=== PATIENT | male | born 1945 | race Caucasian/White ===

== ENCOUNTER 2023-04-27 10:42 | Outpatient (RCR) | payer OTHER, SELFPAY ==
[2023-04-01 11:26] VITALS: BP 147/82
[2023-04-01] MEDS: CUBICIN 120 MG IV (11:32)
[2023-04-01] MEDS: ROCEPHIN 70 MG IV (12:12)
[2023-04-02 11:02] VITALS: BP 151/79
[2023-04-02] MEDS: CUBICIN 120 MG IV (11:22)
[2023-04-02] MEDS: ROCEPHIN 70 MG IV (12:15)
[2023-04-02 12:17] VITALS: BP 129/73
[2023-04-03] MEDS: CUBICIN 120 MG IV (11:15)
[2023-04-03 11:18] VITALS: BP 119/67
[2023-04-03] MEDS: ROCEPHIN 70 MG IV (12:02)
[2023-04-04 08:54] VITALS: BP 111/51
[2023-04-04] MEDS: CUBICIN 120 MG IV (09:35)
[2023-04-04] MEDS: ROCEPHIN 70 MG IV (10:24)
[2023-04-05 10:00] VITALS: BP 128/62
[2023-04-05] MEDS: ROCEPHIN 70 MG IV (10:18)
[2023-04-05 10:40] LABS: % Basophils 0.8 % (0-2); % Eosinophils 3.3 % (0-6); % Immature Granulocytes 0.6 % (0-0.5); % Lymphocytes 12.2 % (20.5-51.1); % Monocytes 12.2 % (1.7-9.3); % Neutrophils 70.9 % (42.2-75.2); Absolute Basophils 0.1 10^3/uL (0-0.2); Absolute Eosinophils 0.3 10^3/uL (0-0.7); Absolute Immature Granulocytes 0.1 10^3/uL (0-0.05); Absolute Lymphocytes 1.1 10^3/uL (1.2-3.4); Absolute Monocytes 1.1 10^3/uL (0.1-0.6); Absolute Neutrophils 6.2 10^3/uL (1.4-6.5); Hematocrit 31.7 % (39.0-52.0); Mean Corp Hgb Conc. 34.7 g/dL (33.0-37.0); Mean Corpuscular Hgb 29.9 pg (27.0-31.0); Mean Corpuscular Volume 86.1 fL (80.0-94.0); Mean Platelet Volume 11.1 fL (7.4-10.4); Nucleated Red Blood Cells % 0 % (-); Platelet Count 126 10^3/uL (130-400); Red Blood Cell Count 3.68 10^6/uL (4.70-6.10); Red Cell Dist. Width 13.4 % (11.5-14.5); White Blood Cell Count 8.8 10^3/uL (4.8-10.8)
[2023-04-05 10:52] LABS: ALT (SGPT) 48 U/L (0-50); AST (SGOT) 71 U/L (17-59); Albumin 3.1 g/dl (3.5-5.0); Alkaline Phosphatase 86 U/L (38-126); Blood Urea Nitrogen 35 mg/dl (9-20); Calcium 8.7 mg/dl (8.4-10.2); Carbon Dioxide 21 mmol/L (22-30); Chloride 103 mmol/L (98-107); Glucose 226 mg/dl (70-99); Potassium 3.8 mmol/L (3.5-5.1); Sodium 135 mmol/L (135-145); Total Protein 5.7 g/dl (6.3-8.2); eGFR 44.65
[2023-04-05] MEDS: CUBICIN 120 MG IV (10:58)
[2023-04-05 13:41] LABS: Creatine Phosphokinase 655 U/L (55-170)
[2023-04-06 10:05] VITALS: BP 120/62
[2023-04-06] MEDS: ROCEPHIN 70 MG IV (10:12)
[2023-04-06 10:54] LABS: Creatine Phosphokinase 338 U/L (55-170)
[2023-04-06] MEDS: CUBICIN 120 MG IV (11:13)
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
--- NOTE | 2023-04-06 16:00 | PTCARENOTE ---
pt arrived to D for his treatment. Pt friend Geo verbalized concern about increasing state of confusion. Wade arrived at Geo's house yesterday asking about his appointment today thinking it was yesterday. While treating patient today, he
slept majority of infusion and while awake repeated the same question multiple times. Pt reoriented to place/time. Notified Paola Moreira CHIEF CLERK SHELTER to assess patient and contact primary care provider to gather baseline cognitive status. Primary care
requested patient to go to ER for further evaluation.
[2023-04-15 11:00] VITALS: BP 139/72
[2023-04-15] MEDS: ROCEPHIN 70 MG IV (11:15)
[2023-04-15] MEDS: VANCOCIN 200 IV (11:55)
[2023-04-16 10:55] VITALS: BP 141/75
[2023-04-16] MEDS: ROCEPHIN 70 MG IV (11:01)
[2023-04-16] MEDS: VANCOCIN 200 IV (11:33)
[2023-04-17 08:58] VITALS: BP 138/79
[2023-04-17] MEDS: ROCEPHIN 70 MG IV (09:04)
[2023-04-17] MEDS: VANCOCIN 200 IV (09:41)
[2023-04-18] MEDS: ROCEPHIN 70 MG IV (08:48)
[2023-04-18 08:50] VITALS: BP 127/65
[2023-04-18] MEDS: VANCOCIN 200 IV (09:29)
[2023-04-19 11:45] VITALS: BP 155/77
[2023-04-19] MEDS: ROCEPHIN 70 MG IV (11:52)
[2023-04-19 12:16] LABS: % Basophils 0.2 % (0-2); % Eosinophils 0.6 % (0-6); % Immature Granulocytes 0.5 % (0-0.5); % Lymphocytes 12.9 % (20.5-51.1); % Monocytes 6.9 % (1.7-9.3); % Neutrophils 78.9 % (42.2-75.2); Absolute Eosinophils 0.1 10^3/uL (0-0.7); Absolute Immature Granulocytes 0.1 10^3/uL (0-0.05); Absolute Monocytes 1.1 10^3/uL (0.1-0.6); Absolute Neutrophils 12.1 10^3/uL (1.4-6.5); Hematocrit 36.7 % (39.0-52.0); Hemoglobin 12.4 g/dL (13.0-18.0); Mean Corp Hgb Conc. 33.8 g/dL (33.0-37.0); Mean Corpuscular Hgb 30.1 pg (27.0-31.0); Mean Corpuscular Volume 89.1 fL (80.0-94.0); Mean Platelet Volume 11.4 fL (7.4-10.4); Nucleated Red Blood Cells % 0 % (-); Platelet Count 150 10^3/uL (130-400); Red Blood Cell Count 4.12 10^6/uL (4.70-6.10); Red Cell Dist. Width 14.5 % (11.5-14.5); White Blood Cell Count 15.4 10^3/uL (4.8-10.8)
[2023-04-19] MEDS: VANCOCIN 200 IV (12:28)
[2023-04-19 12:33] LABS: ALT (SGPT) 41 U/L (0-50); AST (SGOT) 25 U/L (17-59); Albumin 3.3 g/dl (3.5-5.0); Alkaline Phosphatase 91 U/L (38-126); Blood Urea Nitrogen 37 mg/dl (9-20); Calcium 8.4 mg/dl (8.4-10.2); Carbon Dioxide 25 mmol/L (22-30); Chloride 106 mmol/L (98-107); Glucose 254 mg/dl (70-99); Potassium 4.5 mmol/L (3.5-5.1); Sodium 136 mmol/L (135-145); Total Bilirubin 0.5 mg/dl (0.2-1.3); Total Protein 5.9 g/dl (6.3-8.2); eGFR 48.25
[2023-04-19 12:36] LABS: Vancomycin Trough 12.7 ug/ml (5-20)
[2023-04-20 10:55] VITALS: BP 155/71
[2023-04-20] MEDS: ROCEPHIN 70 MG IV (11:10)
[2023-04-20] MEDS: VANCOCIN 200 IV (11:42)
[2023-04-21] MEDS: ROCEPHIN 70 MG IV (10:51)
[2023-04-21 11:07] VITALS: BP 166/72
[2023-04-21] MEDS: VANCOCIN 200 IV (11:28)
[2023-04-22 10:58] VITALS: BP 141/68
[2023-04-22] MEDS: VANCOCIN 200 IV (11:06)
[2023-04-22] MEDS: ROCEPHIN 70 MG IV (12:12)
[2023-04-23 11:00] VITALS: BP 150/67
[2023-04-23] MEDS: ROCEPHIN 70 MG IV (11:09)
[2023-04-23] MEDS: VANCOCIN 200 IV (11:47)
[2023-04-24 08:53] VITALS: BP 146/69
[2023-04-24] MEDS: ROCEPHIN 70 MG IV (08:55)
[2023-04-24] MEDS: VANCOCIN 200 IV (09:36)
[2023-04-25 10:10] VITALS: BP 160/82
[2023-04-25] MEDS: ROCEPHIN 70 MG IV (10:10)
[2023-04-25] MEDS: VANCOCIN 200 IV (10:45)
[2023-04-26 10:56] VITALS: BP 151/66
[2023-04-26] MEDS: ROCEPHIN 70 MG IV (11:07)
[2023-04-26 11:24] LABS: % Basophils 0.5 % (0-2); % Eosinophils 7.1 % (0-6); % Immature Granulocytes 0.3 % (0-0.5); % Lymphocytes 17.7 % (20.5-51.1); % Monocytes 6.7 % (1.7-9.3); % Neutrophils 67.7 % (42.2-75.2); Absolute Eosinophils 0.6 10^3/uL (0-0.7); Absolute Lymphocytes 1.4 10^3/uL (1.2-3.4); Absolute Monocytes 0.5 10^3/uL (0.1-0.6); Absolute Neutrophils 5.3 10^3/uL (1.4-6.5); Hematocrit 34.7 % (39.0-52.0); Hemoglobin 11.6 g/dL (13.0-18.0); Mean Corp Hgb Conc. 33.4 g/dL (33.0-37.0); Mean Corpuscular Hgb 30.2 pg (27.0-31.0); Mean Corpuscular Volume 90.4 fL (80.0-94.0); Nucleated Red Blood Cells % 0 % (-); Red Blood Cell Count 3.84 10^6/uL (4.70-6.10); Red Cell Dist. Width 14.9 % (11.5-14.5); White Blood Cell Count 7.8 10^3/uL (4.8-10.8)
[2023-04-26 11:35] LABS: ALT (SGPT) 29 U/L (0-50); AST (SGOT) 18 U/L (17-59); Alkaline Phosphatase 99 U/L (38-126); Blood Urea Nitrogen 28 mg/dl (9-20); Calcium 8.4 mg/dl (8.4-10.2); Carbon Dioxide 24 mmol/L (22-30); Chloride 102 mmol/L (98-107); Glucose 378 mg/dl (70-99); Potassium 4.3 mmol/L (3.5-5.1); Sodium 134 mmol/L (135-145); Total Bilirubin 0.6 mg/dl (0.2-1.3); Total Protein 5.4 g/dl (6.3-8.2)
[2023-04-26 11:38] LABS: Vancomycin Trough 11.2 ug/ml (5-20)
[2023-04-26] MEDS: VANCOCIN 200 IV (11:43)
[2023-04-26 11:50] LABS: Platelet Count 90 10^3/uL (130-400)
[2023-04-26 12:47] LABS: eGFR 52.41
[2023-04-27] MEDS: ROCEPHIN 70 MG IV (11:10)
[2023-04-27 11:16] VITALS: BP 158/70
[2023-04-27 11:32] LABS: % Basophils 0.5 % (0-2); % Immature Granulocytes 0.3 % (0-0.5); % Lymphocytes 16.4 % (20.5-51.1); % Monocytes 6.7 % (1.7-9.3); % Neutrophils 67.1 % (42.2-75.2); Absolute Eosinophils 0.7 10^3/uL (0-0.7); Absolute Lymphocytes 1.2 10^3/uL (1.2-3.4); Absolute Monocytes 0.5 10^3/uL (0.1-0.6); Absolute Neutrophils 4.9 10^3/uL (1.4-6.5); Hematocrit 33.3 % (39.0-52.0); Hemoglobin 11.2 g/dL (13.0-18.0); Mean Corp Hgb Conc. 33.6 g/dL (33.0-37.0); Mean Corpuscular Hgb 29.9 pg (27.0-31.0); Red Blood Cell Count 3.74 10^6/uL (4.70-6.10); Red Cell Dist. Width 14.6 % (11.5-14.5); White Blood Cell Count 7.3 10^3/uL (4.8-10.8)
[2023-04-27 11:33] LABS: Platelet Count 81 10^3/uL (130-400)
[2023-04-27] MEDS: VANCOCIN 200 IV (11:54)
--- NOTE | 2023-04-27 12:52 | PTCARENOTE ---
Addendum entered by Aleyda Alexander RN 04/27/23 13:47:
1330 PICC line, total catheter length 46cm removed without incident. Dressing applied, no redness or bleeding noted. Instructed patient to leave dressing in place x 24 hours. Pt discharged in good condition.
Original Note:
1143 CBC resulted Platelet count 81,000 Dr. Morrison notified via tiger text. IV antibiotics to be discontinued today and PICC line removed.Written orders obtained. Patient to have follow up labs in one week, script given to patient and daughter.
Bleeding precautions reviewed with patient and daughter as well as printed information about platelet precautions. Patient has follow up in one week with Dr. Morrison.
== END 2023-04-28 23:59 | disposition home or self-care (01) ==
LOC: OID 10:42
PROVIDERS: ATTENDING PHYSICIAN Internal Medicine Infectious Disease; FAMILY PHYSICIAN Family Medicine
DX: U07.1 COVID-19 (principal); I38 Endocarditis, valve unspecified (principal); J80 Acute respiratory distress syndrome; J82.81 Chronic eosinophilic pneumonia; J70.4 Drug-induced interstitial lung disorders, unspecified; T36.8X5A Adverse effect of other systemic antibiotics, initial encounter; N17.8 Other acute kidney failure; N14.19 Nephropathy induced by other drugs, medicaments and biological substances; M62.82 Rhabdomyolysis; G92.8 Other toxic encephalopathy; B96.4 Proteus (mirabilis) (morganii) as the cause of diseases classified elsewhere; I05.9 Rheumatic mitral valve disease, unspecified; Z89.429 Acquired absence of other toe(s), unspecified side
CPT/HCPCS: 36415; 36589; 36591; 80053; 80202; 82550; 85025; 96365; 96366; 96367; J0878

== ENCOUNTER 2023-05-18 12:59 | Inpatient (IN) | payer OTHER, SELFPAY ==
[2023-05-18] VITALS (8 sets, daily range): BP systolic 112–145; BP diastolic 61–78; BMI 32.7
[2023-05-18 08:42] LABS: Glucose - Point of Care 175 mg/dl (70-99)
--- NOTE | 2023-05-18 09:05 | W.PN.CD ---
Today's Communication / Plan
-
Impression / Plan
-
Impression: 77M with severe CAD not amenable to PCI/CABG, presumed IE not a surgical candidate, and poorly controlled DM with HBA1c of 12.7% presenting for JACINTA. He developed anxiety, hypertension, angina, and dyspnea that improved but did not
resolve with SL NTG.
Plan:
HF - I think he developed hypertension that caused angina and then HF. It is now improved with SL NTG.
- Lasix 20 IV now
- increase IMDUR to 60 po qd
- Check CXR and follow up echocardiogram
- admission
Possible IE
- TTE & CT looks like it could be caseous mitral annular calcification, which would be better than IE.
- Will let CTS know we couldn't get JACINTA yet and he's in house.
Osteomyelitis
Severe multivessel coronary disease
- CAD is severe and is not amenable to surgery or PCI.
- Intensify medical therapy as above
ICM EF 40-45%/HFmEF - GDMT as hemodynamics and renal function will permit.
IDDM - HgbA1C = 12.7%.
CKD
Dispo -
Subjective: Dictated
Data:
Echo Mar 17: Left ventricular ejection fraction is 40-45%. Severe hypokinesis of the mid anteroseptal, inferoseptal, apical septal, and apical septal knutson. No LV thrombus present (contrast agent used).�
There is a large round echodense structure essentially comprising the�posterior mitral valve leaflet, measuring approximately 2.5 cm x 2.5 cm in diameter.� It is not highly mobile but appears to be partially obstructing mitral valve inflow (mean
gradient 4 mmHg). The anterior leaflet appears to be unaffected and looks structurally normal with normal mobility.� Mild to moderate mitral regurgitation.�
Cardiac Catheterization, 12/18/2022: Systemic hypertension. Top normal left and right heart filling pressures with borderline mild pulmonary hypertension. Inferoapical and apical akinesis with EF 41%. Severe diffuse and multisegment triple-vessel
CAD as described.� There is no option for percutaneous or surgical revascularization.
Physical Exam
Vital Signs/Labs
05/17/23 05/18/23 05/19/23
06:59 06:59 06:59
Actual Weight 202 lb 9.677 oz
Data Reviewed
-
Date of Service: May 18, 2023
--- NOTE | 2023-05-18 10:01 | HPS.HSE ---
Family Physician
-
Family Physician: Johnson Barker
Chief Complaint
-
Chest pain.
History of Present Illness
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
elective JACINTA. Prior to procedure patient became agitated, developed severe pressure-like chest pain. At that time he noted to have elevated blood pressure with systolic up to 180. Nitroglycerin spray was administered shortly after with
improvement of BP and chest pain. Procedure was aborted. Patient is being admitted for further evaluation.
At the time of my evaluation patient is chest pain-free, hemodynamically stable with no evidence for distress.
Medical History
Past Medical History
Past Medical History: Reports CAD, CHF, IDDM and Other (Infective endocarditis of mitral valve)
Past Surgical History: Reports Other (Toe amputation)
Social History
Tobacco: Non-smoker
Alcohol: None
Drug: None
Living: With Family
Family History
Family History: Not pertinent
Allergies / Home Medications
Allergies reflects when Allergies were last updated in [email or web address].
Home Medications with original date entered in [email or web address]
Allergy/Medication List:
Allergies
Allergy/AdvReac Type Severity Reaction Status Date / Time
daptomycin Allergy Pneumonitis/LISA/elev Verified 04/27/23 11:14
transaminases
Home Medications
aspirin 81 mg chewable tablet 81 mg PO DAILY Blood Clot Prevention/Tx 12/18/22
cholecalciferol (vitamin D3) 125 mcg (5,000 unit) tablet (Vitamin D3) 125 mcg PO DAILY Supplement 12/18/22
clopidogrel 75 mg tablet 75 mg PO DAILY Blood Clot Prevention/Tx 12/18/22
repaglinide 1 mg tablet 1 mg PO BID Diabetes 12/18/22
vit C 226 mg-vit E 90 mg-copper 0.8 mg-zinc oxide-lutein 5 mg capsule (PreserVision Lutein) 1 cap PO DAILY Supplement 12/18/22
insulin aspar prot-insulin aspart 100 unit/mL (70-30) subcutaneous pen (Novolog Mix 70-30FlexPen U-100) 20 unit (0.2 mL) SC DAILY@1700 #15 mL 03/31/23
insulin aspar prot-insulin aspart 100 unit/mL (70-30) subcutaneous pen (Novolog Mix 70-30FlexPen U-100) 35 unit (0.35 mL) SC DAILY@0800 #15 mL 03/31/23
isosorbide mononitrate 30 mg tablet,extended release 24 hr 30 mg PO DAILY #30 tabs 03/31/23
polyethylene glycol 3350 17 gram oral powder packet (HealthyLax) 17 g PO DAILY #30 ea 03/31/23
atorvastatin 40 mg tablet 40 mg PO DAILY High Cholesterol 04/06/23
pantoprazole 40 mg tablet,delayed release 40 mg PO DAILY #30 tabs 04/14/23
Review of Systems
-
A 12 point ROS was completed and negative except as noted: Yes
Respiratory: Reports See HPI
Cardiac: Reports See HPI
Physical Exam
Physical Exam
General: Well Developed, Well Nourished and No Apparent Distress
HEENT: NormoCephalic, Moist mucous membranes and Atraumatic
Respiratory: Clear
Cardiac: S1/S2 and Regular Rhythm; No Murmur or Rub
GI: Soft, Non Tender, Non Distended and Normal Bowel Sounds; No Organomegaly
Rectal: Deferred by Provider
Musculoskeletal: No Clubbing, No Cyanosis and No Edema
Skin: No Rash
Neuro: Nonfocal/grossly intact
Impression/Plan
-
IMPRESSION:
Acute onset of chest pain secondary to demand ischemia in patient with multivessel CAD in the settings of accelerated BP.
Hypertensive urgency, possibly emergency.
Acute CHF, suspected flash pulmonary edema in the settings of elevated BP.
Conditions prior to admission:
Severe multivessel CAD.
Ischemic cardiomyopathy with LVEF 40-45%.
Essential hypertension.
IDDM.
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
Osteomyelitis: Status post left fifth and 4's toe amputation with wound infection wound culture with Morganella and Proteus.
Recent hospitalization with acute hypoxic respiratory failure thought to be due to daptomycin toxicity 04/06 - 04/14/2023
Acute kidney injury likely community secondary to daptomycin and ERICKA inhibitor.
Reactive transaminases.
Neuropathy.
PLAN:
Acute chest pain suspected secondary to demand ischemia in the settings of hypertensive urgency.
CAD, multivessel with no options for revascularization.
Essential hypertension
Check EKG.
Echocardiogram.
Serial troponins.
Plan is for optimization of medical therapy as per cardiology.
Increase Imdur to 60 mg a day.
Consider beta-marcus.
Continue DAPT. Continue PPI
Continue statin
Acute CHF reduced EF
Ischemic cardiomyopathy with LVEF of 45%.
Repeat echocardiogram pending.
Chest x-ray with concern for flash pulmonary edema.
Lasix 20 mg IV to be administered.
Optimization of medical therapy.
Consideration of beta-marcus, SGLT2 inhibitor, reintroduction of ERICKA inhibitor/ARB's with close monitoring of renal function (patient with prior history of LISA possibly related to ERICKA versus secondary to daptomycin.
IDDM with neuropathy.
Poor compliance
Most recent hemoglobin A1c 04/21/11.
Carbohydrate controlled diet.
Insulin 70/30 at preadmission dose
Basal bolus protocol with serial Accu-Cheks
Continue repaglinide
History of LISA.? CKD
BMP pending.
Monitor renal function with diuretics
Full code
DVT prophylaxis Lovenox
[2023-05-18] MEDS: LASIX 20 MG IV (10:27)
[2023-05-18 13:40] LABS: Glucose - Point of Care 233 mg/dl (70-99)
[2023-05-18 14:03] LABS: % Basophils 0.7 % (0-2); % Eosinophils 0.7 % (0-6); % Immature Granulocytes 0.3 % (0-0.5); % Monocytes 7.7 % (1.7-9.3); % Neutrophils 74.6 % (42.2-75.2); Absolute Basophils 0.1 10^3/uL (0-0.2); Absolute Eosinophils 0.1 10^3/uL (0-0.7); Absolute Lymphocytes 1.7 10^3/uL (1.2-3.4); Absolute Monocytes 0.8 10^3/uL (0.1-0.6); Absolute Neutrophils 7.7 10^3/uL (1.4-6.5); Hematocrit 35.9 % (39.0-52.0); Hemoglobin 12.1 g/dL (13.0-18.0); Mean Corp Hgb Conc. 33.7 g/dL (33.0-37.0); Mean Corpuscular Volume 89.1 fL (80.0-94.0); Mean Platelet Volume 11.2 fL (7.4-10.4); Nucleated Red Blood Cells % 0 % (-); Platelet Count 181 10^3/uL (130-400); Red Blood Cell Count 4.03 10^6/uL (4.70-6.10); Red Cell Dist. Width 14.2 % (11.5-14.5); White Blood Cell Count 10.3 10^3/uL (4.8-10.8)
[2023-05-18 14:41] LABS: NT-proBNP 5400 pg/ml; Troponin I 0.121 ng/ml
[2023-05-18] MEDS: LOW STRENGTH ASPIRIN 81 MG PO (14:54)
[2023-05-18] MEDS: MIRALAX 17 GRAMS PO (14:54)
[2023-05-18] MEDS: LIPITOR 40 MG PO (14:54)
[2023-05-18] MEDS: PLAVIX 75 MG PO (14:54)
[2023-05-18] MEDS: PROTONIX 40 MG PO (14:54)
[2023-05-18] MEDS: IMDUR (EXTENDED RELEASE) 60 MG PO (14:57)
[2023-05-18] MEDS: NOVOLOG FLEXPEN-LOW RESISTANCE 2 UNITS SC (14:59)
[2023-05-18 15:52] LABS: Blood Urea Nitrogen 28 mg/dl (9-20); Calcium 8.7 mg/dl (8.4-10.2); Carbon Dioxide 25 mmol/L (22-30); Chloride 104 mmol/L (98-107); Estimated Creatinine Clearance 52 ml/min; Glucose 253 mg/dl (70-99); Potassium 4.5 mmol/L (3.5-5.1); Sodium 137 mmol/L (135-145); eGFR 57.29
[2023-05-18 17:36] LABS: Glucose - Point of Care 322 mg/dl (70-99)
[2023-05-18] MEDS: NOVOLOG FLEXPEN-LOW RESISTANCE 4 UNITS SC (18:30)
[2023-05-18] MEDS: NOVOLOG MIX 70/30 FLEXPEN 20 UNITS SC (18:31)
[2023-05-18] MEDS: PRANDIN 1 MG PO (18:33)
[2023-05-18] MEDS: LOVENOX 40 MG SC (18:34)
--- NOTE | 2023-05-18 19:11 | PTCARENOTE ---
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 Serial troponin are being taken, voiding in BR, CXR showed mild CHF.
[2023-05-18 21:26] LABS: Glucose - Point of Care 234 mg/dl (70-99)
[2023-05-18 22:03] LABS: Troponin I 0.169 ng/ml
--- NOTE | 2023-05-18 22:25 | PTCARENOTE ---
Pt rec'd at change of shift c/o feeling slightly anxious. Laughing with staff during assessment. lungs clear no c/o cp. Pt made aware of need to call nursing if sob or cp should reoccur. second troponin 0.169 slightly higher than previous result.
Sinus on telemetry. call pineda within reach.
[2023-05-19 03:09] VITALS: BP 100/61
[2023-05-19 04:21] VITALS: BMI 31.1
--- NOTE | 2023-05-19 04:23 | PTCARENOTE ---
Rec'd call from lab regarding positive troponin. Glucose noted to be 66. Pt awake, asympt. One 4 oz of OJ given. will recheck at [phone]
--- NOTE | 2023-05-19 04:24 | DOWNTIME ---
There was a [employer] Downtime on 05/19/2023 from 0111 to 05/19/2023 at 0405. Downtime documentation of patient's care, including medication administrations, has been reconciled in the electronic record per guidelines. Refer to the
patient's paper chart under the miscellaneous tab to see printed paper medication records and downtime forms.
[2023-05-19 04:32] LABS: Glucose - Point of Care 70 mg/dl (70-99)
[2023-05-19 04:49] LABS: Troponin I 0.169 ng/ml
[2023-05-19 04:58] LABS: Blood Urea Nitrogen 36 mg/dl (9-20); Calcium 8.9 mg/dl (8.4-10.2); Carbon Dioxide 25 mmol/L (22-30); Chloride 105 mmol/L (98-107); Estimated Creatinine Clearance 47 ml/min; Glucose 66 mg/dl (70-99); Sodium 140 mmol/L (135-145); eGFR 52.41
--- NOTE | 2023-05-19 05:42 | PTCARENOTE ---
clarification bs of 66 noted on am labs during downtime was treated at 0415 with oj 4 oz at 0430 bs via accu check 70. pt requesting a sandwich/given.
[2023-05-19 06:28] LABS: Glucose - Point of Care 198 mg/dl (70-99)
[2023-05-19 07:11] VITALS: BP 125/79
[2023-05-19 07:54] VITALS: BMI 31.1
--- NOTE | 2023-05-19 08:08 | W.PN.CD ---
Today's Communication / Plan
-
- Lasix 20 po qd
- I will shoot for JACINTA tomorrow. Pre treat with anxiety meds too
Impression / Plan
-
Impression: 77M with severe CAD not amenable to PCI/CABG, presumed IE not a surgical candidate, and poorly controlled DM with HBA1c of 12.7% presenting for JACINTA. He developed anxiety, hypertension, angina, and dyspnea and was admitted
Plan:
HF - I think he developed hypertension that caused angina and then HF. It is now improved with SL NTG.
- Lasix 20 po qd
- increased IMDUR to 60 po qd
- CXR with mild CHF
- F/u Echo
Possible IE
- TTE & CT looks like it could be caseous mitral annular calcification, which would be better than IE.
- I will shoot for JACINTA tomorrow. Pre treat with anxiety meds too
Osteomyelitis
Severe multivessel coronary disease
- CAD is severe and is not amenable to surgery or PCI.
- Intensify medical therapy as above
ICM EF 40-45%/HFmEF - GDMT as hemodynamics and renal function will permit.
IDDM - HgbA1C = 12.7%.
CKD
Dispo -
Subjective: He denies CP or palpitations. Dyspnea resolved.
Data:
Echo Mar 17: Left ventricular ejection fraction is 40-45%. Severe hypokinesis of the mid anteroseptal, inferoseptal, apical septal, and apical septal knutson. No LV thrombus present (contrast agent used).�
There is a large round echodense structure essentially comprising the�posterior mitral valve leaflet, measuring approximately 2.5 cm x 2.5 cm in diameter.� It is not highly mobile but appears to be partially obstructing mitral valve inflow (mean
gradient 4 mmHg). The anterior leaflet appears to be unaffected and looks structurally normal with normal mobility.� Mild to moderate mitral regurgitation.�
Cardiac Catheterization, 12/18/2022: Systemic hypertension. Top normal left and right heart filling pressures with borderline mild pulmonary hypertension. Inferoapical and apical akinesis with EF 41%. Severe diffuse and multisegment triple-vessel
CAD as described.� There is no option for percutaneous or surgical revascularization.
Physical Exam
Vital Signs/Labs
Vital Signs
Temp Pulse Resp BP Pulse Ox
36.6 C 73 20 100/61 96
05/19/23 07:12 05/19/23 04:15 05/19/23 07:12 05/19/23 03:09 05/18/23 23:15
05/18/23 05/19/23 05/20/23
06:59 06:59 06:59
Actual Weight 192 lb 7.417 oz
05/18/23 13:55
05/19/23 03:10
05/18/23
13:55
Jet-P-Ywpjeicijvc Pept 5400
LAB Results
05/18/23 05/18/23 05/19/23
13:55 21:26 03:10
Troponin I 0.121 H* 0.169 H* D 0.169 H*
Physical Exam
Constitutional: No acute distress
EENT: Anicteric and Moist mucous membranes
Cardiovascular: Rhythm & rate is regular, Pedal edema is absent, Systolic murmur absent and Diastolic murmur absent
Respiratory: Respiratory effort normal, Lungs clear to auscul., Crackles Absent and Rhonchi Absent
GI: Soft, Distention absent and Non tender
Neuro/Psych: Alert
Data Reviewed
-
Date of Service: May 19, 2023
[2023-05-19 08:59] LABS: Glycohemoglobin (HgbA1c) 9.7 % (4.0-5.6)
--- NOTE | 2023-05-19 09:34 | CM ---
spoke to pt in room, he is prev indep, lives alone and his daughter lives across the street and they are very close. he lives in a 2 story home with 1 step to enter. he denies any dc planning needs or dme's. plan is for dc to home when medically
stable.
[2023-05-19 09:43] LABS: Glucose - Point of Care 186 mg/dl (70-99)
[2023-05-19] MEDS: OCUVITE SOFTGEL 1 CAP PO (09:55)
[2023-05-19] MEDS: NOVOLOG FLEXPEN-LOW RESISTANCE 1 UNITS SC (09:55)
[2023-05-19] MEDS: NOVOLOG MIX 70/30 FLEXPEN 35 UNITS SC (09:56)
[2023-05-19] MEDS: IMDUR (EXTENDED RELEASE) 60 MG PO (09:57)
[2023-05-19] MEDS: LOW STRENGTH ASPIRIN 81 MG PO (09:57)
[2023-05-19] MEDS: PLAVIX 75 MG PO (09:57)
[2023-05-19] MEDS: PROTONIX 40 MG PO (09:58)
[2023-05-19] MEDS: LIPITOR 40 MG PO (09:58)
[2023-05-19] MEDS: MIRALAX PO (09:58)
[2023-05-19] MEDS: PRANDIN 1 MG PO ×2 (09:58→17:18)
[2023-05-19] MEDS: LASIX 20 MG PO (10:00)
[2023-05-19 11:28] VITALS: BP 136/73
[2023-05-19 13:12] LABS: Glucose - Point of Care 270 mg/dl (70-99)
[2023-05-19] MEDS: NOVOLOG FLEXPEN-LOW RESISTANCE 3 UNITS SC ×2 (14:01→17:37)
--- NOTE | 2023-05-19 15:19 | W.PN.HOSP.TC ---
Addendum entered and electronically signed by Ronnell Barney MD 05/19/23 16:31:
Patient seen and examined
Discussed with resident
Impression/plan
Presentation with acute CHF reduced EF
Acute pulmonary edema/flash pulmonary edema in the settings of hypertensive urgency
Responded to Lasix.
Respiratory and volume status remains compensated.
Echocardiogram 05/18 with unchanged LVEF. Noted echodensity on mitral valve.
Plan is for JACINTA in AM.
With n.p.o., hold p.m. dose of insulin 70/30 avoiding hypoglycemia
CKD stage IIIa�B.
Creatinine at the baseline
Monitor on diuretics.
Original Note:
Today's Communication/Plan
-
JACINTA Tomorrow as planned
Continue Lasix
Hold PM dose of Insulin 70/30
BMP in AM
Assessment / Plan
Assessment / Plan
IMPRESSION:
Acute onset of chest pain secondary to demand ischemia in patient with multivessel CAD in the settings of accelerated BP.
Hypertensive urgency, possibly emergency.
Acute CHF, suspected flash pulmonary edema in the settings of elevated BP.
Conditions prior to admission:
Severe multivessel CAD.
Ischemic cardiomyopathy with LVEF 40-45%.
Essential hypertension.
IDDM.
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
Osteomyelitis: Status post left fifth and 4's toe amputation with wound infection wound culture with Morganella and Proteus.
Recent hospitalization with acute hypoxic respiratory failure thought to be due to daptomycin toxicity 04/06 - 04/14/2023
Acute kidney injury likely community secondary to daptomycin and ERICKA inhibitor.
Reactive transaminases.
Neuropathy.
PLAN:
Acute chest pain suspected secondary to demand ischemia in the settings of hypertensive urgency.
CAD, multivessel with no options for revascularization.
Essential hypertension
Check EKG.
Echocardiogram.
Serial troponins.
Plan is for optimization of medical therapy as per cardiology.
Increase Imdur to 60 mg a day.
Consider beta-marcus.
Continue DAPT.� Continue PPI
Continue statin
Acute CHF reduced EF
Ischemic cardiomyopathy with LVEF of 45%.
Repeat echocardiogram pending.
Chest x-ray with concern for flash pulmonary edema.
Lasix 20 mg IV to be administered.
Optimization of medical therapy.
Consideration of beta-marcus, SGLT2 inhibitor, reintroduction of ERICKA inhibitor/ARB's with close monitoring of renal function (patient with prior history of LISA possibly related to ERICKA versus secondary to daptomycin.
IDDM with neuropathy.
Poor compliance
Most recent hemoglobin A1c 04/21/11.
Carbohydrate controlled diet.
Insulin 70/30 at preadmission dose
Basal bolus protocol with serial Accu-Cheks
Continue repaglinide
History of LISA.?� CKD
BMP pending.
Monitor renal function with diuretics
Full code
DVT prophylaxis Lovenox
Anticipated Discharge: 24 - 48 hours
Subjective/Interval History
-
Date of Service: May 19, 2023
Objective Data
-
Labs:
Laboratory Results
05/19/23
03:10
Sodium 140
Potassium 4.0
Chloride 105
Carbon Dioxide 25
BUN 36 H
Creatinine 1.4 H
Glucose 66 L
Calcium 8.9
Vital Signs:
Vital Signs
Temp Pulse Resp BP Pulse Ox
97.8 F 78 20 125/79 99
05/19/23 11:26 05/19/23 09:30 05/19/23 11:26 05/19/23 07:11 05/19/23 09:53
I&O
05/18/23 05/19/23 05/20/23
06:59 06:59 06:59
Intake Total 240 / 240 480 / 480
Balance 240 / 240 480 / 480
Physical Exam
-
General: Well Developed and Well Nourished
HEENT: Normocephalic and Atraumatic
Respiratory: Clear to Auscultation
Cardiac: Regular Rhythm and S1/S2; Negative Murmur or Rub
GI: Soft, Nontender and Nondistended
Musculoskeletal: No Clubbing, No Cyanosis and No Edema
Psych: Calm
[2023-05-19 15:35] VITALS: BP 104/70
[2023-05-19] MEDS: LOVENOX 40 MG SC (17:19)
[2023-05-19 17:37] LABS: Glucose - Point of Care 279 mg/dl (70-99)
--- NOTE | 2023-05-19 19:47 | PTCARENOTE ---
Pt denies any discomfort but states anxiety about JACINTA now planned for 05/20.. Much reassurance given, pt will get anxiety medication prior to procedure tomorrow. Blood sugars 186-279 today. Telemetry shows sinus rhythm with first degree AV block.
[2023-05-19 20:19] VITALS: BP 111/58
[2023-05-19 21:58] LABS: Glucose - Point of Care 183 mg/dl (70-99)
[2023-05-19 23:17] VITALS: BP 131/68
[2023-05-20 04:58] VITALS: BP 119/77
[2023-05-20 05:56] LABS: Glucose - Point of Care 86 mg/dl (70-99)
[2023-05-20 05:59] VITALS: BMI 30.8
--- NOTE | 2023-05-20 05:59 | PTCARENOTE ---
Blood sugar 86
[2023-05-20 06:01] LABS: Blood Urea Nitrogen 32 mg/dl (9-20); Calcium 8.6 mg/dl (8.4-10.2); Carbon Dioxide 25 mmol/L (22-30); Chloride 110 mmol/L (98-107); Estimated Creatinine Clearance 51 ml/min; Glucose 78 mg/dl (70-99); Potassium 3.8 mmol/L (3.5-5.1); Sodium 139 mmol/L (135-145); eGFR 57.29
[2023-05-20 07:19] VITALS: BP 145/89
[2023-05-20] MEDS: ATIVAN 1 MG PO (07:19)
[2023-05-20] MEDS: LOW STRENGTH ASPIRIN 81 MG PO (07:19)
[2023-05-20] MEDS: PLAVIX 75 MG PO (07:20)
[2023-05-20] MEDS: PROTONIX 40 MG PO (07:20)
[2023-05-20 09:17] VITALS: BP 135/71
[2023-05-20 09:18] LABS: Glucose - Point of Care 120 mg/dl (70-99)
[2023-05-20] MEDS: LASIX 20 MG PO (10:00)
[2023-05-20] MEDS: IMDUR (EXTENDED RELEASE) 60 MG PO (10:00)
[2023-05-20] MEDS: NOVOLOG FLEXPEN-LOW RESISTANCE SC (10:00)
[2023-05-20] MEDS: OCUVITE SOFTGEL 1 CAP PO (10:00)
[2023-05-20] MEDS: PRANDIN 1 MG PO (10:01)
[2023-05-20] MEDS: LIPITOR 40 MG PO (10:01)
[2023-05-20] MEDS: MIRALAX 17 GRAMS PO (10:03)
[2023-05-20] MEDS: NOVOLOG MIX 70/30 FLEXPEN 35 UNITS SC (10:03)
--- NOTE | 2023-05-20 11:39 | W.DS.TRANS ---
DC Summary - Central Office Frame [employer]
-
Discharge Instructions:
Sleep Apnea Risk Low
Discharge Diagnosis/Procedures CHF
Hypertensive urgency
Diet 2 Gram Sodium
Instructions:
Stand-Alone Forms:
Changes to Home Medications: Yes
Discharge Medications:
DC Medications w/original date entered in [facility]
aspirin 81 mg chewable tablet 81 mg PO DAILY Blood Clot Prevention/Tx 12/18/22
cholecalciferol (vitamin D3) 125 mcg (5,000 unit) tablet (Vitamin D3) 125 mcg PO DAILY Supplement 12/18/22
clopidogrel 75 mg tablet 75 mg PO DAILY Blood Clot Prevention/Tx 12/18/22
repaglinide 1 mg tablet 1 mg PO BID Diabetes 12/18/22
vit C 226 mg-vit E 90 mg-copper 0.8 mg-zinc oxide-lutein 5 mg capsule (PreserVision Lutein) 1 cap PO DAILY Supplement 12/18/22
insulin aspar prot-insulin aspart 100 unit/mL (70-30) subcutaneous pen (Novolog Mix 70-30FlexPen U-100) 20 unit (0.2 mL) SC DAILY@1700 #15 mL 03/31/23
insulin aspar prot-insulin aspart 100 unit/mL (70-30) subcutaneous pen (Novolog Mix 70-30FlexPen U-100) 35 unit (0.35 mL) SC DAILY@0800 #15 mL 03/31/23
polyethylene glycol 3350 17 gram oral powder packet (HealthyLax) 17 g PO DAILY #30 ea 03/31/23
atorvastatin 40 mg tablet 40 mg PO DAILY High Cholesterol 04/06/23
pantoprazole 40 mg tablet,delayed release 40 mg PO DAILY #30 tabs 04/14/23
furosemide 20 mg tablet 20 mg PO DAILY #30 tabs 05/20/23
isosorbide mononitrate 60 mg tablet,extended release 24 hr 60 mg PO DAILY #30 tabs 05/20/23
Home Medication Changes
Imdur increased.
Lasix started
Pending Results: No
[2023-05-20 11:44] VITALS: BP 107/59
--- NOTE | 2023-05-20 11:57 | W.PN.CD ---
Today's Communication / Plan
-
stable on current regimen
we will arrange for outpatient cardiology follow up
to discuss cardiac MRI at outpatient follow up
Impression / Plan
-
Impression: 77M with severe CAD not amenable to PCI/CABG, presumed IE not a surgical candidate, and poorly controlled DM with HBA1c of 12.7% presenting for JACINTA. He developed anxiety, hypertension, angina, and dyspnea and was admitted.
Plan:
Acute heart failure, systolic: improved s/p IV lasix
-will plan to discharge on lasix 20mg PO daily
-BMP in one week
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
- less likely endocarditis (no documented bacteremia), papillary fibroelastoma, or thrombus
-discussed with CT surgery and hospitalist: does not appear to be a surgical case at this time
-to discuss cardiac MRI at outpatient follow up for additional evaluation
Severe multivessel coronary disease
- CAD is severe and is not amenable to surgery or PCI.
- Intensify medical therapy: imdur 60mg daily
-ASA, Plavix, statin
ICM EF 40-45%
-to add GDMT as outpatient as long as BP and renal function stable
Rhythm: sinus with 1st degree AVB, and some Wenckebach on tele
IDDM - HgbA1C = 12.7 --> 9.7
CKD3a
Osteomyelitis
Subjective: SOB is better.
Data:
Echo Mar 17: Left ventricular ejection fraction is 40-45%. Severe hypokinesis of the mid anteroseptal, inferoseptal, apical septal, and apical septal knutson. No LV thrombus present (contrast agent used).�
There is a large round echodense structure essentially comprising the�posterior mitral valve leaflet, measuring approximately 2.5 cm x 2.5 cm in diameter.� It is not highly mobile but appears to be partially obstructing mitral valve inflow (mean
gradient 4 mmHg). The anterior leaflet appears to be unaffected and looks structurally normal with normal mobility.� Mild to moderate mitral regurgitation.�
Cardiac Catheterization, 12/18/2022: Systemic hypertension. Top normal left and right heart filling pressures with borderline mild pulmonary hypertension. Inferoapical and apical akinesis with EF 41%. Severe diffuse and multisegment triple-vessel
CAD as described.� There is no option for percutaneous or surgical revascularization.
Physical Exam
Vital Signs/Labs
Vital Signs
Temp Pulse Resp BP Pulse Ox
97.8 F 87 18 135/71 97
05/20/23 11:46 05/20/23 09:17 05/20/23 11:46 05/20/23 09:17 05/20/23 11:46
05/19/23 05/20/23 05/21/23
06:59 06:59 06:59
Actual Weight 87.3 kg 86.6 kg
05/18/23 13:55
05/20/23 04:56
05/18/23
13:55
Slh-E-Uzunbsttrdg Pept 5400
LAB Results
05/18/23 05/18/23 05/19/23
13:55 21:26 03:10
Troponin I 0.121 H* 0.169 H* D 0.169 H*
Physical Exam
Constitutional: No acute distress and Comfortable
EENT: Moist mucous membranes
Cardiovascular: Rhythm & rate is regular, Pedal edema is absent, JVD pressure is normal and Systolic murmur present
Respiratory: Respiratory effort normal, Lungs clear to auscul. and Wheeze Absent
GI: Soft, Distention absent and Flat
Neuro/Psych: AO x 3
Data Reviewed
-
Date of Service: May 20, 2023
EKG: Other (Tele: SR, occasional Santosh)
Labs: Labs Reviewed by me
Old Records: Reviewed
Total Time Spent with Patient (in minutes): 50 min, including discussion with CT surgery and hospitalist
--- NOTE | 2023-05-20 12:12 | CM ---
CM following for DC planning needs.
Pt. for DC today.
There are no identified DC needs.
Plan: HOME, no needs.
[2023-05-20 12:19] LABS: Glucose - Point of Care 219 mg/dl (70-99)
[2023-05-20] MEDS: NOVOLOG FLEXPEN-LOW RESISTANCE 2 UNITS SC (12:54)
--- NOTE | 2023-05-20 15:12 | PTCARENOTE ---
Pt had JACINTA, premedicated with ativan. Uneventful recovery post JACINTA. Pt seen by . Telemetry and IV device removed. Discharge instructions reviewed with pt and his daughter regarding CHF guidelines, outpatient blood tests, medications and
their actions and possible side effects, reporting cares and concerns and follow up appt's. Very good understanding by pt's daughter who takes care of him, fair understanding by pt. Pt escorted out via wheelchair and was discharged to home.
== END 2023-05-20 15:00 | disposition home or self-care (01) | DRG 291 ==
LOC: IVU 12:59
PROVIDERS: Internal Medicine; ADMITTING PHYSICIAN Internal Medicine; CONSULT PHYSICIAN Internal Medicine Cardiovascular Disease; FAMILY PHYSICIAN Family Medicine
PROC: B24BZZ4 Ultrasonography of Heart with Aorta, Transesophageal (ICD-10-PCS; 2023-05-20)
DX: I13.0 Hypertensive heart and chronic kidney disease with heart failure and stage 1 through stage 4 chronic kidney disease, or unspecified chronic kidney disease (principal); I33.0 Acute and subacute infective endocarditis; I50.21 Acute systolic (congestive) heart failure; I25.5 Ischemic cardiomyopathy; I25.119 Atherosclerotic heart disease of native coronary artery with unspecified angina pectoris; N18.31 Chronic kidney disease, stage 3a; I16.0 Hypertensive urgency; I34.81 Nonrheumatic mitral (valve) annulus calcification; I34.0 Nonrheumatic mitral (valve) insufficiency; E11.22 Type 2 diabetes mellitus with diabetic chronic kidney disease; I5A Non-ischemic myocardial injury (non-traumatic); F41.9 Anxiety disorder, unspecified; E11.40 Type 2 diabetes mellitus with diabetic neuropathy, unspecified; Z53.9 Procedure and treatment not carried out, unspecified reason; Z88.1 Allergy status to other antibiotic agents; Z79.82 Long term (current) use of aspirin; Z79.02 Long term (current) use of antithrombotics/antiplatelets; Z79.4 Long term (current) use of insulin
CPT/HCPCS: 71045; 80048; 82962; 83036; 83880; 84484; 85025; 93005; 93312; 93320; 93325

== ENCOUNTER 2023-07-25 01:34 | Inpatient (IN) | payer OTHER, SELFPAY ==
[2023-07-24 21:47] VITALS: BMI 29.2
[2023-07-24 21:50] VITALS: BP 130/66
[2023-07-24 22:08] VITALS: BP 111/66
--- NOTE | 2023-07-24 22:12 | ED.GENMED ---
History of Present Illness
General
Chief Complaint: Breathing Problem
Time Seen by Provider: 07/24/23 22:10
Travel History
Have you had any contact with someone who has COVID-19?: No
Do you have any symptoms of coronavirus? Fever > 100 degrees, chills, cough, shortness of breath, sore throat, loss of taste or smell, muscle aches, or headache?: No
History of Present Illness
History of Present Illness:
HPI: Here w/ SOB, dx'd w/ CHF 5M ago. Has been having orthopnea, now w/ worsening SOB/RIGGS. Does have LE edema. No CP. He is known to Dr. Case and states that his Lasix dosing was decreased recently as they placed him on Entresto. They called
Dr. Barker who informed him to come in here for further evaluation. The patient is not sure why he is on Xarelto
EXAM:
GENERAL: Well appearing in no significant distress. His room air sat was 99%. When I did have him walk around the room, his room air sat still was about 98% however he became somewhat diaphoretic and had some overall worsening feeling.
HEENT: Moist oral mucosa
CARDIOVASCULAR: No murmurs, normal heart rate, regular rhythm, No chest wall tenderness
PULMONARY: No respiratory distress, breath sounds are clear for the most part however there are some rales at the left base and some decreased breath sounds at both bases
ABDOMEN: Soft with no peritoneal signs, no tenderness
NEUROLOGIC: Excellent strength all extremities, no coordination deficits
PSYCHIATRIC: Appropriate mental status, normal insight and judgement
EXTREMITIES: Nontender, 1-2+ bilateral lower extremity edema, moves all extremities equally
SKIN: No rash, no lesions
TIME OF INITIAL ENCOUNTER: 10:40 PM
NUMBER AND COMPLEXITY OF PROBLEMS ADDRESSED AT THE ENCOUNTER
� Chronic conditions affecting care: Congestive heart failure, cardiomyopathy, CAD/PR, CKD, IDDM
� Acute Exacerbation and/or Progression of Chronic Illness: This is an acute problem
� Differential Diagnosis includes: CHF exacerbation, volume overload, pneumonia, pleural effusions
AMOUNT AND/OR COMPLEXITY OF DATA TO BE REVIEWED AND ANALYZED
� I performed an independent evaluation of and my interpretation is:
EKG: Undetermined rhythm. Left bundle branch block, on 05/18/2023, the patient was more clearly in a sinus rhythm
CT:
X-rays: Chest x-ray shows some mild pulmonary vascular congestion along with small pleural effusions
Laboratory Studies: Troponin slightly elevated but similar to prior, BNP 7830 which is higher than prior
Other:
� Review of other/old records: I reviewed discharge summary from this past e was admitted with CHF/ischemic cardiomyopathy with an EF of 40 to 45%, he has severe multivessel coronary disease, at that time he had LISA as
well. He was not on Xarelto at that time.
� Clinical information was obtained by an independent historian: I spoke to the daughter at bedside
� Prescriptions/Medications Considered but not given: Consider nitroglycerin however the blood pressure is slightly low.
� Further testing considered but not performed:
RISK OF COMPLICATIONS AND/OR MORBIDITY OR MORTALITY OF PATIENT MANAGEMENT
� Social determinants of health affecting care: Lives at home
� Discussion with other providers: Hospitalist for admission at 12:07 AM
� Escalation of care including admission/observation vs risk of discharge considered: Although patient sats are normal, he does have exertional symptoms but sats do not drop. He does seem to be in increased distress with
exertion. He describes orthopnea with increasing weight gain and increasing lower extremity edema. Will diurese by IV to help patient's symptoms however we will just use low-dose as the patient's renal function has worsened. Planning admission to
the hospital.
Past History
Past History
ED Past Medical History: Hypercholesterolemia and IDDM
ED Past Surgical History: Orthopedic
Social History
Tobacco: Non-smoker
Alcohol: None
Drug: None
Personal: Single
Living: alone
Phy Exam
Physical Exam
Physical Exam:
See HPI
Scores
Heart Failure Risk
Heart Failure Risk Score: Not Applicable
Course
Orders/Labs/Results
Orders:
Orders
07/24/23 21:56
EKG [Electrocardiogram (*1)] Urgent
Reason for Study: Shortness of Breath
EKG- Treatment ONCE
07/24/23 22:14
CR Chest - 2 Views Urgent
Comment:
Reason For Exam: sob
07/24/23 22:54
Basic Metabolic Panel Urgent
Complete Blood Count/With Diff Urgent
Magnesium Urgent
NT-proBNP Urgent
Troponin I Urgent
07/25/23 00:03
Furosemide [Lasix] 20 mg IV NOW STA
Abnormal Lab Results
07/24/23
22:54
RBC 3.62 L 10^6/uL
(4.70-6.10)
Hgb 10.2 L g/dL
(13.0-18.0)
Hct 30.5 L %
(39.0-52.0)
MPV 11.2 H fL
(7.4-10.4)
Absolute Neuts (auto) 7.1 H 10^3/uL
(1.4-6.5)
Absolute Lymphs (auto) 0.8 L 10^3/uL
(1.2-3.4)
Absolute Monos (auto) 0.8 H 10^3/uL
(0.1-0.6)
Neutrophils % 78.3 H %
(42.2-75.2)
Lymphocytes % 8.6 L %
(20.5-51.1)
BUN 47 H mg/dl
(9-20)
Creatinine 2.5 H mg/dL
(0.7-1.3)
Glucose 167 H mg/dl
(70-99)
Troponin I 0.121 H* ng/ml
07/24/23 22:54
07/24/23 22:54
Vital Signs
Initial and Last Documented VS:
Initial Vital Signs
Temp Pulse Resp BP Pulse Ox
97.7 F 87 22 130/66 98
07/24/23 21:50 07/24/23 21:50 07/24/23 21:50 07/24/23 21:50 07/24/23 21:50
Last Documented Vital Signs
Temp Pulse Resp BP Pulse Ox
97.7 F 88 19 114/60 99
07/24/23 21:50 07/25/23 00:36 07/25/23 00:35 07/25/23 00:36 07/25/23 00:35
*Critical Care Note
Total Time (30-74mins, 75-104mins- exclusive of procedures): Not Applicable
ED Attending Note
-
Portions of this chart may have been created with voice recognition software.� Occasional wrong word or��sound alike� substitutions may have occurred due to the inherent limitations of voice recognition software.
Discharge Plan
Departure
Patient Disposition: Admit
Date of Disposition: 07/25/23
Time of Disposition: 00:09
Presentation/result/management discussed w/ accepting MD/DO: Hospitalist
Discharge Problem:
Heart failure
Prescriptions:
No Action
repaglinide 1 mg Tablet
1 mg PO BID
cholecalciferol (vitamin D3) [Vitamin D3] 125 mcg (5,000 unit) Tablet
125 mcg PO DAILY
insulin asp prt-insulin aspart [Novolog Mix 70-30FlexPen U-100] 100 unit/mL (70-30) Insulin Pen
20 unit SC DAILY@1700 Qty: 15 2RF
atorvastatin 40 mg tablet
40 mg PO DAILY
Patient Comments:
04/06/2023: Friend states med supposed to be Discontinued, per note in ecw med is supposed to be put on hold while pt is on Daptomycin
pantoprazole 40 mg Tablet,Delayed Release (Dr/Ec)
40 mg PO DAILY Qty: 30 0RF
isosorbide mononitrate 60 mg Tablet Extended Release 24 Hr
60 mg PO DAILY Qty: 30 0RF
Brilinta 90 mg Tablet
90 mg PO BID
dapagliflozin propanediol [Farxiga] 10 mg Tablet
10 mg PO DAILY
Xarelto 2.5 mg Tablet
2.5 mg PO BID
Entresto 24-26 mg Tablet
1 tab PO DAILY
furosemide 20 mg tablet
40 mg PO DAILY
Rx Instructions:
skipping and Wednesday doses.
insulin asp prt-insulin aspart [Novolog Mix 70-30FlexPen U-100] 100 unit/mL (70-30) insulin pen
28 unit SC DAILY@0800
metoprolol succinate 25 mg Capsule,Sprinkle,Er 24hr
25 mg PO DAILY
Referrals:
Johnson Barker DO [Family Provider] -
Interventions
Interventions:
*Risk Screen - Suicide Last Done: 07/24/23 21:50
*General Assessment Last Done: 07/24/23 21:50
*Neglect/Abuse Screening Last Done: 07/24/23 21:50
ED- Fall Risk Assessment Last Done: 07/24/23 23:06
ED- Cardiac Assessment Last Done: 07/24/23 23:06
ED- Pulmonary Assessment Last Done: 07/24/23 23:06
Discharge Date and Time
Print Language: URDU
[2023-07-24 23:03] LABS: % Basophils 0.6 % (0-2); % Eosinophils 3.5 % (0-6); % Immature Granulocytes 0.3 % (0-0.5); % Lymphocytes 8.6 % (20.5-51.1); % Monocytes 8.7 % (1.7-9.3); % Neutrophils 78.3 % (42.2-75.2); Absolute Basophils 0.1 10^3/uL (0-0.2); Absolute Eosinophils 0.3 10^3/uL (0-0.7); Absolute Lymphocytes 0.8 10^3/uL (1.2-3.4); Absolute Monocytes 0.8 10^3/uL (0.1-0.6); Absolute Neutrophils 7.1 10^3/uL (1.4-6.5); Hematocrit 30.5 % (39.0-52.0); Hemoglobin 10.2 g/dL (13.0-18.0); Mean Corp Hgb Conc. 33.4 g/dL (33.0-37.0); Mean Corpuscular Hgb 28.2 pg (27.0-31.0); Mean Corpuscular Volume 84.3 fL (80.0-94.0); Mean Platelet Volume 11.2 fL (7.4-10.4); Nucleated Red Blood Cells % 0 % (-); Platelet Count 158 10^3/uL (130-400); Red Blood Cell Count 3.62 10^6/uL (4.70-6.10); Red Cell Dist. Width 14.3 % (11.5-14.5); White Blood Cell Count 9.1 10^3/uL (4.8-10.8)
[2023-07-24 23:16] LABS: Blood Urea Nitrogen 47 mg/dl (9-20); Calcium 9.2 mg/dl (8.4-10.2); Carbon Dioxide 23 mmol/L (22-30); Chloride 105 mmol/L (98-107); Estimated Creatinine Clearance 26 ml/min; Glucose 167 mg/dl (70-99); Magnesium 2.2 mg/dl (1.6-2.3); Potassium 3.6 mmol/L (3.5-5.1); Sodium 137 mmol/L (135-145); eGFR 26.14
[2023-07-24 23:32] LABS: NT-proBNP 7830 pg/ml; Troponin I 0.121 ng/ml
[2023-07-25] VITALS (10 sets, daily range): BP systolic 101–119; BP diastolic 50–63; BMI 29.6; BMI 30.1
[2023-07-25] MEDS: LASIX 20 MG IV (00:36)
--- NOTE | 2023-07-25 00:38 | HPS.HSE ---
Family Physician
-
Family Physician: Johnson Barker
Chief Complaint
-
Dizziness and shortness of breath
History of Present Illness
This is a 77-year-old who has a past medical history of CAD status post MA with ischemic EF of 40 to 45%, diabetes, hyperlipidemia, GERD presenting to the emergency department with 1 week of worsening dyspnea on exertion, orthopnea and dizziness.
Patient was more recently status post MA and was started on Brilinta Xarelto and Farxiga. He was seen by his mergers and acquisitions banker on 15 July and appeared to be doing well at that time. However since then the patient has started to develop more exertional
dyspnea and more recently orthopnea. According to the daughter the patient was started on Entresto about 1 week ago. Since then he reported feeling lightheaded. He has also started having increased lower extremity edema. He now is unable to lie
flat due to orthopnea. He denies any cough fevers or chills. His weight has been otherwise stable. He denies any palpitations. He denies chest pain. He denies nausea vomiting or diaphoresis. Patient reports that his urine output has been
reduced although he still urinating frequently. He was also recently started on sertraline.
On arrival in the emergency department his blood pressure was 130/57 with a pulse of 88 and he was satting 97% on room air. His chest x-ray shows interstitial edema. ECG showed wide-complex rhythm with left bundle branch block. No acute ST or T
wave changes. His troponin was 0.12. CBC was within normal limits. His chemistries notable for a BUN of 47 creatinine 2.5 which is up from a baseline of around 1.5.
Medical History
Past Medical History
Past Medical History: Reports CAD, CHF, GERD, Hypercholesterolemia and NIDDM
Additional Past Medical History:
h/o [place] valve endocarditis per chart
Past Surgical History: Reports None
Social History
Tobacco: Non-smoker
Alcohol: None
Drug: None
Personal: Single
Living: With Family
Employment: Retired
Family History
Family History: Not pertinent
Allergies / Home Medications
Allergies reflects when Allergies were last updated in [employer].
Home Medications with original date entered in [employer]
Allergy/Medication List:
Allergies
Allergy/AdvReac Type Severity Reaction Status Date / Time
daptomycin Allergy Pneumonitis/LISA/elev Verified 05/18/23 15:59
transaminases
Home Medications
cholecalciferol (vitamin D3) 125 mcg (5,000 unit) tablet (Vitamin D3) 125 mcg PO DAILY Supplement 12/18/22
repaglinide 1 mg tablet 1 mg PO BID Diabetes 12/18/22
insulin aspar prot-insulin aspart 100 unit/mL (70-30) subcutaneous pen (Novolog Mix 70-30FlexPen U-100) 20 unit (0.2 mL) SC DAILY@1700 #15 mL 03/31/23
atorvastatin 40 mg tablet 40 mg PO DAILY High Cholesterol 04/06/23
pantoprazole 40 mg tablet,delayed release 40 mg PO DAILY #30 tabs 04/14/23
isosorbide mononitrate 60 mg tablet,extended release 24 hr 60 mg PO DAILY #30 tabs 05/20/23
dapagliflozin propanediol 10 mg tablet (Farxiga) 10 mg PO DAILY 07/24/23
furosemide 20 mg tablet 40 mg PO DAILY 07/24/23
insulin aspar prot-insulin aspart 100 unit/mL (70-30) subcutaneous pen (Novolog Mix 70-30FlexPen U-100) 28 unit SC DAILY@0800 07/24/23
rivaroxaban 2.5 mg tablet (Xarelto) 2.5 mg PO BID 07/24/23
sacubitril 24 mg-valsartan 26 mg tablet (Entresto) 1 tab PO DAILY 07/24/23
ticagrelor 90 mg tablet (Brilinta) 90 mg PO BID 07/24/23
metoprolol succinate 25 mg capsule sprinkle, ext. release 24 hr 25 mg PO DAILY 07/25/23
Review of Systems
-
History Source: Patient and Family
Constitutional: Reports No Symptoms
EENT: Reports No Symptoms
Respiratory: Reports Trouble Breathing
Cardiac: Reports Other (leg swelling)
Abdomen/GI: Reports No Symptoms
: Reports Frequency
Musculoskeletal: Reports No Symptoms
Skin: Reports No Symptoms
Neurological: Reports No Symptoms
Endocrine: Reports No Symptoms
Hematologic/Lymphatic: Reports No Symptoms
Psych: Reports No Symptoms
Physical Exam
Vital Signs
Vital Signs
Temp Pulse Resp BP Pulse Ox
97.7 F 88 18 114/60 97
07/24/23 21:50 07/25/23 00:36 07/25/23 00:15 07/25/23 00:36 07/25/23 00:15
Physical Exam
General: Well Developed, Conversant and Obese
HEENT: NormoCephalic, Anicteric, Moist mucous membranes, Atraumatic and PERRLA
Respiratory: Crackles
Cardiac: S1/S2 and Regular Rhythm
Breast: Deferred by me
GI: Soft, Non Tender and Normal Bowel Sounds
Rectal: Deferred by Provider
Genito-urinary: Deferred by me
Musculoskeletal: No Clubbing, Edema, Left Lower Extremity and Edema, Right Lower Extremity
Skin: Warm
Neuro: AO x 3
Hematologic/Lymphatic: No Lymphadenopathy
Psych: Calm
Laboratory Results
-
07/24/23 22:54
07/24/23 22:54
Laboratory Results
Troponin I 0.121 ng/ml H* 07/24/23 22:54
Data Reviewed
-
Diagnostic Radiology: Image Personally Visualized and interpreted
Medical Tests (Nuc Med, Echo, EKG etc): Image Personally Visualized and interpreted
Lab Data: Labs Reviewed by me
Old Records: Reviewed
Impression/Plan
-
IMPRESSION:
77 y.o w/ ischemic cardiomyopathy EF 40 - 45% s/p MA, DM II, presents to ED with 1 week of dizziness and orthopnea. Found to have increased lower extremity edema, increased interstitial markings and small bilateral effusions on xray and elevated
BNP. He appears volume overloaded. His Cr is elevated to 2.5 from baseline of 1.5 and he has boderline low BP. Trop elevation is chronic and essentially unchanged from prior. He has no chest pain.
PLAN:
1. CHF - Suspect CHF exacerbation but etiology unclear. Denies dietary sodium load. Reports compliance with diuretics and meds. Suspect possibly a cardiorenal process due to reduced renal function in setting of lower BP since initiating Entresto
1 week ago. He is total body overloaded despite lower BPs.
- admit to telemetry
- lasix 40mg iv daily for now
- will hold entresto
- echo in am
- daily weights and i/os
- salt and fluid restrictions
- cardiology consultation
2. CAD - Trop 0.121 is chronically elevated. No changes on ECG. No chest pain. Known ischemic cardiomyopathy s/p pci.
- continue brillanta
- continue xarelto 2.5 bid
- continue metoprolol and imdur (hold parameters)
- continue statin
3. LISA - Cr 2.5, up from 1.5. Denies NSAIDs. No contrast. Recently started entresto. Boderline bps
- holding entresto
- volume overloaded, diuresis as above
- avoid nephrotoxins
- nephrology consultation
- obtain u/a and urine lytes urea
4. DM II
- insulin sliding scale
- 70/30 28 am, 20 pm
- held repaglinide
- hold farxiga for LISA
DVTPPX - on xarelto
Full code
--- NOTE | 2023-07-25 02:45 | PTCARENOTE ---
Pt arrived to room 418-01. Pt walked to the bed. Pt AAOx3, VSS. Pt in no sign of acute distress, respirations regular; no dizziness reported. Pt oriented to room, call pineda placed within reach.
[2023-07-25 03:27] LABS: Glucose - Point of Care 145 mg/dl (70-99)
[2023-07-25 08:32] LABS: Glucose - Point of Care 172 mg/dl (70-99)
[2023-07-25] MEDS: VITAMIN D3 (cholecalciferol) 125 MCG PO (08:44)
[2023-07-25] MEDS: PROTONIX 40 MG PO (08:44)
[2023-07-25] MEDS: BRILINTA 90 MG PO ×2 (08:44→19:49)
[2023-07-25] MEDS: LIPITOR 40 MG PO (08:44)
[2023-07-25] MEDS: TOPROL XL 25 MG PO (08:44)
[2023-07-25] MEDS: XARELTO 2.5 MG PO ×2 (08:44→19:49)
[2023-07-25] MEDS: IMDUR (EXTENDED RELEASE) 60 MG PO (08:44)
[2023-07-25] MEDS: LASIX 40 MG IV ×2 (08:45→16:36)
--- NOTE | 2023-07-25 09:19 | CON.CAR ---
Consultation
Consultation Request
Date/Time Consultation Requested: 07/25/2023
Date/Time Consultation Performed: 07/25/2023
Reason for Consultation: CHF
Medical History
-
Chief Complaint: Shortness of breath
History of Present Illness:
77-year-old who has a past medical history of CAD status post NM with ischemic EF of 40 to 45%, diabetes, hyperlipidemia, GERD presenting to the emergency department with 1 week of worsening dyspnea on exertion, orthopnea and dizziness.
Patient was more recently status post NM and was started on Brilinta Xarelto and Farxiga. He was seen by his sociology teacher on 15 July and appeared to be doing well at that time. However since then the patient has started to develop more exertional
dyspnea and more recently orthopnea. According to the daughter the patient was started on Entresto about 1 week ago. Since then he reported feeling lightheaded. He has also started having increased lower extremity edema
Past Medical History
Past Medical History: CAD, CHF (LVEF 40%), GERD, Hypercholesterolemia, NIDDM and Renal Failure (CKD 3)
Social History
Tobacco: Non-Smoker
Alcohol: None
Personal: Single
Living: With Family
Employment: Retired
Family History
Family History: Reviewed & Not Pertinent
Allergies / Home Medications
Allergy/AdvReac Type Severity Reaction Status Date / Time
daptomycin Allergy Pneumonitis/LISA/elev Verified 05/18/23 15:59
transaminases
�Medication �Instructions �Recorded �Confirmed �Type
cholecalciferol (vitamin D3) 125 125 mcg PO DAILY Supplement 12/18/22 07/24/23 History
mcg (5,000 unit) tablet (Vitamin
D3)
repaglinide 1 mg tablet 1 mg PO BID Diabetes 12/18/22 07/24/23 History
insulin aspar prot-insulin aspart 20 unit (0.2 mL) SC DAILY@1700 #15 03/31/23 07/24/23 Rx
100 unit/mL (70-30) subcutaneous mL
pen (Novolog Mix 70-30FlexPen
U-100)
atorvastatin 40 mg tablet 40 mg PO DAILY High Cholesterol 04/06/23 07/24/23 History
pantoprazole 40 mg tablet,delayed 40 mg PO DAILY #30 tabs 04/14/23 07/24/23 Rx
release
isosorbide mononitrate 60 mg 60 mg PO DAILY #30 tabs 05/20/23 07/24/23 Rx
tablet,extended release 24 hr
dapagliflozin propanediol 10 mg 10 mg PO DAILY 07/24/23 07/24/23 History
tablet (Farxiga)
furosemide 20 mg tablet 40 mg PO DAILY 07/24/23 07/24/23 History
insulin aspar prot-insulin aspart 28 unit SC DAILY@0800 07/24/23 07/24/23 History
100 unit/mL (70-30) subcutaneous
pen (Novolog Mix 70-30FlexPen
U-100)
rivaroxaban 2.5 mg tablet (Xarelto) 2.5 mg PO BID 07/24/23 07/24/23 History
sacubitril 24 mg-valsartan 26 mg 1 tab PO DAILY 07/24/23 07/24/23 History
tablet (Entresto)
ticagrelor 90 mg tablet (Brilinta) 90 mg PO BID 07/24/23 07/24/23 History
metoprolol succinate 25 mg capsule 25 mg PO DAILY 07/25/23 07/25/23 History
sprinkle, ext. release 24 hr
Review of Systems
-
History Source: Patient
All other systems: Negative unless noted
Physical Exam
Vital Signs
Temp Pulse Resp BP Pulse Ox
97.6 F 81 16 101/50 95
07/25/23 07:43 07/25/23 07:43 07/25/23 07:43 07/25/23 07:43 07/25/23 07:43
Lab Results
07/24/23 22:54
Troponin I 0.121 ng/ml H* 07/24/23 22:54
Vyp-B-Cbdorqfwics Pept 7830 pg/ml 07/24/23 22:54
Physical Exam
General: Well Developed and Well Nourished
HEENT: Normocephalic and Moist Mucous Membranes
Respiratory: Rhonchi and Non Labored Respirations
Cardiac: S1/S2, Regular Rhythm, Murmur, Peripheral Edema and JVD
GI: Soft, Non Distended and Normal Bowel Sounds
Musculoskeletal: No Clubbing, No Cyanosis and Edema
Skin: Warm
Neuro: Awake, Alert and AO x 3
Impression / Plan
-
77M with severe CAD not amenable to PCI/CABG, and poorly controlled DM with HBA1c of 12.7% admitted with LISA and chronic MS changes. We are called for possible HF and abnormal EKG
Heart failure
-Acute on chronic heart failure
- ICM EF 40-45%/HFmEF
- GDMT as hemodynamics and renal function will permit.
-Currently fluid overloaded.
-Heart failure with mildly reduced ejection fraction with systolic dysfunction
-Last echo shows LVEF of 40%.
-Patient was started on Entresto and Farxiga for guideline directed medical therapy
-Advised patient has not been tolerating it well and presenting now with renal failure.
-Hold Farxiga and Entresto at this time.
-May be able to start low-dose valsartan once able to
-Continue IV Lasix 40 mg daily
-Repeat echo in the morning especially to look for mitral valve endocarditis/ vegetations
Severe multivessel coronary disease
- CAD is severe and is not amenable to surgery or PCI.
- Continue medical therapy with aspirin, atorvastatin, clopidogrel, and Imdur.
IDDM - HgbA1C = 12.7%.
Cardiac Catheterization, 12/18/2022:- Systemic hypertension.
- Top normal left and right heart filling pressures with borderline mild pulmonary hypertension.
- Inferoapical and apical akinesis with EF 41%.
- Severe diffuse and multisegment triple-vessel CAD as described.� There is no option for percutaneous or surgical revascularization.
Infective endocarditis
-JACINTA 05/20/2023: LVEF 45% thickened mitral valve, echodensity at posterior mitral valve leaflet. Highly suspicious for infective endocarditis.
-Treated with antibiotics as per ID.
-Transaminitis was thought to be secondary to daptomycin. Improved.
Data Reviewed
-
EKG: Tracing Personally Visualized and interpreted
Radiology: Report Reviewed by me
Ultrasound: Image Personally Visualized and interpreted
Medical Tests (Nuc Med, Echo etc): Image Personally Visualized and interpreted
Labs: Labs Reviewed by me
Old Records: Reviewed
Total Time Spent with Patient (in minutes): 75
--- NOTE | 2023-07-25 09:27 | W.PN.HOSP.TC ---
Today's Communication/Plan
-
IV Lasix. Monitor renal function.
Assessment / Plan
Assessment / Plan
Physical exam:
General: Acutely ill
HEENT: Normocephalic, Atraumatic and Moist Mucous Membranes
Respiratory: Coarse crackles; Negative Wheezes or Rhonchi
Cardiac: Regular Rhythm and S1/S2
GI: Soft, Nontender and Nondistended
Musculoskeletal: Bilateral lower extremity edema. No Clubbing, No Cyanosis
Neuro: Awake, Alert and Oriented
Psych: Calm
A/P:
Acute on chronic systolic congestive heart failure:
IV diuretics, Lasix 40 mg twice a day
Monitor strict I/O
Monitor daily weight
Monitor renal function and electrolytes
Reviewed latest echocardiogram on our system
Continue guideline-directed medical therapy for heart failure (GDMT)--> on metoprolol succinate, Imdur. Recently started on Entresto and Farxiga but on hold due to renal failure and needs to see if tolerates with blood pressure.
Fluid restriction
Salt restriction
Heart failure education
Follow up clinical response
PT OT eval
Updated daughter, Ann
LISA on CKD:
Likely cardiorenal syndrome
Avoid nephrotoxic
Continue to monitor renal function with diuresis
CAD:
Known multivessel disease with medical management
Cont Brilinta (not on asa)
Continue Imdur
Continue statins
Cont Xarelto
Diabetes mellitus type 2:
Poorly controlled as outpatient
Continue diabetic diet
Insulin sliding scale
Continue home insulin regimen, mixed insulin 70/30 28 am, 20 pm
Monitor blood sugar and adjust medications accordingly
Cognitive deficits:
No formal diagnosed dementia bu there is report of memory impairment. Needs OP f/u.
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
DVT prophylaxis:
Currently on Xarelto
CODE STATUS:
Full code
Total time spent on today's encounter was 52 minutes which included time spent in counseling the patient/family regarding diagnosis and treatment plan as listed above, goals of care, and symptom management. Case was discussed with nursing staff,
specialists, and care coordinators/case management. All labs and imaging personally reviewed by me. Remainder the time spent in detailed review of previous records, lab data, imaging, and other medical provider documentation.
Anticipated Discharge: > 48 hours
Subjective/Interval History
-
Date of Service: July 25, 2023
Patient feels better overall not quite to his baseline. Patient still with shortness of breath today. Has peripheral extremity edema but less
Objective Data
-
Labs:
Laboratory Results
07/24/23 07/25/23
22:54 07:44
WBC 9.1
Hgb 10.2 L
Hct 30.5 L
Plt Count 158
Sodium 137 Pending
Potassium 3.6 Pending
Chloride 105 Pending
Carbon Dioxide 23 Pending
BUN 47 H Pending
Creatinine 2.5 H Pending
Glucose 167 H Pending
Calcium 9.2 Pending
Vital Signs:
Vital Signs
Temp Pulse Resp BP Pulse Ox
97.6 F 81 16 101/50 95
07/25/23 07:43 07/25/23 07:43 07/25/23 07:43 07/25/23 07:43 07/25/23 07:43
I&O
07/24/23 07/25/23 07/26/23
06:59 06:59 06:59
Intake Total 240 / 240
Output Total 1120 / 1120
Balance -880 / -880
[2023-07-25 09:32] LABS: Blood Urea Nitrogen 46 mg/dl (9-20); Calcium 9.1 mg/dl (8.4-10.2); Carbon Dioxide 23 mmol/L (22-30); Chloride 107 mmol/L (98-107); Estimated Creatinine Clearance 35 ml/min; Glucose 130 mg/dl (70-99); Magnesium 2.2 mg/dl (1.6-2.3); Potassium 3.8 mmol/L (3.5-5.1); Sodium 138 mmol/L (135-145); eGFR 34.16
[2023-07-25] MEDS: NOVOLOG MIX 70/30 FLEXPEN 28 UNITS SC (09:58)
[2023-07-25] MEDS: NOVOLOG FLEXPEN-MODERATE RESISTANCE 1 UNITS SC (09:58)
[2023-07-25 10:03] LABS: TSH Reflex To Free T4 3.05 uIU/ml (0.47-4.68)
--- NOTE | 2023-07-25 11:17 | W.CON.NEPH ---
Consultation
-
Date/Time Consultation Requested: July 25, 2023 9 AM
Date/Time Consultation Performed: July 25, 2019 4:11 AM
Requesting Provider: Dr. Kelley
Performing Provider: Dr. Chacon
Reason for Consultation: Acute kidney injury
Medical History
-
Chief Complaint: Acute kidney injury
History of Present Illness:
This is a 77-year-old gentleman who has redo as well as mitral regurgitation who is on chronic diuretic therapy. He is also on Entresto as well as Jardiance. These are all fairly new medications for him within the last month. The reason for this
is uncertain. He has diabetes on insulin therapy which is poorly controlled. He has hyperlipidemia on statin therapy as well. He was admitted to the hospital and sent over by his primary because of progressive lower extremity edema as well as
worsening shortness of breath to the point of shortness of breath at rest. He denies that his weight has increased. He has not changed his diet by his report. At the time of admission he was noted to have a creatinine of 2.5 up from his baseline
of 1.3 replay acute kidney injury.
Past Medical History
Heart failure reduced ejection fraction, mitral valve echodensity, coronary disease, diabetes mellitus type 2, CKD 3A, osteomyelitis, GERD, hyperlipidemia,
Social History
Tobacco: Non-Smoker
Alcohol: None
Family History
No CKD
Allergies / Home Medications
Allergy/AdvReac Type Severity Reaction Status Date / Time
daptomycin Allergy Pneumonitis/LISA/elev Verified 05/18/23 15:59
transaminases
�Medication �Instructions �Recorded �Confirmed �Type
cholecalciferol (vitamin D3) 125 125 mcg PO DAILY Supplement 12/18/22 07/24/23 History
mcg (5,000 unit) tablet (Vitamin
D3)
repaglinide 1 mg tablet 1 mg PO BID Diabetes 12/18/22 07/24/23 History
insulin aspar prot-insulin aspart 20 unit (0.2 mL) SC DAILY@1700 #15 03/31/23 07/24/23 Rx
100 unit/mL (70-30) subcutaneous mL
pen (Novolog Mix 70-30FlexPen
U-100)
atorvastatin 40 mg tablet 40 mg PO DAILY High Cholesterol 04/06/23 07/24/23 History
pantoprazole 40 mg tablet,delayed 40 mg PO DAILY #30 tabs 04/14/23 07/24/23 Rx
release
isosorbide mononitrate 60 mg 60 mg PO DAILY #30 tabs 05/20/23 07/24/23 Rx
tablet,extended release 24 hr
dapagliflozin propanediol 10 mg 10 mg PO DAILY 07/24/23 07/24/23 History
tablet (Farxiga)
furosemide 20 mg tablet 40 mg PO DAILY 07/24/23 07/24/23 History
insulin aspar prot-insulin aspart 28 unit SC DAILY@0800 07/24/23 07/24/23 History
100 unit/mL (70-30) subcutaneous
pen (Novolog Mix 70-30FlexPen
U-100)
rivaroxaban 2.5 mg tablet (Xarelto) 2.5 mg PO BID 07/24/23 07/24/23 History
sacubitril 24 mg-valsartan 26 mg 1 tab PO DAILY 07/24/23 07/24/23 History
tablet (Entresto)
ticagrelor 90 mg tablet (Brilinta) 90 mg PO BID 07/24/23 07/24/23 History
metoprolol succinate 25 mg capsule 25 mg PO DAILY 07/25/23 07/25/23 History
sprinkle, ext. release 24 hr
Review of Systems
-
Shortness of breath improving, lower extremity edema present. No chest pain no abdominal pain no issues with urine output. The remainder of the complete review of systems was negative
Physical Exam
Vital Signs
Vital Signs
Temp Pulse Resp BP Pulse Ox
97.6 F 81 16 101/50 95
07/25/23 07:43 07/25/23 07:43 07/25/23 07:43 07/25/23 07:43 07/25/23 07:43
Lab Results
WBC 9.1 10^3/uL (4.8-10.8) 07/24/23 22:54
RBC 3.62 10^6/uL (4.70-6.10) L 07/24/23 22:54
Hgb 10.2 g/dL (13.0-18.0) L 07/24/23 22:54
Hct 30.5 % (39.0-52.0) L 07/24/23 22:54
Plt Count 158 10^3/uL (130-400) 07/24/23 22:54
Sodium 138 mmol/L (135-145) 07/25/23 07:44
Potassium 3.8 mmol/L (3.5-5.1) 07/25/23 07:44
Chloride 107 mmol/L (98-107) 07/25/23 07:44
Carbon Dioxide 23 mmol/L (22-30) 07/25/23 07:44
BUN 46 mg/dl (9-20) H 07/25/23 07:44
Creatinine 2.0 mg/dL (0.7-1.3) H 07/25/23 07:44
eGFR 34.16 07/25/23 07:44
Glucose 130 mg/dl (70-99) H 07/25/23 07:44
Calcium 9.1 mg/dl (8.4-10.2) 07/25/23 07:44
Izb-J-Cyqirbijojn Pept 7830 pg/ml 07/24/23 22:54
Physical Exam
Patient is awake alert oriented and in no distress. Mood and affect were pleasant, insight and judgment were good. Pupils are equal round and reactive to light, extraocular movements are intact, sclera were anicteric. Hearing was normal, ears and
nose are intact. Oropharynx was clear. Neck was supple with trachea midline and no thyromegaly. Heart was regular rate and rhythm without rubs. Lower extremities with 2+ edema. Lungs were clear to auscultation bilaterally and with normal
excursion. Abdomen was soft, nontender, with normal active bowel sounds, and no hepatosplenomegaly. Skin was without rash and with normal turgor.
Data Reviewed
-
Radiology: Image Personally Visualized and interpreted (Chest x-ray on July 24, 2023 by my reading shows cardiomegaly, mild pleural effusions, pulmonary edema)
Ultrasound: Report Reviewed by me (Ultrasound on April 08, 2023 shows right kidney 12.4 cm, left kidney 13 cm)
Medical Tests (Nuc Med, Echo etc): Image Personally Visualized and interpreted (EKG on July 24, 2023 by my reading shows wide QRS complex left bundle branch block) and Report Reviewed by me (Echocardiogram on May 20, 2023 shows ejection
fraction 45%, moderate MR, mitral valve echodensity)
Labs: Labs Reviewed by me (Creatinine 2.0, potassium 3.8, hemoglobin 10.2, magnesium 2.2, calcium 9.1, BUN 46, proBNP 7830, troponin 0.1-1)
Old Records: Reviewed (On May 20, 2023 creatinine 1.3)
Assessment/Plan
-
Assessment:
Coronary artery disease
Heart failure reduced ejection fraction, decompensated
Pulmonary edema
Lower extremity edema
acute kidney injury
Mitral valve regurgitation
Plan:
Continue diuresis with IV Lasix
Follow basic metabolic panel
Acute kidney is from decompensated heart failure
Hold SGLT, Entresto
[2023-07-25 12:05] LABS: Glucose - Point of Care 273 mg/dl (70-99)
--- NOTE | 2023-07-25 12:06 | CM ---
Patient seen bedside
IA completed.
Patient lives alone in a story home (split-level ?)
Patient daughter has a larger home on the same property.
Patient independent prior to admission.
Patient drives.
Patient has had VN in the past, he thinks it was [facility].
patient in with CHF, currently on IV Lasix.
patient denies HC needs at this time.
PCP: Dr Barker
Pharamcy: Chelsea Pinto
Plan: home no needs anticiapted.
[2023-07-25 13:48] LABS: Urine Albumin Negative (Neg - Trace); Urine Bilirubin Negative (Negative); Urine Character Clear (Clear); Urine Color Yellow; Urine Glucose 3+ (Negative); Urine Ketone Negative (Negative); Urine Leukocyte Trace (Negative); Urine Nitrite Negative (Negative); Urine Occult Blood Negative (Negative); Urine Specific Gravity 1.015 (<1.030); Urine Urobilinogen Negative (Neg - 1+)
[2023-07-25 14:07] LABS: Urine Sodium 96 mmol/L (30-90)
--- NOTE | 2023-07-25 14:14 | PTCARENOTE ---
Patient had a late breakfast and did not order lunch until 1345, awaiting meal tray before insulin administration. aware.
[2023-07-25] MEDS: NOVOLOG FLEXPEN-MODERATE RESISTANCE 5 UNITS SC (14:26)
[2023-07-25 14:32] LABS: Urine Red Blood Cell 0-2 /HPF (0-2)
[2023-07-25 16:06] LABS: Glucose - Point of Care 118 mg/dl (70-99)
[2023-07-25] MEDS: NOVOLOG FLEXPEN-MODERATE RESISTANCE SC (16:08)
[2023-07-25 17:21] LABS: Glucose - Point of Care 132 mg/dl (70-99)
[2023-07-25] MEDS: NOVOLOG MIX 70/30 FLEXPEN 20 UNITS SC (18:21)
[2023-07-25 21:30] LABS: Glucose - Point of Care 67 mg/dl (70-99)
[2023-07-25 22:07] LABS: Glucose - Point of Care 63 mg/dl (70-99)
[2023-07-25 22:47] LABS: Glucose - Point of Care 99 mg/dl (70-99)
[2023-07-26] VITALS (8 sets, daily range): BP systolic 99–133; BP diastolic 51–74; PULSE 81–82; O2SAT 99–100
[2023-07-26 01:01] LABS: Glucose - Point of Care 107 mg/dl (70-99)
[2023-07-26 02:49] LABS: Glucose - Point of Care 158 mg/dl (70-99)
[2023-07-26 07:59] LABS: Hematocrit 32.2 % (39.0-52.0); Hemoglobin 10.4 g/dL (13.0-18.0)
[2023-07-26 08:39] LABS: Glucose - Point of Care 201 mg/dl (70-99)
[2023-07-26 08:54] LABS: Blood Urea Nitrogen 53 mg/dl (9-20); Calcium 9.3 mg/dl (8.4-10.2); Carbon Dioxide 23 mmol/L (22-30); Chloride 104 mmol/L (98-107); Estimated Creatinine Clearance 39 ml/min; Glucose 147 mg/dl (70-99); Potassium 3.9 mmol/L (3.5-5.1); Sodium 138 mmol/L (135-145); eGFR 38.77
[2023-07-26] MEDS: LASIX 40 MG IV ×2 (08:54→16:20)
[2023-07-26] MEDS: PROTONIX 40 MG PO (08:55)
[2023-07-26] MEDS: BRILINTA 90 MG PO ×2 (08:56→20:42)
[2023-07-26] MEDS: IMDUR (EXTENDED RELEASE) 60 MG PO (08:56)
[2023-07-26] MEDS: LIPITOR 40 MG PO (08:56)
[2023-07-26] MEDS: TOPROL XL 25 MG PO (08:56)
[2023-07-26] MEDS: VITAMIN D3 (cholecalciferol) 125 MCG PO (08:57)
[2023-07-26] MEDS: XARELTO 2.5 MG PO ×2 (08:57→20:41)
[2023-07-26] MEDS: NOVOLOG FLEXPEN-MODERATE RESISTANCE 3 UNITS SC ×2 (08:58→12:50)
[2023-07-26] MEDS: NOVOLOG MIX 70/30 FLEXPEN 28 UNITS SC (08:59)
[2023-07-26 09:30] LABS: Glycohemoglobin (HgbA1c) 8.7 % (4.0-5.6)
--- NOTE | 2023-07-26 09:47 | W.PN.HOSP.TC ---
Today's Communication/Plan
-
IV Lasix. Echocardiogram
Assessment / Plan
Assessment / Plan
Physical exam:
General: Acutely ill
HEENT: Normocephalic, Atraumatic and Moist Mucous Membranes
Respiratory: Coarse crackles; Negative Wheezes or Rhonchi
Cardiac: Regular Rhythm and S1/S2
GI: Soft, Nontender and Nondistended
Musculoskeletal: Bilateral lower extremity edema. No Clubbing, No Cyanosis
Neuro: Awake, Alert and Oriented
Psych: Calm
A/P:
Acute on chronic systolic congestive heart failure:
IV diuretics, Lasix 40 mg twice a day
Appreciated cardiology consulted follow-up
Monitor strict I/O
Monitor daily weight
Monitor renal function and electrolytes
Reviewed latest echocardiogram on our system
Continue guideline-directed medical therapy for heart failure (GDMT)--> on metoprolol succinate, Imdur. Recently started on Entresto and Farxiga but on hold due to renal failure and needs to see if tolerates with blood pressure.
Fluid restriction
Salt restriction
Heart failure education
Follow up clinical response
PT OT eval
Plan for transthoracic echocardiogram today
Updated daughter yesterday
LISA on CKD:
Likely cardiorenal syndrome
Creatinine from 2.5 down to 1.8 today
Avoid nephrotoxic
Continue to monitor renal function with diuresis
CAD:
Known multivessel disease with medical management
Cont Brilinta (not on asa)
Continue Imdur
Continue statins
Cont Xarelto
Diabetes mellitus type 2:
Hemoglobin A1c 8.7 during his hospital stay
Continue diabetic diet
Insulin sliding scale
Continue home insulin regimen, mixed insulin 70/30 28 am, 20 pm
Monitor blood sugar and adjust medications accordingly
Cognitive deficits:
No formal diagnosed dementia bu there is report of memory impairment. Needs OP f/u.
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
DVT prophylaxis:
Currently on Xarelto
CODE STATUS:
Full code
Anticipated Discharge: 24 - 48 hours
Subjective/Interval History
-
Date of Service: July 26, 2023
Patient feels less short of breath today. No chest pain. Less peripheral edema
Objective Data
-
Labs:
Laboratory Results
07/26/23
07:17
Hgb 10.4 L
Hct 32.2 L
Sodium 138
Potassium 3.9
Chloride 104
Carbon Dioxide 23
BUN 53 H
Creatinine 1.8 H
Glucose 147 H
Calcium 9.3
Vital Signs:
Vital Signs
Temp Pulse Resp BP Pulse Ox
97.9 F 84 18 125/71 98
07/26/23 07:26 07/26/23 07:26 07/26/23 07:26 07/26/23 07:26 07/26/23 07:26
I&O
07/25/23 07/26/23 07/27/23
06:59 06:59 06:59
Intake Total 240 / 240 750 / 750
Output Total 1120 / 1120 275 / 275
Balance -880 / -880 750 / 750 -275 / -275
--- NOTE | 2023-07-26 10:16 | W.PN.CD ---
Today's Communication / Plan
-
Diuresis
Continue to hold Entresto and SGLT2 inhibitor
For echo
Impression / Plan
-
77M with severe CAD not amenable to PCI/CABG, and poorly controlled DM with HBA1c of 12.7% admitted with LISA and chronic MS changes. We are called for possible HF and abnormal EKG
Acute on chronic HFmidrangeEF, EF 40%
- Still volume overloaded
Ischemic cardiomyopathy
Mitral valve abnormal
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
- Clinically treated for IE 04/2023
- cardiac MRI at outpatient follow up per Dr. Loyola's note 05/20/2023
CAD, severe, for medical therapy
LISA
- Entresto and Farxiga on HOLD
IDDM - HgbA1C = 12.7%.
Subjective:
Feels OK
Physical Exam
Vital Signs/Labs
Vital Signs
Temp Pulse Resp BP Pulse Ox
97.9 F 84 18 125/71 98
07/26/23 07:26 07/26/23 07:26 07/26/23 07:26 07/26/23 07:26 07/26/23 07:26
07/25/23 07/26/23 07/27/23
06:59 06:59 06:59
Actual Weight 88.224 kg 89.613 kg
07/26/23 07:17
07/26/23 07:17
Magnesium 2.2 mg/dl (1.6-2.3) 07/25/23 07:44
07/24/23
22:54
Zpg-T-Pmoktdgikhu Pept 7830
LAB Results
07/24/23
22:54
Troponin I 0.121 H*
Physical Exam
Constitutional: No acute distress
EENT: Anicteric
Cardiovascular: Rhythm & rate is regular and Pedal edema present
Respiratory: Respiratory effort normal and Lungs clear to auscul.
GI: Soft and Distention absent
Neuro/Psych: AO x 3
Data Reviewed
-
Date of Service: July 26, 2023
--- NOTE | 2023-07-26 10:21 | CARDSERVLU ---
Echocardiogram with [facility] completed after protocol screening completed. Allergies verified.
Patent IV site: ___rac__
IV site flushed with 0.9% NaCl pre and post administration.
Diluted bolus method utilized to enhance visualization of ventricular knutson.
Total volume given: __6__ mL
Patient tolerated all procedures well without complications.
[2023-07-26 11:54] LABS: Glucose - Point of Care 215 mg/dl (70-99)
--- NOTE | 2023-07-26 12:27 | W.PN.NEPH.PH ---
Today's Communication / Plan
-
cont lasix
Assessment/Plan
-
Assessment:
Coronary artery disease
Heart failure reduced ejection fraction, decompensated
Pulmonary edema
Lower extremity edema
acute kidney injury
Mitral valve regurgitation
Plan:
cr improving to 1.8, blnad UA
suspect cardiorenal , in [place] renal US was ok
Continue diuresis with IV Lasix
Follow basic metabolic panel
Hold SGLT, Entresto
echo pending
topical cream for right heel irritation
-
-
Date of Service: July 26, 2023
CC / HPI / ROS
-
Chief Complaint:
LISA
History of Present Illness:
cr improving to 1.8
BP stable, wt no change today
k 3.9
Review of Systems:
no cp, sob improving , on RA
c/o irritation of right heel-for 2weeks
Labs
-
Labs:
WBC 9.1 10^3/uL (4.8-10.8) 07/24/23 22:54
RBC 3.62 10^6/uL (4.70-6.10) L 07/24/23 22:54
Hgb 10.4 g/dL (13.0-18.0) L 07/26/23 07:17
Hct 32.2 % (39.0-52.0) L 07/26/23 07:17
Plt Count 158 10^3/uL (130-400) 07/24/23 22:54
Sodium 138 mmol/L (135-145) 07/26/23 07:17
Potassium 3.9 mmol/L (3.5-5.1) 07/26/23 07:17
Chloride 104 mmol/L (98-107) 07/26/23 07:17
Carbon Dioxide 23 mmol/L (22-30) 07/26/23 07:17
BUN 53 mg/dl (9-20) H 07/26/23 07:17
Creatinine 1.8 mg/dL (0.7-1.3) H 07/26/23 07:17
eGFR 38.77 07/26/23 07:17
Glucose 147 mg/dl (70-99) H 07/26/23 07:17
Calcium 9.3 mg/dl (8.4-10.2) 07/26/23 07:17
Igg-V-Hrtbltalnaa Pept 7830 pg/ml 07/24/23 22:54
Physical Exam
-
Vital Signs:
Vital Signs
Temp Pulse Resp BP Pulse Ox
97.5 F 80 18 117/57 100
07/26/23 12:00 07/26/23 12:00 07/26/23 12:00 07/26/23 12:00 07/26/23 12:00
Cardiovascular:: Regular rate and rhythm
Respiratory:: Bilateral: Coarse
Lung Excursion:: Normal
Abdomen:: Nontender and Soft
Extremity Edema:: +2: Bilateral: (improving)
Soto Catheter: No
[2023-07-26] MEDS: HYDROCORTISONE 1% CREAM 1 APPLIC TOPICAL ×2 (13:02→20:42)
--- NOTE | 2023-07-26 13:38 | PTOTSP ---
Pt is independent with ambulation on level surface and elevations without need for any assistive device, on room air, with O2 sat stable at 100%. No skilled PT needs were identified. PT will sign off.
--- NOTE | 2023-07-26 14:14 | PTOTSP ---
Pt currently at independent level with basic self care, transfers and functional mobility in room, bathroom and x household distances without AD. No further skilled OT indicated at this time.
[2023-07-26] MEDS: NOVOLOG FLEXPEN-MODERATE RESISTANCE 1 UNITS SC (16:18)
[2023-07-26] MEDS: NOVOLOG MIX 70/30 FLEXPEN 20 UNITS SC (16:19)
[2023-07-26 16:21] LABS: Glucose - Point of Care 184 mg/dl (70-99)
[2023-07-26 21:34] LABS: Glucose - Point of Care 112 mg/dl (70-99)
[2023-07-27 03:08] VITALS: BP 116/61
[2023-07-27 06:00] VITALS: BMI 29.4
[2023-07-27 07:00] VITALS: BP 118/65
[2023-07-27 07:25] LABS: Hematocrit 34.2 % (39.0-52.0)
--- NOTE | 2023-07-27 07:39 | W.PN.HOSP.TC ---
Addendum entered and electronically signed by Dean Webb MD 07/27/23 14:16:
Nonischemic myocardial injury.
Original Note:
Today's Communication/Plan
-
Continue IV Lasix.
Assessment / Plan
Assessment / Plan
Physical exam:
General: Acutely ill
HEENT: Normocephalic, Atraumatic and Moist Mucous Membranes
Respiratory: Coarse crackles; Negative Wheezes or Rhonchi
Cardiac: Regular Rhythm and S1/S2
GI: Soft, Nontender and Nondistended
Musculoskeletal: Bilateral lower extremity edema. No Clubbing, No Cyanosis
Neuro: Awake, Alert and Oriented
Psych: Calm
Echocardiogram:
Moderately reduced left ventricular systolic function. Left ventricular
ejection fraction is 34% by volumetric assessment.
The basal inferior, mid to apical segments are hypokinetic and the apex is
akinetic.
Thickened mitral leaflets with vegetation the posterior leaflet with severe
mitral regurgitation.
Compared to previous echo 04/07/23, the ejection fraction has decreased from 45-
50% to 34%. The measurement of the vegetation has decreased from 2.5cm x2.5cm
to 1.7x 2.5cm. Although, quality of the image may account for the change.
A/P:
Acute on chronic systolic congestive heart failure:
IV diuretics, Lasix 40 mg twice a day
Appreciated cardiology consulted follow-up
Monitor strict I/O
Monitor daily weight
Monitor renal function and electrolytes
Reviewed latest echocardiogram on our system--> report of latest echocardiogram as above.
Continue guideline-directed medical therapy for heart failure (GDMT)--> on metoprolol succinate, Imdur. Recently started on Entresto and Farxiga but on hold due to renal failure and needs to see if tolerates with relatively low blood pressure.
Fluid restriction
Salt restriction
Heart failure education
Follow up clinical response
PT OT eval
Updated daughter prior
LISA on CKD:
Likely cardiorenal syndrome
Creatinine from 2.5 down to 1.8 today
Avoid nephrotoxic
Continue to monitor renal function with diuresis
CAD:
Known multivessel disease with medical management
Cont Brilinta (not on asa)
Continue Imdur
Continue statins
Cont Xarelto
Diabetes mellitus type 2:
Hemoglobin A1c 8.7 during his hospital stay
Continue diabetic diet
Insulin sliding scale
Continue home insulin regimen, mixed insulin 70/30 28 am, 20 pm
Monitor blood sugar and adjust medications accordingly
Cognitive deficits:
No formal diagnosed dementia bu there is report of memory impairment. Needs OP f/u.
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
DVT prophylaxis:
Currently on Xarelto
CODE STATUS:
Full code
Anticipated Discharge: 24 - 48 hours
Subjective/Interval History
-
Date of Service: July 27, 2023
Patient still with peripheral edema. Less shortness of breath overall. No chest pain
Objective Data
-
Labs:
Laboratory Results
07/27/23
06:03
Hgb 11.0 L
Hct 34.2 L
Sodium Pending
Potassium Pending
Chloride Pending
Carbon Dioxide Pending
BUN Pending
Creatinine Pending
Glucose Pending
Calcium Pending
Vital Signs:
Vital Signs
Temp Pulse Resp BP Pulse Ox
98.1 F 87 20 116/61 97
07/27/23 03:08 07/27/23 03:08 07/27/23 03:08 07/27/23 03:08 07/27/23 03:08
I&O
07/26/23 07/27/23 07/28/23
06:59 06:59 06:59
Intake Total 750 / 750 860 / 860
Output Total 1949 / 1949
Balance 750 / 750 -1090 / -1090
[2023-07-27 08:03] LABS: Blood Urea Nitrogen 52 mg/dl (9-20); Calcium 9.3 mg/dl (8.4-10.2); Carbon Dioxide 24 mmol/L (22-30); Chloride 103 mmol/L (98-107); Estimated Creatinine Clearance 34 ml/min; Glucose 129 mg/dl (70-99); Sodium 140 mmol/L (135-145); eGFR 38.77
[2023-07-27 08:07] LABS: Glucose - Point of Care 166 mg/dl (70-99)
[2023-07-27] MEDS: NOVOLOG FLEXPEN-MODERATE RESISTANCE 1 UNITS SC (08:10)
[2023-07-27] MEDS: NOVOLOG MIX 70/30 FLEXPEN 28 UNITS SC (08:11)
[2023-07-27] MEDS: PROTONIX 40 MG PO (08:12)
[2023-07-27] MEDS: VITAMIN D3 (cholecalciferol) 125 MCG PO (08:12)
[2023-07-27] MEDS: LIPITOR 40 MG PO (08:12)
[2023-07-27] MEDS: XARELTO 2.5 MG PO ×2 (08:12→20:09)
[2023-07-27] MEDS: TOPROL XL 25 MG PO (08:12)
[2023-07-27] MEDS: IMDUR (EXTENDED RELEASE) 60 MG PO (08:12)
[2023-07-27] MEDS: BRILINTA 90 MG PO ×2 (08:13→20:09)
[2023-07-27] MEDS: HYDROCORTISONE 1% CREAM 1 APPLIC TOPICAL ×2 (08:13→20:10)
[2023-07-27] MEDS: LASIX 40 MG IV ×2 (08:13→16:12)
[2023-07-27 08:34] LABS: Potassium 3.9 mmol/L (3.5-5.1)
--- NOTE | 2023-07-27 10:24 | W.PN.NEPH.PH ---
Today's Communication / Plan
-
cont lasix
Assessment/Plan
-
Assessment:
Coronary artery disease
Heart failure reduced ejection fraction, decompensated
Pulmonary edema
Lower extremity edema
acute kidney injury
Mitral valve regurgitation
Plan:
cr stable 1.8, bland UA
suspect cardiorenal , in [place] renal US was ok
Continue diuresis with IV Lasix, DW 84kg
Follow basic metabolic panel
Hold SGLT, Entresto
echo noted EF 34%, de
low salt diet and FR
-
-
Date of Service: July 27, 2023
CC / HPI / ROS
-
Chief Complaint:
LISA
History of Present Illness:
cr stable at 1.8
BP stable, wt decreasing
k 3.9
Review of Systems:
no cp, sob improving , on RA
feels well
Labs
-
Labs:
WBC 9.1 10^3/uL (4.8-10.8) 07/24/23 22:54
RBC 3.62 10^6/uL (4.70-6.10) L 07/24/23 22:54
Hgb 11.0 g/dL (13.0-18.0) L 07/27/23 06:03
Hct 34.2 % (39.0-52.0) L 07/27/23 06:03
Plt Count 158 10^3/uL (130-400) 07/24/23 22:54
Sodium 140 mmol/L (135-145) 07/27/23 06:03
Potassium 3.9 mmol/L (3.5-5.1) 07/27/23 06:03
Chloride 103 mmol/L (98-107) 07/27/23 06:03
Carbon Dioxide 24 mmol/L (22-30) 07/27/23 06:03
BUN 52 mg/dl (9-20) H 07/27/23 06:03
Creatinine 1.8 mg/dL (0.7-1.3) H 07/27/23 06:03
eGFR 38.77 07/27/23 06:03
Glucose 129 mg/dl (70-99) H 07/27/23 06:03
Calcium 9.3 mg/dl (8.4-10.2) 07/27/23 06:03
Pah-R-Evqmsxzovli Pept 7830 pg/ml 07/24/23 22:54
Physical Exam
-
Vital Signs:
Vital Signs
Temp Pulse Resp BP Pulse Ox
97.7 F 86 20 118/65 99
07/27/23 07:00 07/27/23 07:00 07/27/23 07:00 07/27/23 07:00 07/27/23 07:00
Cardiovascular:: Regular rate and rhythm
Respiratory:: Bilateral: CTA
Lung Excursion:: Normal
Abdomen:: Nontender and Soft
Extremity Edema:: +2: Bilateral:
Soto Catheter: No
--- NOTE | 2023-07-27 10:27 | W.PN.CD ---
Today's Communication / Plan
-
IV Lasix
Hold ARNI/SGLT2-I
Impression / Plan
-
77M with severe CAD not amenable to PCI/CABG, and poorly controlled DM with HBA1c of 12.7% admitted with LISA and chronic MS changes. We are called for possible HF and abnormal EKG
Acute on chronic HFrEF, EF 40 => 34%
- Still volume overloaded
Ischemic cardiomyopathy
Mitral valve abnormal =-> SEVERE MR on echo 07/26/2023
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
- Clinically treated for IE 04/2023
- cardiac MRI at outpatient follow up per Dr. Loyola's note 05/20/2023
- Will ask Dr. Loyola if MitraClip or MVreplacement (TMVR) is a potential option)
CAD, severe, for medical therapy
LISA
- Entresto and Farxiga on HOLD
IDDM - HgbA1C = 12.7%.
Subjective:
Feels OK
Physical Exam
Vital Signs/Labs
Vital Signs
Temp Pulse Resp BP Pulse Ox
97.7 F 86 20 118/65 99
07/27/23 07:00 07/27/23 07:00 07/27/23 07:00 07/27/23 07:00 07/27/23 07:00
07/26/23 07/27/23 07/28/23
06:59 06:59 06:59
Actual Weight 89.613 kg 87.657 kg
07/27/23 06:03
07/27/23 06:03
Magnesium 2.2 mg/dl (1.6-2.3) 07/25/23 07:44
07/24/23
22:54
Rhz-Q-Mkvdexxoszw Pept 7830
LAB Results
07/24/23
22:54
Troponin I 0.121 H*
Physical Exam
Constitutional: No acute distress
EENT: Anicteric
Cardiovascular: Rhythm/rate is irregular and Systolic murmur present
Respiratory: Respiratory effort normal and Lungs clear to auscul.
GI: Soft and Distention absent
Neuro/Psych: AO x 3
Data Reviewed
-
Date of Service: July 27, 2023
[2023-07-27 11:00] VITALS: BP 112/72
[2023-07-27 12:05] LABS: Glucose - Point of Care 327 mg/dl (70-99)
[2023-07-27] MEDS: NOVOLOG FLEXPEN-MODERATE RESISTANCE 7 UNITS SC (12:35)
--- NOTE | 2023-07-27 13:57 | PN.CDI ---
CDI
- -
CDI:
Physician Documentation Request
Admit Date: 07/25/23 01:34
Dear Doctor Jon,
Clinical Indicators:
Patient admitted with acute on chronic HFrEF
Troponin level:
07/24/23
22:54
Troponin I 0.121 H*
Based on the above, could you clarify in the progress notes, the appropriate diagnosis, if significant, that supports the above abnormalities and additional evaluation, monitoring and/or treatment rendered:
Non ischemic myocardial injury
Elevated troponin only
Other, please specify
Use of terms such as suspected, likely, concern for, or probable (associated with a specific diagnosis that is being evaluated, monitored, or treated as if it exists) are acceptable and can be coded in the inpatient setting, when documented at the
time of discharge.
Thank you,
LARA Jesus RN
CDI Specialist
available via tiger text
Please use your independent medical judgment in providing your response.
[2023-07-27 15:00] VITALS: BP 111/55
[2023-07-27 16:48] LABS: Glucose - Point of Care 372 mg/dl (70-99)
[2023-07-27] MEDS: NOVOLOG MIX 70/30 FLEXPEN 20 UNITS SC (17:11)
[2023-07-27] MEDS: NOVOLOG FLEXPEN-MODERATE RESISTANCE 9 UNITS SC (17:12)
[2023-07-27 20:17] VITALS: BP 112/60
[2023-07-27 21:15] LABS: Glucose - Point of Care 291 mg/dl (70-99)
[2023-07-27 23:37] VITALS: BP 104/52
[2023-07-28] MEDS: DESYREL 12.5 MG PO (01:14)
[2023-07-28] MEDS: LASIX 20 MG IV (01:15)
[2023-07-28 03:37] VITALS: BP 100/55
[2023-07-28 05:26] VITALS: BMI 29.4
[2023-07-28 07:01] VITALS: BP 106/57
[2023-07-28 07:16] LABS: Glucose - Point of Care 134 mg/dl (70-99)
[2023-07-28 07:33] LABS: Blood Urea Nitrogen 54 mg/dl (9-20); Calcium 8.7 mg/dl (8.4-10.2); Carbon Dioxide 29 mmol/L (22-30); Chloride 101 mmol/L (98-107); Estimated Creatinine Clearance 34 ml/min; Glucose 120 mg/dl (70-99); Potassium 3.8 mmol/L (3.5-5.1); Sodium 136 mmol/L (135-145); eGFR 38.77
[2023-07-28] MEDS: NOVOLOG FLEXPEN-MODERATE RESISTANCE SC (08:07)
[2023-07-28] MEDS: PROTONIX 40 MG PO (08:08)
[2023-07-28] MEDS: IMDUR (EXTENDED RELEASE) 60 MG PO (08:08)
[2023-07-28] MEDS: VITAMIN D3 (cholecalciferol) 125 MCG PO (08:08)
[2023-07-28] MEDS: BRILINTA 90 MG PO ×2 (08:08→21:35)
[2023-07-28] MEDS: TOPROL XL 25 MG PO (08:08)
[2023-07-28] MEDS: XARELTO 2.5 MG PO ×2 (08:08→21:35)
[2023-07-28] MEDS: LIPITOR 40 MG PO (08:09)
[2023-07-28] MEDS: HYDROCORTISONE 1% CREAM 1 APPLIC TOPICAL ×2 (08:09→21:35)
[2023-07-28] MEDS: LASIX 40 MG IV ×2 (08:09→16:36)
[2023-07-28] MEDS: NOVOLOG MIX 70/30 FLEXPEN 28 UNITS SC (08:10)
--- NOTE | 2023-07-28 09:55 | PTCARENOTE ---
Patient endorsing anxiety and asking for something to alleviate it. Provider notified.
--- NOTE | 2023-07-28 10:59 | W.PN.CD ---
Today's Communication / Plan
-
JACINTA tomorrow
continue IV lasix
Impression / Plan
-
77M with severe CAD not amenable to PCI/CABG, DM, admitted with LISA and chronic MS changes. We are called for HF and abnormal EKG
Acute on chronic HFrEF, EF 40 => 34%
- Still volume overloaded
-cont IV lasix, with close monitoring of labs and tele
Ischemic cardiomyopathy
-entresto and farxiga on hold with recovering LISA
-cont Toprol XL
Mitral valve abnormal =-> SEVERE MR on echo 07/26/2023
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
- Clinically treated for IE 04/2023
- there appears to be progression of his MR
- will do JACINTA tomorrow (was moderate MR on last JACINTA) to determine if we need to consider valve intervention
CAD, severe
-medical therapy: not amenable to CABG or PCI (cath report 11/2022)
-Severe diffuse and multisegment triple-vessel CAD as described
1st degree AVB, LBBB
LISA
- Entresto and Farxiga on HOLD; nephrology consulted
- improving with diuresis, likely cardiorenal
IDDM
-per primary team
Subjective:
Continues with SOB, edema.
Physical Exam
Vital Signs/Labs
Vital Signs
Temp Pulse Resp BP Pulse Ox
97.6 F 79 16 106/57 100
07/28/23 07:01 07/28/23 07:01 07/28/23 07:01 07/28/23 07:01 07/28/23 07:01
07/27/23 07/28/23 07/29/23
06:59 06:59 06:59
Actual Weight 87.657 kg 87.572 kg
07/27/23 06:03
07/28/23 05:53
Magnesium 2.0 mg/dl (1.6-2.3) 07/28/23 05:53
07/24/23
22:54
Cjx-X-Hhkkngqfvko Pept 7830
Physical Exam
Constitutional: No acute distress and Comfortable
EENT: Moist mucous membranes
Cardiovascular: Rhythm & rate is regular, Pedal edema present, JVD present and Systolic murmur present
Respiratory: Respiratory effort normal and Lungs clear to auscul.
GI: Soft and Distention absent
Neuro/Psych: AO x 3
Data Reviewed
-
Date of Service: July 28, 2023
EKG: Other (Tele: SR)
Echo: Tracing Personally Visualized and interpreted
Labs: Labs Reviewed by me
--- NOTE | 2023-07-28 11:04 | W.PN.HOSP.TC ---
Today's Communication/Plan
-
P.o. past midnight for JACINTA in the morning
Continue IV Lasix
Assessment / Plan
Assessment / Plan
Physical exam:
General: Acutely ill
HEENT: Normocephalic, Atraumatic and Moist Mucous Membranes
Respiratory: Coarse crackles; Negative Wheezes or Rhonchi
Cardiac: Regular Rhythm and S1/S2
GI: Soft, Nontender and Nondistended
Musculoskeletal: Bilateral lower extremity edema. No Clubbing, No Cyanosis
Neuro: Awake, Alert and Oriented
Psych: Calm
Echocardiogram:
Moderately reduced left ventricular systolic function. Left ventricular
ejection fraction is 34% by volumetric assessment.
The basal inferior, mid to apical segments are hypokinetic and the apex is
akinetic.
Thickened mitral leaflets with vegetation the posterior leaflet with severe
mitral regurgitation.
Compared to previous echo 04/07/23, the ejection fraction has decreased from 45-
50% to 34%. The measurement of the vegetation has decreased from 2.5cm x2.5cm
to 1.7x 2.5cm. Although, quality of the image may account for the change.
A/P:
Acute on chronic systolic congestive heart failure:
IV diuretics, Lasix 40 mg twice a day
Appreciated cardiology consulted follow-up
Monitor strict I/O
Monitor daily weight
Monitor renal function and electrolytes
Reviewed latest echocardiogram on our system--> report of latest echocardiogram as above.
Continue guideline-directed medical therapy for heart failure (GDMT)--> on metoprolol succinate, Imdur. Recently started on Entresto and Farxiga but on hold due to renal failure and needs to see if tolerates with relatively low blood pressure.
Fluid restriction
Salt restriction
Heart failure education
Follow up clinical response
PT OT eval
Discussed with cardiology plan for JACINTA in the morning to better visualize mitral valve
LISA on CKD:
Likely cardiorenal syndrome
Creatinine from 2.5 down to 1.8 today
Avoid nephrotoxic
Continue to monitor renal function with diuresis
CAD:
Known multivessel disease with medical management
Cont Brilinta (not on asa)
Continue Imdur
Continue statins
Cont Xarelto
Diabetes mellitus type 2:
Hemoglobin A1c 8.7 during his hospital stay
Continue diabetic diet
Insulin sliding scale
Continue home insulin regimen, mixed insulin 70/30 28 am, 20 pm
Monitor blood sugar and adjust medications accordingly
Cognitive deficits:
No formal diagnosed dementia bu there is report of memory impairment. Needs OP f/u.
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
Mild anxiety�Xanax as needed while in the hospital
DVT prophylaxis:
Currently on Xarelto
CODE STATUS:
Full code
Anticipated Discharge: > 48 hours
Subjective/Interval History
-
Date of Service: July 28, 2023
States of some anxiety
Denies chest pain or shortness of breath
Objective Data
-
Labs:
Laboratory Results
07/28/23
05:53
Sodium 136
Potassium 3.8
Chloride 101
Carbon Dioxide 29
BUN 54 H
Creatinine 1.8 H
Glucose 120 H
Calcium 8.7
Vital Signs:
Vital Signs
Temp Pulse Resp BP Pulse Ox
97.6 F 79 16 106/57 100
07/28/23 07:01 07/28/23 07:01 07/28/23 07:01 07/28/23 07:01 07/28/23 07:01
I&O
07/27/23 07/28/23 07/29/23
06:59 06:59 06:59
Intake Total 860 / 860 960 / 960
Output Total 1949 3550 / 3550
Balance -1090 / -1090 -2590 / -2590
Data Reviewed
-
Total Time Spent with Patient (in minutes): 55
--- NOTE | 2023-07-28 11:13 | CM ---
Patient sen bedside.
Plan JACINTA in am.
Plan: home no needs. Daughter will transport.
[2023-07-28 11:14] LABS: Glucose - Point of Care 267 mg/dl (70-99)
[2023-07-28 11:30] VITALS: BP 114/58
--- NOTE | 2023-07-28 12:31 | W.PN.NEPH.PH ---
Today's Communication / Plan
-
Maintain Lasix
Follow BMP
Assessment/Plan
-
Assessment:
Coronary artery disease
Heart failure reduced ejection fraction, decompensated
Pulmonary edema
Lower extremity edema
acute kidney injury
Mitral valve regurgitation
Plan:
cr stable 1.8, bland UA
suspect cardiorenal , in [facility] renal US was ok
Continue diuresis with IV Lasix, DW 84kg, > 3liters uop
Follow basic metabolic panel
Hold SGLT, Entresto (remains hypotensive)
echo noted EF 34%, de
low salt diet and FR
-
-
Date of Service: July 28, 2023
CC / HPI / ROS
-
Chief Complaint:
LISA
History of Present Illness:
cr stable at 1.8
BP stable, wt decreasing
k 3.9
Review of Systems:
no cp, sob improving , on RA
feels well
Labs
-
Labs:
WBC 9.1 10^3/uL (4.8-10.8) 07/24/23 22:54
RBC 3.62 10^6/uL (4.70-6.10) L 07/24/23 22:54
Hgb 11.0 g/dL (13.0-18.0) L 07/27/23 06:03
Hct 34.2 % (39.0-52.0) L 07/27/23 06:03
Plt Count 158 10^3/uL (130-400) 07/24/23 22:54
Sodium 136 mmol/L (135-145) 07/28/23 05:53
Potassium 3.8 mmol/L (3.5-5.1) 07/28/23 05:53
Chloride 101 mmol/L (98-107) 07/28/23 05:53
Carbon Dioxide 29 mmol/L (22-30) 07/28/23 05:53
BUN 54 mg/dl (9-20) H 07/28/23 05:53
Creatinine 1.8 mg/dL (0.7-1.3) H 07/28/23 05:53
eGFR 38.77 07/28/23 05:53
Glucose 120 mg/dl (70-99) H 07/28/23 05:53
Calcium 8.7 mg/dl (8.4-10.2) 07/28/23 05:53
Iam-L-Fdfohteunrs Pept 7830 pg/ml 07/24/23 22:54
Physical Exam
-
Vital Signs:
Vital Signs
Temp Pulse Resp BP Pulse Ox
97.6 F 79 16 106/57 100
07/28/23 07:01 07/28/23 07:01 07/28/23 07:01 07/28/23 07:01 07/28/23 07:01
Cardiovascular:: Regular rate and rhythm
Respiratory:: Bilateral: Coarse
Lung Excursion:: Normal
Abdomen:: Nontender and Soft
Bowel Sounds:: Normal
Extremity Edema:: +2: Bilateral:
[2023-07-28] MEDS: NOVOLOG FLEXPEN-MODERATE RESISTANCE 5 UNITS SC (12:35)
[2023-07-28 16:00] VITALS: BP 96/66
[2023-07-28 16:39] LABS: Glucose - Point of Care 191 mg/dl (70-99)
[2023-07-28] MEDS: NOVOLOG MIX 70/30 FLEXPEN 20 UNITS SC (17:46)
[2023-07-28] MEDS: NOVOLOG FLEXPEN-MODERATE RESISTANCE 1 UNITS SC (17:46)
[2023-07-28 19:52] VITALS: BP 112/60
[2023-07-28 21:39] LABS: Glucose - Point of Care 214 mg/dl (70-99)
[2023-07-28 23:33] VITALS: BP 122/60
[2023-07-29] MEDS: XANAX 0.25 MG PO ×2 (01:30→20:08)
[2023-07-29 03:41] VITALS: BP 122/68
[2023-07-29 06:00] VITALS: BMI 29.1
[2023-07-29 06:24] LABS: Glucose - Point of Care 125 mg/dl (70-99)
[2023-07-29 07:30] VITALS: BP 130/74
[2023-07-29] MEDS: NOVOLOG FLEXPEN-MODERATE RESISTANCE SC (08:21)
[2023-07-29] MEDS: NOVOLOG MIX 70/30 FLEXPEN SC (08:22)
[2023-07-29 08:23] LABS: Blood Urea Nitrogen 55 mg/dl (9-20); Calcium 9.4 mg/dl (8.4-10.2); Carbon Dioxide 26 mmol/L (22-30); Chloride 100 mmol/L (98-107); Estimated Creatinine Clearance 33 ml/min; Glucose 132 mg/dl (70-99); Potassium 3.4 mmol/L (3.5-5.1); Sodium 138 mmol/L (135-145); eGFR 36.33
[2023-07-29] MEDS: LASIX 40 MG IV ×2 (08:26→15:44)
[2023-07-29] MEDS: LIPITOR 40 MG PO (08:26)
[2023-07-29] MEDS: HYDROCORTISONE 1% CREAM 1 APPLIC TOPICAL ×2 (08:26→20:08)
[2023-07-29] MEDS: BRILINTA 90 MG PO ×2 (08:26→20:08)
[2023-07-29] MEDS: PROTONIX 40 MG PO (08:26)
[2023-07-29] MEDS: XARELTO 2.5 MG PO ×2 (08:26→20:07)
[2023-07-29] MEDS: IMDUR (EXTENDED RELEASE) 60 MG PO (08:26)
[2023-07-29] MEDS: TOPROL XL 25 MG PO ×2 (08:26→19:59)
[2023-07-29] MEDS: VITAMIN D3 (cholecalciferol) 125 MCG PO (08:26)
--- NOTE | 2023-07-29 10:32 | W.PN.CD ---
Today's Communication / Plan
-
IV lasix
discuss options with CT surgery
Impression / Plan
-
77M with severe CAD not amenable to PCI/CABG, DM, admitted with LISA and chronic MS changes. We are called for HF and abnormal EKG
Acute on chronic HFrEF, EF 40 => 34%
- Still volume overloaded
-cont IV lasix, with close monitoring of labs and tele
Ischemic cardiomyopathy
-entresto and farxiga on hold with recovering LISA
-cont Toprol XL: increased to bid
Mitral valve abnormal =-> SEVERE MR on echo 07/26/2023
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
- Clinically treated for IE 04/2023
-of note, Bcx were negative
- there appears to be progression of his MR
- JACINTA confirms severe MR: fixed posterior leaflet (? remodeling of caseous MAC)
-will review with CT surgery to determine if surgical candidate
-if not surgical candidate, will evaluate for MitraClip vs TMVR
-mild MS also noted
CAD, severe
-medical therapy: not amenable to CABG or PCI (cath report 11/2022)
-Severe diffuse and multisegment triple-vessel CAD as described
1st degree AVB, LBBB
LISA
- Entresto and Farxiga on HOLD; nephrology consulted
- improving with diuresis, likely cardiorenal
IDDM
-per primary team
Subjective:
Continues with SOB, edema.
Physical Exam
Vital Signs/Labs
Vital Signs
Temp Pulse Resp BP Pulse Ox
98.3 F 91 18 130/74 98
07/29/23 07:30 07/29/23 07:30 07/29/23 07:30 07/29/23 07:30 07/29/23 07:30
07/28/23 07/29/23 07/30/23
06:59 06:59 06:59
Actual Weight 87.572 kg 86.806 kg
07/27/23 06:03
07/29/23 07:35
Magnesium 2.0 mg/dl (1.6-2.3) 07/28/23 05:53
07/24/23
22:54
Qbl-F-Ikomzfrbwlh Pept 7830
Physical Exam
Constitutional: No acute distress and Comfortable
EENT: Moist mucous membranes
Cardiovascular: Rhythm & rate is regular, Pedal edema present, JVD present and Systolic murmur present
Respiratory: Respiratory effort normal and Lungs clear to auscul.
GI: Soft and Distention absent
Neuro/Psych: AO x 3
Data Reviewed
-
Date of Service: July 29, 2023
Echo: Tracing Personally Visualized and interpreted (JACINTA: severe MR)
Labs: Labs Reviewed by me
--- NOTE | 2023-07-29 10:44 | W.PN.HOSP.TC ---
Today's Communication/Plan
-
Continue with diuresis
Monitor creatinine
Cardiology/CT surgery recs
Diuretics per nephrology
replete kcl
Assessment / Plan
Assessment / Plan
Physical exam:
General: Acutely ill
HEENT: Normocephalic, Atraumatic and Moist Mucous Membranes
Respiratory: Coarse crackles; Negative Wheezes or Rhonchi
Cardiac: Regular Rhythm and S1/S2
GI: Soft, Nontender and Nondistended
Musculoskeletal: Bilateral lower extremity edema. No Clubbing, No Cyanosis
Neuro: Awake, Alert and Oriented
Psych: Calm
Echocardiogram:
Moderately reduced left ventricular systolic function. Left ventricular
ejection fraction is 34% by volumetric assessment.
The basal inferior, mid to apical segments are hypokinetic and the apex is
akinetic.
Thickened mitral leaflets with vegetation the posterior leaflet with severe
mitral regurgitation.
Compared to previous echo 04/07/23, the ejection fraction has decreased from 45-
50% to 34%. The measurement of the vegetation has decreased from 2.5cm x2.5cm
to 1.7x 2.5cm. Although, quality of the image may account for the change.
A/P:
Acute on chronic systolic congestive heart failure:
Severe mitral regurgitation.
IV diuretics, Lasix 40 mg twice a day
Appreciated cardiology consulted follow-up
Monitor strict I/O
Monitor daily weight
Monitor renal function and electrolytes
Reviewed latest echocardiogram on our system--> report of latest echocardiogram as above.
Continue guideline-directed medical therapy for heart failure (GDMT)--> on metoprolol succinate, Imdur. Recently started on Entresto and Farxiga but on hold due to renal failure and needs to see if tolerates with relatively low blood pressure.
Fluid restriction
Salt restriction
Heart failure education
Follow up clinical response
PT OT eval
Discussed with cardiology and JACINTA with severe mitral regurgitation. Cardiology to discuss with CT surgery.
LISA on CKD:
Likely cardiorenal syndrome
Creatinine from 2.5. At 1.9 today.
Avoid nephrotoxic
Continue to monitor renal function with diuresis
CAD:
Known multivessel disease with medical management
Cont Brilinta (not on asa)
Continue Imdur
Continue statins
Cont Xarelto
Diabetes mellitus type 2:
Hemoglobin A1c 8.7 during his hospital stay
Continue diabetic diet
Insulin sliding scale
Continue home insulin regimen, mixed insulin 70/30 28 am, 20 pm
Monitor blood sugar and adjust medications accordingly
Cognitive deficits:
No formal diagnosed dementia bu there is report of memory impairment. Needs OP f/u.
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
Mild anxiety�Xanax as needed while in the hospital
Hypokalemia-replete/monitor
DVT prophylaxis:
Currently on Xarelto
CODE STATUS:
Full code
Anticipated Discharge: > 48 hours
Subjective/Interval History
-
Date of Service: July 29, 2023
Seen post JACINTA
Remains on room air
Denies any discomfort or chest pain
Objective Data
-
Labs:
Laboratory Results
07/29/23
07:35
Sodium 138
Potassium 3.4 L
Chloride 100
Carbon Dioxide 26
BUN 55 H
Creatinine 1.9 H
Glucose 132 H
Calcium 9.4
Vital Signs:
Vital Signs
Temp Pulse Resp BP Pulse Ox
98.3 F 91 18 130/74 98
07/29/23 07:30 07/29/23 07:30 07/29/23 07:30 07/29/23 07:30 07/29/23 07:30
I&O
07/28/23 07/29/23 07/30/23
06:59 06:59 06:59
Intake Total 960 / 960 905 / 905
Output Total 3550 / 3550 1600 / 1600
Balance -2590 / -2590 -695 / -695
[2023-07-29 11:00] VITALS: BP 115/64
[2023-07-29 11:05] LABS: Glucose - Point of Care 172 mg/dl (70-99)
--- NOTE | 2023-07-29 11:32 | W.PN.NEPH.PH ---
Today's Communication / Plan
-
Maintain diuresis follow basic metabolic
Replete potassium
Assessment/Plan
-
Assessment:
Coronary artery disease
Heart failure reduced ejection fraction, decompensated
Pulmonary edema
Lower extremity edema
acute kidney injury
Mitral valve regurgitation
Plan:
cr stable 1.9 bland UA
suspect cardiorenal , in [place] renal US was ok
Continue diuresis with IV Lasix, DW 84kg, > 1600 cc uop, weights down another kg
Follow basic metabolic panel
Holding SGLT, Entresto (remains hypotensive)
echo noted EF 34%, de
low salt diet and FR
-
-
Date of Service: July 29, 2023
CC / HPI / ROS
-
Chief Complaint:
LISA
History of Present Illness:
cr stable at 1.9
BP stable, wt decreasing
k 3.4
Review of Systems:
no cp, sob improving , on RA
feels well
Weights down
non oliguric
Labs
-
Labs:
WBC 9.1 10^3/uL (4.8-10.8) 07/24/23 22:54
RBC 3.62 10^6/uL (4.70-6.10) L 07/24/23 22:54
Hgb 11.0 g/dL (13.0-18.0) L 07/27/23 06:03
Hct 34.2 % (39.0-52.0) L 07/27/23 06:03
Plt Count 158 10^3/uL (130-400) 07/24/23 22:54
Sodium 138 mmol/L (135-145) 07/29/23 07:35
Potassium 3.4 mmol/L (3.5-5.1) L 07/29/23 07:35
Chloride 100 mmol/L (98-107) 07/29/23 07:35
Carbon Dioxide 26 mmol/L (22-30) 07/29/23 07:35
BUN 55 mg/dl (9-20) H 07/29/23 07:35
Creatinine 1.9 mg/dL (0.7-1.3) H 07/29/23 07:35
eGFR 36.33 07/29/23 07:35
Glucose 132 mg/dl (70-99) H 07/29/23 07:35
Calcium 9.4 mg/dl (8.4-10.2) 07/29/23 07:35
Nfd-W-Kirewmmrxqe Pept 7830 pg/ml 07/24/23 22:54
Physical Exam
-
Vital Signs:
Vital Signs
Temp Pulse Resp BP Pulse Ox
97.0 F 88 16 115/64 98
07/29/23 11:00 07/29/23 11:00 07/29/23 11:00 07/29/23 11:00 07/29/23 11:00
Cardiovascular:: Regular rate and rhythm
Respiratory:: Bilateral: Coarse
Lung Excursion:: Normal
Abdomen:: Nontender and Soft
Bowel Sounds:: Normal
Extremity Edema:: +1: Bilateral:
[place] Catheter: No
--- NOTE | 2023-07-29 11:43 | CONSULT.CT ---
Consultation
-
Date/Time Consultation Requested: 07/29/23
Date/Time Consultation Performed: 07/29/23
Requesting Provider: Willi Loyola
Performing Provider: Jayleen Garrett for Wallace Benson
Reason for Consultation: severe mitral regurgitation
Patient History
Physicians
Outpatient Senior Security Architect: Everett Case
Inpatient Senior Security Architect: Willi Farah
History of Present Illness
77-year-old male known to our service from prior CABG consultation in February 2023. 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 Patient completed recommended course of IV
Ampicillin. Patient also had moderate mitral regurgitation with vegetation on mitral valve and presumed endocarditis. Patient had insulin adjustments at this admission for poorly controlled DM (A1C 11.2%)
Patient now admitted 07/24/23 via the ED with increasing shortness of breath and lower extremity edema. Recently started on Entresto. Troponin max 0.16 consistent with demand ischemia. Developed LISA (max creat 2.5 from baseline 1.5). Patient
currently ambulating in room without shortness of breath and not requiring supplemental oxygen.
JACINTA 07/29/23: Severe mitral regurgitation with fixed posterior mitral valve leaflet
TTE 07/26/23: EF 34% (Decreased from 45-50% on TTE in March 2023), basal inferior, mid�apical hypokinesis with apical akinesis.� Vegetation on posterior mitral valve leaflet with severe mitral regurgitation.
Cardiac Cath 12/18/22:80-90% LAD, 80% OM1, 50% OM2, occluded RCA with faint left to right collaterals
Past Medical History
Past Medical History: CAD (diffuse triple vessel), CHF (HFrEF), GERD, Hypercholesterolemia, NIDDM (A1C 8.7% (11.2% in Feb 2023)), Renal Insufficiency and Other (osteomyelitis Left 2nd toe, macular degeneration with eye injections)
Past Surgical History
Past Surgical History: Other (left 2nd toe amputation 02/2023)
Dental History
last dental exam: 6 months ago
Family History
Mother: at Age
Father: at Age
Social History
Alcohol: None
Drug: None
Tobacco: Non-Smoker
Personal: Single
Living: Alone
Employment: Retired
Allergies
Allergy/AdvReac Type Severity Reaction Status Date / Time
daptomycin Allergy Pneumonitis/LISA/elev Verified 05/18/23 15:59
transaminases
Home Medications
�Medication �Instructions �Recorded �Confirmed �Type
cholecalciferol (vitamin D3) 125 125 mcg PO DAILY Supplement 12/18/22 07/24/23 History
mcg (5,000 unit) tablet (Vitamin
D3)
repaglinide 1 mg tablet 1 mg PO BID Diabetes 12/18/22 07/24/23 History
insulin aspar prot-insulin aspart 20 unit (0.2 mL) SC DAILY@1700 #15 03/31/23 07/24/23 Rx
100 unit/mL (70-30) subcutaneous mL
pen (Novolog Mix 70-30FlexPen
U-100)
atorvastatin 40 mg tablet 40 mg PO DAILY High Cholesterol 04/06/23 07/24/23 History
pantoprazole 40 mg tablet,delayed 40 mg PO DAILY #30 tabs 04/14/23 07/24/23 Rx
release
isosorbide mononitrate 60 mg 60 mg PO DAILY #30 tabs 05/20/23 07/24/23 Rx
tablet,extended release 24 hr
dapagliflozin propanediol 10 mg 10 mg PO DAILY Diabetes/Heart 07/24/23 07/24/23 History
tablet (Farxiga) Failure
furosemide 20 mg tablet 40 mg PO DAILY Fluid 07/24/23 07/24/23 History
Retention/Swelling
insulin aspar prot-insulin aspart 28 unit SC DAILY@0800 Diabetes 07/24/23 07/24/23 History
100 unit/mL (70-30) subcutaneous
pen (Novolog Mix 70-30FlexPen
U-100)
rivaroxaban 2.5 mg tablet (Xarelto) 2.5 mg PO BID Blood Clot 07/24/23 07/24/23 History
Prevention/Tx
sacubitril 24 mg-valsartan 26 mg 1 tab PO DAILY Heart Failure 07/24/23 07/24/23 History
tablet (Entresto)
ticagrelor 90 mg tablet (Brilinta) 90 mg PO BID Blood Clot 07/24/23 07/24/23 History
Prevention/Tx
metoprolol succinate 25 mg capsule 25 mg PO DAILY Blood 07/25/23 07/25/23 History
sprinkle, ext. release 24 hr Pressure/Heart Disease
Review of Systems
-
History Source: Patient
General: Reports No Symptoms
HEENT: Reports No Symptoms
Respiratory: Reports SOB
Cardiac: Reports No Symptoms
Abdomen/GI: Reports No Symptoms
: Reports No Symptoms
Musculoskeletal: Reports No Symptoms
Skin: Reports No Symptoms
Neurological: Reports No Symptoms
Vascular: Reports No Symptoms
Physical Exam
Vital Signs
Temp 97.0 F 07/29/23 11:00
Temp route: Oral 07/29/23 11:00
Pulse 88 07/29/23 11:00
Rhythm: Normal sinus rhythm 07/29/23 08:00
With- Left Bundle Branch Block 07/29/23 08:00
Resp Rate 16 07/29/23 11:00
Blood pressure 115/64 07/29/23 11:00
Blood pressure extremity used: Left upper arm 07/29/23 11:00
Position: Sitting 07/29/23 11:00
MAP (cuff-Tevin Monitor) 72 07/25/23 02:00
SaO2 98 07/29/23 11:00
Nasal Cannula flow liters per minute 100 07/25/23 19:51
Oxygen Mode of Delivery Room air 07/29/23 11:00
Pulse Ox at Rest 99 07/26/23 13:54
Can the patient verbally communicate their pain? Yes 07/29/23 08:00
Pain scale ratin 07/24/23 21:50
Actual Weight 86.806 kg 07/29/23 06:00
Body Mass Index (BMI) 29.1 07/29/23 06:00
Supine- Blood Pressure 123/69 07/26/23 13:54
Sitting- Blood Pressure 123/69 07/26/23 13:28
Sitting- Pulse 81 07/26/23 13:54
Heart rate after activity 98 07/26/23 13:54
Oxygen Saturation with Activity 99 07/26/23 13:54
Labs
07/27/23 06:03
07/29/23 07:35
Hemoglobin A1c 8.7 % (4.0-5.6) H 07/26/23 07:17
Troponin I 0.121 ng/ml H* 07/24/23 22:54
Ndb-D-Jufrvqqdvrx Pept 7830 pg/ml 07/24/23 22:54
Urinalysis
Urine Color Yellow 07/25/23 13:41
Urine Clarity Clear (Clear) 07/25/23 13:41
Urine pH 5.0 (5.0-9.0) 07/25/23 13:41
Ur Specific [place] 1.015 (<1.030) 07/25/23 13:41
Urine Ketones Negative (Negative) 07/25/23 13:41
Urine Occult Blood Negative (Negative) 07/25/23 13:41
Urine Bilirubin Negative (Negative) 07/25/23 13:41
Ur Leukocyte Esterase Trace (Negative) A 07/25/23 13:41
Urine RBC 0-2 /HPF (0-2) 07/25/23 13:41
Urine WBC 3-5 /HPF (0-5) 07/25/23 13:41
Ur Squamous Epith Cells 3-5 /LPF (Few) 07/25/23 13:41
Urine Glucose 3+ (Negative) A 07/25/23 13:41
Urine Albumin Negative (Neg - Trace) 07/25/23 13:41
Exam
General: Well Developed and Well Nourished
HEENT: Normocephalic, Moist Mucous Membranes and PERRLA
Respiratory: Clear
Cardiac: S1/S2 and Murmur (I/ HSM LSB 5th ICS)
GI: Soft, Non Tender, Non Distended and Normal Bowel Sounds
Rectal: Deferred by Provider
Skin: Warm and Dry
Neuro: AO x 3 and Nonfocal/Grossly Intact
Extremities: Lower Level Edema (+1 B/L tibial) and Other (left 2nd toe amputation)
Lymph: No Lymphadenopathy
Psych: Calm
Assessment / Plan
-
77-year-old male with severe mitral regurgitation and fixed posterior mitral valve leaflet with HFrEF (34%) and known severe CAD deemed not amenable to PCI/CABG.
- Dr. Benson to review imaging and discuss options with cardiology
Data Reviewed
-
EKG: Report Reviewed by me and Discussed with Physician
Folder Stitcher Operator: Report Reviewed by me and Discussed with Physician
Echo: Report Reviewed by me and Discussed with Physician
Radiology: Report Reviewed by me and Discussed with Physician
Labs: Labs Reviewed by me and Discussed with Physician
[2023-07-29] MEDS: NOVOLOG FLEXPEN-MODERATE RESISTANCE 1 UNITS SC (12:26)
[2023-07-29] MEDS: KCL 40 MEQ PO (13:30)
--- NOTE | 2023-07-29 14:35 | CM ---
Patient for JACINTA today.
Await CT surgery recommendations.
Plan: home vs intervention.
--- NOTE | 2023-07-29 14:44 | W.PN.UPDATE ---
Addendum entered and electronically signed by Wallace Benson MD 07/30/23 09:08:
I saw and examined the patient.
The CRIMINAL PSYCHOLOGIST's note was reviewed and I agree with the note.
Comment:
I remember Mr. Pantoja from his prior admission. We initially felt he might have endocarditis with annular abscess, but later group consensus was possibly caseating MAC. His MR has progressed. He has untreatable diffuse CAD and is currently in heart
failure with newly reduced LVEF. I am going to refer him to our MDT to eval for SJ. I feel he is a very high risk candidate when it comes to MVR at the current time. If SJ can reduce his MR to moderate or less, I believe this is a reasonable
option. IF it fails, then we will need to discuss high risk MVR.
Original Note:
Update Note
Progress Note Update
STS RISK SCORE
Procedure Type:�Isolated MVR
PERIOPERATIVE OUTCOME ESTIMATE %
Operative Mortality 9.36%
Morbidity & Mortality 33.6%
Stroke 3.97%
Renal Failure 14.2%
Reoperation 7.48%
Prolonged Ventilation 27.6%
Deep Sternal Wound Infection 0.194%
Long Hospital Stay (>14 days) 34.2%
Short Hospital Stay (<6 days)* 7.69%
Clinical Summary
Planned Surgery: Isolated MVR, Urgent, First cardiovascular surgery
Demographics: 77 year old, White, male, 86.8kg, 173cm, BMI: 29 kg/m�
Lab Values: Creatinine: 1.9 mg/dL, Hematocrit: 34.2%, WBC Count: 9.1 10�/�L, Platelet Count: 699610 cells/�L
PreOp Medications: Insulin diabetes control
Substance Abuse: Never smoker
Risk Factors / Comorbidities: Insulin-dependent Diabetes Mellitus, Treated Endocarditis, Hypertension
Cardiac Status: Acute and chronic heart failure, NYHA Class III, Ejection Fraction = 34%
Coronary Artery Disease: 3 vessels diseased, Proximal LAD Stenosis >=70%, Stable Angina, OK: > 21 Days
Valve Disease: Severe MR
[2023-07-29 15:00] VITALS: BP 101/59
[2023-07-29 15:01] LABS: Glucose - Point of Care 382 mg/dl (70-99)
--- NOTE | 2023-07-29 15:05 | PTCARENOTE ---
Patient stated he 'felt funny.' BG tested, results 382. notified.
[2023-07-29] MEDS: NOVOLOG FLEXPEN-MODERATE RESISTANCE 9 UNITS SC (15:44)
[2023-07-29 16:37] LABS: Glucose - Point of Care 358 mg/dl (70-99)
[2023-07-29] MEDS: NOVOLOG MIX 70/30 FLEXPEN 28 UNITS SC (17:03)
[2023-07-29 18:23] LABS: Glucose - Point of Care 229 mg/dl (70-99)
--- NOTE | 2023-07-29 19:07 | PTCARENOTE ---
PT c/o feeling SOB at rest. notified. Patient placed on a continuous pulse ox. Sats WNL.
[2023-07-29 19:25] VITALS: BP 118/65
[2023-07-29 21:37] LABS: Glucose - Point of Care 121 mg/dl (70-99)
[2023-07-29 23:34] LABS: Glucose - Point of Care 60 mg/dl (70-99)
[2023-07-29 23:48] VITALS: BP 119/57
[2023-07-30 00:09] LABS: Glucose - Point of Care 77 mg/dl (70-99)
[2023-07-30 01:49] LABS: Glucose - Point of Care 136 mg/dl (70-99)
[2023-07-30 03:45] LABS: Glucose - Point of Care 154 mg/dl (70-99)
[2023-07-30 03:54] VITALS: BP 123/72
[2023-07-30 05:42] VITALS: BMI 29.2
[2023-07-30 07:30] VITALS: BP 109/66
[2023-07-30 07:52] LABS: Blood Urea Nitrogen 61 mg/dl (9-20); Calcium 9.3 mg/dl (8.4-10.2); Carbon Dioxide 26 mmol/L (22-30); Chloride 101 mmol/L (98-107); Estimated Creatinine Clearance 33 ml/min; Glucose 118 mg/dl (70-99); Potassium 3.9 mmol/L (3.5-5.1); Sodium 137 mmol/L (135-145); eGFR 36.33
[2023-07-30 07:55] LABS: Glucose - Point of Care 149 mg/dl (70-99)
[2023-07-30] MEDS: NOVOLOG FLEXPEN-MODERATE RESISTANCE SC ×2 (08:49→16:58)
[2023-07-30] MEDS: NOVOLOG MIX 70/30 FLEXPEN 28 UNITS SC (08:51)
[2023-07-30] MEDS: HYDROCORTISONE 1% CREAM 1 APPLIC TOPICAL ×2 (08:54→20:16)
[2023-07-30] MEDS: IMDUR (EXTENDED RELEASE) 60 MG PO (09:07)
[2023-07-30] MEDS: LASIX 40 MG IV (09:07)
[2023-07-30] MEDS: FLUSH (NSS) 2 FLUSH IV (09:08)
[2023-07-30] MEDS: LIPITOR 40 MG PO (09:09)
[2023-07-30] MEDS: VITAMIN D3 (cholecalciferol) 125 MCG PO (09:09)
[2023-07-30] MEDS: PROTONIX 40 MG PO (09:09)
[2023-07-30] MEDS: TOPROL XL 25 MG PO ×2 (09:09→20:14)
[2023-07-30] MEDS: BRILINTA 90 MG PO ×2 (09:09→20:14)
[2023-07-30] MEDS: XARELTO 2.5 MG PO ×2 (09:09→20:14)
--- NOTE | 2023-07-30 09:58 | W.PN.CD ---
Today's Communication / Plan
-
increase lasix to 80mg IV bid, with close monitoring of Cr
MitraClip eval underway
Impression / Plan
-
77M with severe CAD not amenable to PCI/CABG, DM, admitted with LISA and chronic MS changes. We are called for HF and abnormal EKG
Acute on chronic HFrEF, EF 40 => 34%
- Still volume overloaded
-cont IV lasix: increase to 80mg IV bid, with close monitoring of labs and tele
Ischemic cardiomyopathy
-entresto and farxiga on hold with recovering LISA
-cont Toprol XL: increased to bid
Mitral valve abnormal =-> SEVERE MR on echo 07/26/2023
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
- Clinically treated for IE 04/2023
-of note, Bcx were negative
- there appears to be progression of his MR
-JACINTA confirms severe MR: fixed posterior leaflet (? remodeling of caseous MAC)
-discussed with CT surgery: high risk for surgery
-currently undergoing eval for MitraClip
CAD, severe
-medical therapy: not amenable to CABG or PCI (cath report 11/2022)
-Severe diffuse and multisegment triple-vessel CAD as described
1st degree AVB (long), LBBB
-also with nocturnal Wenckebach
LISA
- Entresto and Farxiga on HOLD; nephrology consulted
- improving with diuresis, likely cardiorenal
IDDM
-per primary team
Subjective:
SOB, edema are better; but still present
Physical Exam
Vital Signs/Labs
Vital Signs
Temp Pulse Resp BP Pulse Ox
97.6 F 74 16 109/66 100
07/30/23 07:30 07/30/23 07:30 07/30/23 07:30 07/30/23 07:30 07/30/23 07:30
07/29/23 07/30/23 07/31/23
06:59 06:59 06:59
Actual Weight 86.806 kg 87.09 kg
07/27/23 06:03
07/30/23 06:54
Magnesium 2.0 mg/dl (1.6-2.3) 07/28/23 05:53
07/24/23
22:54
Wer-G-Pjrzqhyumgc Pept 7830
Physical Exam
Constitutional: No acute distress and Comfortable
EENT: Moist mucous membranes
Cardiovascular: Rhythm & rate is regular, Pedal edema present, JVD present and Systolic murmur present
Respiratory: Respiratory effort normal and Lungs clear to auscul.
GI: Soft, Distention absent and Flat
Neuro/Psych: AO x 3
Data Reviewed
-
Date of Service: July 30, 2023
EKG: Other (Tele: SR, long 1st degree AVB, nocturnal Wenckebach)
Labs: Labs Reviewed by me
--- NOTE | 2023-07-30 10:52 | W.PN.HOSP.TC ---
Today's Communication/Plan
-
Lasix dose adjusted
Monitor creatinine
Increase in insulin
Monitor sugars closely
Assessment / Plan
Assessment / Plan
Physical exam:
General: In no acute distress
HEENT: Normocephalic, Atraumatic and Moist Mucous Membranes
Respiratory: Coarse crackles; Negative Wheezes or Rhonchi
Cardiac: Regular Rhythm and S1/S2
GI: Soft, Nontender and Nondistended
Musculoskeletal: Bilateral lower extremity edema improving. No Clubbing, No Cyanosis
Neuro: Awake, Alert and Oriented
Psych: Calm
A/P:
Acute on chronic systolic congestive heart failure:
Severe mitral regurgitation.
IV diuretics, Lasix 40 mg twice a day and dose increased to 80 mg twice daily
Appreciated cardiology consulted follow-up
Monitor strict I/O
Monitor daily weight
Monitor renal function and electrolytes
Reviewed latest echocardiogram on our system--> report of latest echocardiogram as above.
Continue guideline-directed medical therapy for heart failure (GDMT)--> on metoprolol succinate, Imdur. Recently started on Entresto and Farxiga but on hold due to renal failure and needs to see if tolerates with relatively low blood pressure.
Fluid restriction
Salt restriction
Heart failure education
Follow up clinical response
CT surgery eval pending
LISA on CKD:
Likely cardiorenal syndrome
Creatinine from 2.5. At 1.9 today.
Avoid nephrotoxic
Continue to monitor renal function with diuresis
CAD:
Known multivessel disease with medical management
Cont Brilinta (not on asa)
Continue Imdur
Continue statins
Cont Xarelto
Diabetes mellitus type 2:
Hemoglobin A1c 8.7 during his hospital stay
Continue diabetic diet
Insulin sliding scale
Continue home insulin regimen, mixed insulin 70/30 28 am, increased to 24 pm
Monitor blood sugar and adjust medications accordingly
Cognitive deficits:
No formal diagnosed dementia but there is report of memory impairment. Needs OP f/u.
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
Mild anxiety�Xanax as needed while in the hospital
Hypokalemia-replete/monitor
DVT prophylaxis:
Currently on Xarelto
CODE STATUS:
Full code
d/w with cardiology
updated daughter over the phone in details.
Anticipated Discharge: > 48 hours
Subjective/Interval History
-
Date of Service: July 30, 2023
States last night with shortness of breath/anxiety
This morning states feeling significantly better
Objective Data
-
Labs:
Laboratory Results
07/30/23
06:54
Sodium 137
Potassium 3.9
Chloride 101
Carbon Dioxide 26
BUN 61 H
Creatinine 1.9 H
Glucose 118 H
Calcium 9.3
Vital Signs:
Vital Signs
Temp Pulse Resp BP Pulse Ox
97.6 F 74 16 109/66 100
07/30/23 07:30 07/30/23 07:30 07/30/23 07:30 07/30/23 07:30 07/30/23 07:30
I&O
07/29/23 07/30/23 07/31/23
06:59 06:59 06:59
Intake Total 905 / 905 880 / 880
Output Total 1600 / 1600 1350 / 1350
Balance -695 / -695 -470 / -470
[2023-07-30 11:30] VITALS: BP 113/63
[2023-07-30 11:55] LABS: Glucose - Point of Care 291 mg/dl (70-99)
--- NOTE | 2023-07-30 12:15 | CON.CAR ---
Consultation
Consultation Request
Date/Time Consultation Requested: 07/30/2023
Date/Time Consultation Performed: 07/30/2023; 12:15
Requesting Provider: Wallace Benson M.D.
Performing Provider: Joel Sky D.O.
Reason for Consultation: Severe mitral valve regurgitation, poor surgical candidate.
Medical History
-
Chief Complaint: Severe MR.
History of Present Illness:
77-year-old gentleman with a past medical history of coronary artery disease status post OH, ischemic cardiomyopathy (LVEF 40-45%), insulin-dependent diabetes, hyperlipidemia and heart failure with missed ejection fraction admitted with worsening
dyspnea on exertion, orthopnea and dizziness on 07/25/2023.
The patient underwent cardiac catheterization on 12/18/2022 for progressive exertional dyspnea and a high risk stress test. That cardiac catheterization showed inferoapical and apical akinesis, ejection fraction 41%. There was complex, 80-90%
stenosis in a diffusely diseased LAD with a series of 80% lesions in the circumflex/obtuse marginal and a BACKEND JAVA DEVELOPER of the RCA. There were no surgical or percutaneous revascularization options at that time.
In mid February, the patient was dispatched to [facility] emergency room for left second toe cellulitis, which turned out to be osteomyelitis. He was started on antibiotics. Echocardiogram was performed on 1219 showing an ejection fraction
40-45%, revealing a large, rounded echodense structure compromising the posterior mitral valve leaflet, approximately 2.5 x 2.5 cm, concerning for vegetation. Initially, the patient declined till amputation and opted for conservative treatment with
antibiotics only. Wound culture grew gram-negative rods (Morganella morganii) and Enterococcus. Blood cultures were sterile. Piperacillin/tazobactam was changed to ceftriaxone and daptomycin for 6 weeks (through 04/28/2023). Infectious disease
was skeptical that the echo abnormality was infectious endocarditis given lack of positive blood cultures and its size (blood cultures should have been persistently positive).
The patient was readmitted on 04/06/2023, found to be lethargic with subjective fever and persistent acute kidney injury. Daptomycin decreased to every 48 hours. Daptomycin then discontinued in favor of vancomycin. Given his lethargy and confusion,
MRI brain was ordered, negative for acute abnormality. Hypoxic respiratory failure was deemed secondary to daptomycin toxicity as well as his acute kidney injury. 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 Steroids were started and ARB was
discontinued. The patient improved and was weaned off of oxygen and discharged. He completed his course of ceftriaxone and vancomycin as of 04/28/2023.
The patient re-presented on 05/18/2023 for an elective transesophageal echocardiogram. During the procedure, the patient became agitated and developed chest pain with hypertensive emergency. The procedure was aborted and the patient was admitted
for observation. He was stabilized and transesophageal echocardiogram was performed on 05/20/2023. This demonstrated persistent reduction in systolic function, ejection fraction 45%. The echodensity was reappreciated, measuring 2.5 x 1.8 cm,
suspicious for caseous mitral annular calcification rather than vegetation, though it remained in the differential.
The patient is now readmitted as of 07/25/2023 with decompensated congestive heart failure with moderate ejection fraction. He had been started on sacubitril/valsartan and developed dizziness. He was found to be in acute on chronic renal failure
with a creatinine of 2.5 (baseline 1.5). The patient was given IV diuretics and transition thoracic echocardiogram was repeated, showing an ejection fraction of 34% with multiple regional wall motion abnormalities and severe mitral valve
regurgitation. Renal function began to improve with cessation of sacubitril/valsartan and empagliflozin. JACINTA was performed on 07/29/2023. This demonstrated a moderately reduced systolic function, ejection fraction 35%. Mitral valve leaflets were
thickened with essentially fixation of the posterior leaflet and severe mitral regurgitation with a broad, central jet of MR. MVA by 3D planimetry is 4.1 cm�. Mean transvalvular gradient was 6 mmHg. The previously observed posterior echodensity
was no longer present. CT surgery was consulted for reevaluation, but again feels that any surgical option is extreme risk. In turn, structural cardiology has been consulted for evaluation of SJ.
On interview, the patient feels significantly improved from admission, but remains dyspneic with activity. He denies chest pain at this time. He continues to suffer from LE edema.
Past Medical History
Past Medical History: CAD, CHF, HTN, Hypercholesterolemia, IDDM and OH
Past Surgical History: Orthopedic (Toe amputation x2.)
Social History
Tobacco: Non-Smoker
Alcohol: None
Drug: None
Family History
Family History: Reviewed & Not Pertinent
Allergies / Home Medications
Allergy/AdvReac Type Severity Reaction Status Date / Time
daptomycin Allergy Pneumonitis/LISA/elev Verified 05/18/23 15:59
transaminases
�Medication �Instructions �Recorded �Confirmed �Type
cholecalciferol (vitamin D3) 125 125 mcg PO DAILY Supplement 12/18/22 07/24/23 History
mcg (5,000 unit) tablet (Vitamin
D3)
repaglinide 1 mg tablet 1 mg PO BID Diabetes 12/18/22 07/24/23 History
insulin aspar prot-insulin aspart 20 unit (0.2 mL) SC DAILY@1700 #15 03/31/23 07/24/23 Rx
100 unit/mL (70-30) subcutaneous mL
pen (Novolog Mix 70-30FlexPen
U-100)
atorvastatin 40 mg tablet 40 mg PO DAILY High Cholesterol 04/06/23 07/24/23 History
pantoprazole 40 mg tablet,delayed 40 mg PO DAILY #30 tabs 04/14/23 07/24/23 Rx
release
isosorbide mononitrate 60 mg 60 mg PO DAILY #30 tabs 05/20/23 07/24/23 Rx
tablet,extended release 24 hr
dapagliflozin propanediol 10 mg 10 mg PO DAILY Diabetes/Heart 07/24/23 07/24/23 History
tablet (Farxiga) Failure
furosemide 20 mg tablet 40 mg PO DAILY Fluid 07/24/23 07/24/23 History
Retention/Swelling
insulin aspar prot-insulin aspart 28 unit SC DAILY@0800 Diabetes 07/24/23 07/24/23 History
100 unit/mL (70-30) subcutaneous
pen (Novolog Mix 70-30FlexPen
U-100)
rivaroxaban 2.5 mg tablet (Xarelto) 2.5 mg PO BID Blood Clot 07/24/23 07/24/23 History
Prevention/Tx
sacubitril 24 mg-valsartan 26 mg 1 tab PO DAILY Heart Failure 07/24/23 07/24/23 History
tablet (Entresto)
ticagrelor 90 mg tablet (Brilinta) 90 mg PO BID Blood Clot 07/24/23 07/24/23 History
Prevention/Tx
metoprolol succinate 25 mg capsule 25 mg PO DAILY Blood 07/25/23 07/25/23 History
sprinkle, ext. release 24 hr Pressure/Heart Disease
Review of Systems
-
History Source: Patient
Constitutional: No Symptoms and Not Done
EENT: No Symptoms and Tearing
Respiratory: Trouble Breathing
Cardiac: No Symptoms
Abdomen/GI: No Symptoms
: No Symptoms
Musculoskeletal: No Symptoms
Skin: No Symptoms
Neurological: No Symptoms
Physical Exam
Vital Signs
Temp Pulse Resp BP Pulse Ox
36.4 C 83 16 113/63 95
07/30/23 11:30 07/30/23 11:30 07/30/23 11:30 07/30/23 11:30 07/30/23 11:30
Lab Results
07/27/23 06:03
07/30/23 06:54
Troponin I 0.121 ng/ml H* 07/24/23 22:54
Djj-Q-[place] Pept 7830 pg/ml 07/24/23 22:54
Physical Exam
General: Well Developed, Well Nourished, No Apparent Distress and Comfortable
HEENT: Normocephalic, Anicteric and Moist Mucous Membranes
Cardiac: S1/S2, Regular Rhythm and Murmur (3/6 holosystolic murmer at the apex.)
Breast: Deferred by me
GI: Soft, Non Tender, Non Distended and Normal Bowel Sounds
Rectal: Deferred by Provider
Genito-urinary: No Costovertebral Tender
Musculoskeletal: No Clubbing, No Cyanosis and Edema (2-3+ bilateral LE, R > L.)
Skin: Warm and Dry
Neuro: AO x 3
Hematologic/Lymphatic: No Lymphadenopathy
Psych: Calm
Impression / Plan
-
77 y/o male with inoperable/non-intervenable CAD, ICMO (LVEF 35%) and HFrEF with severe combined functional/degenerative mitral valve regurgitation.
#Severe MR
-Poor surgical candidate.
-I have reviewed the JACINTA images and industry evaluation.
-I believe that the patient would make a reasonable SJ candidate as the valve appears graspable with adequate MVA.
-Valve gradient is 6 mmHg, but I believe this is due to the high flow across the valve as there is no evidence of structural stenosis.
-The patient will be a high risk for any intervention. I believe his mortality/morbidity for a SJ/MitraClip is approximately 5-6%, but this is lower than open surgery and there are no other viable options.
-If the patient is willing to proceed, we will tentatively plan for SJ on 08/04/2023.
Data Reviewed
-
EKG: Tracing Personally Visualized and interpreted, Report Reviewed by me, Discussed with Physician and Discussed with Patient
Radiology: Image Personally Visualized and interpreted and Report Reviewed by me
MRI: Report Reviewed by me
Medical Tests (Nuc Med, Echo etc): Image Personally Visualized and interpreted and Report Reviewed by me
Labs: Labs Reviewed by me and Discussed with Physician
Old Records: Reviewed
[2023-07-30] MEDS: NOVOLOG FLEXPEN-MODERATE RESISTANCE 5 UNITS SC (12:16)
--- NOTE | 2023-07-30 12:33 | CM ---
Patient seen bedside with daughter.
Patient awaiting CT surg recommendations.
Continue IV diuresis.
Plan: possible CT surgery vs home
--- NOTE | 2023-07-30 12:55 | W.PN.NEPH.PH ---
Today's Communication / Plan
-
cotn high dose lasix, follow BMP
Assessment/Plan
-
Assessment:
Coronary artery disease
Heart failure reduced ejection fraction, decompensated
Pulmonary edema
Lower extremity edema
acute kidney injury
Mitral valve regurgitation
Plan:
cr stable 1.9 bland UA
suspect cardiorenal , in Mar renal US was ok
Continue diuresis with IV Lasix, DW 84kg, he is still at 87
ok to increase lasix to 80mg BID
Follow basic metabolic panel
Holding SGLT, Entresto (remains hypotensive)
echo noted EF 34%, decreased from before, eventual mitral clip
low salt diet and FR
detail discussion with pt and daughter
d/w cards
-
-
Date of Service: July 30, 2023
CC / HPI / ROS
-
Chief Complaint:
LISA
History of Present Illness:
cr stable at 1.9
BP stable, wt is up
k 3.9
Review of Systems:
no cp, sob improving , on RA
feels well
non oliguric
Labs
-
Labs:
WBC 9.1 10^3/uL (4.8-10.8) 07/24/23 22:54
RBC 3.62 10^6/uL (4.70-6.10) L 07/24/23 22:54
Hgb 11.0 g/dL (13.0-18.0) L 07/27/23 06:03
Hct 34.2 % (39.0-52.0) L 07/27/23 06:03
Plt Count 158 10^3/uL (130-400) 07/24/23 22:54
Sodium 137 mmol/L (135-145) 07/30/23 06:54
Potassium 3.9 mmol/L (3.5-5.1) 07/30/23 06:54
Chloride 101 mmol/L (98-107) 07/30/23 06:54
Carbon Dioxide 26 mmol/L (22-30) 07/30/23 06:54
BUN 61 mg/dl (9-20) H 07/30/23 06:54
Creatinine 1.9 mg/dL (0.7-1.3) H 07/30/23 06:54
eGFR 36.33 07/30/23 06:54
Glucose 118 mg/dl (70-99) H 07/30/23 06:54
Calcium 9.3 mg/dl (8.4-10.2) 07/30/23 06:54
Tqd-B-Gcbldwrevuz Pept 7830 pg/ml 07/24/23 22:54
Physical Exam
-
Vital Signs:
Vital Signs
Temp Pulse Resp BP Pulse Ox
97.6 F 83 16 113/63 95
07/30/23 11:30 07/30/23 11:30 07/30/23 11:30 07/30/23 11:30 07/30/23 11:30
Cardiovascular:: Regular rate and rhythm (murmur+)
Respiratory:: Bilateral: CTA
Lung Excursion:: Normal
Abdomen:: Nontender and Soft
Extremity Edema:: +1: Left: and +2: Right:
[place] Catheter: No
[2023-07-30 15:10] VITALS: BP 133/69
--- NOTE | 2023-07-30 16:01 | CONSULT.STRU ---
Addendum entered and electronically signed by CARTER Rob 08/05/23 10:49:
Reviewed plan with patient to discharge and will plan for outpatient mitraclip in the beginning of August. Informed him he has a follow up appointment with cardiology next week and it very important to keep that appointment. Will call patient in two
weeks to update and schedule Mitraclip. Allowed for and answered questions.
Original Note:
Consultation
-
Date/Time Consultation Requested: 07/30/2023
Date/Time Consultation Performed: 07/30/2023
Requesting Provider: Wallace Benson MD
Performing Provider: CARTER Rob
Reason for Consultation: MR/Mitraclip
Patient History
Physicians
Family Physician: Johnson Barker MD
Outpatient Juice Packaging Machines Setter: Everett Case MD
Primary Juice Packaging Machines Setter: Everett Case MD
History of Present Illness
Mr. Pantoja is a very pleasant 77 yom with a history of CAD, and moderate MR that presented to [facility] with increased SOB and LE edema. He was admitted with Acute on chronic heart failure. JACINTA completed 07/29/2023 and was notable for EF 35%, Mitral Valve
Thickened mitral valve leaflets. Mitral annular calcification. Posterior leaflet appears fixed with a broad central jet of MR. Severe mitral regurgitation. PISA 1.0 cm. EROA 0.53 cm2. RV 70 mL. Peak E velocity 1.65 m/sec. Posterior leaflet
measures 1. 3cm in length. Mild mitral stenosis. Mean gradient 6 mmHg. MVA by 3-D planimetry: 4.[address] surgery was consulted for severe MR. CT surgery felt patient to be a very high risk candidate when it comes to MVR at the current time. If
SJ can reduce his MR to moderate or less. Reviewed with the structural heart team and the team was agreeable that SJ is an appropriate treatment option for patient.
Discussed the plan of care with Mr. Pantoja including the potential date for SJ to be 08/04/2023. Informed patient that the team will continue to communicate with him and answer any questions he may have.
Past Medical History
Past Medical History: CAD (NSTEMI), CHF, COPD, IDDM, Valvular Disease (Severe MR) and Other (carotid artery stenosis, thyroid nodule, cellulitis, fatty liver, osteomyelitis, anxiety, PAD, ICM, NSVT)
Past Surgical History
Past Surgical History: Other (laser eye surgery, shoulder surgery, (L) 2nd and 5th toe amputation, jaw surgery)
Dental History
Last dental exam 6 months ago. Panelipse ordered.
Family History
Mother: at Age
Father: at Age
Social History
Alcohol: None
Drug: None
Tobacco: Non-Smoker
Personal: Single
Allergies
Allergy/AdvReac Type Severity Reaction Status Date / Time
daptomycin Allergy Pneumonitis/LISA/elev Verified 05/18/23 15:59
transaminases
Home Medications
�Medication �Instructions �Recorded �Confirmed �Type
cholecalciferol (vitamin D3) 125 125 mcg PO DAILY Supplement 12/18/22 07/24/23 History
mcg (5,000 unit) tablet (Vitamin
D3)
repaglinide 1 mg tablet 1 mg PO BID Diabetes 12/18/22 07/24/23 History
insulin aspar prot-insulin aspart 20 unit (0.2 mL) SC DAILY@1700 #15 03/31/23 07/24/23 Rx
100 unit/mL (70-30) subcutaneous mL
pen (Novolog Mix 70-30FlexPen
U-100)
atorvastatin 40 mg tablet 40 mg PO DAILY High Cholesterol 04/06/23 07/24/23 History
pantoprazole 40 mg tablet,delayed 40 mg PO DAILY #30 tabs 04/14/23 07/24/23 Rx
release
isosorbide mononitrate 60 mg 60 mg PO DAILY #30 tabs 05/20/23 07/24/23 Rx
tablet,extended release 24 hr
dapagliflozin propanediol 10 mg 10 mg PO DAILY Diabetes/Heart 07/24/23 07/24/23 History
tablet (Farxiga) Failure
furosemide 20 mg tablet 40 mg PO DAILY Fluid 07/24/23 07/24/23 History
Retention/Swelling
insulin aspar prot-insulin aspart 28 unit SC DAILY@0800 Diabetes 07/24/23 07/24/23 History
100 unit/mL (70-30) subcutaneous
pen (Novolog Mix 70-30FlexPen
U-100)
rivaroxaban 2.5 mg tablet (Xarelto) 2.5 mg PO BID Blood Clot 07/24/23 07/24/23 History
Prevention/Tx
sacubitril 24 mg-valsartan 26 mg 1 tab PO DAILY Heart Failure 07/24/23 07/24/23 History
tablet (Entresto)
ticagrelor 90 mg tablet (Brilinta) 90 mg PO BID Blood Clot 07/24/23 07/24/23 History
Prevention/Tx
metoprolol succinate 25 mg capsule 25 mg PO DAILY Blood 07/25/23 07/25/23 History
sprinkle, ext. release 24 hr Pressure/Heart Disease
STS%
STS %: 9.36
Review of Systems
-
History Source: Patient
General: Reports No Symptoms
HEENT: Reports No Symptoms
Respiratory: Reports SOB and RIGGS
Cardiac: Reports No Symptoms
Abdomen/GI: Reports No Symptoms
: Reports No Symptoms
Musculoskeletal: Reports No Symptoms
Skin: Reports No Symptoms
Neurological: Reports No Symptoms
Physical Exam
Vital Signs
Temp 97.5 F 07/30/23 15:10
Temp route: Oral 07/30/23 15:10
Pulse 91 07/30/23 15:10
Rhythm: Normal sinus rhythm 07/30/23 08:50
With- Bundle Branch Block Confi, First Degree Heart Block 07/30/23 08:50
Resp Rate 18 07/30/23 15:10
Blood pressure 133/69 05/03/24 15:10
Blood pressure extremity used: Left upper arm 07/30/23 15:10
Position: Sitting 07/30/23 15:10
MAP (cuff-Tevin Monitor) 72 07/25/23 02:00
SaO2 96 07/30/23 15:10
Nasal Cannula flow liters per minute 2 07/30/23 07:30
Oxygen Mode of Delivery Room air 07/30/23 15:10
Pulse Ox at Rest 99 07/26/23 13:54
Can the patient verbally communicate their pain? Yes 07/29/23 20:00
Pain scale ratin 07/24/23 21:50
Actual Weight 87.09 kg 07/30/23 05:42
Body Mass Index (BMI) 29.2 07/30/23 05:42
Supine- Blood Pressure 123/69 07/26/23 13:54
Sitting- Blood Pressure 123/69 07/26/23 13:28
Sitting- Pulse 81 07/26/23 13:54
Heart rate after activity 98 07/26/23 13:54
Oxygen Saturation with Activity 99 07/26/23 13:54
Labs
07/27/23 06:03
07/30/23 06:54
Hemoglobin A1c 8.7 % (4.0-5.6) H 07/26/23 07:17
Troponin I 0.121 ng/ml H* 07/24/23 22:54
Npu-E-Fekbferoslt Pept 7830 pg/ml 07/24/23 22:54
Urinalysis
Urine Color Yellow 07/25/23 13:41
Urine Clarity Clear (Clear) 07/25/23 13:41
Urine pH 5.0 (5.0-9.0) 07/25/23 13:41
Ur Specific [place] 1.015 (<1.030) 07/25/23 13:41
Urine Ketones Negative (Negative) 07/25/23 13:41
Urine Occult Blood Negative (Negative) 07/25/23 13:41
Urine Bilirubin Negative (Negative) 07/25/23 13:41
Ur Leukocyte Esterase Trace (Negative) A 07/25/23 13:41
Urine RBC 0-2 /HPF (0-2) 07/25/23 13:41
Urine WBC 3-5 /HPF (0-5) 07/25/23 13:41
Ur Squamous Epith Cells 3-5 /LPF (Few) 07/25/23 13:41
Urine Glucose 3+ (Negative) A 07/25/23 13:41
Urine Albumin Negative (Neg - Trace) 07/25/23 13:41
Diagnostic Studies
JACINTA 07/29/2023
CONCLUSIONS
Moderately reduced left ventricular systolic function. Left ventricular
ejection fraction is 35%.
Thickened mitral valve leaflets. Posterior leaflet appears fixed with a broad
central jet of MR.
Severe mitral regurgitation.
Mild mitral stenosis. Mean gradient 6 mmHg. MVA by 3-D planimetry: 4.1 cm2.
Compared to JACINTA 05/20/23: MR has progressed from moderate to severe. LVEF has
declined from 45% to 35%. Echodensity on posterior mitral valve leaflet not
well visualized.
TTE 07/26/2023
CONCLUSIONS
Moderately reduced left ventricular systolic function. Left ventricular
ejection fraction is 34% by volumetric assessment.
The basal inferior, mid to apical segments are hypokinetic and the apex is
akinetic.
Thickened mitral leaflets with vegetation the posterior leaflet with severe
mitral regurgitation.
Compared to previous echo 04/07/23, the ejection fraction has decreased from 45-
50% to 34%. The measurement of the vegetation has decreased from 2.5cm x2.5cm
to 1.7x 2.5cm. Although, quality of the image may account for the change.
Cardiac Catheterization 12/18/2022
CONCLUSIONS
1: Systemic hypertension
2: Top normal left and right heart filling pressures with borderline mild pulmonary hypertension
3. Inferoapical and apical akinesis with EF 41%
4. Severe diffuse and multisegment triple-vessel CAD as described. There is no option for percutaneous or surgical revascularization
5. Recommend medical therapy directed at CAD and left ventricular dysfunction. We will add carvedilol 3.125 twice daily, sublingual nitroglycerin as needed and would continue valsartan which can be titrated up as tolerated
Exam
General: Well Developed and Well Nourished
HEENT: Normocephalic and Moist Mucous Membranes
Neck: Trachea Midline
Respiratory: Clear
Cardiac: S1/S2 and Murmur (I/ holosystolic)
GI: Soft and Non Tender
Rectal: Deferred by Provider
Skin: Warm
Neuro: Awake, Alert, Oriented and AO x 3
Extremities: Lower Level Edema
Assessment / Plan
-
Severe MR
Continue SJ evaluation.
CT surgical consult -- TT 07/29/2023
Heart team discussion-- 07/30/2023
Plan for SJ 08/04/2023
Will discuss timing to hold Xarelto for SJ with team
Dental clearance--Panelipse ordered, TT to OMFS (07/29)
Consult placed for anesthesia
Data Reviewed
-
EKG: Report Reviewed by me
Home Paraprofessional: Report Reviewed by me
Echo: Report Reviewed by me and Discussed with Physician
Labs: Labs Reviewed by me
Old Records: Reviewed (office notes, echocardiogram reports, cath reports.)
Total Time Spent with Patient (in minutes): 45
[2023-07-30 16:55] LABS: Glucose - Point of Care 120 mg/dl (70-99)
[2023-07-30] MEDS: LASIX 80 MG IV (18:43)
[2023-07-30] MEDS: NOVOLOG MIX 70/30 FLEXPEN 24 UNITS SC (18:43)
[2023-07-30 19:05] VITALS: BP 111/51
[2023-07-30] MEDS: XANAX 0.25 MG PO (20:24)
[2023-07-30 21:38] LABS: Glucose - Point of Care 136 mg/dl (70-99)
[2023-07-30 23:00] VITALS: BP 93/43
[2023-07-31] VITALS (8 sets, daily range): BP systolic 98–115; BP diastolic 51–67; BMI 28.7
[2023-07-31 07:33] LABS: Blood Urea Nitrogen 63 mg/dl (9-20); Calcium 8.8 mg/dl (8.4-10.2); Carbon Dioxide 28 mmol/L (22-30); Chloride 102 mmol/L (98-107); Estimated Creatinine Clearance 34 ml/min; Glucose 81 mg/dl (70-99); Sodium 138 mmol/L (135-145); eGFR 38.77
[2023-07-31 07:47] LABS: Glucose - Point of Care 93 mg/dl (70-99)
[2023-07-31] MEDS: NOVOLOG FLEXPEN-MODERATE RESISTANCE SC ×3 (08:14→17:29)
[2023-07-31] MEDS: BRILINTA 90 MG PO ×2 (08:16→19:42)
[2023-07-31] MEDS: VITAMIN D3 (cholecalciferol) 125 MCG PO (08:16)
[2023-07-31] MEDS: IMDUR (EXTENDED RELEASE) 60 MG PO (08:16)
[2023-07-31] MEDS: LIPITOR 40 MG PO (08:16)
[2023-07-31] MEDS: XARELTO 2.5 MG PO ×2 (08:16→19:42)
[2023-07-31] MEDS: PROTONIX 40 MG PO (08:16)
[2023-07-31] MEDS: TOPROL XL 25 MG PO (08:16)
[2023-07-31] MEDS: HYDROCORTISONE 1% CREAM 1 APPLIC TOPICAL ×2 (09:31→19:44)
[2023-07-31] MEDS: NOVOLOG MIX 70/30 FLEXPEN 28 UNITS SC (09:32)
--- NOTE | 2023-07-31 09:53 | W.PN.CD ---
Today's Communication / Plan
-
-Patient scheduled to undergo SJ (MitraClip) next week Wednesday (08/04/2023).
-The patient has developed progressive conduction disease on telemetry (Mobitz 2 heart block; LBBB on EKG).
-The patient will undergo ICD implantation (RADIOLOGY TRANSCRIPTIONIST-D) on Wednesday.
-Will hold Toprol-XL for now; resume after device implantation.
-Continue Lasix 40 mg IV twice daily.
Impression / Plan
-
77 y/o male with inoperable/non-intervenable CAD, ICMO (LVEF 35%) and HFrEF with severe combined functional/degenerative mitral valve regurgitation.
#Severe MR:
-Poor surgical candidate.
-Patient scheduled to undergo SJ (MitraClip) next week Wednesday (08/04/2023).
#LBBB/Mobitz 2 heart block:
-The patient has developed progressive conduction disease on telemetry (Mobitz 2 heart block; LBBB on EKG).
-The patient will undergo ICD implantation (RADIOLOGY TRANSCRIPTIONIST-D) on Wednesday.
#CAD:
-Continue Brilinta, and metoprolol succinate, and atorvastatin.
#Acute HFrEF/ICM (EF 35%):
-Fairly compensated on examination.
-Will hold Toprol-XL for now; resume after device implantation.
-Continue Lasix 40 mg IV twice daily.
-Further GDMT limited by renal dysfunction.
#CKD:
-Creatinine is relatively stable, currently 1.8; continue to monitor.
Physical Exam
Vital Signs/Labs
Vital Signs
Temp Pulse Resp BP Pulse Ox
97.6 F 71 18 109/56 100
07/31/23 07:00 07/31/23 09:20 07/31/23 07:00 07/31/23 09:20 07/31/23 07:00
07/30/23 07/31/23 08/01/23
06:59 06:59 06:59
Actual Weight 87.09 kg 85.474 kg
07/27/23 06:03
07/31/23 06:38
Magnesium 2.0 mg/dl (1.6-2.3) 07/28/23 05:53
07/24/23
22:54
Dlg-D-Oekqxrfgeao Pept 7830
Physical Exam
Constitutional: No acute distress and Comfortable
EENT: Anicteric
Cardiovascular: Rhythm & rate is regular, Pedal edema present (1+), Systolic murmur present (2/6) and S1S2 is normal
Respiratory: Respiratory effort normal and Rhonchi Present (Scant bibasilar)
GI: Soft
Neuro/Psych: AO x 3
Other: Skin (Warm, dry, intact)
Data Reviewed
-
Date of Service: July 31, 2023
EKG: Tracing Personally Visualized and interpreted (Telemetry: Transient Mobitz 2 heart block)
Echo: Report Reviewed by me (EF 35%)
Medical Tests (PFT, Pathology etc): Discussed with Physician (General Tieing Machine Operator, Scientific Investigator)
Labs: Labs Reviewed by me
[2023-07-31] MEDS: LASIX IV (10:40)
[2023-07-31 12:03] LABS: Glucose - Point of Care 163 mg/dl (70-99)
--- NOTE | 2023-07-31 12:31 | W.PN.HOSP.TC ---
Today's Communication/Plan
-
.
Assessment / Plan
Assessment / Plan
Physical exam:
General: In no acute distress
HEENT: Normocephalic, Atraumatic and Moist Mucous Membranes
Respiratory: No crackles. ; Negative Wheezes or Rhonchi
Cardiac: Regular Rhythm and S1/S2
GI: Soft, Nontender and Nondistended
Musculoskeletal: Bilateral lower extremity edema improving. No Clubbing, No Cyanosis
Neuro: Awake, Alert and Oriented
Psych: Calm
A/P:
Acute on chronic systolic congestive heart failure:
He feels well. No sob . No hypoxia
Severe mitral regurgitation.
IV diuretics, Lasix 40 mg twice a day and dose increased to 80 mg twice daily but held this morning due to hypotension, resume back at 40 mg BID
Continue to monitor daily weight & renal function and electrolytes
Cardiac diet
Heart failure education
Follow up clinical response
# Severe Mitral regurgitation
Plan for Mitral Clip this coming week
# Heart block, left bundle branch block.
Holding beta-marcus. Likely ICD implantation on Wednesday
LISA on CKD:
Likely cardiorenal syndrome
Creatinine from 2.5. At 1.8
Avoid nephrotoxic
Continue to monitor renal function with diuresis
CAD:
No chest pain
Known multivessel disease with medical management
Cont Brilinta (not on asa)
Continue Imdur
Continue statins
Diabetes mellitus type 2:
Hemoglobin A1c 8.7 during his hospital stay
Continue diabetic diet
Insulin sliding scale
Continue home insulin regimen, mixed insulin 70/30 28 am, increased to 24 pm
Monitor blood sugar and adjust medications accordingly
Cognitive deficits:
No formal diagnosed dementia but there is report of memory impairment. Needs OP f/u.
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
Mild anxiety�Xanax as needed while in the hospital
Hypokalemia-replete/monitor
DVT prophylaxis:
Currently on Xarelto
CODE STATUS:
Full code
d/w with cardiology
Total time spent to see the patient, examine the patient, review data and lab results, discuss treatment plan with patient, nursing staff around 55 minutes
Anticipated Discharge: > 48 hours
Subjective/Interval History
-
Date of Service: July 31, 2023
He feels well
No chest pain
No sob
Uses O2 at night . No hypoxia
Objective Data
-
Labs:
Laboratory Results
07/31/23
06:38
Sodium 138
Potassium 4.0
Chloride 102
Carbon Dioxide 28
BUN 63 H
Creatinine 1.8 H
Glucose 81
Calcium 8.8
Vital Signs:
Vital Signs
Temp Pulse Resp BP Pulse Ox
97.4 F 70 18 108/57 99
07/31/23 11:00 07/31/23 11:00 07/31/23 11:00 07/31/23 11:00 07/31/23 11:00
I&O
07/30/23 07/31/23 08/01/23
06:59 06:59 06:59
Intake Total 880 / 880 480 / 480
Output Total 1350 / 1350 1550 / 1550
Balance -470 / -470 -1070 / -1070
[2023-07-31 14:00] LABS: Glucose - Point of Care 138 mg/dl (70-99)
[2023-07-31] MEDS: LASIX 40 MG IV (15:16)
--- NOTE | 2023-07-31 16:52 | W.PN.NEPH.PH ---
Today's Communication / Plan
-
cont lasix
elevate legs and TEDs
Assessment/Plan
-
Assessment:
Coronary artery disease
Heart failure reduced ejection fraction, decompensated
Pulmonary edema
Lower extremity edema
acute kidney injury
Mitral valve regurgitation
Plan:
cr stable 1.9 bland UA
suspect cardiorenal , in [place] renal US was ok
Continue diuresis with IV Lasix, DW probably 84kg
Holding SGLT, Entresto (remains hypotensive)
echo noted EF 34%, decreased from before, eventual mitral clip-ve Wednesday
will need ICD per cards for AV conduction disease, holding BB
low salt diet and FR
detail discussion with pt and daughter
d/w pt
-
-
Date of Service: July 31, 2023
CC / HPI / ROS
-
Chief Complaint:
LISA
History of Present Illness:
cr stable at 1.8
BP stable, wt decreasing
k 4
Review of Systems:
no cp, sob improving , on RA
feels well
non oliguric
Labs
-
Labs:
WBC 9.1 10^3/uL (4.8-10.8) 07/24/23 22:54
RBC 3.62 10^6/uL (4.70-6.10) L 07/24/23 22:54
Hgb 11.0 g/dL (13.0-18.0) L 07/27/23 06:03
Hct 34.2 % (39.0-52.0) L 07/27/23 06:03
Plt Count 158 10^3/uL (130-400) 07/24/23 22:54
Sodium 138 mmol/L (135-145) 07/31/23 06:38
Potassium 4.0 mmol/L (3.5-5.1) 07/31/23 06:38
Chloride 102 mmol/L (98-107) 07/31/23 06:38
Carbon Dioxide 28 mmol/L (22-30) 07/31/23 06:38
BUN 63 mg/dl (9-20) H 07/31/23 06:38
Creatinine 1.8 mg/dL (0.7-1.3) H 07/31/23 06:38
eGFR 38.77 07/31/23 06:38
Glucose 81 mg/dl (70-99) 07/31/23 06:38
Calcium 8.8 mg/dl (8.4-10.2) 07/31/23 06:38
Lun-N-Ngxjdqhayvw Pept 7830 pg/ml 07/24/23 22:54
Physical Exam
-
Vital Signs:
Vital Signs
Temp Pulse Resp BP Pulse Ox
98.1 F 84 20 112/67 97
07/31/23 16:13 07/31/23 16:13 07/31/23 16:13 07/31/23 16:13 07/31/23 16:13
Cardiovascular:: Regular rate and rhythm
Respiratory:: Bilateral: CTA
Lung Excursion:: Normal
Abdomen:: Nontender and Soft
Extremity Edema:: +2: Bilateral:
Soto Catheter: No
[2023-07-31 17:06] LABS: Glucose - Point of Care 144 mg/dl (70-99)
[2023-07-31] MEDS: NOVOLOG MIX 70/30 FLEXPEN 24 UNITS SC (19:13)
[2023-07-31] MEDS: XANAX 0.25 MG PO (21:34)
[2023-07-31 22:11] LABS: Glucose - Point of Care 214 mg/dl (70-99)
[2023-08-01 03:00] VITALS: BP 113/60
[2023-08-01 05:41] VITALS: BMI 28.5
[2023-08-01 07:00] VITALS: BP 107/51
[2023-08-01 07:38] LABS: Glucose - Point of Care 126 mg/dl (70-99)
[2023-08-01] MEDS: NOVOLOG FLEXPEN-MODERATE RESISTANCE SC ×2 (07:44→14:10)
[2023-08-01] MEDS: BRILINTA 90 MG PO ×2 (07:45→19:54)
[2023-08-01] MEDS: LASIX 40 MG IV ×2 (07:46→15:03)
[2023-08-01] MEDS: IMDUR (EXTENDED RELEASE) 60 MG PO (07:46)
[2023-08-01] MEDS: HYDROCORTISONE 1% CREAM 1 APPLIC TOPICAL ×2 (07:46→19:54)
[2023-08-01] MEDS: LIPITOR 40 MG PO (07:46)
[2023-08-01] MEDS: VITAMIN D3 (cholecalciferol) 125 MCG PO (07:47)
[2023-08-01] MEDS: PROTONIX 40 MG PO (07:47)
[2023-08-01] MEDS: XARELTO 2.5 MG PO ×2 (07:47→19:54)
[2023-08-01 08:09] LABS: Blood Urea Nitrogen 57 mg/dl (9-20); Carbon Dioxide 25 mmol/L (22-30); Chloride 104 mmol/L (98-107); Estimated Creatinine Clearance 36 ml/min; Glucose 111 mg/dl (70-99); Potassium 3.6 mmol/L (3.5-5.1); Sodium 139 mmol/L (135-145); eGFR 41.52
[2023-08-01] MEDS: NOVOLOG MIX 70/30 FLEXPEN 28 UNITS SC (08:43)
[2023-08-01 11:00] VITALS: BP 116/60
[2023-08-01 12:03] LABS: Glucose - Point of Care 167 mg/dl (70-99)
--- NOTE | 2023-08-01 12:11 | W.PN.HOSP.TC ---
Today's Communication/Plan
-
.
Assessment / Plan
Assessment / Plan
Physical exam:
General: In no acute distress
HEENT: Normocephalic, Atraumatic and Moist Mucous Membranes
Respiratory: No crackles. ; Negative Wheezes or Rhonchi
Cardiac: Regular Rhythm and S1/S2
GI: Soft, Nontender and Nondistended
Musculoskeletal: Bilateral lower extremity edema improving. No Clubbing, No Cyanosis
Neuro: Awake, Alert and Oriented
Psych: Calm
A/P:
Acute on chronic systolic congestive heart failure:
He feels well. No sob . No hypoxia
Severe mitral regurgitation.
IV diuretics, Lasix 40 mg twice a day and dose increased to 80 mg twice daily but held this morning due to hypotension, resumed back at 40 mg BID
Continue to monitor daily weight & renal function and electrolytes
Cardiac diet
Heart failure education
Follow up clinical response
# Severe Mitral regurgitation
Plan for Mitral Clip Thursday 08/03
# Heart block, left bundle branch block.
Holding beta-marcus. Likely ICD implantation on Tuesday 08/01
LISA on CKD:
Likely cardiorenal syndrome
Creatinine from 2.5. At 1.7 today
Avoid nephrotoxic
Continue to monitor renal function with diuresis
CAD:
No chest pain
Known multivessel disease with medical management
Cont Brilinta (not on asa)
Continue Imdur
Continue statins
Diabetes mellitus type 2:
Hemoglobin A1c 8.7 during his hospital stay
Continue diabetic diet
Insulin sliding scale
Continue home insulin regimen, mixed insulin 70/30 28 am, increased to 24 pm
Monitor blood sugar and adjust medications accordingly
Cognitive deficits:
No formal diagnosed dementia but there is report of memory impairment. Needs OP f/u.
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
Mild anxiety�Xanax as needed while in the hospital
Hypokalemia-replete/monitor
DVT prophylaxis:
Currently on Xarelto
CODE STATUS:
Full code
d/w with cardiology
Total time spent to see the patient, examine the patient, review data and lab results, discuss treatment plan with patient, nursing staff around 45 minutes
Anticipated Discharge: > 48 hours
Subjective/Interval History
-
Date of Service: August 01, 2023
Objective Data
-
Labs:
Laboratory Results
08/01/23
06:47
Sodium 139
Potassium 3.6
Chloride 104
Carbon Dioxide 25
BUN 57 H
Creatinine 1.7 H
Glucose 111 H
Calcium 9.0
Vital Signs:
Vital Signs
Temp Pulse Resp BP Pulse Ox
97.9 F 79 18 116/60 100
08/01/23 11:00 08/01/23 11:00 08/01/23 11:00 08/01/23 11:00 08/01/23 11:00
I&O
07/31/23 08/01/23 08/02/23
06:59 06:59 06:59
Intake Total 480 / 480 1050 / 1050
Output Total 1550 / 1550 1700 / 1700
Balance -1070 / -1070 -650 / -650
--- NOTE | 2023-08-01 12:28 | W.PN.NEPH.PH ---
Addendum entered and electronically signed by Rose Baker MD 08/01/23 12:32:
extra dose of lasix if needed
dose reduced back to 40 BID per primary for hypotension on 07/30
Original Note:
Today's Communication / Plan
-
cont lasix , replace k goal at 4
Assessment/Plan
-
Assessment:
Coronary artery disease
Heart failure reduced ejection fraction, decompensated
Pulmonary edema
Lower extremity edema
acute kidney injury
Mitral valve regurgitation
Plan:
cr better at 1.7 bland UA
suspect cardiorenal , in [place] renal US was ok
Continue diuresis with IV Lasix, DW probably 84kg
Holding SGLT, Entresto
echo noted EF 34%, decreased from before, eventual mitral clip-wednesday
will need ICD per cards for AV conduction disease-tomorrow, holding BB
BP stable
low salt diet and FR
discussion with pt and daughter
-
-
Date of Service: August 01, 2023
CC / HPI / ROS
-
Chief Complaint:
LISA
History of Present Illness:
cr better at 1.7
BP stable, wt decreasing slowly
k 3.6
Review of Systems:
no cp, sob, , on RA
feels well
non oliguric
edema improving
Labs
-
Labs:
WBC 9.1 10^3/uL (4.8-10.8) 07/24/23 22:54
RBC 3.62 10^6/uL (4.70-6.10) L 07/24/23 22:54
Hgb 11.0 g/dL (13.0-18.0) L 07/27/23 06:03
Hct 34.2 % (39.0-52.0) L 07/27/23 06:03
Plt Count 158 10^3/uL (130-400) 07/24/23 22:54
Sodium 139 mmol/L (135-145) 08/01/23 06:47
Potassium 3.6 mmol/L (3.5-5.1) 08/01/23 06:47
Chloride 104 mmol/L (98-107) 08/01/23 06:47
Carbon Dioxide 25 mmol/L (22-30) 08/01/23 06:47
BUN 57 mg/dl (9-20) H 08/01/23 06:47
Creatinine 1.7 mg/dL (0.7-1.3) H 08/01/23 06:47
eGFR 41.52 08/01/23 06:47
Glucose 111 mg/dl (70-99) H 08/01/23 06:47
Calcium 9.0 mg/dl (8.4-10.2) 08/01/23 06:47
Zjy-C-Kgipncfwjgb Pept 7830 pg/ml 07/24/23 22:54
Physical Exam
-
Vital Signs:
Vital Signs
Temp Pulse Resp BP Pulse Ox
97.9 F 79 18 116/60 100
08/01/23 11:00 08/01/23 11:00 08/01/23 11:00 08/01/23 11:00 08/01/23 11:00
Cardiovascular:: Regular rate and rhythm
Respiratory:: Bilateral: CTA
Lung Excursion:: Normal
Abdomen:: Nontender and Soft
Extremity Edema:: +1: Bilateral: (improved)
Soto Catheter: No
[2023-08-01] MEDS: KCL 20 MEQ PO (12:58)
--- NOTE | 2023-08-01 13:49 | W.PN.CD ---
Today's Communication / Plan
-
-The patient has developed progressive conduction disease on telemetry (transient Mobitz 2 heart block; LBBB on EKG).
-The patient will undergo ICD implantation (CLINICAL COURIER-D) tomorrow (08/02/2023); NPO after midnight.
-Patient is scheduled to undergo SJ (MitraClip) on Wednesday (08/04/2023).
-Resume Toprol-XL after device implantation.
-Continue Lasix 40 mg IV twice daily.
Impression / Plan
-
77 y/o male with inoperable/non-intervenable CAD, ICMO (LVEF 35%) and HFrEF with severe combined functional/degenerative mitral valve regurgitation. Patient has developed transient Mobitz 2 heart block and a left bundle branch block.
#LBBB/Mobitz 2 heart block:
-The patient has developed progressive conduction disease on telemetry (transient Mobitz 2 heart block; LBBB on EKG).
-The patient will undergo ICD implantation (CLINICAL COURIER-D) tomorrow (08/02/2023); NPO after midnight.
#Severe MR:
-Poor surgical candidate.
-Patient is scheduled to undergo SJ (MitraClip) on Wednesday (08/04/2023).
#CAD:
-Continue Brilinta, and metoprolol succinate, and atorvastatin.
#Acute HFrEF/ICM (EF 35%):
-Fairly compensated on examination.
-Resume Toprol-XL after device implantation.
-Continue Lasix 40 mg IV twice daily.
-Further GDMT limited by renal dysfunction.
#CKD:
-Creatinine is relatively stable, currently 1.7; continue to monitor.
-Nephrology following; appreciate assistance.
Physical Exam
Vital Signs/Labs
Vital Signs
Temp Pulse Resp BP Pulse Ox
97.9 F 79 18 116/60 100
08/01/23 11:00 08/01/23 11:00 08/01/23 11:00 08/01/23 11:00 08/01/23 11:00
07/31/23 08/01/23 08/02/23
06:59 06:59 06:59
Actual Weight 85.474 kg 84.992 kg
07/27/23 06:03
08/01/23 06:47
Magnesium 2.0 mg/dl (1.6-2.3) 07/28/23 05:53
07/24/23
22:54
Hzc-R-Tfdogpcaadn Pept 7830
Physical Exam
Constitutional: No acute distress and Comfortable
EENT: Anicteric
Cardiovascular: Rhythm & rate is regular, Pedal edema is absent, Systolic murmur present (06/01) and S1S2 is normal
Respiratory: Respiratory effort normal and Lungs clear to auscul.
GI: Soft
Neuro/Psych: AO x 3
Other: Skin (Warm, dry, intact)
Data Reviewed
-
Date of Service: August 01, 2023
EKG: Tracing Personally Visualized and interpreted (Telemetry: Sinus rhythm; previous transient Mobitz 2 heart block this admission)
Medical Tests (PFT, Pathology etc): Discussed with Nurse, Discussed with Patient and Discussed with Family (Son and daughter at bedside)
Labs: Labs Reviewed by me
[2023-08-01 14:09] LABS: Glucose - Point of Care 93 mg/dl (70-99)
--- NOTE | 2023-08-01 14:53 | CM ---
Patient seen bedside with daughter, Ann, and son, Baltazar Pantoja ([phone]), son requesting to be added to contact list, patient agreeable. Phone call to admissions to add son as contact. Family inquiring when procedure will be tomorrow, unsure
at this time. Daughter requesting to be updated after with time of patients procedure, along with an update for after. CM will continue to follow for discharge planning needs.
Plan; likely ICD implantation tomorrow, follow for needs.
[2023-08-01 15:00] VITALS: BP 113/62
[2023-08-01 17:01] LABS: Glucose - Point of Care 194 mg/dl (70-99)
[2023-08-01 18:12] LABS: Glucose - Point of Care 243 mg/dl (70-99)
[2023-08-01] MEDS: NOVOLOG MIX 70/30 FLEXPEN 24 UNITS SC (18:13)
[2023-08-01] MEDS: NOVOLOG FLEXPEN-MODERATE RESISTANCE 3 UNITS SC (18:13)
--- NOTE | 2023-08-01 19:40 | W.PN.OMFS ---
Today's Communication
-
LOUIS DOBSON, DMD
[phone]
Assessment / Plan
-
DENTALLY CLEARED FOR VALVULAR HEART SURGERY
Subjective Data
-
OMFS Dental Clearance
pre valvular heart surgery
Objective Data
-
Vitals, I&O and Lab Results:
Vital Signs
Temp Pulse Resp BP Pulse Ox
98.6 F 94 16 113/62 96
08/01/23 15:00 08/01/23 15:00 08/01/23 15:00 08/01/23 15:00 08/01/23 15:00
Intake and Output
07/31/23 08/01/23 08/02/23
06:59 06:59 06:59
Intake Total 480 / 480 1050 / 1050 780 / 780
Output Total 1550 / 1550 1700 / 1700 1800 / 1800
Balance -1070 / -1070 -650 / -650 -1020 / -1020
Intake:
Oral fluids 480 / 480 1050 / 1050 780 / 780
Output:
Urine, Voided 1550 / 1550 1700 / 1700 1800 / 1800
Lab Data
07/27/23 06:03
08/01/23 06:47
Plt Count 158 10^3/uL (130-400) 07/24/23 22:54
Physical Exam
-
FULL CONSULT DICTATED
DENTAL EXAM: INTACT
NO ACUTE DISEASE
IN VERY GOOD REPAIR
PANORAMIC RADIOGRAPH: NO EVIDENCE OF ACUTE DISEASE
[2023-08-01 19:54] VITALS: BP 115/64
[2023-08-01] MEDS: XANAX 0.25 MG PO (19:54)
[2023-08-01 21:09] LABS: Glucose - Point of Care 240 mg/dl (70-99)
[2023-08-01 23:52] VITALS: BP 110/58
[2023-08-02 03:32] VITALS: BP 106/62
[2023-08-02 06:00] VITALS: BMI 28.8
[2023-08-02 06:21] LABS: Hematocrit 32.7 % (39.0-52.0); Hemoglobin 10.5 g/dL (13.0-18.0); Mean Corp Hgb Conc. 32.1 g/dL (33.0-37.0); Mean Corpuscular Hgb 27.6 pg (27.0-31.0); Mean Corpuscular Volume 86.1 fL (80.0-94.0); Platelet Count 179 10^3/uL (130-400); Red Cell Dist. Width 14.2 % (11.5-14.5); White Blood Cell Count 7.5 10^3/uL (4.8-10.8)
[2023-08-02 06:42] LABS: Blood Urea Nitrogen 52 mg/dl (9-20); Calcium 9.2 mg/dl (8.4-10.2); Carbon Dioxide 31 mmol/L (22-30); Chloride 103 mmol/L (98-107); Estimated Creatinine Clearance 39 ml/min; Glucose 160 mg/dl (70-99); Magnesium 2.1 mg/dl (1.6-2.3); Potassium 4.1 mmol/L (3.5-5.1); Sodium 139 mmol/L (135-145); eGFR 44.65
[2023-08-02 07:30] VITALS: BP 121/66
[2023-08-02] MEDS: NOVOLOG FLEXPEN-MODERATE RESISTANCE SC (07:30)
--- NOTE | 2023-08-02 07:45 | PTCARENOTE ---
Pt complaining of chest pressure, nonradiating, nonreproducible. BP 121/66, HR 90, pulse ox 100% on 2L. Ekg obtained, Dr. Ca and Dr. Loyola made aware.
--- NOTE | 2023-08-02 08:39 | W.PN.CD ---
Today's Communication / Plan
-
continue IV lasix
HEALTH ACTUARY-D tomorrow
MitraClip Wed
Impression / Plan
-
77 y/o male with inoperable/non-intervenable CAD, ICMO (LVEF 35%) and HFrEF with severe combined functional/degenerative mitral valve regurgitation. Patient has developed transient Mobitz 2 heart block and a left bundle branch block.
#LBBB/Mobitz 2 heart block:
-The patient has developed progressive conduction disease on telemetry (transient Mobitz 2 heart block; LBBB on EKG).
-The patient will undergo ICD implantation (HEALTH ACTUARY-D) tomorrow (08/03/2023); NPO after midnight.
#Severe MR:
-Poor surgical candidate.
-Patient is scheduled to undergo SJ (MitraClip) on Wednesday (08/04/2023).
#CAD:
-Continue Brilinta, and metoprolol succinate, and atorvastatin.
-hold low dose xarelto
#Acute HFrEF/ICM (EF 35%):
-Fairly compensated on examination.
-Resume Toprol-XL after device implantation.
-Continue Lasix 40 mg IV twice daily.
-Further GDMT limited by renal dysfunction.
#CKD:
-Creatinine is relatively stable, currently 1.6; continue to monitor.
-Nephrology following; appreciate assistance.
Physical Exam
Vital Signs/Labs
Vital Signs
Temp Pulse Resp BP Pulse Ox
97.9 F 90 18 121/66 100
08/02/23 07:30 08/02/23 07:30 08/02/23 07:30 08/02/23 07:30 08/02/23 07:30
08/01/23 08/02/23 08/03/23
06:59 06:59 06:59
Actual Weight 84.992 kg 85.927 kg
08/02/23 05:09
08/02/23 05:09
Magnesium 2.1 mg/dl (1.6-2.3) 08/02/23 05:09
07/24/23
22:54
Ujf-Y-Kjjwvxqbimi Pept 7830
Physical Exam
Constitutional: No acute distress and Comfortable
EENT: Moist mucous membranes
Cardiovascular: Rhythm/rate is irregular, Pedal edema present, JVD present and Systolic murmur present
Respiratory: Respiratory effort normal and Lungs clear to auscul.
GI: Soft and Distention absent
Neuro/Psych: AO x 3
Data Reviewed
-
Date of Service: August 02, 2023
EKG: Other (Santosh OLSON)
Labs: Labs Reviewed by me
[2023-08-02] MEDS: LIPITOR 40 MG PO (08:47)
[2023-08-02] MEDS: IMDUR (EXTENDED RELEASE) 60 MG PO (08:47)
[2023-08-02] MEDS: PROTONIX 40 MG PO (08:47)
[2023-08-02] MEDS: VITAMIN D3 (cholecalciferol) 125 MCG PO (08:48)
[2023-08-02] MEDS: BRILINTA 90 MG PO ×2 (08:48→20:35)
[2023-08-02] MEDS: NOVOLOG MIX 70/30 FLEXPEN 28 UNITS SC (08:48)
[2023-08-02] MEDS: LASIX 40 MG IV ×2 (08:48→16:30)
[2023-08-02] MEDS: HYDROCORTISONE 1% CREAM 1 APPLIC TOPICAL ×2 (08:52→20:35)
[2023-08-02] MEDS: XANAX 0.25 MG PO ×2 (09:08→20:37)
[2023-08-02 11:15] VITALS: BP 103/54
--- NOTE | 2023-08-02 11:27 | W.PN.NEPH.PH ---
Today's Communication / Plan
-
Observe on IV diuresis
Follow BMP
Pacemaker placement in the morning
Assessment/Plan
-
Assessment:
Coronary artery disease
Heart failure reduced ejection fraction, decompensated
Pulmonary edema
Lower extremity edema
acute kidney injury
Mitral valve regurgitation
Plan:
cr better at 1.6 bland UA
suspect cardiorenal , in [place] renal US was ok
Continue diuresis with 40mg IV Lasix, DW probably 84kg
Holding SGLT, Entresto
echo noted EF 34%, decreased from before, eventual mitral clip-wednesday
will need ICD per cards for AV conduction disease-tomorrow, holding BB
BP stable
low salt diet and FR
-
-
Date of Service: August 02, 2023
CC / HPI / ROS
-
Chief Complaint:
LISA
History of Present Illness:
cr better at 1.6
BP stable, wt decreasing slowly
k 4.1
Review of Systems:
no cp, sob, , on RA
feels well
non oliguric but weights up
edema improving
Labs
-
Labs:
WBC 7.5 10^3/uL (4.8-10.8) 08/02/23 05:09
RBC 3.80 10^6/uL (4.70-6.10) L 08/02/23 05:09
Hgb 10.5 g/dL (13.0-18.0) L 08/02/23 05:09
Hct 32.7 % (39.0-52.0) L 08/02/23 05:09
Plt Count 179 10^3/uL (130-400) 08/02/23 05:09
Sodium 139 mmol/L (135-145) 05/06/24 05:09
Potassium 4.1 mmol/L (3.5-5.1) 08/02/23 05:09
Chloride 103 mmol/L (98-107) 08/02/23 05:09
Carbon Dioxide 31 mmol/L (22-30) H 08/02/23 05:09
BUN 52 mg/dl (9-20) H 08/02/23 05:09
Creatinine 1.6 mg/dL (0.7-1.3) H 08/02/23 05:09
eGFR 44.65 08/02/23 05:09
Glucose 160 mg/dl (70-99) H 08/02/23 05:09
Calcium 9.2 mg/dl (8.4-10.2) 08/02/23 05:09
See-E-Odhtmxprydo Pept 7830 pg/ml 07/24/23 22:54
Physical Exam
-
Vital Signs:
Vital Signs
Temp Pulse Resp BP Pulse Ox
97.7 F 92 18 103/54 99
08/02/23 11:15 08/02/23 11:15 08/02/23 11:15 08/02/23 11:15 08/02/23 11:15
Cardiovascular:: Regular rate and rhythm
Respiratory:: Bilateral: Coarse
Lung Excursion:: Normal
Abdomen:: Nontender and Soft
Bowel Sounds:: Normal
Extremity Edema:: +1: Bilateral:
Soto Catheter: No
--- NOTE | 2023-08-02 11:41 | W.PN.HOSP.TC ---
Today's Communication/Plan
-
iv lasix for now
ANALYTICS SPECIALIST.o. past midnight
Monitor on telemetry
Assessment / Plan
Assessment / Plan
Physical exam:
General: In no acute distress
HEENT: Normocephalic, Atraumatic and Moist Mucous Membranes
Respiratory: No crackles. ; Negative Wheezes or Rhonchi
Cardiac: Regular Rhythm and S1/S2
GI: Soft, Nontender and Nondistended
Musculoskeletal: Bilateral lower extremity edema improving. No Clubbing, No Cyanosis
Neuro: Awake, Alert and Oriented
Psych: Calm
A/P:
#Acute on chronic systolic congestive heart failure:
#Severe mitral regurgitation.
IV diuretics, Lasix 40 mg twice a day and dose increased to 80 mg twice daily but held this morning due to hypotension, resumed back at 40 mg BID
Continue to monitor daily weight & renal function and electrolytes
Cardiac diet
Heart failure education
Follow up clinical response
Cardiology and nephrology following
# Severe Mitral regurgitation
Plan for Mitral Clip Thursday 08/03
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
Holding beta-marcus. Plan for FIBER OPTIC ASSEMBLY WORKER-D postponed till tomorrow.
Continue to monitor on telemetry
LISA on CKD:
Likely cardiorenal syndrome
Creatinine from 2.5. At 1.6 today
Avoid nephrotoxic
Continue to monitor renal function with diuresis
CAD:
Known multivessel disease with medical management
Cont Brilinta (not on asa)
Continue Imdur
Continue statins
Diabetes mellitus type 2:
Hemoglobin A1c 8.7 during his hospital stay
Continue diabetic diet
Insulin sliding scale
Continue home insulin regimen, mixed insulin 70/30 28 am, increased to 24 pm
Monitor blood sugar and adjust medications accordingly
Cognitive deficits:
No formal diagnosed dementia but there is report of memory impairment. Needs OP f/u.
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
Mild anxiety�Xanax as needed while in the hospital
Hypokalemia-replete/monitor
DVT prophylaxis:
Currently on Xarelto
CODE STATUS:
Full code
d/w with cardiology
Anticipated Discharge: > 48 hours
Subjective/Interval History
-
Date of Service: August 02, 2023
States of anxiety this morning
Tolerating breakfast
Objective Data
-
Labs:
Laboratory Results
08/02/23
05:09
WBC 7.5
Hgb 10.5 L
Hct 32.7 L
Plt Count 179
Sodium 139
Potassium 4.1
Chloride 103
Carbon Dioxide 31 H
BUN 52 H
Creatinine 1.6 H
Glucose 160 H
Calcium 9.2
Vital Signs:
Vital Signs
Temp Pulse Resp BP Pulse Ox
97.7 F 92 18 103/54 99
08/02/23 11:15 08/02/23 11:15 08/02/23 11:15 08/02/23 11:15 08/02/23 11:15
I&O
08/01/23 08/02/23 08/03/23
06:59 06:59 06:59
Intake Total 1050 / 1050 1260 / 1260
Output Total 1700 / 1700 2470 / 2470
Balance -650 / -650 -1210 / -1210
Data Reviewed
-
Total Time Spent with Patient (in minutes): 55
[2023-08-02 12:23] LABS: Glucose - Point of Care 351 mg/dl (70-99)
[2023-08-02] MEDS: NOVOLOG FLEXPEN-MODERATE RESISTANCE 9 UNITS SC (12:57)
[2023-08-02 15:30] VITALS: BP 115/60
[2023-08-02 18:03] LABS: Glucose - Point of Care 242 mg/dl (70-99)
[2023-08-02] MEDS: NOVOLOG MIX 70/30 FLEXPEN 24 UNITS SC (18:23)
[2023-08-02] MEDS: NOVOLOG FLEXPEN-MODERATE RESISTANCE 5 UNITS SC (18:23)
[2023-08-02 19:31] VITALS: BP 121/61
[2023-08-02 23:40] VITALS: BP 124/66
[2023-08-03] VITALS (19 sets, daily range): BP systolic 87–134; BP diastolic 51–98; BMI 29.1
[2023-08-03 06:14] LABS: Glucose - Point of Care 160 mg/dl (70-99)
[2023-08-03 06:33] LABS: Blood Urea Nitrogen 55 mg/dl (9-20); Calcium 9.4 mg/dl (8.4-10.2); Carbon Dioxide 29 mmol/L (22-30); Chloride 102 mmol/L (98-107); Estimated Creatinine Clearance 36 ml/min; Glucose 159 mg/dl (70-99); Potassium 4.3 mmol/L (3.5-5.1); Sodium 139 mmol/L (135-145); eGFR 41.52
[2023-08-03] MEDS: XANAX 0.25 MG PO ×2 (06:46→17:26)
[2023-08-03] MEDS: NOVOLOG FLEXPEN-MODERATE RESISTANCE SC ×2 (07:31→12:00)
[2023-08-03] MEDS: BRILINTA PO ×2 (08:12→21:52)
[2023-08-03] MEDS: NOVOLOG MIX 70/30 FLEXPEN SC (08:18)
[2023-08-03] MEDS: PROTONIX 40 MG PO (08:21)
[2023-08-03] MEDS: IMDUR (EXTENDED RELEASE) 60 MG PO (08:21)
[2023-08-03] MEDS: LASIX 40 MG IV ×2 (08:23→17:12)
[2023-08-03] MEDS: HYDROCORTISONE 1% CREAM 1 APPLIC TOPICAL ×2 (08:25→23:19)
[2023-08-03 08:36] LABS: Glucose - Point of Care 228 mg/dl (70-99)
--- NOTE | 2023-08-03 11:03 | W.PN.HOSP.TC ---
Today's Communication/Plan
-
ENGINE WATCHMAN-D today
IV lasix
hold am insulin
Mitraclip tomm?
cards recs
monitor on tele
Assessment / Plan
Assessment / Plan
Physical exam:
General: In no acute distress
HEENT: Normocephalic, Atraumatic and Moist Mucous Membranes
Respiratory: No crackles. ; Negative Wheezes or Rhonchi
Cardiac: Regular Rhythm and S1/S2
GI: Soft, Nontender and Nondistended
Musculoskeletal: Bilateral lower extremity edema improving. No Clubbing, No Cyanosis
Neuro: Awake, Alert and Oriented
Psych: Calm
A/P:
#Acute on chronic systolic congestive heart failure:
#Severe mitral regurgitation.
IV diuretics, Lasix 40 mg twice a day and dose increased to 80 mg twice daily but held this morning due to hypotension, resumed back at 40 mg BID
Continue to monitor daily weight & renal function and electrolytes
Cardiac diet
Heart failure education
Follow up clinical response
Cardiology and nephrology following
# Severe Mitral regurgitation
Plan for Mitral Clip Thursday 08/03?
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
Holding beta-marcus. Plan for ENGINE WATCHMAN-D later today.
Continue to monitor on telemetry
LISA on CKD:
Likely cardiorenal syndrome
Creatinine from 2.5. At 1.7 today
Avoid nephrotoxic
Continue to monitor renal function with diuresis
CAD:
Known multivessel disease with medical management
Cont Brilinta (not on asa) and xarelto (on hold for procedures)
Continue Imdur
Continue statins
Diabetes mellitus type 2:
Hemoglobin A1c 8.7 during his hospital stay
Continue diabetic diet
Insulin sliding scale
Continue home insulin regimen, mixed insulin 70/30 28 am, increased to 24 pm
Monitor blood sugar and adjust medications accordingly
Cognitive deficits:
No formal diagnosed dementia but there is report of memory impairment. Needs OP f/u.
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
Mild anxiety�Xanax as needed while in the hospital
Hypokalemia-replete/monitor
DVT prophylaxis:
Currently on Xarelto on hold
CODE STATUS:
Full code
Anticipated Discharge: > 48 hours
Subjective/Interval History
-
Date of Service: August 03, 2023
States of some anxiety this morning.
Awaiting for procedure
States improvement in lower extremity edema
Objective Data
-
Labs:
Laboratory Results
08/03/23
05:22
Sodium 139
Potassium 4.3
Chloride 102
Carbon Dioxide 29
BUN 55 H
Creatinine 1.7 H
Glucose 159 H
Calcium 9.4
Vital Signs:
Vital Signs
Temp Pulse Resp BP Pulse Ox
97.7 F 75 18 133/98 100
08/03/23 10:55 08/03/23 10:55 08/03/23 10:55 08/03/23 10:55 08/03/23 10:55
I&O
08/02/23 08/03/23 08/04/23
06:59 06:59 06:59
Intake Total 1260 / 1260 880 / 880
Output Total 2470 / 2470 1650 / 1650
Balance -1210 / -1210 -770 / -770
Data Reviewed
-
Total Time Spent with Patient (in minutes): 55
--- NOTE | 2023-08-03 11:33 | CM ---
Reviewed chart. Met with Mr. Pantoja to review discharge plans. He states prior to admission he resides in a one and half story home without any steps to enter. He states he has a first floor set-up once in the home. He states prior to admission he
was independent with ambulation and adls. He states he does not have any DME in the home. He states his daughter has a home on the same property and she is very supportive. His son-in-law and two grandchildren are also supportive. He also states
he has a son who resides around the corner from his house who is also supportive. He states he has a prescription plan and uses [facility]. He states he is going for a PPM today. Gave him the information packet on MitraClip. Medical
work-up in progress. The discharge plan is to return home with family support and a home visit by the Cardiothoracic Transitional Care Nurse when medically stable.
We reviewed pre-op and post-op routines. Briefly reviewed the shower instructions. We also reviewed the restrictions including driving restrictions and lifting restrictions. We discussed a home visit by the Cardiothoracic Transitional Care Nurse.
He is agreeable to a home visit. The plan is for MitraClip on Wednesday08/04/23.
--- NOTE | 2023-08-03 11:37 | W.PN.CD ---
Today's Communication / Plan
-
BiV ICD today
Impression / Plan
-
77 y/o male with inoperable/non-intervenable CAD, ICMO (LVEF 35%) and HFrEF with severe combined functional/degenerative mitral valve regurgitation. Patient has developed transient Mobitz 2 heart block and a left bundle branch block.
#LBBB/Mobitz 2 heart block:
-The patient has developed progressive conduction disease on telemetry (transient Mobitz 2 heart block; LBBB on EKG).
-The patient will undergo ICD implantation (SANE NURSE-D) today;
#Severe MR:
-Poor surgical candidate.
-Patient is scheduled to undergo SJ (MitraClip) on Wednesday (08/04/2023).
-NPO after midnight.
#CAD:
-Continue Brilinta, and metoprolol succinate, and atorvastatin.
-hold low dose xarelto
#Acute HFrEF/ICM (EF 35%):
-Fairly compensated on examination.
-Resume Toprol-XL after device implantation.
-Continue Lasix 40 mg IV twice daily.
-Further GDMT limited by renal dysfunction.
#CKD:
-Creatinine is relatively stable, currently 1.6; continue to monitor.
-Nephrology following; appreciate assistance.
Physical Exam
Vital Signs/Labs
Vital Signs
Temp Pulse Resp BP Pulse Ox
97.7 F 75 18 133/98 100
08/03/23 10:55 08/03/23 10:55 08/03/23 10:55 08/03/23 10:55 08/03/23 10:55
08/02/23 08/03/23 08/04/23
06:59 06:59 06:59
Actual Weight 85.927 kg 86.75 kg
08/02/23 05:09
08/03/23 05:22
Magnesium 2.1 mg/dl (1.6-2.3) 08/02/23 05:09
07/24/23
22:54
Hwf-P-Vofacorqmvt Pept 7830
Physical Exam
Constitutional: No acute distress and Comfortable
EENT: Anicteric and Moist mucous membranes
Cardiovascular: Rhythm & rate is regular, Pedal edema is absent, JVD present and Systolic murmur present
Respiratory: Respiratory effort normal, Lungs clear to auscul. and Wheeze Absent
GI: Soft, Non tender and Normal bowel sounds
Neuro/Psych: Alert, Oriented and AO x 3
Data Reviewed
-
Date of Service: August 03, 2023
Medical Decision Making: Reviewed Test Results, Independent Historian Assessment and Review of Case with other Provider
EKG: Tracing Personally Visualized and interpreted
Echo: Report Reviewed by me
Labs: Labs Reviewed by me
Old Records: Reviewed
[2023-08-03] MEDS: VITAMIN D3 (cholecalciferol) PO (11:53)
[2023-08-03] MEDS: LIPITOR PO (11:53)
[2023-08-03 11:58] LABS: Glucose - Point of Care 223 mg/dl (70-99)
--- NOTE | 2023-08-03 12:13 | W.PN.NEPH.PH ---
Today's Communication / Plan
-
Sign off
Assessment/Plan
-
Assessment:
Coronary artery disease
Heart failure reduced ejection fraction, decompensated
Pulmonary edema
Lower extremity edema
acute kidney injury
Mitral valve regurgitation
Plan:
cr better at 1.7 bland UA
suspect cardiorenal , in Mar renal US was ok
Continue diuresis with 40mg IV Lasix, DW probably 84kg
Holding SGLT, Entresto
echo noted EF 34%, decreased from before, eventual mitral clip-wednesday
will need ICD per cards for AV conduction disease-tomorrow, holding BB
BP stable
low salt diet and FR
We have no more further recommendations and will sign off
-
-
Date of Service: August 03, 2023
CC / HPI / ROS
-
Chief Complaint:
LISA
History of present illness
Hemodynamically stable
Creatinine stable at 1 point
Review of Systems:
no cp, sob, , on RA
feels well
non oliguric but weights up
edema improving
Labs
-
Labs:
WBC 7.5 10^3/uL (4.8-10.8) 08/02/23 05:09
RBC 3.80 10^6/uL (4.70-6.10) L 08/02/23 05:09
Hgb 10.5 g/dL (13.0-18.0) L 08/02/23 05:09
Hct 32.7 % (39.0-52.0) L 08/02/23 05:09
Plt Count 179 10^3/uL (130-400) 08/02/23 05:09
Sodium 139 mmol/L (135-145) 08/03/23 05:22
Potassium 4.3 mmol/L (3.5-5.1) 08/03/23 05:22
Chloride 102 mmol/L (98-107) 08/03/23 05:22
Carbon Dioxide 29 mmol/L (22-30) 08/03/23 05:22
BUN 55 mg/dl (9-20) H 08/03/23 05:22
Creatinine 1.7 mg/dL (0.7-1.3) H 08/03/23 05:22
eGFR 41.52 08/03/23 05:22
Glucose 159 mg/dl (70-99) H 08/03/23 05:22
Calcium 9.4 mg/dl (8.4-10.2) 08/03/23 05:22
Cst-L-Sqyjmpgtlyr Pept 7830 pg/ml 07/24/23 22:54
Physical Exam
-
Vital Signs:
Vital Signs
Temp Pulse Resp BP Pulse Ox
97.7 F 75 18 133/98 100
08/03/23 10:55 08/03/23 10:55 08/03/23 10:55 08/03/23 10:55 08/03/23 10:55
Cardiovascular:: Regular rate and rhythm
Respiratory:: Bilateral: Coarse
Lung Excursion:: Normal
Abdomen:: Nontender and Soft
Bowel Sounds:: Normal
Extremity Edema:: +1: Bilateral:
Soto Catheter: No
[2023-08-03 14:55] LABS: Glucose - Point of Care 237 mg/dl (70-99)
--- NOTE | 2023-08-03 15:39 | W.PN.UPDATE ---
Update Note
Progress Note Update
CARDIAC SURGERY ATTENDING:
Attempted to speak w/ patient at bedside this afternoon to review mitraclip procedure. Pt. is extremely agitated stated that the 'STAFF HERE FUCKING SUCKS''. When I asked patient to avoid cursing, he became belligerent and began yelling at me. I
am no longer comfortable participating in this patient's care. I will discuss his case w/ my surgical colleagues to see if one of them is willing to accept this patient. If not, I will attempt to facilitate transfer.
Thank you,
Javy Olvera M.D.
--- NOTE | 2023-08-03 15:39 | ITS.CL.ICD ---
Certified Medical Dosimetrist - ICD
Implantable Cardioverter Defibrillator
Procedure Report:
BiV ICD
DIRECTOR CORPORATE COMPLIANCE-D with Bi-Ventricular Implantable Cardiac Defibrillator (BiV-ICD) Placement:
Mr. Pantoja is a 77 years old gentleman with CAD, severe HFrEF with NYHA class III CHFinoperable/non-intervenable CAD, ICMO (LVEF 30%) with severe combined functional/degenerative mitral valve regurgitation. Patient has developed transient Mobitz 2
heart block and a left bundle branch block, CKD 3b, who has been on maximal guideline directed medical therapy who has persistent severe LV systolic dysfunction (LVEF of 30%) with desynchrony with LBBB is in need for a BiV pacing and is here in EP
lab for cardiac resynchronization therapy with defibrillator (DIRECTOR CORPORATE COMPLIANCE-D).
Indications: Primary prevention of sudden cardiac with irreversible and symptomatic NYHA Class III chronic systolic congestive heart failure with ischemic cardiomyopathy with depressed LV ejection fraction of 30% despite on maximal guideline
directed medical therapy , Wide QRS with LBBB
Date of the Procedure: 08/03/2023
Pre-Operative Diagnosis: Systolic heart failure and intermittent heart block and chronic LBBB
Post-Operative Diagnosis: Systolic heart failure and intermittent heart block and chronic LBBB
Procedure Performed: DIRECTOR CORPORATE COMPLIANCE-D with BIVENTRICULAR IMPLANTABLE DEFIBRILLATOR IMPLANTATION
Performing Physician:
Alessandra Chester MD
Anesthesia:
See anesthesia records
Detailed Description of the Procedure:
The patient was identified using hospital identification and informed consent obtained for the procedure. The risks were explained to the patient and the family including, but not limited to: Bleeding, infection, arrhythmia, stroke,
vascular/cardiac/lung puncture, surgery, pacemaker dependency/device malfunction. All questions were answered.
A surgical pause was performed in accordance with hospital regulations. Anesthesia service provided sedation as reported separately. Antibiotics administered IV for risk of bacterial colonization. After obtaining informed and written consent, the
patient was brought to the electrophysiology laboratory.
A timeout was performed immediately before the procedure. The left chest was prepped from the nipple to the angle of the jaw with chlorhexidine, and draped following sterile technique in usual routine.�
The procedure site was meticulously prepared with surgical scrub and allowed to dry with no pooling. Sterile draping was applied to cover the procedure site. The image intensifier was draped with sterile bag and positioned over the patient.
The left infra-clavicular region was prepped and draped in the usual sterile fashion. Local anesthesia was administered subcutaneously using 1% lidocaine / Bupivacaine. The left cephalic vein cut-down was performed with an incision at the
delto-pectoral groove, and vascular sheaths were introduced for lead access. These were advanced into the right ventricle and the right atrium.
The right ventricular lead was secured in position with an active fixation technique at the apical septal location.
There was excellent sensing, pacing, and impedance from the leads, with no diaphragmatic stimulation at 10 V output.�Bovie cautery, antibiotics, and fluoroscopy were used.
Attention turned to the coronary sinus. The guide wire was advanced to the IVC and a long hemostatic multipurpose peel away sheath was advanced to the RA.
The CS was cannulated using radiofocus glidewire, deflectable deca polar [email or web address] catheter. The sheath was advanced over the guidewire across the bend into the CS. The glidewire was placed into the CS and coronary sinus venography was obtained. CS
anatomy revealed a posterolateral branch and an iman-lateral vein. The posterolateral branch was accessed.
The PL branch was big and wide and decision was made to place an active fix CS wire to avoid dislodgement. A long active fixation quad LV lead was used and advanced into the postero-lateral br over the BMW wire with anticlock movement. Once adequate
location achieved the LV lead was deployed by clock ruano turns. Once adequate fixation achieved, the push and pull test was done and lead location was confirmed.
During pacing, QRS complex was favorable, with a QS in lateral leads and RBBB configuration during LV pacing. It was deemed ideal for biventricular pacing. Diaphragmatic stimulation was not present with high output pacing here. The long guiding
sheath and inner sheath were removed from the vein and then from the body without change in lead position, impedance, sensing, or capture.
The RA lead was attached in the right atrial appendage with active fixation.
Short MT interval permitted AdaptivCRT pacing with BiV / LV only pacing. The leads were sutured to the underlying pectoralis fascia with 0-silk stitches.�
Some oozing was seen at access sites. This was managed with manual pressure and a loose pursestring suture.�
The leads were attached to the pulse generator in standard configuration with acceptable sensing and threshold parameters. The pocket was irrigated with antibiotic solution; the pocket was inspected with no active bleeding noted. The device and the
leads were placed in the pocket.
A Tyrx pouch was placed around the device and the leads.
Deep subcutaneous tissues were closed with 3 layers of 2-0 V Loc sutures; intermediate subcutaneous tissue was reopposed using a running 4-0 V loc suture, and the dermis was reopposed using a running 4-0 V loc subcuticular suture. Sponge counts /
sharp counts were appropriate.
Procedure End:
The procedure was tolerated well. Aquacel bandaged was applied. A pressure dressing was applied.
Estimated Blood loss:
10 cc
Specimens Removed:
No cultures and no specimens were obtained. No intraoperative pathology was identified.
Urine output:
None
Packs / Drains/ Tubes:
None
Instrument / Sponge Count Correct:
Yes
Flouro time:
18.6min / 8.30Hbze2
Complications of the Procedure:
None
Condition of Patient at Time of Transfer:
Hemodynamically stable with no neurological or vascular compromise.
Device information:�
Generator: [email or web address]; Model: [id number]; Serial # [id number]�
����������� Atrial Lead: [email or web address]; Model: 5076-52; Serial # [id number]
����������������������� Measured data in the right atrium was sensing of 1.5 mV and, impedance of 456 ohms and threshold of 0.5V at 0.4ms�
����������� RV Lead: Medtronic; Model: 6935M-62; Serial # [id number]
����������������������� Measured data on the RV lead was sensing of 12.5mV, impedance of 570 ohms and threshold of 0.5 V at 0.5ms�
����������� LV pacing lead: Medtronic; Model: 4798-88; Serial # [id number]
����������������������� Measured data on the LV lead was impedance of 418 ohms and threshold of 0.5 V at 0.4ms (LV1 to LV2; diaphragm not seen at max output for all the various combination tested).
PROGRAMMING PARAMETERS:�
Fernando parameter settings were DDD 50-130 �
����������� Paced AV interval: 130ms
����������� Sensed AV interval: 100 ms.
����������� Rate Adaptive A-V Interval: on
Tachy parameter settings:
����������� SVT discrimination: On
����������� AF/AFl: On
����������� SVT limit: 260 msec
����������� VT zone:
Slow VT: 150 -167 bpmc - Monitor
����������������������� Fast VT: 167-188 � ATP then shock
����������� ����������� VF: >188 bpm� Shock� x6
�
Summary:
Successful implantation of DIRECTOR CORPORATE COMPLIANCE-D
Results/Recommendations:
-Please follow up CXR�
1. Please discharge patient with adequate pain control�
Instructions to be given to patient:�
- Please follow up with [facility] at [address] [place] [address] ([phone]) to get your wound checked in 2 weeks of your discharge.
- Do not wet incision site until after it is evaluated at cardiology clinic. No baths or showers until then. Sponge baths / showers are OK but dab dry the dressing after it is wet.�
- Allow 'steri strips' to fall off on their own�
- Do not lift left elbow above shoulder, particularly with sudden jerking movements, for 1 month�
- Do not lift anything weighing more than 5 pounds with the left arm for 1 month�
- If you notice any fevers, shortness of breath, lightheadedness, chest pain, or worsening swelling in the wound site, please contact the arrhythmia clinic, contact your furnace combustion tester, or present to the hospital for evaluation.�
Alessandra Chester MD
Electrophysiology
[2023-08-03] MEDS: NOVOLOG MIX 70/30 FLEXPEN 24 UNITS SC (17:04)
[2023-08-03 17:05] LABS: Glucose - Point of Care 291 mg/dl (70-99)
[2023-08-03] MEDS: NOVOLOG FLEXPEN-MODERATE RESISTANCE 5 UNITS SC (17:05)
[2023-08-03] MEDS: ANCEF 5 IV (17:12)
--- NOTE | 2023-08-03 17:22 | W.PN.UPDATE ---
Update Note
Progress Note Update
Patient agitated and aggressive with CVICU staff following BIVICD placement. States he 'just wanted to put his legs on the ground to get his bearings'. When I arrived at bedside patient was still agitated but able to be calmed. Patient complaining
of chest tightness/pain in area of pressure dressing. CARTER Richardson and made aware. Denies SOB or radiation of pain. VSS and chest x-ray stable.
--- NOTE | 2023-08-03 18:30 | PTCARENOTE ---
received sitting straight up in bed. angry. trying to swing legs over bed. started yelling at me immediately when i asked him to lay back so we could get his vitals. he told me 'i just wanna put my fucking legs over the bed' i explained to him he
needed to be on bedrest post ICD placement and that he couldnt do that right now.' he said 'the fuck i CANT!' and tried ripping his arm immobilizer off and sitting up. finally let patient slide legs to the side of bed. pt stated' now was that so
damn hard???' cursed out Dr freire. Cursed at [employer] staff. On phone with son later stating 'these people are incompetent. they dont take care of you. im not going to be abused by these assholes' updated son. attempted to provide emotional support
without good effect. provided water, ordered meal, and gave xanax. continues to talk about me in room to son over the phone. will attempt to continue to monitor.
[2023-08-03] MEDS: ULTRAM 50 MG PO (18:46)
--- NOTE | 2023-08-03 21:00 | PTCARENOTE ---
Assumed care of patient at 1900. Patient aggressive/agitated with staff during day. Requested AMA form from this RN. HEAVY EQUIPMENT MECHANIC contacted who spoke with patient. Patient now amenable to staying does not wish to sign out AMA. This RN informed patient of
plan of care and assessed patient. Patient is AOx4, anxious. Lung sounds are clear throughout. Heart sounds have a regular rate and rhythm. Patient is 100% v paced on the monitor. Active BS. Patient is voiding clear yellow urine in urinal. Assistx1
OOB patient LUE in immobilizer. Patient has large surgical dressing over L chest from ICD placement that is CDI. No complaints at this time. Pending orders to transfer patient to IVU will transfer when room is clean.
--- NOTE | 2023-08-03 21:09 | W.PN.UPDATE ---
Update Note
Progress Note Update
Went to speak with patient about his request to leave due to issues including nursing not explaining medications, no insulin being given, no blood sugars taken all day and nursing listening to private conversations. Explained the protocol for
diabetes patients and showed him he had his blood sugars checked frequently today especially since he was NPO for a procedure. He was concerned about not being offered food post procedure and explained there is a time period to settle in after
returning to his room due to anesthesia and increased concerns for nausea and vomiting. Showed him the computer documentation of his blood sugar readings. Unfortunately this ended up in a loop of complaints. Encouraged him to think about whether he
would like to leave but he does realize with his arm immobilized it would be difficult. Explained we would be transferring him down the live to another unit where he would have new nurses and a fresh start. Will await his decision.
[2023-08-03 22:41] LABS: Glucose - Point of Care 192 mg/dl (70-99)
[2023-08-03] MEDS: TYLENOL 650 MG PO (22:58)
--- NOTE | 2023-08-03 23:44 | PTCARENOTE ---
Assume care from previous RN. AAOX3, a bit anxious but cooperative at this time. Afebrile. V-Paced in the monitor. +1 BLLE and +2 pedal edema.Lung sounds are diminished at the bases, SaO2 96% RA. Pt prefers O2 for comfort. Dyspneic w/ exertion and
shallow breathing. OOB with assistance. Pt is cooperative with the arm sling. Lt chest dressing appears dry and intact. Will continue to monitor. Pt will remain NPO after midnight.
[2023-08-04] VITALS (11 sets, daily range): BP systolic 100–118; BP diastolic 53–66; O2SAT 93–96; BMI 28.6
[2023-08-04] MEDS: ANCEF 5 IV (01:07)
[2023-08-04 04:31] LABS: % Basophils 0.4 % (0-2); % Eosinophils 5.1 % (0-6); % Immature Granulocytes 0.3 % (0-0.5); % Lymphocytes 14.1 % (20.5-51.1); % Neutrophils 71.1 % (42.2-75.2); Absolute Eosinophils 0.4 10^3/uL (0-0.7); Absolute Monocytes 0.7 10^3/uL (0.1-0.6); Absolute Neutrophils 5.2 10^3/uL (1.4-6.5); Hemoglobin 9.8 g/dL (13.0-18.0); Mean Corp Hgb Conc. 32.7 g/dL (33.0-37.0); Mean Corpuscular Hgb 27.5 pg (27.0-31.0); Mean Platelet Volume 11.6 fL (7.4-10.4); Nucleated Red Blood Cells % 0 % (-); Platelet Count 173 10^3/uL (130-400); Red Blood Cell Count 3.57 10^6/uL (4.70-6.10); Red Cell Dist. Width 14.1 % (11.5-14.5); White Blood Cell Count 7.3 10^3/uL (4.8-10.8)
[2023-08-04 04:55] LABS: Blood Urea Nitrogen 47 mg/dl (9-20); Calcium 8.9 mg/dl (8.4-10.2); Carbon Dioxide 30 mmol/L (22-30); Chloride 102 mmol/L (98-107); Estimated Creatinine Clearance 36 ml/min; Glucose 103 mg/dl (70-99); Potassium 3.2 mmol/L (3.5-5.1); Sodium 138 mmol/L (135-145); eGFR 41.52
[2023-08-04 05:22] LABS: Glucose - Point of Care 106 mg/dl (70-99)
[2023-08-04] MEDS: KCL 40 MEQ PO (06:08)
[2023-08-04] MEDS: TYLENOL 650 MG PO ×2 (06:41→11:59)
[2023-08-04 08:05] LABS: Glucose - Point of Care 92 mg/dl (70-99)
[2023-08-04] MEDS: PROTONIX 40 MG PO (09:16)
[2023-08-04] MEDS: IMDUR (EXTENDED RELEASE) 60 MG PO (09:16)
[2023-08-04] MEDS: LIPITOR 40 MG PO (09:16)
[2023-08-04] MEDS: BRILINTA 90 MG PO ×2 (09:16→20:30)
[2023-08-04] MEDS: VITAMIN D3 (cholecalciferol) 125 MCG PO (09:16)
[2023-08-04] MEDS: NOVOLOG MIX 70/30 FLEXPEN 28 UNITS SC (09:17)
[2023-08-04] MEDS: HYDROCORTISONE 1% CREAM 1 APPLIC TOPICAL ×2 (09:18→20:30)
[2023-08-04] MEDS: LASIX 40 MG IV ×2 (09:19→16:50)
[2023-08-04] MEDS: XANAX 0.25 MG PO (09:37)
--- NOTE | 2023-08-04 09:45 | PTCARENOTE ---
Assumed care at 0700. VSS. VPaced w/ BBBC, HR 70-80s. Now on room air, SaO2 >95%. Pressure dressing to left upper cheest dry, intact. Left arm in immobilizer. Required min assist to sit in chair. Asking for pain medicine, tylenol unable to be given
for PRN administration at this time, patient aware. Ice pack applied to left shoulder. Left w/ call pineda in reach.
--- NOTE | 2023-08-04 11:04 | CM ---
Chart reviewed. Patient is independent of ADLS, lives alone in a 1.5 STH, 0 GLORY, 0 DME. Patient's daughter lives on the property in another house and the son lives around the corner. Patient is not current with VN, but is interested. Referral
sent to [facility]. Plan is for the patient to return home with [facility]. CM to follow
--- NOTE | 2023-08-04 13:12 | W.PN.HOSP.TC ---
Today's Communication/Plan
-
restart toprol
monitor BP
ok for tele
diuretics po in am
Assessment / Plan
Assessment / Plan
Physical exam:
General: In no acute distress
HEENT: Normocephalic, Atraumatic and Moist Mucous Membranes
Respiratory: No crackles. ; Negative Wheezes or Rhonchi
Cardiac: Regular Rhythm and S1/S2, LUE in sling and dressing noted
GI: Soft, Nontender and Nondistended
Musculoskeletal: Bilateral lower extremity edema improving. No Clubbing, No Cyanosis
Neuro: Awake, Alert and Oriented
Psych: Calm
A/P:
#Acute on chronic systolic congestive heart failure:
#Severe mitral regurgitation.
IV diuretics, Lasix 40 mg twice a day and dose increased to 80 mg twice daily but held this morning due to hypotension, resumed back at 40 mg BID
Continue to monitor daily weight & renal function and electrolytes
Cardiac diet
Heart failure education
Follow up clinical response
can probably switch to home regimen on dc or adjusted dose per cards.
# Severe Mitral regurgitation
Plan for Mitral Clip as OP. Procedure post-poned for now.
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
s/p GAS TENDER-D by Dr. Chester on 08/02
restart toprol but at lower dose and monitor bp
ILSA on CKD:
Likely cardiorenal syndrome
Creatinine from 2.5. At 1.7 today
Avoid nephrotoxic
Continue to monitor renal function with diuresis
CAD:
Known multivessel disease with medical management
Cont Brilinta (not on asa) and restart xarelto pending cards clearance.
Continue Imdur
Continue statins
Diabetes mellitus type 2:
Hemoglobin A1c 8.7 during his hospital stay
Continue diabetic diet
Insulin sliding scale
Continue home insulin regimen, mixed insulin 70/30 28 am, increased to 24 pm
Monitor blood sugar and adjust medications accordingly
Cognitive deficits:
No formal diagnosed dementia but there is report of memory impairment. Needs OP f/u.
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
Mild anxiety�Xanax as needed while in the hospital
Hypokalemia-replete/monitor
DVT prophylaxis:
Currently on Xarelto on hold per cards
CODE STATUS:
Full code
Anticipated Discharge: Within 24 hours
Subjective/Interval History
-
Date of Service: August 04, 2023
States of left shoulder discomfort
improvement in le edema
events from 08/02 post ICD noted
procedure postpone for now
Objective Data
-
Labs:
Laboratory Results
08/04/23
03:57
WBC 7.3
Hgb 9.8 L
Hct 30.0 L
Plt Count 173
Sodium 138
Potassium 3.2 L D
Chloride 102
Carbon Dioxide 30
BUN 47 H
Creatinine 1.7 H
Glucose 103 H
Calcium 8.9
Vital Signs:
Vital Signs
Temp Pulse Resp BP Pulse Ox
98.6 F 90 18 100/53 99
08/04/23 11:49 08/04/23 12:00 08/04/23 11:49 08/04/23 11:52 08/04/23 11:49
I&O
08/03/23 08/04/23 08/05/23
06:59 06:59 06:59
Intake Total 880 / 880 120 / 120
Output Total 1650 / 1650 1000 / 1000 400 / 400
Balance -770 / -770 -880 / -880 -400 / -400
Data Reviewed
-
Total Time Spent with Patient (in minutes): 55
[2023-08-04 13:23] LABS: Glucose - Point of Care 85 mg/dl (70-99)
[2023-08-04] MEDS: TOPROL XL 12.5 MG PO (13:57)
--- NOTE | 2023-08-04 14:54 | PTCARENOTE ---
Has been sitting in chair since this AM, ambulating in room, and in halls w/ staff supervision. No SOB noted, SaO2 >93% while ambulating.
--- NOTE | 2023-08-04 16:32 | W.PN.CD ---
Today's Communication / Plan
-
Wean oxygen.
Ambulate to assess ability to perform ADL's.
Change furosemide to 80 mg PO BID tomorrow.
Discuss further GDMT with nephrology tomorrow.
Begin discharge planning.
Impression / Plan
-
Impression/Plan: 77 y/o male with inoperable/non-intervenable CAD, ICMO (LVEF 35%) and HFrEF with severe combined functional/degenerative mitral valve regurgitation. Patient has developed transient Mobitz 2 heart block and a left bundle branch
block.
#LBBB/Mobitz 2 heart block:
-The patient has developed progressive conduction disease on telemetry (transient Mobitz 2 heart block; LBBB on EKG).
-S/P SYSTEMS SOFTWARE DEVELOPER-D implantation on 08/03/2023.
#Severe MR:
-Poor surgical candidate.
-After thorough discussion with the surgical team, we have concluded that the patient would not be a surgical rescue; Dr. Benson has said he would consider extreme risk MVR if the SJ does not reduce MR enough but would be elective and preceded by
optimization (inpatient [place]-Beni + inotropes/diuretics).
-Furthermore, Dr. Chester has expressed concern at proceeding with a SJ so close to SYSTEMS SOFTWARE DEVELOPER-D placement (concern for lead dislodgement).
-I have reviewed this with the patient in detail.
-Thankfully, the patient appears to be compensating.
-We will proceed along the following course:
-If the patient can be weaned from oxygen and is able to tolerate even rudimentary ADL's, we will plan to discharge to outpatient follow up and schedule his SJ in the next 2-4 weeks.
-If the patient cannot be weaned from oxygen or cannot be discharged, we will proceed with inpatient SJ (either 08/06/2023 or 08/11/2023).
-In either case, surgical backup is not a rate limiting factor and we will proceed regardless of CT surgery's presence.
#CAD:
-Continue ticagrelor, and metoprolol succinate, and atorvastatin.
-Hold low dose rivaroxaban while we assess his ability to wean from oxygen.
#Acute HFrEF/ICM (EF 35%):
-Fairly compensated on examination. No longer requiring supplemental oxygen.
-Resume metoprolol succinate this morning.
-Transition to furosemide 80 mg PO BID tomorrow.
-Discuss further GDMT with nephrology tomorow (ACEI/ARB/ARNi/SGLT2i).
#CKD:
-Creatinine is relatively stable, currently 1.7.
-Nephrology following; appreciate assistance.
Subjective/Interval History:
The patient has had quite an active 24 hours.
Yesterday, the patient was consented for SJ/MitraClip and underwent SYSTEMS SOFTWARE DEVELOPER-D implantation.
After this implantation he was moved to the CVICU in anticipation of SJ the following day.
Dr. Olvera went to perform preoperative assessment of the patient after his SYSTEMS SOFTWARE DEVELOPER-D.
During this interaction, the patient was belligerent and demeaning of the staff, cursing frequently.
Dr. Olvera asked the patient to refrain from using profanity, but the patient continued, prompting Dr. Olvera to end the meeting.
Dr. Olvera felt that the relationship between him and the patient was no longer tenable (possibly litigious) to proceed with SJ and transferred the surgical part of his care to Dr. Benson.
Given Dr. Benson's unavailability on 08/04/2023, the SJ was cancelled.
The patient was transferred to the IVU.
I had extensive discussions with Drs. Olvera and Kelley in order to expedite the patient's care.
On interview this morning, the patient feels well and is pleasant.
K+ is 3.2.
Weight continues to fall.
DATA:
JACINTA, 07/29/2023:
CONCLUSIONS
Moderately reduced left ventricular systolic function. Left ventricular
ejection fraction is 35%.
Thickened mitral valve leaflets. Posterior leaflet appears fixed with a broad
central jet of MR.
Severe mitral regurgitation.
Mild mitral stenosis. Mean gradient 6 mmHg. MVA by 3-D planimetry: 4.1 cm2.
Compared to JACINTA 05/20/23: MR has progressed from moderate to severe. LVEF has
declined from 45% to 35%. Echodensity on posterior mitral valve leaflet not
well visualized.
Physical Exam
Vital Signs/Labs
Vital Signs
Temp Pulse Resp BP Pulse Ox
36.2 C 90 18 100/53 98
08/04/23 15:29 08/04/23 12:00 08/04/23 15:29 08/04/23 11:52 08/04/23 15:29
08/03/23 08/04/23 08/05/23
11:59 11:59 11:59
Actual Weight 86.75 kg 85.4 kg
08/04/23 03:57
08/04/23 03:57
Magnesium 2.1 mg/dl (1.6-2.3) 08/02/23 05:09
07/24/23
22:54
Rkt-P-Wqvekqwayaf Pept 7830
Physical Exam
Constitutional: No acute distress and Comfortable
EENT: Anicteric and Moist mucous membranes
Cardiovascular: Rhythm & rate is regular, JVD pressure is normal, Pedal edema present, Systolic murmur present and S1S2 is normal
Respiratory: Respiratory effort normal, Lungs clear to auscul., Wheeze Absent, Crackles Absent and Rhonchi Absent
GI: Soft, Distention absent, Flat, Non tender and Normal bowel sounds
Neuro/Psych: AO x 3
Data Reviewed
-
Date of Service: August 04, 2023
Medical Decision Making: Reviewed Test Results, Independent Historian Assessment, Test Interpretation and Review of Case with other Provider
EKG: Tracing Personally Visualized and interpreted and Report Reviewed by me
Echo: Tracing Personally Visualized and interpreted and Report Reviewed by me
X-Ray/CT/US/MRI/NUC/PET: Image Personally Visualized and interpreted and Report Reviewed by me
Medical Tests (PFT, Pathology etc): Image Personally Visualized and interpreted and Report Reviewed by me
Labs: Labs Reviewed by me
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
[2023-08-04 17:26] LABS: Glucose - Point of Care 59 mg/dl (70-99)
[2023-08-04 17:45] LABS: Glucose - Point of Care 70 mg/dl (70-99)
[2023-08-04] MEDS: NOVOLOG FLEXPEN-MODERATE RESISTANCE SC (17:48)
--- NOTE | 2023-08-04 18:11 | PTCARENOTE ---
Son and daughter at bedside requesting update which this RN provided. Escalating tension between son and patient regarding discussion of potential transfer to telemetry floor. Both son and patient raising voices. This RN asked son to leave room.
Patient able to be redirected.
--- NOTE | 2023-08-04 18:16 | PTCARENOTE ---
Dr. Ca aware of hypoglycemia, says okay to give scheduled 70/30 if patient eats dinner and to recheck blood sugar 1 hr post meal.
[2023-08-04] MEDS: NOVOLOG MIX 70/30 FLEXPEN 24 UNITS SC (18:28)
[2023-08-04 20:30] LABS: Glucose - Point of Care 153 mg/dl (70-99)
[2023-08-04] MEDS: MELATONIN 3 MG PO (22:04)
[2023-08-04 23:34] LABS: Glucose - Point of Care 97 mg/dl (70-99)
[2023-08-05] VITALS: BP 103/61
[2023-08-05] MEDS: TYLENOL 650 MG PO ×2 (03:44→12:22)
[2023-08-05 03:56] VITALS: BMI 28.6
[2023-08-05 04:09] VITALS: BP 108/68
[2023-08-05 04:39] LABS: Blood Urea Nitrogen 47 mg/dl (9-20); Calcium 9.2 mg/dl (8.4-10.2); Carbon Dioxide 28 mmol/L (22-30); Chloride 102 mmol/L (98-107); Estimated Creatinine Clearance 31 ml/min; Glucose 72 mg/dl (70-99); Potassium 3.8 mmol/L (3.5-5.1); Sodium 139 mmol/L (135-145); eGFR 34.16
[2023-08-05 06:56] VITALS: BP 103/62
[2023-08-05 07:07] LABS: Glucose - Point of Care 99 mg/dl (70-99)
--- NOTE | 2023-08-05 07:30 | W.PN.CD ---
Today's Communication / Plan
-
Transitioning to furosemide 80 mg PO BID today.
Discuss any further GDMT with nephrology.
Daily weights (even at home) with flexible diuretic dosing. Supplement furosemide with metolazone 5 mg (given 30 minutes before first furosemide dose) for weight gain of 1-3 lbs/24 hours, 3-5 lbs/week.
Outpatient BMP to monitor renal function, potassium levels.
Discharge planning.
Plan to have him return for SJ/MitraClip in 2-4 weeks.
Impression / Plan
-
Impression/Plan: 77 y/o male with inoperable/non-intervenable CAD, ICMO (LVEF 35%) and HFrEF with severe combined functional/degenerative mitral valve regurgitation. Patient has developed transient Mobitz 2 heart block and a left bundle branch
block.
#LBBB/Mobitz 2 heart block:
-The patient has developed progressive conduction disease on telemetry (transient Mobitz 2 heart block; LBBB on EKG).
-S/P BUSINESS SYSTEMS MANAGER-D implantation on 08/03/2023.
#Severe MR:
-Poor surgical candidate.
-After thorough discussion with the surgical team, we have concluded that the patient would not be a surgical rescue; Dr. Benson has said he would consider extreme risk MVR if the SJ does not reduce MR enough but would be elective and preceded by
optimization (inpatient [place]-Beni + inotropes/diuretics).
-Furthermore, Dr. Chester has expressed concern at proceeding with a SJ so close to BUSINESS SYSTEMS MANAGER-D placement (concern for lead dislodgement).
-I have reviewed this with the patient in detail.
-If the patient has been weaned from oxygen and is tolerating rudimentary ADL's.
-We will plan to discharge to outpatient follow up and schedule his SJ in the next 2-4 weeks.
-He will require daily weights (at home) with a flexible diuretic plan. Supplement furosemide 80 mg BID with metolazone 5 mg (30 minutes prior to furosemide dose) if weight rises 1-3 lbs/24 hours or 3-5 lbs/week.
-I have spoken with the patient's daughter and emphasized the importance of close follow up given the severity of the patient's disease.
#CAD:
-Continue ticagrelor, and metoprolol succinate, and atorvastatin.
-Hold low dose rivaroxaban while we assess his ability to wean from oxygen.
#Acute HFrEF/ICM (EF 35%):
-Fairly compensated on examination. No longer requiring supplemental oxygen.
-Continue metoprolol succinate this morning.
-Transition to furosemide 80 mg PO BID today.
-Discuss further GDMT with nephrology (ACEI/ARB/ARNi/SGLT2i).
#CKD:
-Creatinine is relatively stable, currently 2.0.
-Nephrology following; appreciate assistance.
#Dispo
-Discharge planning (late today vs. tomorrow).
Subjective/Interval History:
Weight stable.
Patient weaned from oxygen, performing ADL's in room and is sat in chair yesterday.
DATA:
JACINTA, 07/29/2023:
CONCLUSIONS
Moderately reduced left ventricular systolic function. Left ventricular
ejection fraction is 35%.
Thickened mitral valve leaflets. Posterior leaflet appears fixed with a broad
central jet of MR.
Severe mitral regurgitation.
Mild mitral stenosis. Mean gradient 6 mmHg. MVA by 3-D planimetry: 4.1 cm2.
Compared to JACINTA 05/20/23: MR has progressed from moderate to severe. LVEF has
declined from 45% to 35%. Echodensity on posterior mitral valve leaflet not
well visualized.
Physical Exam
Vital Signs/Labs
Vital Signs
Temp Pulse Resp BP Pulse Ox
36.6 C 93 18 108/68 95
08/05/23 04:13 08/05/23 04:09 08/04/23 15:29 08/05/23 04:09 08/05/23 04:13
08/03/23 08/04/23 08/05/23
11:59 11:59 11:59
Actual Weight 86.75 kg 85.4 kg 85.2 kg
08/04/23 03:57
08/05/23 03:47
Magnesium 2.1 mg/dl (1.6-2.3) 08/02/23 05:09
07/24/23
22:54
Upk-F-Rzvecmuqhdc Pept 7830
Physical Exam
Constitutional: No acute distress and Comfortable
EENT: Anicteric and Moist mucous membranes
Cardiovascular: Rhythm & rate is regular, Pedal edema present, JVD present, Systolic murmur present and S1S2 is normal
Respiratory: Respiratory effort normal, Lungs clear to auscul., Wheeze Absent, Crackles Absent and Rhonchi Absent
GI: Soft, Distention absent, Flat, Non tender and Normal bowel sounds
Neuro/Psych: AO x 3
Data Reviewed
-
Date of Service: August 05, 2023
Medical Decision Making: Reviewed Test Results, Independent Historian Assessment and Test Interpretation
EKG: Tracing Personally Visualized and interpreted and Report Reviewed by me
Echo: Tracing Personally Visualized and interpreted and Report Reviewed by me
X-Ray/CT/US/MRI/NUC/PET: Image Personally Visualized and interpreted and Report Reviewed by me
Medical Tests (PFT, Pathology etc): Image Personally Visualized and interpreted and Report Reviewed by me
Labs: Labs Reviewed by me
Old Records: Reviewed
--- NOTE | 2023-08-05 08:00 | PTCARENOTE ---
Patient received from weight guesser, presents as assessed. Patient is AOx4, cooperative. Lungs CTA on RA. Abdomen soft non-tender. BRP for elimination needs. PRN xannax administered for anxiety. Patient offers no complaints at this time.
[2023-08-05] MEDS: NOVOLOG FLEXPEN-MODERATE RESISTANCE SC (08:47)
[2023-08-05] MEDS: TOPROL XL 12.5 MG PO (08:48)
[2023-08-05] MEDS: BRILINTA 90 MG PO (08:48)
[2023-08-05] MEDS: LASIX 80 MG PO ×2 (08:48→15:38)
[2023-08-05] MEDS: VITAMIN D3 (cholecalciferol) 125 MCG PO (08:48)
[2023-08-05] MEDS: LIPITOR 40 MG PO (08:48)
[2023-08-05] MEDS: IMDUR (EXTENDED RELEASE) 60 MG PO (08:48)
[2023-08-05] MEDS: NOVOLOG MIX 70/30 FLEXPEN 28 UNITS SC (08:49)
[2023-08-05] MEDS: PROTONIX 40 MG PO (08:49)
[2023-08-05] MEDS: HYDROCORTISONE 1% CREAM 1 APPLIC TOPICAL (08:49)
[2023-08-05] MEDS: XANAX 0.25 MG PO (08:56)
--- NOTE | 2023-08-05 09:58 | W.PN.HOSP.TC ---
Today's Communication/Plan
-
dc home
OP cards f/u
Assessment / Plan
Assessment / Plan
Physical exam:
General: In no acute distress, walking around in room. talking to daughter over the phone.
HEENT: Normocephalic, Atraumatic and Moist Mucous Membranes
Respiratory: No crackles. ; Negative Wheezes or Rhonchi
Cardiac: Regular Rhythm and S1/S2, LUE in sling and dressing noted
GI: Soft, Nontender and Nondistended
Musculoskeletal: Bilateral lower extremity edema improved. No Clubbing, No Cyanosis
Neuro: Awake, Alert and Oriented
Psych: Calm
A/P:
#Acute on chronic systolic congestive heart failure:
#Severe mitral regurgitation.
IV diuretics, Lasix 40 mg twice a day and dose increased to 80 mg twice daily but held this morning due to hypotension, resumed back at 40 mg BID
Continue to monitor daily weight & renal function and electrolytes
Cardiac diet
Heart failure education. Significant improvement in symptomatology.
Entresto has been on hold and can restart pending improvement in creatinine as outpatient
Switched to po lasix 80mg BID. Cardiology recommending Zaroxolyn for increasing weight gain 5mg prn.
# Severe Mitral regurgitation
Plan for Mitral Clip as OP. Procedure post-poned for now.
Patient deemed to be extremely high risk for surgery per CTS.
Discussed case with MitraClip coordinator at home and follow-up with patient and schedule
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
s/p PARTS SALESPERSON-D by Dr. Chester on 08/02
restart toprol 12.5mg but at lower dose due to soft bp as diuretics dose increased.
#LISA on CKD:
Likely cardiorenal syndrome
Creatinine from 2.5 to 2. Diuretics dose decreased
OP BMP
Avoid nephrotoxic. Entresto has been on hold and can restart pending improvement in creatinine as outpatient
Continue to monitor renal function with diuresis.
BMP Rx provided-results to pcp/cardiology.
#CAD:
Known multivessel disease with medical management
Cont Brilinta (not on asa) and restart xarelto okay for cardiology
Continue Imdur
Continue statins
#Diabetes mellitus type 2:
Hemoglobin A1c 8.7
Continue diabetic diet
Insulin sliding scale
Continue home insulin regimen, mixed insulin 70/30 and Farxiga. DC Repaglinide at episode of low sugars at time. Insulin decreased too.
Monitor blood sugar and adjust medications accordingly
States at home patient was a pretty well-controlled
Cognitive deficits:
No formal diagnosed dementia but there is report of memory impairment. Needs OP f/u.
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
Mild anxiety�OP pcp f/u
Hypokalemia-replete/monitor
DVT prophylaxis: xarelto
CODE STATUS:
Full code
d/w with cardiology
More than 30 minutes spent in discharge including
Final examination of the patient
Summarizing hospital stay
Instructions for continuing care to all relevant caregivers
Preparation of discharge records, prescriptions, and referral forms
Complex discharge
Total time spent (in minutes): 62
Anticipated Discharge: Today
Subjective/Interval History
-
Date of Service: August 05, 2023
feeling better
walking around in room without any problems
no chest pain or sob
Objective Data
-
Labs:
Laboratory Results
08/05/23
03:47
Sodium 139
Potassium 3.8
Chloride 102
Carbon Dioxide 28
BUN 47 H
Creatinine 2.0 H
Glucose 72
Calcium 9.2
Vital Signs:
Vital Signs
Temp Pulse Resp BP Pulse Ox
98.0 F 86 18 103/62 99
08/05/23 07:49 08/05/23 08:48 08/05/23 07:49 08/05/23 08:48 08/05/23 07:49
I&O
08/04/23 08/05/23 08/06/23
06:59 06:59 06:59
Intake Total 120 / 120 240 / 240
Output Total 1000 / 1000 1400 / 1400 200 / 200
Balance -880 / -880 -1160 / -1160 -200 / -200
[2023-08-05] MEDS: CALAMINE LOTION 180 ML TOPICAL (10:57)
--- NOTE | 2023-08-05 11:24 | CM ---
Chart reviewed. Patient is independent of ADLS, lives alone in a 1.5 STH, 0 GLORY, 0 DME. Referral sent to [facility]. Plan is for the patient to return home with Luis GARRETT CM to follow
[2023-08-05 11:46] LABS: Glucose - Point of Care 218 mg/dl (70-99)
[2023-08-05 12:04] VITALS: BP 108/64
--- NOTE | 2023-08-05 12:14 | W.DCSUMMARY ---
Discharge Summary
Discharge Data
Date of Admission: 07/25/23
Date of Discharge: 08/05/23
-
Pending Results: No
Hospital Course
77-year-old male past medical history of chronic systolic heart failure, valvular disease, CKD, CAD known multivessel disease with plan for medical management only, diabetes mellitus, history of infective endocarditis, suspected anxiety who is
presenting with shortness of breath. Patient was found with acute on chronic heart failure exacerbation. Patient was also found to have LISA on CKD. Nephrology and cardiology was consulted. Patient was started on IV diuresis. IV diuretics, Lasix
40 mg twice a day and dose increased to 80 mg twice daily and was further adjusted. Patient dose was initially decreased IV diuresis however with persistent hypervolemia and was increased to 80 mg twice daily. Patient creatinine slowly down
trended. Patient underwent transesophageal echocardiogram which showed severe mitral regurgitation. Patient also developed Mobitz type II heart block with bradycardia and beta-marcus was discontinued. Patient was evaluated by emergency detail driver
and underwent DRENCHER-D implantation by Dr. Chester on 08/02. Patient was deemed to be high risk candidate for surgical mitral valve replacement and will need to be followed up outpatient closely with cardiology for mitral clip. Patient diuretic regimen
was increased to 80 mg p.o. twice daily on discharge. Zaroxolyn as needed. BMP prescription was provided with results faxed to PCP and cardiology. Patient p.o. diabetic regimen of repaglinide was discontinued. Patient Entresto was also held
until improvement in creatinine outpatient cardiology follow-up and also soft blood pressure and recently increased dose of diuretics on discharge. Post device implantation patient was started on Toprol. Patient will closely follow-up with
cardiology.
Discharge Plan
-
Patient Disposition: Home with Home Care
Discharge Diagnosis/Procedures: Acute on chronic systolic heart failure exacerbation
Severe mitral regurgitation
Acute kidney injury on chronic kidney disease
left bundle branch block and Mobitz 2 heart block s/p BiV ICD implant 08/02
Anxiety
Hypokalemia
Condition: Fair
Diet: 2 Gram Sodium, Diabetic, Carb Controlled and Restrict fluids to 48 oz
Driving Restrictions: No driving for 1 week
Bathing Restrictions: OK to Shower
Other Services: VN
Instructions: *CBC Heart Failure Instructions
Stand Alone Forms: DC Instructions- Cath/EP Lab, DC Inst - Implanted Device
Referrals:
[facility] [Outside] (FAX [phone])
Sheree Dsouza CRNP [Specified Professional Personl] -
Ana Farah CRNP [Specified Professional Personl] - 08/12/23 3:00 pm (Incision check appointment)
Jayla Trejo CRNP [Specified Professional Personl] -
Johnson Barker DO [Family Provider] - in less than 1 week
Everett Case MD [Non-Admitting Privileges] - in four to six weeks
Prescriptions:
New
furosemide 80 mg Tablet
80 mg PO BID@0800,1600 30 Days Qty: 60 0RF
metoprolol succinate 25 mg Tablet Extended Release 24 Hr
12.5 mg PO DAILY 30 Days Qty: 15 0RF
metolazone 5 mg tablet
5 mg PO DAILY PRN (Reason: if weight rises 1-3 lbs/24 hours or 3-5 lbs/week.) Qty: 30 0RF
Rx Instructions:
if weight rises 1-3 lbs/24 hours or 3-5 lbs/week.
Continued
cholecalciferol (vitamin D3) [Vitamin D3] 125 mcg (5,000 unit) Tablet
125 mcg PO DAILY
insulin asp prt-insulin aspart [Novolog Mix 70-30FlexPen U-100] 100 unit/mL (70-30) Insulin Pen
20 unit SC DAILY@1700 Qty: 15 2RF
atorvastatin 40 mg tablet
40 mg PO DAILY
pantoprazole 40 mg Tablet,Delayed Release (Dr/Ec)
40 mg PO DAILY Qty: 30 0RF
isosorbide mononitrate 60 mg Tablet Extended Release 24 Hr
60 mg PO DAILY Qty: 30 0RF
Brilinta 90 mg Tablet
90 mg PO BID
dapagliflozin propanediol [Farxiga] 10 mg Tablet
10 mg PO DAILY
Xarelto 2.5 mg Tablet
2.5 mg PO BID
insulin asp prt-insulin aspart [Novolog Mix 70-30FlexPen U-100] 100 unit/mL (70-30) insulin pen
28 unit SC DAILY@0800
Held
Entresto 24-26 mg Tablet
1 tab PO DAILY
Hold Instructions: Resume on 08/19/23. Hold till outpatient cardiology evaluation and improvement in creatinine
Discontinued
repaglinide 1 mg Tablet
1 mg PO BID
furosemide 20 mg tablet
40 mg PO DAILY
metoprolol succinate 25 mg Capsule,Sprinkle,Er 24hr
25 mg PO DAILY
Discharge Orders:
Discharge Patient (As Directed); Ordered 08/05/23
Ordered By: Alonzo Ca
Care Plan Goals
Care Plan Goals:
Problem: Readiness for enhanced knowledge related to diagnosis and treatment plan
Goal: Understand your diagnosis and treatment plan needs, including medications if applicable.
Instructions: Know your diagnosis, underlying causes and treatment plan options, including medications if applicable. Consult with your health care team to learn about your diagnosis and treatment plan, including medications if applicable.
Discharge Date and Time
Print Language: CROATIAN
[2023-08-05] MEDS: NOVOLOG FLEXPEN-MODERATE RESISTANCE 3 UNITS SC (13:55)
[2023-08-05 15:35] VITALS: BP 101/64
== END 2023-08-05 16:41 | disposition home health service (06) | DRG 276 ==
LOC: IVU 01:34
PROVIDERS: Hospitalist; Internal Medicine; ADMITTING PHYSICIAN Internal Medicine; ATTENDING PHYSICIAN Hospitalist; CONSULT PHYSICIAN Internal Medicine Cardiovascular Disease; CONSULT PHYSICIAN Specialist; CONSULT PHYSICIAN Thoracic Surgery (Cardiothoracic Vascular Surgery); EMERGENCY PHYSICIAN Emergency Medicine; FAMILY PHYSICIAN Family Medicine; OTHER PHYSICIAN Internal Medicine Cardiovascular Disease
PROC: B24BZZ4 Ultrasonography of Heart with Aorta, Transesophageal (ICD-10-PCS; 2023-07-29)
PROC: 02HK3KZ Insertion of Defibrillator Lead into Right Ventricle, Percutaneous Approach (ICD-10-PCS; 2023-08-03)
PROC: 02H63KZ Insertion of Defibrillator Lead into Right Atrium, Percutaneous Approach (ICD-10-PCS; 2023-08-03)
PROC: 02H43KZ Insertion of Defibrillator Lead into Coronary Vein, Percutaneous Approach (ICD-10-PCS; 2023-08-03)
PROC: 0JH609Z Insertion of Cardiac Resynchronization Defibrillator Pulse Generator into Chest Subcutaneous Tissue and Fascia, Open Approach (ICD-10-PCS; 2023-08-03)
DX: I13.0 Hypertensive heart and chronic kidney disease with heart failure and stage 1 through stage 4 chronic kidney disease, or unspecified chronic kidney disease (principal); I50.23 Acute on chronic systolic (congestive) heart failure; J96.91 Respiratory failure, unspecified with hypoxia; N17.9 Acute kidney failure, unspecified; I16.1 Hypertensive emergency; I25.10 Atherosclerotic heart disease of native coronary artery without angina pectoris; I34.0 Nonrheumatic mitral (valve) insufficiency; N18.32 Chronic kidney disease, stage 3b; E11.22 Type 2 diabetes mellitus with diabetic chronic kidney disease; I25.5 Ischemic cardiomyopathy; F41.9 Anxiety disorder, unspecified; I44.1 Atrioventricular block, second degree; R00.1 Bradycardia, unspecified; I44.7 Left bundle-branch block, unspecified; E87.6 Hypokalemia; E78.00 Pure hypercholesterolemia, unspecified; E11.65 Type 2 diabetes mellitus with hyperglycemia; I25.82 Chronic total occlusion of coronary artery; J44.9 Chronic obstructive pulmonary disease, unspecified; K76.0 Fatty (change of) liver, not elsewhere classified; E04.1 Nontoxic single thyroid nodule; K21.9 Gastro-esophageal reflux disease without esophagitis; E66.9 Obesity, unspecified; K02.9 Dental caries, unspecified; H35.30 Unspecified macular degeneration; I25.2 Old myocardial infarction; Z68.28 Body mass index [BMI] 28.0-28.9, adult; Z79.01 Long term (current) use of anticoagulants; Z79.02 Long term (current) use of antithrombotics/antiplatelets; Z79.4 Long term (current) use of insulin; Z79.899 Other long term (current) drug therapy
CPT/HCPCS: 93308; 33225; 33249; 70355; 71045; 71046; 80048; 81003; 81015; 82570; 82962; 83036; 83735; 83880; 84300; 84443; 84484; 85014; 85018; 85025; 85027; 86850; 86900; 86901; 86920; 93005; 93312; 93320; 93321; 93325; 96374; 97162; 97165; 99285; C1730; C1769; C1777; C1882; C1887; C1892; C1898; C1900; Q9950; Q9967

== ENCOUNTER 2023-09-08 05:40 | Inpatient (IN) | payer OTHER, SELFPAY ==
[2023-08-30 09:17] VITALS: BMI 27.3
[2023-08-30 10:08] LABS: % Basophils 0.9 % (0-2); % Eosinophils 3.7 % (0-6); % Immature Granulocytes 0.3 % (0-0.5); % Lymphocytes 19.1 % (20.5-51.1); % Monocytes 10.5 % (1.7-9.3); % Neutrophils 65.5 % (42.2-75.2); Absolute Basophils 0.1 10^3/uL (0-0.2); Absolute Eosinophils 0.4 10^3/uL (0-0.7); Absolute Lymphocytes 2.1 10^3/uL (1.2-3.4); Absolute Monocytes 1.1 10^3/uL (0.1-0.6); Absolute Neutrophils 7.2 10^3/uL (1.4-6.5); Hematocrit 38.4 % (39.0-52.0); Hemoglobin 12.6 g/dL (13.0-18.0); Mean Corp Hgb Conc. 32.8 g/dL (33.0-37.0); Mean Corpuscular Hgb 26.6 pg (27.0-31.0); Mean Platelet Volume 11.8 fL (7.4-10.4); Nucleated Red Blood Cells % 0 % (-); Platelet Count 155 10^3/uL (130-400); Red Blood Cell Count 4.74 10^6/uL (4.70-6.10); Red Cell Dist. Width 13.7 % (11.5-14.5); White Blood Cell Count 10.9 10^3/uL (4.8-10.8)
[2023-08-30 10:14] LABS: Urine Albumin Negative (Neg - Trace); Urine Bilirubin Negative (Negative); Urine Character Clear (Clear); Urine Color Straw; Urine Glucose 3+ (Negative); Urine Ketone Negative (Negative); Urine Leukocyte Negative (Negative); Urine Nitrite Negative (Negative); Urine Occult Blood Negative (Negative); Urine Urobilinogen Negative (Neg - 1+); Urine pH 6.5 (5.0-9.0)
[2023-08-30 10:19] LABS: INR 1.19; PT 14.9 Sec (11.4-14.6)
[2023-08-30 10:21] LABS: ALT (SGPT) 37 U/L (0-50); AST (SGOT) 37 U/L (17-59); Albumin 4.2 g/dl (3.5-5.0); Alkaline Phosphatase 214 U/L (38-126); Blood Urea Nitrogen 50 mg/dl (9-20); Calcium 9.4 mg/dl (8.4-10.2); Carbon Dioxide 28 mmol/L (22-30); Chloride 95 mmol/L (98-107); Estimated Creatinine Clearance 33 ml/min; Glucose 327 mg/dl (70-99); Potassium 3.1 mmol/L (3.5-5.1); Sodium 136 mmol/L (135-145); Total Bilirubin 0.6 mg/dl (0.2-1.3); Total Protein 7.2 g/dl (6.3-8.2); eGFR 41.26
[2023-08-30 10:30] LABS: NT-proBNP 3810 pg/ml
--- NOTE | 2023-08-30 12:05 | CM ---
spoke with pt in PAT, we discussed pre op dina clip teaching. pt has the soap, instructions and printed educ material. he is prev indep, lives in a split level home with a roomate. his daughter lives down the street and is very supportive. he is
agreeable to a f/u visit from the ct transitional nurse after dc. plan is for dina clip on 09/07, cm role explained and all questions answered.
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
[2023-09-08] VITALS (13 sets, daily range): BP systolic 96–134; BP diastolic 55–89; BMI 27.3; BMI 27.1
[2023-09-08] MEDS: BACTROBAN 2% OINTMENT 1 APPLIC NASAL (06:00)
--- NOTE | 2023-09-08 06:00 | PTCARENOTE ---
pt admitted into room 2265, VS and weight obtained. pt confirms 2 showers @ home and NPO @ midnight except for aspirin this morning. admission questions and med rec completed. PIV placed. pre-op meds given. daughter @ bedside. pt c/o CP--CT PA Ed
and Dr. Sky aware, no new orders.
[2023-09-08 07:36] LABS: Glucose - Point of Care 137 mg/dl (70-99)
[2023-09-08 08:29] LABS: ACT-LR - POC 276 Seconds (116-155)
[2023-09-08 08:39] LABS: ACT-LR - POC 361 Seconds (116-155)
[2023-09-08 09:03] LABS: ACT-LR - POC 263 Seconds (116-155)
[2023-09-08 09:11] LABS: ACT-LR - POC 334 Seconds (116-155)
--- NOTE | 2023-09-08 09:48 | ITS.CL.PN ---
Testing Director - Procedure Note
Procedure
Procedure Note:
TRANSCATHETER EDGE - TO - EDGE MITRAL VALVE REPAIR (SJ)/MITRACLIP REPORT
Date: 09/08/2023
Referring: Everett Case M.D.
Preoperative diagnosis: Severe degenerative mitral valve regurgitation.
Postoperative diagnosis: Severe degenerative mitral valve regurgitation.
Procedure(s): Transcatheter mitral valve edge to edge repair using one XTW MitraClip.
Preprocedure MR severity: Severe, 3+.
Postprocedure MR severity: Trace/mild, 0�1+.
Operators: Joel Sky DO, Cassie Hills M.D.
JACINTA Industrial Psychologist(s): Willi Loyola M.D., Ph.D.
Anesthesia: GETA provided by the anesthesia staff.
Estimated Blood Loss: Negligible.
Complications: None.
Condition: Stable.
PROCEDURE:
The patient was brought to the cardiac catheterization lab and anesthetized by the anesthesiology staff. A transesophageal probe was placed and preliminary echocardiography was performed. The patient was prepped and draped in standard sterile
fashion. The right common femoral vein was accessed using a modified Seldinger technique with a micropuncture kit under ultrasound guidance. The vein was dilated with an 8 Armenian dilator then preclosed with a Perclose percutaneous suture. And 8
Armenian sheath was placed in the femoral vein. Heparin 7000 units was given
The Radiant Zemax VersaCross system was prepped on the back table. The J-wire for the versa cross was advanced into the superior vena cava and the 8 Armenian sheath was removed. The transseptal sheath was advanced over the wire and into the superior vena
cava. The J-wire was removed and the versa cross wire was advanced to the distal tip of the sheath, but remained within the dilator. This sheath was positioned in the interatrial septum with confirmed position on JACINTA. Transseptal puncture was
performed using electrocautery through the wire and the sheath was advanced into the left atrium. ACT was confirmed above 250 seconds. Oxygen saturation confirmed presence in the left atrium. Left atrial pressure was measured. A wave was 25, V
wave was 35 with a mean of 24 mmHg.
The MitraClip steerable sheath was prepped on the back table. The [place] sheath was withdrawn keeping the versa cross wire in the left atrium. The femoral vein was serially dilated and the steerable sheath was advanced through the vein, easily
crossing into the left atrium. Once we had satisfactory purchase of the sheath inside the left atrium the dilator and versa cross wire were removed and the steerable sheath was completely de-aired and flushed.
A(n) XTW MitraClip Delivery System was prepped on the back table. The clip was advanced through the steerable sheath and into the left atrium. The clip was oriented and advanced subvalvular to the mitral valve. Once we were satisfied with with
position, the grippers were lowered and the clip arms were tightened to 60 degrees. This demonstrated good position and clip stability. The clip was fully closed demonstrating reduction in mitral valve regurgitation to trace/mild. Transvalvular
gradient 4. We were satisfied with these preliminary results and the clip was deployed. The delivery system was removed from the steerable sheath.
The mitral valve was reevaluated. Mitral valve regurgitation was now graded at trace/mild.
At this point, we were satisfied with our results. The steerable sheath was withdrawn into the right atrium, then negative tension was applied to straighten the catheter. The steerable sheath was withdrawn and the Perclose percutaneous suture was
tightened with good hemostasis.
The patient tolerated the procedure well, was brought out of anesthesia and transferred to the CVICU in stable condition.
IMPLANT(S)/POSITION:
1. XTW MitraClip on A2/P2.
RADIATION:
Dose (mGy): 208.01
DAP (cm2.Gy): 24.7892
Fluoroscopy time (minutes): 15
VALVE HEMODYNAMICS:
Preoperative
MR severity (0-4): 3+
Transmitral gradient (mmHg): 1
Postoperative
MR severity (0-4): 0.5�1+
Transmitral gradient (mmHg): 4
CONCLUSIONS:
1. Severe degenerative mitral valve regurgitation s/p successful SJ using one XTW MitraClip with reduction in mitral regurgitation from severe to trace/mild and a final mean transmitral gradient of 4 mmHg.
2. Acute on chronic heart failure (left atrial mean pressure 24 mmHg).
RECOMMENDATIONS:
1. Routine post procedure care.
2. Transthoracic echocardiogram ordered for tomorrow morning.
3. Antithrombotic therapy with aspirin, ticagrelor and low-dose rivaroxaban twice daily for 1 week. After 1 week, discontinue aspirin and maintain ticagrelor and low-dose rivaroxaban indefinitely at the discretion of primary thermostatic controls supervisor.
4. Furosemide 40 mg IV was given at the end of the procedure for acute on chronic heart failure.
5. Postoperative transthoracic echocardiogram tomorrow.
6. Guideline directed medical therapy as hemodynamics will tolerate.
7. Aggressive secondary prevention for underlying coronary disease including high-dose, high potency statin.
8. Repeat echocardiogram in 30 days to assess valve stability.
Joel Sky, , FACP, FACC
Copy to: Everett Case M.D., Johnson Barker D.O.
--- NOTE | 2023-09-08 09:57 | ITS.CL.CATH ---
[facility] - Catheterization
Cardiac Catheterization
Procedure Report:
TRANSCATHETER EDGE - TO - EDGE MITRAL VALVE REPAIR (SJ)/MITRACLIP REPORT
Date: September 08, 2023
Referring: Everett Case
Preoperative diagnosis: Severe degenerative mitral valve regurgitation
Postoperative diagnosis: Severe degenerative mitral valve regurgitation
Procedure(s): Transcatheter mitral valve edge to edge repair/MitraClip using 1 XTW clip
Preprocedure MR severity: Severe
Postprocedure MR severity: Trace to mild
Interventional Cardiology Operators: Drs. Cassie Hills (Clip delivery), and Joel Sky (trans-septal puncture and clip release)
JACINTA Financial Institution President(s): Willi Loyola
Anesthesia: GETA provided by the anesthesia staff.
Estimated Blood Loss: Minimal.
Complications: No acute complications.
Condition: Stable.
PROCEDURAL DETAILS:
The patient was brought to the cardiac catheterization lab and anesthetized by the anesthesiology staff. A transesophageal probe was placed and preliminary echocardiography was performed. The patient was prepped and draped in standard sterile
fashion. The right common femoral vein was accessed using a modified Seldinger technique with a micropuncture kit under ultrasound guidance. The vein was dilated with an 8 [place]onese dilator then preclosed with a Perclose percutaneous suture. And 8
Gabonese sheath was placed in the femoral vein. Heparin 7000 units was given
The [employer]Shield VersaCross system was prepped on the back table. The J-wire for the versa cross was advanced into the superior vena cava and the 8 Gabonese sheath was removed. The transseptal sheath was advanced over the wire and into the superior vena
cava. The J-wire was removed and the versa cross wire was advanced to the distal tip of the sheath, but remained within the dilator. This sheath was positioned in the interatrial septum with confirmed position on JACINTA. Transseptal puncture was
performed using electrocautery through the wire and the sheath was advanced into the left atrium. ACT was confirmed above 250 seconds. Oxygen saturation confirmed presence in the left atrium. Left atrial pressure was measured. A wave was 25, V
wave was 35 with a mean of 24 mmHg.
The MitraClip steerable sheath was prepped on the back table. The [place] sheath was withdrawn keeping the versa cross wire in the left atrium. The femoral vein was serially dilated and the steerable sheath was advanced through the vein, easily
crossing into the left atrium. Once we had satisfactory purchase of the sheath inside the left atrium the dilator and versa cross wire were removed and the steerable sheath was completely de-aired and flushed.
A(n) XTW MitraClip Delivery System was prepped on the back table. The clip was advanced through the steerable sheath and into the left atrium. The clip was oriented and advanced subvalvular to the mitral valve. Once we were satisfied with with
position, the grippers were lowered and the clip arms were tightened to 60 degrees. This demonstrated good position and clip stability. The clip was fully closed demonstrating reduction in mitral valve regurgitation to trace/mild. Transvalvular
gradient 4. We were satisfied with these preliminary results and the clip was deployed. The delivery system was removed from the steerable sheath.
The mitral valve was reevaluated. Mitral valve regurgitation was now graded at trace/mild.
At this point, we were satisfied with our results. The steerable sheath was withdrawn into the right atrium, then negative tension was applied to straighten the catheter. The steerable sheath was withdrawn and the Perclose percutaneous suture was
tightened with good hemostasis.
The patient tolerated the procedure well, was brought out of anesthesia and transferred to the CVICU in stable condition.
IMPLANT(S)/POSITION:
1. One XTW MitraClip on A2/P2.
RADIATION: Dose (mGy): 208.01; DAP (cm2.Gy): 24.8; Fluoroscopy time (minutes): 15
VALVE HEMODYNAMICS:
Preoperative
Preoperative
MR severity (0-4): 3+
Transmitral gradient (mmHg): 1
Postoperative
MR severity (0-4): 0.5�1+
Transmitral gradient (mmHg): 4
CONCLUSIONS:
1. Severe degenerative mitral valve regurgitation s/p successful SJ using one XTW MitraClip with reduction in mitral regurgitation from severe to trace/mild and a final mean transmitral gradient of 4 mmHg.
2. Acute on chronic heart failure (left atrial mean pressure 24 mmHg).
RECOMMENDATIONS:
1. Routine post procedure care.
2. Transthoracic echocardiogram ordered for tomorrow morning.
3. Antithrombotic therapy with aspirin, ticagrelor and low-dose rivaroxaban twice daily for 1 week. After 1 week, discontinue aspirin and maintain ticagrelor and low-dose rivaroxaban indefinitely at the discretion of primary truck jumper.
4. Furosemide 40 mg IV was given at the end of the procedure for acute on chronic heart failure.
5. Postoperative transthoracic echocardiogram tomorrow.
6. Guideline directed medical therapy as hemodynamics will tolerate.
7. Aggressive secondary prevention for underlying coronary disease including high-dose, high potency statin.
8. Repeat echocardiogram in 30 days to assess valve stability.
Cassie Hills MD, FACC, [facility]
Copy to: Everett Case M.D., Johnson Barker D.O.
--- NOTE | 2023-09-08 09:57 | PTCARENOTE ---
Received pt from [facility]; pt AAOx3 and resting comfortably in bed; Left A-line and PIV x2 all patent; A-paced on monitor and VSS; Lungs diminished; positive bowel sounds; Lasix given in cath, condom cath applied; pulses present by Doppler; no edema
noted; Right Femoral site C/D/I; see nursing documentation for further details.
[2023-09-08] MEDS: ANCEF 10 IV ×2 (10:11)
[2023-09-08 12:57] LABS: Glucose - Point of Care 267 mg/dl (70-99)
--- NOTE | 2023-09-08 14:05 | PTCARENOTE ---
Pt voided 600mls clear yellow urine, pt stated 'I can not urinate.' bladder scan preformed and resulted >1250, pt stood and voided 800. Post void bladder scan >565, pt refusing straight catheter, updated Prakash MACHADO, per ASSOCIATE PROFESSOR OF BIOLOGY ok to not straight
cath at this time and watch pt.
[2023-09-08] MEDS: NOVOLOG FLEXPEN-MODERATE RESISTANCE 5 UNITS SC (14:09)
[2023-09-08] MEDS: LASIX 80 MG PO (15:07)
--- NOTE | 2023-09-08 15:23 | PTCARENOTE ---
Report given to Claudia IVU RN; pt transported to [id number] and family updated and at bedside.
--- NOTE | 2023-09-08 16:00 | PTCARENOTE ---
Pt received from CVICU awake, alert and oriented. OOB to the chair since arrival. Pt denies any pain or discomfort. Right groin and left radial site WNL with dressings dry and intact.
[2023-09-08 16:13] LABS: Glucose - Point of Care 349 mg/dl (70-99)
[2023-09-08] MEDS: NOVOLOG MIX 70/30 FLEXPEN 20 UNITS SC (16:54)
[2023-09-08] MEDS: NOVOLOG FLEXPEN-MODERATE RESISTANCE 7 UNITS SC (16:55)
[2023-09-08] MEDS: LIPITOR 40 MG PO (17:00)
[2023-09-08] MEDS: XARELTO 2.5 MG PO (20:06)
[2023-09-08] MEDS: BRILINTA 90 MG PO (20:06)
[2023-09-08 22:09] LABS: Glucose - Point of Care 301 mg/dl (70-99)
[2023-09-09 04:18] VITALS: BP 110/64
[2023-09-09 05:00] LABS: Hematocrit 32.3 % (39.0-52.0); Hemoglobin 10.9 g/dL (13.0-18.0); Mean Corp Hgb Conc. 33.7 g/dL (33.0-37.0); Mean Corpuscular Hgb 26.3 pg (27.0-31.0); Mean Platelet Volume 11.2 fL (7.4-10.4); Platelet Count 147 10^3/uL (130-400); Red Blood Cell Count 4.14 10^6/uL (4.70-6.10); Red Cell Dist. Width 14.3 % (11.5-14.5); White Blood Cell Count 12.2 10^3/uL (4.8-10.8)
[2023-09-09 05:20] VITALS: BMI 27.0
[2023-09-09 05:30] LABS: Blood Urea Nitrogen 45 mg/dl (9-20); Calcium 9.1 mg/dl (8.4-10.2); Carbon Dioxide 28 mmol/L (22-30); Chloride 101 mmol/L (98-107); Estimated Creatinine Clearance 39 ml/min; Glucose 168 mg/dl (70-99); Magnesium 2.2 mg/dl (1.6-2.3); Potassium 3.7 mmol/L (3.5-5.1); Sodium 140 mmol/L (135-145); eGFR 47.95
--- NOTE | 2023-09-09 06:28 | PTCARENOTE ---
Patient with no complaints overnight. Walking in the room. Using urinal at bedside. PHYSICIST ASTROPHYSICS on telemetry. Left radial and left groin site CDI. Plan of care reviewed, call pineda in reach
[2023-09-09 07:04] VITALS: BP 118/57
[2023-09-09 07:46] LABS: Glucose - Point of Care 125 mg/dl (70-99)
[2023-09-09] MEDS: NOVOLOG FLEXPEN-MODERATE RESISTANCE SC ×2 (07:53→15:21)
--- NOTE | 2023-09-09 08:00 | PTCARENOTE ---
Assumed care of pt from prev nsg shift. Pt AAOx3 w/no c/o CP or SOB. Pt w/VS stable w/HR in the 80's, BP 118/57. Pt V-paced on telemetry monitoring. Pt w/R femoral access site w/dressing C/D/I, w/no signs or symptoms of bleeding or hematoma. R
radial dressing C/D/I, also w/no signs or symptoms of bleeding or hematoma. Pt awaiting ECHO this am & hoping for D/C to home post. Pt w/no additional needs at this time. Plan of care ongoing.
--- NOTE | 2023-09-09 08:21 | W.PN.ANS.POP ---
Anesthesia Post Operative
- Anesthesia Post Op Note
Vital Signs Stable-See Nursing Note: Yes
Airway Patent: Yes
Adequate Pain Control: Yes
Change in Mental Status: No
Current Postoperative Nausea & Vomiting: No
Anesthesia Complications: No
General Anesthetic Recall: No
Unplanned Admission: No
Post Op Hydration Adequate: Yes
[2023-09-09] MEDS: XARELTO 2.5 MG PO (08:40)
[2023-09-09] MEDS: BRILINTA 90 MG PO (08:40)
[2023-09-09] MEDS: PROTONIX 40 MG PO (08:40)
[2023-09-09] MEDS: FARXIGA 10 MG PO (08:40)
[2023-09-09] MEDS: IMDUR (EXTENDED RELEASE) 60 MG PO (08:40)
[2023-09-09] MEDS: LASIX 80 MG PO ×2 (08:40→16:24)
[2023-09-09] MEDS: LOW STRENGTH ASPIRIN 81 MG PO (08:40)
[2023-09-09] MEDS: TOPROL XL 12.5 MG PO (08:40)
[2023-09-09] MEDS: NOVOLOG MIX 70/30 FLEXPEN 28 UNITS SC (08:41)
[2023-09-09 08:49] LABS: Glycohemoglobin (HgbA1c) 8.7 % (4.0-5.6)
--- NOTE | 2023-09-09 10:31 | W.PN.CD ---
Today's Communication / Plan
-
Post procedure TTE pending.
Resume ticagrelor and rivaroxaban 2.5 mg BID. Combination with aspirin 81 mg x7 days, then d/c aspirin.
Discharge planning.
BMP early next week.
Impression / Plan
-
Impression/Plan: 78 y/o male with IDDM, HTN, HLD, severe, nonintervenable CAD and severe degenerative mitral valve regurgitation leading to ICMO s/p [employer]-D and HFrEF, admitted for elective SJ.
#Severe mitral valve regurgitation
-Chronic.
-S/P SJ with one XTW MitraClip (09/08/2023) with reduction in MR from severe to trace/mild (intraprocedure).
-Right femoral venous access site is C/D/I.
-Telemetry is stable/paced ([employer]-D in place).
-Antithrombotic regimen of ticagrelor and rivaroxaban 2.5 mg BID (per primary cardiology, Dr. Case).
-Post procedure TTE pending this morning.
-He will require 30 day TTE at this facility and intermittent follow up with Dr. Case.
#CAD
-Chronic, stable.
-No interventions possible (percutaneous or surgical).
-Secondary prevention with high dose, high potency statin.
-Continue metoprolol succinate and isosorbide mononitrate.
-Ticagrelor + rivaroxaban 2.5 mg BID as above.
#HFrEF/ICMO
-Acute on chronic. LA pressure 24 mmHg during MitraClip. Furosemide 40 mg IV given at the end of the procedure.
-S/P [employer]D.
-GDMT as hemodynamics will tolerate.
-Continue sacubitril-valsartan, dapagliflozin, metoprolol.
-Continue home furosemide and metolazone. BMP early next week as the patient may require less diuretic.
#HTN
-Chronic, stable.
-Continue home medications.
#HLD
-Chronic, stable.
-Continue atorvastatin 40 mg daily.
-Goal LDL < 55.
#Dispo
-IVU status.
-Full code.
-Discharge planning.
Subjective/Interval History:
SJ yesterday.
No acute events.
No subjective complaints.
DATA:
SJ JACINTA, 09/08/2023:
CONCLUSIONS
Pre-operative findings.
Moderate/severe mitral regurgitation.
Mean MV gradient 1-2 mmHg.
MVA by 3D planimetry is 3.9 cm2 (average of two measurments).
POST OPERATIVE FINDINGS
s/p XTW Fernanda Clip.
Mild mitral regurgitation.
Mean MV gradient 4 mmHg.
MVA by 3D planimetry is 2.1 cm2.
SJ, 09/08/2023:
CONCLUSIONS:
1. Severe degenerative mitral valve regurgitation s/p successful SJ using one XTW MitraClip with reduction in mitral regurgitation from severe to trace/mild and a final mean transmitral gradient of 4 mmHg.
2. Acute on chronic heart failure (left atrial mean pressure 24 mmHg).
Physical Exam
Vital Signs/Labs
Vital Signs
Temp Pulse Resp BP Pulse Ox
36.6 C 68 20 118/57 100
09/09/23 07:14 09/09/23 07:45 09/09/23 07:14 09/09/23 07:04 09/09/23 07:14
09/07/23 09/08/23 09/09/23
11:59 11:59 11:59
Actual Weight 78.5 kg 78.1 kg
09/09/23 04:28
09/09/23 04:28
PT 14.9 Sec (11.4-14.6) H 08/30/23 09:43
INR 1.19 08/30/23 09:43
Magnesium 2.2 mg/dl (1.6-2.3) 09/09/23 04:28
08/30/23
09:43
Fen-Y-Htdpyvfddak Pept 3810
Physical Exam
Constitutional: No acute distress and Comfortable
EENT: Anicteric and Moist mucous membranes
Cardiovascular: Rhythm & rate is regular, Pedal edema is absent, JVD pressure is normal, S1S2 is normal and Murmur/rub/gallop absent
Respiratory: Respiratory effort normal, Lungs clear to auscul., Wheeze Absent, Crackles Absent and Rhonchi Absent
GI: Soft, Distention absent, Flat, Non tender and Normal bowel sounds
Neuro/Psych: AO x 3
Other: Cath Site (Right femoral venous access site is C/D/I.)
Data Reviewed
-
Date of Service: September 09, 2023
Medical Decision Making: Reviewed Test Results, Independent Historian Assessment, Test Interpretation and Review of Case with other Provider
EKG: Tracing Personally Visualized and interpreted and Report Reviewed by me
Echo: Tracing Personally Visualized and interpreted and Report Reviewed by me
X-Ray/CT/US/MRI/NUC/PET: Image Personally Visualized and interpreted, Report Reviewed by me, Discussed with Physician, Discussed with Nurse, Discussed with Patient and Discussed with Family
Medical Tests (PFT, Pathology etc): Image Personally Visualized and interpreted, Report Reviewed by me, Discussed with Physician, Discussed with Nurse, Discussed with Patient and Discussed with Family
Labs: Labs Reviewed by me
Old Records: Reviewed
--- NOTE | 2023-09-09 11:23 | CM ---
Chart reviewed. Patient is independent of ADLS, lives with a roommate in a split level home, daughter close by, ambulates with a SPC, plan is for the patient to return home with CT Transitional RN. CM to follow
[2023-09-09 12:30] LABS: Glucose - Point of Care 119 mg/dl (70-99)
[2023-09-09 15:32] VITALS: BP 109/65
--- NOTE | 2023-09-09 16:30 | W.DS.TRANS ---
Addendum entered and electronically signed by CARTER Galvez 09/10/23 13:09:
will have our office arrange for BMP early next week per Dr. Sky recommendations.
Addendum entered and electronically signed by CARTER Galvez 09/09/23 17:59:
I was alerted by nursing that patient has not been taking his Entresto at our advice last admission. Therefore, he will remain off his Entresto at discharge and follow-up with Dr. Case regarding if he should resume as OP. D/c med list adjusted as
such and nursing made patient/family aware.
Original Note:
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
-
Discharge Instructions:
Sleep Apnea Risk Intermediate
Discharge Diagnosis/Procedures Mitraclip
Diet 2 Gram Sodium,Diabetic, Carb Controlled,Low
Cholesterol
Activity As tolerated
Driving Restrictions No driving for 1 week
Bathing Restrictions OK to Shower
Others Tests Your 30-day echocardiogram is scheduled for:
02/2024 @ 2:00 at [facility]
Other Services Cardiac Rehab
Specialty Instructions Weigh Daily
Instructions:
Stand-Alone Forms: DC Instructions- Cath/EP Lab
Changes to Home Medications: No
Discharge Medications:
DC Medications w/original date entered in [employer]
cholecalciferol (vitamin D3) 125 mcg (5,000 unit) tablet (Vitamin D3) 125 mcg PO DAILY Supplement 12/18/22
insulin aspar prot-insulin aspart 100 unit/mL (70-30) subcutaneous pen (Novolog Mix 70-30FlexPen U-100) 20 unit (0.2 mL) SC DAILY@1700 #15 mL 03/31/23
atorvastatin 40 mg tablet 40 mg PO QPM High Cholesterol 04/06/23
pantoprazole 40 mg tablet,delayed release 40 mg PO DAILY #30 tabs 04/14/23
isosorbide mononitrate 60 mg tablet,extended release 24 hr 60 mg PO DAILY #30 tabs 05/20/23
dapagliflozin propanediol 10 mg tablet (Farxiga) 10 mg PO DAILY Diabetes/Heart Failure 07/24/23
insulin aspar prot-insulin aspart 100 unit/mL (70-30) subcutaneous pen (Novolog Mix 70-30FlexPen U-100) 28 unit SC DAILY@0800 Diabetes 07/24/23
rivaroxaban 2.5 mg tablet (Xarelto) 2.5 mg PO BID Blood Clot Prevention/Tx 07/24/23
sacubitril 24 mg-valsartan 26 mg tablet (Entresto) 1 tab PO DAILY Heart Failure 07/24/23
ticagrelor 90 mg tablet (Brilinta) 90 mg PO BID Blood Clot Prevention/Tx 07/24/23
furosemide 80 mg tablet 80 mg PO BID@0800,1600 30 days #60 tabs 08/05/23
metolazone 5 mg tablet 5 mg PO DAILY PRN if weight rises 1-3 lbs/24 hours or 3-5 lbs/week. #30 tabs 08/05/23
metoprolol succinate 25 mg tablet,extended release 24 hr 12.5 mg (1/2 x 25 mg) PO DAILY 30 days #15 tabs 08/05/23
aspirin 81 mg chewable tablet 81 mg PO DAILY Blood Clot Prevention/Tx #1 tab 09/09/23
Home Medication Changes
Pending Results: No
--- NOTE | 2023-09-09 17:15 | PTCARENOTE ---
Pt received this am awake, alert and oriented. OOB ad karon in the room, gait steady. Denies any pain or sob. Right groin and radial site dressings dry and intact. Pt had the echo and was discharged to home with his daughter at 1700. Discharge
instructions given and reviewed with pt and his daughter with good understanding.
--- NOTE | 2023-09-10 08:08 | PN.CDI ---
CDI
- -
CDI:
Physician Documentation Request
Admit Date: 09/08/23 05:40
Dear Katy Phoenix,
Patient was admitted for severe MR with SJ.
H&P list patient has past medical history of CHF.
Cardiology laboratory courier report list Acute on chronic heart failure as diagnosis at conclusion of procedure.
09/07 Intraop JACINTA reports an EF of 40-45%.
Please provide further specificity regarding the most likely type of CHF you are evaluating, treating or monitoring.
Type
Systolic
Diastolic
Combined Systolic/Diastolic
Other
Use of terms such as suspected, likely, concern for, or probable (associated with a specific diagnosis that is being evaluated, monitored, or treated as if it exists) are acceptable and can be coded in the inpatient setting, when documented at the
time of discharge.
Thank you,
Myrtle Cole RN, BSN
CDI Specialist
tiger text
Please use your independent medical judgment in providing your response.
--- NOTE | 2023-09-10 08:13 | PN.CDI ---
CDI
- -
CDI:
Physician Documentation Request
Admit Date: 09/08/23 05:40
Dear Katy Phoenix,
Patient was admitted for severe MR with SJ.
H&P list patient has past medical history of CKD.
The following are some of the eGFR results for 2023.
Laboratory Tests
03/29/23 04/06/23 04/08/23
06:06 16:29 03:38
eGFR 44.65 48.25 36.33
04/13/23 05/19/23 07/25/23
04:28 03:10 07:44
eGFR 57.29 52.41 34.16
07/26/23 07/29/23 08/02/23
07:17 07:35 05:09
eGFR 38.77 36.33 44.65
08/04/23 08/05/23 08/30/23
03:57 03:47 09:43
eGFR 41.52 34.16 41.26
09/09/23
04:28
eGFR 47.95
Please clarify which of the following accurately represents the patient's renal status:
____ - CKD, please provide stage - see criteria
____ - Other
Stages of Chronic Kidney Disease*
Level Description GFR
G1 Normal or High >90
G2 Mildly decreased 60-89
G3a Mildly to moderately decreased 45-59
G3b Moderately to severely decreased 30-44
G4 Severely decreased 15-29
G5 Kidney failure <15
Use of terms such as suspected, likely, concern for, or probable (associated with a specific diagnosis that is being evaluated, monitored, or treated as if it exists) are acceptable and can be coded in the inpatient setting, when documented at the
time of discharge.
Thank you,
Myrtle Cole RN, BSN
CDI Specialist
tiger text
Please use your independent medical judgment in providing your response.
*Source: Kidney Disease: Improving Global Outcomes (KDIGO) 2012
--- NOTE | 2023-09-10 12:06 | W.PN.UPDATE ---
Update Note
Progress Note Update
In response to CDI query: Heart failure type is systolic and CKD stage is G3A based on most recent gfr.
== END 2023-09-09 18:08 | disposition home or self-care (01) | DRG 266 ==
LOC: IVU 05:40
PROVIDERS: Internal Medicine; Nurse Practitioner; ADMITTING PHYSICIAN Internal Medicine Cardiovascular Disease; FAMILY PHYSICIAN Family Medicine
PROC: B24BZZ4 Ultrasonography of Heart with Aorta, Transesophageal (ICD-10-PCS; 2023-09-08)
PROC: 02UG3JZ Supplement Mitral Valve with Synthetic Substitute, Percutaneous Approach (ICD-10-PCS; 2023-09-08)
DX: I34.0 Nonrheumatic mitral (valve) insufficiency (principal); I50.23 Acute on chronic systolic (congestive) heart failure; Q21.12 Patent foramen ovale; I25.10 Atherosclerotic heart disease of native coronary artery without angina pectoris; I65.29 Occlusion and stenosis of unspecified carotid artery; I25.5 Ischemic cardiomyopathy; J44.9 Chronic obstructive pulmonary disease, unspecified; F41.9 Anxiety disorder, unspecified; K76.0 Fatty (change of) liver, not elsewhere classified; I73.9 Peripheral vascular disease, unspecified; E87.6 Hypokalemia; E11.22 Type 2 diabetes mellitus with diabetic chronic kidney disease; N18.31 Chronic kidney disease, stage 3a; E11.65 Type 2 diabetes mellitus with hyperglycemia; E04.1 Nontoxic single thyroid nodule; I25.2 Old myocardial infarction; E11.51 Type 2 diabetes mellitus with diabetic peripheral angiopathy without gangrene; Z79.01 Long term (current) use of anticoagulants; Z79.4 Long term (current) use of insulin; Z79.899 Other long term (current) drug therapy; Z95.810 Presence of automatic (implantable) cardiac defibrillator
CPT/HCPCS: 93308; 33418; 36415; 71046; 80048; 80053; 81003; 82962; 83036; 83735; 83880; 85025; 85027; 85347; 85610; 86850; 86900; 86901; 86920; 87070; 93005; 93321; 93325; 93355; C1760

== ENCOUNTER → 2023-10-08 14:42 | Outpatient (REF) | payer OTHER, SELFPAY ==
--- NOTE | 2023-10-08 15:38 | CARDSERVLU ---
Echocardiogram with Lumason completed after protocol screening completed. Allergies verified.
Patent IV site: __Rt AC__
IV site flushed with 0.9% NaCl pre and post administration.
Diluted bolus method utilized to enhance visualization of ventricular knutson.
Total volume given: __4.0__ mL
Patient tolerated all procedures well without complications.
#22 chase placed Rt AC. Lumason given. INT d/c'd. dsg applied. pressure held. No bleeding noted.
== END ==
LOC: RCS 14:42
PROVIDERS: ATTENDING PHYSICIAN Internal Medicine Cardiovascular Disease; FAMILY PHYSICIAN Family Medicine
DX: I34.0 Nonrheumatic mitral (valve) insufficiency (principal)
CPT/HCPCS: 93306; Q9950

== ENCOUNTER 2023-10-25 17:20 | Inpatient (IN) | payer OTHER, SELFPAY ==
[2023-10-25 12:15] VITALS: BP 120/68
[2023-10-25 12:33] LABS: % Basophils 0.3 % (0-2); % Eosinophils 0.2 % (0-6); % Immature Granulocytes 0.5 % (0-0.5); % Lymphocytes 3.2 % (20.5-51.1); % Monocytes 9.9 % (1.7-9.3); % Neutrophils 85.9 % (42.2-75.2); Absolute Basophils 0.1 10^3/uL (0-0.2); Absolute Immature Granulocytes 0.1 10^3/uL (0-0.05); Absolute Lymphocytes 0.5 10^3/uL (1.2-3.4); Absolute Monocytes 1.6 10^3/uL (0.1-0.6); Hematocrit 30.4 % (39.0-52.0); Hemoglobin 10.1 g/dL (13.0-18.0); Mean Corp Hgb Conc. 33.2 g/dL (33.0-37.0); Mean Corpuscular Hgb 26.1 pg (27.0-31.0); Mean Corpuscular Volume 78.6 fL (80.0-94.0); Mean Platelet Volume 11.7 fL (7.4-10.4); Nucleated Red Blood Cells % 0 % (-); Platelet Count 166 10^3/uL (130-400); Red Blood Cell Count 3.87 10^6/uL (4.70-6.10); Red Cell Dist. Width 17.1 % (11.5-14.5); White Blood Cell Count 16.3 10^3/uL (4.8-10.8)
[2023-10-25 12:52] LABS: ALT (SGPT) 52 U/L (0-50); AST (SGOT) 70 U/L (17-59); Albumin 3.7 g/dl (3.5-5.0); Alkaline Phosphatase 701 U/L (38-126); Blood Urea Nitrogen 36 mg/dl (9-20); Calcium 9.2 mg/dl (8.4-10.2); Carbon Dioxide 19 mmol/L (22-30); Chloride 105 mmol/L (98-107); Glucose 286 mg/dl (70-99); Potassium 5.6 mmol/L (3.5-5.1); Sodium 134 mmol/L (135-145); Total Protein 6.7 g/dl (6.3-8.2); eGFR 44.38
--- NOTE | 2023-10-25 13:36 | ED.GENMED ---
History of Present Illness
General
Chief Complaint: Skin Problem
Source: patient
Exam Limitations: none
Time Seen by Provider: 10/25/23 13:15
History of Present Illness
History of Present Illness:
78-year-old male insulin-dependent diabetic presents from podiatry office for worsening redness swelling and pain to the right foot. There is concern a hanger off behalf for possible osteomyelitis based off x-rays performed in the office. No
fevers. Does note significant pain to the foot. He has a history of congestive heart failure, coronary artery disease cardiomyopathy. He had a mitral valve replacement this year. He also has a pacemaker defibrillator.
Past History
Past History
ED Past Medical History: Hypercholesterolemia and IDDM
ED Past Surgical History: Orthopedic
Social History
Tobacco: Non-smoker
Alcohol: None
Drug: None
Personal: Single
Living: alone
Phy Exam
Physical Exam
Physical Exam:
General: Well-appearing male no acute respiratory distress HEENT: Normocephalic atraumatic
Heart: Regular rate and rhythm no murmurs
Lungs: Clear no wheeze
Skin: Erythema with multiple ulcerations noted to the right foot around the MTP joint of the first toe. The plantar wound is the deepest. The erythema spreads to the ankle. This is tender to the touch
Neurologic: Good sensation right foot
Course
Orders/Labs/Results
Orders:
Orders
10/25/23 12:25
CMP [Comprehensive Metabolic Panel] Urgent
Complete Blood Count/With Diff Urgent
10/25/23 13:25
HYDROmorphone [Dilaudid] 0.5 mg IV NOW STA
10/25/23 13:47
Lactic Acid Urgent
Blood Culture Urgent
ROSE Source: Blood/Venous
Specimen Description:
10/25/23 13:51
Cefepime HCl [Maxipime] 2,000 mg IV NOW STA
10/25/23 14:00
VANCOMYCIN Pharmacy to Dose [VANCOCIN Pharmacy to Dose] 1 each Pharmacy To Prepare [Call Pharmacy To Prepare] 0 ml IV PER PROTOCOL
Abnormal Lab Results
10/25/23
12:25
WBC 16.3 H 10^3/uL
(4.8-10.8)
RBC 3.87 L 10^6/uL
(4.70-6.10)
Hgb 10.1 L g/dL
(13.0-18.0)
Hct 30.4 L %
(39.0-52.0)
MCV 78.6 L fL
(80.0-94.0)
MCH 26.1 L pg
(27.0-31.0)
RDW 17.1 H %
(11.5-14.5)
MPV 11.7 H fL
(7.4-10.4)
Abs Immat Gran (auto) 0.1 H 10^3/uL
(0-0.05)
Absolute Neuts (auto) 14.0 H 10^3/uL
(1.4-6.5)
Absolute Lymphs (auto) 0.5 L 10^3/uL
(1.2-3.4)
Absolute Monos (auto) 1.6 H 10^3/uL
(0.1-0.6)
Neutrophils % 85.9 H %
(42.2-75.2)
Lymphocytes % 3.2 L %
(20.5-51.1)
Monocytes % 9.9 H %
(1.7-9.3)
Sodium 134 L mmol/L
(135-145)
Potassium 5.6 H mmol/L
(3.5-5.1)
Carbon Dioxide 19 L mmol/L
(22-30)
BUN 36 H mg/dl
(9-20)
Creatinine 1.6 H mg/dL
(0.7-1.3)
Glucose 286 H mg/dl
(70-99)
Total Bilirubin 3.0 H mg/dl
(0.2-1.3)
AST 70 H U/L
(17-59)
ALT 52 H U/L
(0-50)
Alkaline Phosphatase 701 H U/L
(38-126)
10/25/23 12:25
10/25/23 12:25
Vital Signs
Initial and Last Documented VS:
Initial Vital Signs
Temp Pulse Resp BP Pulse Ox
98.0 F 99 16 120/68 99
10/25/23 12:15 10/25/23 12:15 10/25/23 12:15 10/25/23 12:15 10/25/23 12:15
Last Documented Vital Signs
Temp Pulse Resp BP Pulse Ox
98.0 F 99 16 120/68 99
10/25/23 12:15 10/25/23 12:15 10/25/23 12:15 10/25/23 12:15 10/25/23 12:15
MDM/Problems Addressed
Differential Diagnosis Includes:
Diabetic foot infection. Consider cellulitis versus abscess versus osteomyelitis
Sent in by podiatry for IV treatment and further evaluation. Labs reviewed demonstrate leukocytosis with a white blood cell count of 16.3 and a left shift
Blood cultures and lactic acid ordered.
*Critical Care Note
Total Time (30-74mins, 75-104mins- exclusive of procedures): Not Applicable
Update Note
Update Note:
Vancomycin and cefepime ordered. Will admit to hospital for diabetic foot infection
ED Attending Note
-
Portions of this chart may have been created with voice recognition software.� Occasional wrong word or��sound alike� substitutions may have occurred due to the inherent limitations of voice recognition software.
Discharge Plan
Departure
Patient Disposition: Admit
Date of Disposition: 10/25/23
Time of Disposition: 14:37
Admit to: Telemetry
Presentation/result/management discussed w/ accepting MD/DO: Hospitalist
Discharge Problem:
Diabetic foot infection
Prescriptions:
No Action
cholecalciferol (vitamin D3) [Vitamin D3] 125 mcg (5,000 unit) Tablet
125 mcg PO DAILY
insulin asp prt-insulin aspart [Novolog Mix 70-30FlexPen U-100] 100 unit/mL (70-30) Insulin Pen
20 unit SC DAILY@1700 Qty: 15 2RF
atorvastatin 40 mg tablet
40 mg PO QPM
pantoprazole 40 mg Tablet,Delayed Release (Dr/Ec)
40 mg PO DAILY Qty: 30 0RF
isosorbide mononitrate 60 mg Tablet Extended Release 24 Hr
60 mg PO DAILY Qty: 30 0RF
Brilinta 90 mg Tablet
90 mg PO BID
dapagliflozin propanediol [Farxiga] 10 mg Tablet
10 mg PO DAILY
Xarelto 2.5 mg Tablet
2.5 mg PO BID
insulin asp prt-insulin aspart [Novolog Mix 70-30FlexPen U-100] 100 unit/mL (70-30) insulin pen
28 unit SC DAILY@0800
furosemide 80 mg Tablet
80 mg PO BID@0800,1600 30 Days Qty: 60 0RF
docusate sodium [Colace] 100 mg Capsule
100 mg PO BID
lorazepam 1 mg Tablet
1 mg PO BIDPRN PRN (Reason: ANXIETY)
repaglinide 1 mg Tablet
1 mg PO BID
potassium chloride 20 mEq Tablet Extended Release
20 meq PO DAILY
metoprolol succinate 25 mg tablet extended release 24 hr
25 mg PO DAILY
Referrals:
Johnson Barker DO [Family Provider] -
Interventions
Interventions:
*Risk Screen - Suicide Last Done: 10/25/23 13:06
*General Assessment Last Done: 10/25/23 12:15
*Neglect/Abuse Screening Last Done: 10/25/23 13:06
*ED COVID-19 Vaccine History Last Done: 10/25/23 12:15
ED-Skin Assessment Last Done: 10/25/23 13:06
Discharge Date and Time
Print Language: MONGOLIAN
[2023-10-25] MEDS: DILAUDID 0.5 MG IV (13:43)
[2023-10-25 14:09] LABS: Lactic Acid 1.7 mmol/L (0.7-2.0)
[2023-10-25 14:40] VITALS: BMI 28.9
[2023-10-25] MEDS: MAXIPIME 2000 MG IV (14:46)
--- NOTE | 2023-10-25 15:46 | HPS.HSE ---
Family Physician
-
Family Physician: Johnson Barker
Chief Complaint
-
Skin infection
History of Present Illness
78-year-old male was sent from podiatry office for worsening swelling of the right foot. Started 1 month ago a ulcer on the toe . 1 Week ago had pain in the foot so sent to Podiatry. redness started 3 days ago. X-rays in the office possible osteo.
is the Set [employer].
Medical History
Past Medical History
Past Medical History: Reports Other
Additional Past Medical History:
Multivessel coronary artery disease, heart failure with reduced ejection fraction 25%, Severe mitral regurgitation, COPD, Diabetes, Peripheral artery disease, Anxiety, fatty liver, NSVT, hyperlipidemia, chronic kidney disease, Herniated disc,
Cognitive dysfunction, History of infective endocarditis and April 2023
Past Surgical History: Reports Other
Additional Past Surgical History:
MitraClip procedure 09/09/2023, laser eye surgery, shoulder surgery, amputation of the second and fifth toe, surgery of the jaw
Social History
Tobacco: Non-smoker
Alcohol: None
Living: Alone
Family History
Family History: CAD (father and mother) and Diabetes (mom)
Allergies / Home Medications
Allergies reflects when Allergies were last updated in [email or web address].
Home Medications with original date entered in [email or web address]
Allergy/Medication List:
Allergies
Allergy/AdvReac Type Severity Reaction Status Date / Time
daptomycin Allergy Pneumonitis/LISA/elev Verified 10/25/23 12:19
transaminases
Home Medications
cholecalciferol (vitamin D3) 125 mcg (5,000 unit) tablet (Vitamin D3) 125 mcg PO DAILY Supplement 12/18/22
insulin aspar prot-insulin aspart 100 unit/mL (70-30) subcutaneous pen (Novolog Mix 70-30FlexPen U-100) 20 unit (0.2 mL) SC DAILY@1700 #15 mL 03/31/23
atorvastatin 40 mg tablet 40 mg PO QPM High Cholesterol 04/06/23
pantoprazole 40 mg tablet,delayed release 40 mg PO DAILY #30 tabs 04/14/23
isosorbide mononitrate 60 mg tablet,extended release 24 hr 60 mg PO DAILY #30 tabs 05/20/23
dapagliflozin propanediol 10 mg tablet (Farxiga) 10 mg PO DAILY Diabetes/Heart Failure 07/24/23
insulin aspar prot-insulin aspart 100 unit/mL (70-30) subcutaneous pen (Novolog Mix 70-30FlexPen U-100) 28 unit SC DAILY@0800 Diabetes 07/24/23
rivaroxaban 2.5 mg tablet (Xarelto) 2.5 mg PO BID Blood Clot Prevention/Tx 07/24/23
ticagrelor 90 mg tablet (Brilinta) 90 mg PO BID Blood Clot Prevention/Tx 07/24/23
furosemide 80 mg tablet 80 mg PO BID@0800,1600 30 days #60 tabs 08/05/23
docusate sodium 100 mg capsule (Colace) 100 mg PO BID 10/25/23
lorazepam 1 mg tablet 1 mg PO BIDPRN PRN ANXIETY 10/25/23
metoprolol succinate 25 mg tablet,extended release 24 hr 25 mg PO DAILY 10/25/23
potassium chloride 20 mEq tablet,extended release 20 meq PO DAILY 10/25/23
repaglinide 1 mg tablet 1 mg PO BID 10/25/23
Review of Systems
-
A 12 point ROS was completed and negative except as noted: Yes
Respiratory: Denies Trouble Breathing
Cardiac: Denies Chest Pain
Physical Exam
Vital Signs
Vital Signs
Temp Pulse Resp BP Pulse Ox
98.0 F 99 16 120/68 99
10/25/23 12:15 10/25/23 12:15 10/25/23 12:15 10/25/23 12:15 10/25/23 12:15
Physical Exam
General: No Apparent Distress
Respiratory: Clear
Cardiac: S1/S2 and Regular Rhythm
GI: Soft, Non Tender and Normal Bowel Sounds
Skin: Warm and Ulcers (right foot great toe base)
Neuro: Nonfocal/grossly intact
Psych: Calm
Laboratory Results
-
10/25/23 12:25
10/25/23 12:25
Laboratory Results
Lactic Acid 1.7 mmol/L (0.7-2.0) 10/25/23 13:47
Total Bilirubin 3.0 mg/dl (0.2-1.3) H 10/25/23 12:25
AST 70 U/L (17-59) H 10/25/23 12:25
ALT 52 U/L (0-50) H 10/25/23 12:25
Alkaline Phosphatase 701 U/L (38-126) H 10/25/23 12:25
Data Reviewed
-
Medical Tests (Nuc Med, Echo, EKG etc): Report Reviewed by me (Echo 10/08/2023-12 normal LV size with severely reduced systolic function. Ejection fraction 25%. Global diffuse hypokinesis. Status post MitraClip. Mild to moderate MR. Pulmonary
pressure 41 mmHg.)
Impression/Plan
-
# Infection of the Right foot-cellulitis
Ulcer for one month ,redness for 3 days
Saw at [facility]
Consult podiatry and ID
GODWIN
X rays of foot
Wound CX and Antibiotics
NWB right forefoot
# Hyperkalemia-administer Lokelma. Hold off on potassium supplement
# Elevated LFTs-hold statin. Follow USS in am
# Anemia-check iron studies
# Mild hyponatremia-follow
# Coronary artery disease-multivessel CAD
Continue Brilinta, hold atorvastatin
# Chronic heart failure with reduced ejection fraction-EF 25%
Continue Farxiga, Lasix 80 mg twice daily, Imdur 60 mg daily, metoprolol 25 mg daily
# History of MitraClip placement for severe MR 09/08/2023
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
# History of infective endocarditis April 2023
# Hyperlipidemia-hold atorvastatin
# Diabetes with neuropathy
Continue insulin 70/30 28 units in the morning and 20 units in the evening
Prandin 1 mg p.o. twice daily
# Anxiety-Ativan 1 mg p.o. twice daily as needed
# Peripheral vascular disease on Xarelto 2.5 mg p.o. twice daily
History of left second and fifth toe amputation
# Chronic kidney disease
# Cognitive dysfunction
# DVT prophylaxis-on Xarelto as outpatient-continue
# CODE STATUS-Full
D/W ER
D/W Daughter in detail
[2023-10-25] MEDS: VANCOCIN 540 MG IV (15:53)
[2023-10-25 18:00] VITALS: BP 138/70
[2023-10-25 18:02] LABS: Glucose - Point of Care 293 mg/dl (70-99)
[2023-10-25] MEDS: LOKELMA 10 GRAM PO (18:11)
[2023-10-25] MEDS: NOVOLOG MIX 70/30 FLEXPEN 20 UNITS SC (18:11)
[2023-10-25 18:41] VITALS: BP 123/70
[2023-10-25 18:42] VITALS: BMI 27.6
[2023-10-25] MEDS: LIPITOR 40 MG PO (19:01)
[2023-10-25 19:21] VITALS: BMI 27.6
[2023-10-25 19:25] LABS: Iron 30 ug/dl (49-181)
[2023-10-25 19:34] LABS: Percent Saturation 8 % (20-50); Total Iron Binding Capacity 343 ug/dl (261-462)
--- NOTE | 2023-10-25 19:38 | PTCARENOTE ---
Patient admitted from ER into room 412-02. Vital signs stable. Oriented to room and use of call pineda and bed controls. Verbalizes understanding of teaching. Patient denies pain. Resting comfortably in bed at this time.
[2023-10-25 19:55] VITALS: BP 118/69
[2023-10-25 20:04] LABS: Ferritin 73.4 ng/ml (17.9-464.0)
[2023-10-25 20:18] LABS: Vitamin B12 998 pg/ml (239-931)
[2023-10-25] MEDS: COLACE 100 MG PO (20:24)
[2023-10-25] MEDS: BRILINTA 90 MG PO (20:24)
[2023-10-25] MEDS: HEPARIN 5000 UNITS SC (20:25)
[2023-10-25] MEDS: ATIVAN 1 MG PO (20:30)
[2023-10-25 23:00] VITALS: BP 125/70
[2023-10-26] VITALS (8 sets, daily range): BP systolic 98–124; BP diastolic 55–77; PULSE 91–94; O2SAT 99; BMI 27.9
[2023-10-26 00:36] LABS: Glucose - Point of Care 338 mg/dl (70-99)
[2023-10-26] MEDS: DILAUDID 0.5 MG IV (00:55)
[2023-10-26] MEDS: FLAGYL 500 MG 100 IV ×3 (04:38→19:43)
[2023-10-26] MEDS: MAXIPIME 1000 MG IV ×2 (04:38→16:37)
[2023-10-26] MEDS: STERILE WATER FOR INJECTION 10 ML IV ×2 (04:38→16:37)
[2023-10-26 07:51] LABS: Glucose - Point of Care 297 mg/dl (70-99)
[2023-10-26] MEDS: IMDUR (EXTENDED RELEASE) 60 MG PO (09:32)
[2023-10-26] MEDS: PROTONIX 40 MG PO (09:32)
[2023-10-26] MEDS: BRILINTA 90 MG PO ×2 (09:32→19:44)
[2023-10-26] MEDS: FARXIGA 10 MG PO (09:32)
[2023-10-26] MEDS: COLACE 100 MG PO ×2 (09:32→19:44)
[2023-10-26] MEDS: VITAMIN D3 (cholecalciferol) 125 MCG PO (09:32)
[2023-10-26] MEDS: PRANDIN 1 MG PO ×2 (09:33→16:36)
[2023-10-26] MEDS: LASIX 80 MG PO (09:33)
[2023-10-26] MEDS: HEPARIN 5000 UNITS SC ×2 (09:33→19:44)
--- NOTE | 2023-10-26 09:33 | PHA.VAN.IN ---
Assessment
- Assessment
Renal Function: Appears similar to baseline
Concomitant Antimicrobials: cefepime, metronidazole
- Previous Dosing Experience
Previous Regimen: Vanc 1000mg Q24H
Date of Regimen: Mar 2023
Provided Trough of: 15.1
Provided AUC of: 558
Patient's SCR is: Similar to previous dosing experience
Patient's weight is: Similar to previous dosing experience
Regimen provided the following additional patient specific PK:
Extrapolated Cmax (mcg/ml): 35.1 (peak drawn ~1.2H after end of previous infusion)
Extrapolated Cmin (mcg/ml): 14.3 (drawn appropriately around 4th dose of scheduled regimen, 7th overall once daily dose)
ke: 0.039
Half-life (H): 17.8
Vd: 46 L (~0.55 L/kg)
Vanc Cl (ml/min): 30
Levels were drawn as trough --> dose --> peak and calculations extrapolated as if levels were drawn from same dosing interval
AUC Dosing Plan
- Empiric Dosing
Initial / Loading Dose: 2000mg - 10/24 15:53
Maintenance Regimen: Vanc 1000mg Q24H - first dose at 1200 then 0600
Regimen based on previous dosing experience
- Monitoring
No levels ordered at this time: consider levels in next few days
Pharmacokinetics Vancomycin I
- -
Patient Age: 78
Patient Sex: Male
Vancomycin Day #: 1
Indication: Skin And Soft Tissue
Requesting Provider: Dr. Pressley
Pertinent Antimicrobial Allergies:
daptomycin - pneumonitis / LISA / elevated transaminases
Height / Weight:
Height 5 ft 8 in
Actual Weight 83.234 kg
Pertinent Past Medical History: DM, CKD
- Vital Signs / Lab Results
Temp Pulse Resp BP Pulse Ox
98.1 F 91 17 111/71 98
10/26/23 07:30 10/26/23 07:30 10/26/23 07:30 10/26/23 07:30 10/26/23 07:30
Lab Results - Hematology
10/25/23
12:25
WBC 16.3 H
Lab Results - Chemistry
10/25/23
12:25
BUN 36 H
Creatinine 1.6 H
Albumin 3.7
10/25/23
13:47
Lactic Acid 1.7
[2023-10-26] MEDS: NOVOLOG MIX 70/30 FLEXPEN 28 UNITS SC (10:03)
[2023-10-26 10:58] LABS: Hematocrit 28.7 % (39.0-52.0); Hemoglobin 9.3 g/dL (13.0-18.0); Mean Corp Hgb Conc. 32.4 g/dL (33.0-37.0); Mean Corpuscular Hgb 25.8 pg (27.0-31.0); Mean Corpuscular Volume 79.5 fL (80.0-94.0); Mean Platelet Volume 12.1 fL (7.4-10.4); Platelet Count 161 10^3/uL (130-400); Red Blood Cell Count 3.61 10^6/uL (4.70-6.10); Red Cell Dist. Width 17.2 % (11.5-14.5); White Blood Cell Count 15.6 10^3/uL (4.8-10.8)
[2023-10-26 11:33] LABS: Blood Urea Nitrogen 46 mg/dl (9-20); Calcium 9.1 mg/dl (8.4-10.2); Carbon Dioxide 18 mmol/L (22-30); Chloride 101 mmol/L (98-107); Estimated Creatinine Clearance 32 ml/min; Glucose 308 mg/dl (70-99); Potassium 4.9 mmol/L (3.5-5.1); Sodium 132 mmol/L (135-145); eGFR 36.11
[2023-10-26] MEDS: VANCOCIN 200 IV (12:14)
--- NOTE | 2023-10-26 12:27 | WOUNDNOTE ---
R MEDIAL FOOT WITH FLASH
--- NOTE | 2023-10-26 12:27 | WOUNDNOTE ---
R PLANTAR FOOT WITH FLASH
--- NOTE | 2023-10-26 12:28 | WOUNDNOTE ---
R DORSAL FOOT WITH FLASH
--- NOTE | 2023-10-26 12:28 | WOUNDNOTE ---
L PLANTAR 3RD TOE AND FOOT
--- NOTE | 2023-10-26 12:30 | WOUNDNOTE ---
LE RN note: Patient admitted with diabetic foot infection.
See H&P for complete history. Lives with roommate.
PMH: L 2nd and 5th toe amp.IDDM,CAD,GA, PM/ defibrillator and MVR 2023.
Wound Location and type/assessment: Patient known to service, last seen 04/07/23 for L 2nd toe amputation surgical site. Today saw patient for R foot diabetic wound and infection. R plantar 1st met head with dried bloody base/callus, no exposed
bone. Dorsal R foot and medially with edema, cellulitis and blood blister. Scant drainage, foul odor to foot. Heels are blanchable red. Arterial studies showed non compressible GODWIN of R foot, TBI 0.57 with monophasic wave forms in DP and PT
arteries. Dr Vincent on consult, patient sent to ER from Podiatry office for possible osteomyelitis. X ray was negative for osteo, + for severe soft tissue infection. Surgical shoe in use, using Crocks or slipper socks when ambulating patient states.
Patient able to turn self, sacrum intact.
Appetite: NPO
Pressure redistribution devices in place:Can be on Accumax, turns self in bed.
Plan: Applied ABD pad and kerlix until further orders from Dr. Vincent. Foams applied to heels and pillow placed under calves. I&D on consult. Will confirm orders with hospitalist and follow along peripherally, will assist as needed.
Updated care plan and will follow as needed.
Note to case management of equipment requested for discharge:TBD
Recommend follow up with [employer].
--- NOTE | 2023-10-26 12:52 | CON.CAR ---
Addendum entered and electronically signed by Jeff June MD 10/26/23 15:27:
Patient seen and examined in collaboration with INSULATION CUPOLA CHARGER; agree with below.
-78-year-old male with extensive medical history as outlined below, including chronic HFrEF (25%) status-post ICD; Cardiology consulted for preprocedural cardiac evaluation prior to undergoing surgery for diabetic foot/PVD.
-The patient appears to be medically optimized from a cardiac standpoint; compensated on examination.
-Patient will be at relatively high risk given his cardiomyopathy; nonetheless, this risk is non-prohibitive in this setting and the patient should proceed with surgery as scheduled.
-child monitor.
-Will follow.
Original Note:
Consultation
Consultation Request
Date/Time Consultation Requested: 10/26/2023 11:50
Date/Time Consultation Performed: 10/26/2023 12:50
Requesting Provider: Dr. Pressley
Performing Provider: CARTER Ferreira for Dr. June
Reason for Consultation: Preop risk assessment
Medical History
-
Chief Complaint: Right great toe swelling with pain
History of Present Illness:
Wade Pantoja is a 78-year-old male with severe mitral regurgitation s/p SJ (09/08/2023), coronary artery disease without possible intervention, HFrEF, ischemic cardiomyopathy, hypertension, dyslipidemia, uncontrolled type 2 diabetes mellitus,
severe PAD, and prior toe amputations presented to the ER with pain, redness, and swelling to his right great toe. He was on outpatient Keflex and has not seen any improvement. He then saw a unix analyst who referred him to the emergency room as
x-ray showed possible osteomyelitis (Dr. Rodrigez). Cardiology has been asked to comment on risk assessment. He is not in heart failure. No anginal complaints.
Past Medical History
Past Medical History: CAD, CHF, HTN, Hypercholesterolemia, IDDM and MT
Past Surgical History: Orthopedic (Toe amputation x2.)
Social History
Tobacco: Non-Smoker
Alcohol: None
Drug: None
Employment: Retired
Family History
Family History: Reviewed & Not Pertinent
Review of Systems
-
History Source: Patient
All other systems: Negative unless noted
Constitutional: No Symptoms
EENT: No Symptoms
Respiratory: No Symptoms
Cardiac: No Symptoms
Abdomen/GI: No Symptoms
: No Symptoms
Musculoskeletal: Joint Pain (Right great toe), Joint Swelling (Right great toe) and Edema (Right great toe)
Skin: Other (Redness to right great toe)
Neurological: No Symptoms
Endocrine: No Symptoms
Hematologic/Lymphatic: No Symptoms
Physical Exam
Vital Signs
Temp Pulse Resp BP Pulse Ox
98.1 F 94 18 102/63 99
10/26/23 11:40 10/26/23 11:40 10/26/23 11:40 10/26/23 11:40 10/26/23 11:40
Lab Results
10/26/23 10:42
10/26/23 10:42
Physical Exam
General: Well Developed, Well Nourished, No Apparent Distress and Comfortable
HEENT: Normocephalic, Anicteric and Moist Mucous Membranes
Respiratory: Clear and Non Labored Respirations
Cardiac: S1/S2 and Regular Rhythm
Breast: Deferred by me
GI: Soft, Non Tender, Non Distended and Normal Bowel Sounds
Rectal: Deferred by Provider
Genito-urinary: No Costovertebral Tender
Musculoskeletal: No Clubbing and No Cyanosis
Skin: Warm, Dry and Other (Right foot wrapped)
Neuro: AO x 3
Hematologic/Lymphatic: No Lymphadenopathy
Psych: Calm
Impression / Plan
-
BACKGROUND: 78M with IDDM, HTN, HLD, severe degenerative mitral valve regurgitation leading to ICMO with GREENS TIER�D implantation and MitraClip (09/08/2023) admitted with right foot infection. Cardiology was asked to comment on risk assessment.
Certified Activities Director: Dr. Case
technology risk intern: Dr. Sky
PLAN:
Cardiac risk assessment - possible right toe amputation
-No anginal complaints
-He does have chronic coronary artery disease that is not amenable to intervention
-Chronic kidney disease with uncontrolled type 2 diabetes mellitus
Severe mitral valve regurgitation S/P SJ with one XTW MitraClip (09/08/2023)
-30-day TTE showed peak/mean gradients of 11/5 mmHg
CAD
-Chronic, stable. He has no anginal complaints.
-No interventions possible (percutaneous or surgical).
-Secondary prevention with high dose, high potency statin.
-Continue metoprolol succinate and isosorbide mononitrate.
-Ticagrelor + rivaroxaban 2.5 mg BID as above.
HFrEF/ICMO (LVEF 25%), chronic
-He does not appear to be in acute/decompensated heart failure
-GDMT as hemodynamics will tolerate.
-SGLT2i: Farxiga 10 mg daily
-Beta-marcus: Metoprolol succinate 25 mg daily
-ACEi/ARB: Lisinopril caused cough
-Sacubitril-valsartan: Caused hypotension
-MRA: None as he has had issues with hyperkalemia
-Diuretic: He does require furosemide to maintain euvolemia
-GREENS TIER-D: Implanted ([employer])
-Trend daily weight, I/O
HTN, chronic, stable.
HLD, chronic, stable, continue atorvastatin 40 mg daily, goal LDL < 55.
Type 2 diabetes mellitus, HgbA1c 8.7%, per primary
SUBJECTIVE: As above
Data Reviewed
-
EKG: Report Reviewed by me (Atrial sensed ventricular paced rhythm, rate 90)
Radiology: Report Reviewed by me (Right foot XR: Moderate soft tissue emphysema medial and plantar to the 1st MTP joint and 1st metatarsal shaft with surrounding soft tissue edema consistent with SEVERE ACUTE SOFT TISSUE INFECTION with necrosis and
possibly soft tissue abscess.)
Medical Tests (Nuc Med, Echo etc): Report Reviewed by me (Prior echocardiogram and cardiac catheterization reports)
Labs: Labs Reviewed by me
Old Records: Reviewed
[2023-10-26] MEDS: NOVOLOG FLEXPEN 6 UNITS SC (14:30)
--- NOTE | 2023-10-26 14:30 | W.PN.HOSP.TC ---
Today's Communication/Plan
-
Increase insulin
Please notify for sugars over 250
Vascular surgery evaluation requested
Cardiology function requested
Continue AB
Await Podiatry eval
Assessment / Plan
Assessment / Plan
78-year-old male was sent from podiatry office for worsening swelling of the right foot. Started 1 month ago a ulcer on the toe . 1 Week ago had pain in the foot so sent to Podiatry. redness started 3 days ago. X-rays in the office possible osteo.
is the Chief Scientific Officer.
Cardiovascular system S1-S2 appreciated, systolic murmur at apex
Chest clear to auscultation
Abdomen soft and nontender
Right foot dorsal aspect redness much better. He has a small blister just above the first manage tarsal phalangeal joint. Underneath the first metatarsal phalangeal joint plantar aspect dry ulcer
Fluctuance noted
[id number] normal obtainable secondary to noncompressibility of the vessels. TBI mildly reduced 0.27 multiphasic waveforms, femoral total popliteal artery with a velocity elevation popliteal artery suggestive of possible more than 50%
stenosis. Monophasic infrapopliteal waveforms indicating infrapopliteal disease. Left lower extremity GODWIN 1.2 within normal limits. TBI also within normal limits.
# Diabetic foot ulcer with cellulitis on the right foot
Ulcer for one month ,redness for 3 days
Continue Vanco cefepime and Flagyl
Wound cultures
GODWIN noted with infrapopliteal disease on the right side. Will request vascular surgery evaluation
X rays of foot reviewed by me-moderate soft tissue emphysema medially and plantar first metatarsal phalangeal joint no osteomyelitis, atherosclerosis
Wound CX and Antibiotics
NWB right forefoot
May need surgery. Podiatry aware.
Vascular also consulted
Holding Xarelto in anticipation of surgery
I have also requested cardiology evaluation given his complex cardiac history
# Hyperkalemia-status post Lokelma. Better
# Elevated LFTs-hold statin.
Ultrasound unremarkable.
# Anemia-iron deficiency noted. Replace IV when OK with ID.
# Mild hyponatremia-follow
# Coronary artery disease-multivessel CAD
Continue Brilinta, hold atorvastatin
# Chronic heart failure with reduced ejection fraction-EF 25%
Continue Farxiga, Lasix 80 mg twice daily, Imdur 60 mg daily, metoprolol 25 mg daily
# History of MitraClip placement for severe MR 09/08/2023
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
# History of infective endocarditis April 2023
# Hyperlipidemia-hold atorvastatin
# Diabetes with neuropathy
OP-Continue insulin 70/30 -28 units in the morning and 20 units in the evening. Prandin 1 mg p.o. twice daily
IP-started NovoLog 6 units AC, increased morning 70/30 to 34 units and evening 70/30 to 25 units
watch sugars closely
Hemoglobin A1c was 8.7 on 09/09/2023
# Anxiety-Ativan 1 mg p.o. twice daily as needed
# Peripheral vascular disease on Xarelto 2.5 mg p.o. twice daily (Hold for possible surgery)
History of left second and fifth toe amputation
# Chronic kidney disease stage 3
# Cognitive dysfunction
# DVT prophylaxis-on Xarelto as outpatient-continue
# CODE STATUS-Full
D/W RN
time spent over 50 min
Anticipated Discharge: > 48 hours
Subjective/Interval History
-
Date of Service: October 26, 2023
Objective Data
-
Labs:
Laboratory Results
10/26/23
10:42
WBC 15.6 H
Hgb 9.3 L
Hct 28.7 L
Plt Count 161
Sodium 132 L
Potassium 4.9
Chloride 101
Carbon Dioxide 18 L
BUN 46 H
Creatinine 1.9 H
Glucose 308 H
Calcium 9.1
Vital Signs:
Vital Signs
Temp Pulse Resp BP Pulse Ox
98.1 F 94 18 102/63 99
10/26/23 11:40 10/26/23 11:40 10/26/23 11:40 10/26/23 11:40 10/26/23 11:40
I&O
10/25/23 10/26/23 10/27/23
06:59 06:59 06:59
Intake Total 225 / 225
Output Total 0 / 0
Balance 225 / 225
[2023-10-26 14:38] LABS: Glucose - Point of Care 239 mg/dl (70-99)
[2023-10-26 15:20] LABS: ALT (SGPT) 56 U/L (0-50); AST (SGOT) 96 U/L (17-59); Albumin 3.4 g/dl (3.5-5.0); Alkaline Phosphatase 575 U/L (38-126); Direct Bilirubin 2.1 mg/dl (0.0-0.4); Total Bilirubin 2.8 mg/dl (0.2-1.3); Total Protein 6.2 g/dl (6.3-8.2)
--- NOTE | 2023-10-26 15:28 | CON.ID ---
Consultation
-
Date/Time Consultation Requested: October 25, 2023 1643
Date/Time Consultation Performed: October 26, 2023 1530
Requesting Provider: Dr. Sulaiman Pressley
Performing Provider: Dr. Agnes Morrison
Reason for Consultation: Diabetic foot ulcer
Chief Complaint / Past History
Chief Complaint
Foot infection
History of Present Illness
78-year-old male with history of diabetes mellitus, CAD, cardiomyopathy status post ICD placement July 2023, severe mitral regurgitation status post MitraClip August 2023 who was sent to the ER by his bundle tier on October 24 due to worsening right great
toe ulcer. Patient reports he has wounds on the ball of his right foot for several weeks. Last week his right foot became more swollen with redness around the wounds. He was placed on cephalexin without improvement. He was therefore sent to the
bundle tier who sent him to the ER right away. X-ray of the foot shows suspected abscess with moderate emphysema medial and plantar to the first MTP joint and first metatarsal shaft. He is currently on vancomycin, cefepime, metronidazole. Patient
denies fevers or chills. Right foot feels a little bit better. No recent trauma or wearing new shoes.
Past History
Additional Past Medical History:
Diabetes mellitus
CAD - severe not amenable to PCI/CABG
Large MV echodensity (03/17/2023) s/p 6 weeks of empiric Vanco/ceftriaxone.
Ischemic cardiomyopathy s/p BIV-ICD placement 08/03/23
Severe mitral regurgitation s/p SJ and MitraClip 09/08/23
Hypertension
PAD
bilateral carotid stenosis
Anxiety
COPD
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
osteo status post left fifth toe amputation
Allergy History:
daptomycin Allergy (Verified 10/25/23 12:19)
Pneumonitis/LISA/elev transaminases
Medications Reviewed: Yes
Current Antibiotics:
Vancomycin
cefepime
metronidazole
Social History
Tobacco: Non-Smoker
Alcohol: None
Drug: None
Living: Alone
Family History
Family History: Not Pertinent
Review of Systems
Review of Systems
General: Negative Fever, Chills or Change in Appetite
HEENT: Negative Sinus Problems, Headache or Pharyngitis
Cardiovascular: Negative Chest Pain or Dyspnea
Respiratory: Negative Dyspnea or Cough
Gasteroenterology: Negative Nausea or Vomiting
Genital / Urological: Negative Dysuria or Flank Pain
Endocrine: Negative Weakness
All systems: All other systems were reviewed and were negative
Vital Signs
Temp Pulse Resp BP Pulse Ox
98.1 F 94 18 102/63 99
10/26/23 11:40 10/26/23 11:40 10/26/23 11:40 10/26/23 11:40 10/26/23 11:40
Physical Exam
Physical Exam
Constitutional: No Acute Distress and Comfortable
Eyes: No Conjunctival Hemorrhage and Sclera Anicteric
Cardiovascular: Regular Rate and S1/S2
Pulmonary: Clear
Gastrointestinal: Soft, Non Tender, Non Distended and Normal Bowel Sounds
Extremities: Edema (RLE: 2+ edema)
Wound: Other (Right foot: 3+ edema, bright erythema medial foot with fluctuance; necrottic wound on lateral and plantar Ist MTPJ, )
Neurological: Awake and Alert
Lab / Diagnostic Study Results
10/26/23 10:42
10/26/23 10:42
Abs Immat Gran (auto) 0.1 10^3/uL (0-0.05) H 10/25/23 12:25
Absolute Neuts (auto) 14.0 10^3/uL (1.4-6.5) H 10/25/23 12:25
Absolute Lymphs (auto) 0.5 10^3/uL (1.2-3.4) L 10/25/23 12:25
Absolute Monos (auto) 1.6 10^3/uL (0.1-0.6) H 10/25/23 12:25
Absolute Basos (auto) 0.1 10^3/uL (0-0.2) 10/25/23 12:25
Immature Gran % 0.5 % (0-0.5) 10/25/23 12:25
Neutrophils % 85.9 % (42.2-75.2) H 10/25/23 12:25
Lymphocytes % 3.2 % (20.5-51.1) L 10/25/23 12:25
Monocytes % 9.9 % (1.7-9.3) H 10/25/23 12:25
Eosinophils % 0.2 % (0-6) 10/25/23 12:25
Basophils % 0.3 % (0-2) 10/25/23 12:25
Lactic Acid 1.7 mmol/L (0.7-2.0) 10/25/23 13:47
Microbiology Results
Micro:
10/25/23 13:47 Blood Culture - Preliminary
Blood/Venous No Growth in 24 hours- Final report to follow
10/25/23 R Foot XRAY: Moderate soft tissue emphysema medial and plantar to the 1st MTP joint and 1st metatarsal shaft with surrounding soft tissue edema consistent with SEVERE ACUTE SOFT TISSUE INFECTION with necrosis and possibly soft tissue abscess.
Assessment / Plan
# Right first MTPJ/MT shaft cellulitis, abscess, and suspected osteomyelitis
# Leukocytosis
- IF ICD is MRI compatible, recommend MRI foot
- For OR drainage of abscess, please send biopsies and cultures.
- Continue Vanco/cefepime/metronidazole.
-Trend wbc
# RLE PAD
- Vascular following
# Poorly controlled DM
--- NOTE | 2023-10-26 15:45 | CM ---
Patient seen bedside, initial assessment completed. Patient resides alone in a multiple story home, two steps to enter. Patient reports daughter lives across the street, son comes to visit daily. Patient has a cane at home, reports VN in past,
unsure with who. Patient denies SNF. Patient PCP Dr. Barker, pharmacy [facility] in [place], confirms prescription coverage. Patient denies food, housing/utility, transportation insecurities at home. Patient on IV antibiotics. CM will continue to
follow for all discharge planning needs.
Plan; watch for VN, wound care needs, IV antibiotic needs.
--- NOTE | 2023-10-26 16:13 | CON.VAS ---
Addendum entered and electronically signed by Marcel Soto III, MD 10/26/23 17:37:
This patient was seen and examined with CARTER Doran. I agree with the history and physical exam as well as the assessment and plan. I have the following additions:
Necrotic right foot wound
Nonpalpable pedal pulses
Palpable femoral pulses
Abnormal noninvasive vascular studies suggesting the presence of tibial artery disease and perhaps popliteal artery stenosis
Will plan for right lower extremity arteriogram and possible endovascular intervention.
Technical aspects of this procedure were discussed with him in detail. The benefits and rationale for this approach were discussed with him in detail. Operative risks were discussed with him in detail including but not limited to arterial access
site injury, contrast nephropathy, renal failure, distal embolization, inability to successfully complete endovascular intervention and the need for additional procedures.
He expressed a clear understanding of our conversation and agrees to proceed with surgery as detailed above.
Tentative plan is for arteriogram 10/29/2023
Signed:
Marcel Soto III, MD
[facility] Surgery
[phone] ([phone])
Original Note:
Consultation
Consultation Request
Performing Provider: Brittany
Reason for Consultation: Nonhealing wounds/PAD eval
Medical History
-
Chief Complaint: Nonhealing wound/redness
History of Present Illness:
78-year-old male with past medical history significant for CAD, CHF, COPD, and diabetes, acute kidney disease, status post MitraClip last month sent from podiatry () office for worsening swelling of the right foot. Started 1 month ago as
and ulcer on the toe which progressed over the past 3 days. X-rays in podiatry office suggest possible osteo yesterday. Vascular consult for PAD eval with nonhealing wounds. Patient seen at bedside this afternoon with Dr. Soto.
Arterial ultrasounds: Right lower extremity: Not obtainable secondary to noncompressibility of the vessels. TBI (performed at second toe) mildly reduced at 0.57. Multiphasic waveforms from common femoral through popliteal artery with velocity
elevation in the popliteal artery of 170 cm/s and velocity ratio of 2.21, suggestive of possible greater than 50% stenosis. Continuous Doppler waveforms at the dorsalis pedis and posterior tibial arteries are monophasic suggestive of possible
infrapopliteal artery disease as well.
Left lower extremity: GODWIN 1.2 to within normal limits. TBI 1.12 also within normal limits. Multiphasic waveforms in the common femoral through popliteal artery with no velocity elevation to suggest any significant stenosis. Continuous Doppler
waveforms at the dorsalis pedis and posterior tibial arteries also remain multiphasic.
Past Medical History
Past Medical History: CAD, CHF, COPD, IDDM, Renal Failure (Chronic kidney disease), Valvular Disease and Other (Peripheral artery disease, Anxiety, fatty liver, NSVT, hyperlipidemia, Herniated disc, Cognitive dysfunction, History of infective
endocarditis )
Past Surgical History: Other (MitraClip procedure 09/09/2023, laser eye surgery, shoulder surgery, amputation of the second and fifth toe, surgery of the jaw)
Social History
Tobacco: Non-Smoker
Alcohol: None
Living: Alone
Family History
Family History: CAD
Allergies / Home Medications
Allergy/AdvReac Type Severity Reaction Status Date / Time
daptomycin Allergy Pneumonitis/LISA/elev Verified 10/25/23 12:19
transaminases
�Medication �Instructions �Recorded �Confirmed �Type
cholecalciferol (vitamin D3) 125 125 mcg PO DAILY Supplement 12/18/22 10/25/23 History
mcg (5,000 unit) tablet (Vitamin
D3)
insulin aspar prot-insulin aspart 20 unit (0.2 mL) SC DAILY@1700 #15 03/31/23 10/25/23 Rx
100 unit/mL (70-30) subcutaneous mL
pen (Novolog Mix 70-30FlexPen
U-100)
atorvastatin 40 mg tablet 40 mg PO QPM High Cholesterol 04/06/23 10/25/23 History
pantoprazole 40 mg tablet,delayed 40 mg PO DAILY #30 tabs 01/17/24 07/29/24 Rx
release
isosorbide mononitrate 60 mg 60 mg PO DAILY #30 tabs 05/20/23 10/25/23 Rx
tablet,extended release 24 hr
dapagliflozin propanediol 10 mg 10 mg PO DAILY Diabetes/Heart 07/24/23 10/25/23 History
tablet (Farxiga) Failure
insulin aspar prot-insulin aspart 28 unit SC DAILY@0800 Diabetes 07/24/23 10/25/23 History
100 unit/mL (70-30) subcutaneous
pen (Novolog Mix 70-30FlexPen
U-100)
rivaroxaban 2.5 mg tablet (Xarelto) 2.5 mg PO BID Blood Clot 07/24/23 10/25/23 History
Prevention/Tx
ticagrelor 90 mg tablet (Brilinta) 90 mg PO BID Blood Clot 07/24/23 10/25/23 History
Prevention/Tx
furosemide 80 mg tablet 80 mg PO BID@0800,1600 30 days #60 08/05/23 10/25/23 Rx
tabs
docusate sodium 100 mg capsule 100 mg PO BID Constipation 10/25/23 10/25/23 History
(Colace)
lorazepam 1 mg tablet 1 mg PO BIDPRN PRN ANXIETY 10/25/23 10/25/23 History
metoprolol succinate 25 mg 25 mg PO DAILY Blood Pressure 10/25/23 10/25/23 History
tablet,extended release 24 hr
potassium chloride 20 mEq 20 meq PO DAILY Supplement 10/25/23 10/25/23 History
tablet,extended release
repaglinide 1 mg tablet 1 mg PO BID Diabetes 10/25/23 10/25/23 History
Review of Systems
-
History Source: Patient
All other systems: Negative unless noted
Constitutional: Reports No Symptoms
EENT: Reports No Symptoms
Respiratory: Reports No Symptoms
Cardiac: Reports No Symptoms
Abdomen/GI: Reports No Symptoms
: Reports No Symptoms
Musculoskeletal: Reports Muscle Pain and Edema
Skin: Reports Other (Nonhealing wound)
Neurological: Reports No Symptoms
Physical Exam
Vital Signs
Temp Pulse Resp BP Pulse Ox
97.8 F 103 19 124/71 98
10/26/23 15:30 10/26/23 15:30 10/26/23 15:30 10/26/23 15:30 10/26/23 15:30
Lab Results
10/26/23 10:42
10/26/23 10:42
Physical Exam
General: No Apparent Distress
HEENT: Normocephalic and Atraumatic
Respiratory: Non Labored Respirations
Cardiac: Negative JVD
Breast: Deferred by me
GI: Soft and Non Tender
Musculoskeletal: No Clubbing, No Cyanosis and Edema (Moderate bilateral ankles/feet)
Skin: Warm and Other (See wound care note images)
Neuro: Awake, Alert and Oriented
Psych: Calm
Pulses: Bilateral Femoral: +2 and Bilateral Posterior Tibial: Doppler (Nonpalpable)
Assessment / Plan
-
78-year-old male with nonhealing wounds to the right foot for 1 month
Nonpalpable pulses
Plan:
-Podiatry for possible amputation
-Continue antibiotics
-Blood glucose control
-Will add to schedule for arteriogram Wednesday, holding [facility]- team aware
Data Reviewed
-
Ultrasound: Discussed with Patient
Labs: Labs Reviewed by me
[2023-10-26 17:04] LABS: Glucose - Point of Care 185 mg/dl (70-99)
[2023-10-26] MEDS: TIGAN 200 MG IM (17:35)
[2023-10-26] MEDS: NOVOLOG FLEXPEN-LOW RESISTANCE SC (18:26)
[2023-10-26] MEDS: NOVOLOG FLEXPEN SC (18:29)
[2023-10-26] MEDS: LIPITOR PO (18:30)
--- NOTE | 2023-10-26 18:31 | PTCARENOTE ---
Patient with complaints of nausea with one episode of vomiting. Patient also had 'shakes' at the time of vomiting. Afebrile. MD notified. Tigan given as per order. Patient with continued nausea. MD notified. Instructed to hold regular insulin before
dinner and 70/30 as ordered and she will order NPH insulin for this evening as patient could eat little dinner. Accu check 198. To recheck accu check at HS.
[2023-10-26] MEDS: HUMULIN N KWIKPEN 20 UNITS SC (19:44)
[2023-10-26] MEDS: ATIVAN 1 MG PO (20:05)
[2023-10-26] MEDS: ROXICODONE 5 MG PO (20:31)
--- NOTE | 2023-10-26 20:40 | W.CS.POD ---
Consult Summary - Podiatry
-
This patient is a 78-year-old male with history of diabetes mellitus, Cardiomyopathy, CAD and CKD stage 3 who was admitted 10/25/23 with a diabetic infection of his right foot. He relates that he first developed wounds on the right foot more than a
month ago, and when he noticed an increase in redness and swelling, he visited his PCP, who placed him on PO antibiotics. Without improvement, he was subsequently sent to his dynamics ax consultant (Dr. Rodrigez) who in turn sent the patient to the ER. Today
the patient denies fever, chills or night sweats, nor any stiffness behind his knee or in the groin. He states having intermittent pain in the foot which is managed by on board analgesics, feeling better than the last couple of days.
WBC 15.6
BG 308
Blood cultures: No growth 24 hours.
10/25/23 XRAY right foot:
1. Moderate soft tissue emphysema medial and plantar to the 1st MTP joint and 1st metatarsal shaft with surrounding soft tissue edema consistent with SEVERE ACUTE SOFT TISSUE INFECTION with necrosis and possibly soft tissue abscess.
2. No radiographic evidence for acute osteomyelitis.
3. Severe peripheral arterial calcific atherosclerotic disease.
10/26/23 Arterial ultrasound:
Right lower extremity: Not obtainable secondary to noncompressibility of the vessels. TBI (performed at second toe) mildly reduced at 0.57. Multiphasic waveforms from common femoral through popliteal artery with velocity elevation in the popliteal
artery of 170 cm/s and velocity ratio of 2.21, suggestive of possible greater than 50% stenosis. Continuous Doppler waveforms at the dorsalis pedis and posterior tibial arteries are monophasic suggestive of possible infrapopliteal artery disease as
well.
Assessment:
Infected diabetic ulcerations of the right first MTPJ area with cellulitis extending to the hindfoot medially. Suspected abscess and underlying osteomyelitis.
Diabetes Mellitus
Ischemic Cardiomyopathy
CAD
Prior second and fifth toe amputations, left foot.
Plan:
Patient will need I & D and likely amputation. Recommend MRI of left foot (if ICD is MRI compatible) to assess for extent of abscess and bone involvement.
ID note appreciated. Continue IV antibiotics.
Vascular- Angiogram planned for 10/29/23.
[2023-10-26 21:21] LABS: Glucose - Point of Care 229 mg/dl (70-99)
--- NOTE | 2023-10-26 21:45 | PTCARENOTE ---
pt stating he is 'over thinking a lot' and requesting O2 to be placed. 95-99% on Room air, no complaints of shortness of breath or chest pain. Patient placed on 1L O2 for comfort, pt stating he is feeling 'better already' and this helps him to
relax. Plan of care ongoing
[2023-10-27] MEDS: FLAGYL 500 MG 100 IV ×2 (03:06→11:45)
[2023-10-27] MEDS: STERILE WATER FOR INJECTION 10 ML IV ×3 (03:07→21:45)
[2023-10-27] MEDS: MAXIPIME 1000 MG IV (03:07)
[2023-10-27] MEDS: ROXICODONE 5 MG PO ×3 (03:36→20:34)
[2023-10-27 03:53] VITALS: BP 114/58
[2023-10-27 06:00] VITALS: BMI 27.7
[2023-10-27] MEDS: VANCOCIN 200 IV (06:15)
[2023-10-27 07:42] VITALS: BP 103/57
--- NOTE | 2023-10-27 09:00 | W.PN.CD ---
Today's Communication / Plan
-
NSQIP risk 3.4%.
No further cardiovascular testing is indicated nor will it lower his surgical risk.
Check SAS STATISTICAL PROGRAMMER-D for MRI compatibility.
MRI right foot if MR compatible.
Impression / Plan
-
Impression/Plan: 78M with IDDM, HTN, HLD, CAD leading to ICMO with SAS STATISTICAL PROGRAMMER�D and severe, degenerative MR with recurrent HFrEF admissions s/p MitraClip (09/08/2023), now admitted with right foot infection pending amputation. Cardiology was asked to
comment on risk assessment.
#Right Toe Osteomyelitis
-Acute.
-WBC 15.6k.
-Vascular planning for arteriography on 10/29/2023 to assess vascular supply prior to amputation.
-ABX per ID.
#Cardiac risk assessment for right toe amputation
-NSQI perioperative risk = 3.4%.
-RCRI class IV (ischemic heart disease, CHF history, IDDM, prior creatinine > 2.0).
-The patient has known, severe coronary artery disease that is NOT amenable to intervention.
-No anginal complaints.
-His surgical risk is relatively high, but there is no other testing/medication/intervention that will lower the risk any further than it already is, and surgery is necessary for continued survival.
-He tolerated SJ (under general anesthesia) recently. Given the time under anesthesia required, this is a good prognostic indicator.
#Severe mitral valve regurgitation
-Chronic, stable.
-S/P SJ with one XTW MitraClip (09/08/2023).
-30-day TTE showed peak/mean gradients of 11/5 mmHg.
#CAD
-Chronic, stable.
-He has no anginal complaints.
-No interventions possible (percutaneous or surgical).
-Secondary prevention with high dose, high potency statin. Atorvastatin held due to transaminits.
-Continue metoprolol succinate and isosorbide mononitrate.
-Ticagrelor + rivaroxaban 2.5 mg BID as above.
-He can discontinue both ticagrelor/rivaroxaban prior to surgery and he has not had any recent PCI. It will take 2 days to wash out rivaroxaban and 5 days to wash out ticagrelor.
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
-Chronic, stable.
-He does not appear to be in acute/decompensated heart failure.
-GDMT as hemodynamics will tolerate.
-SGLT2i: dapagliflozin 10 mg daily.
-Beta-marcus: Metoprolol succinate 25 mg daily.
-ACEi/ARB: Lisinopril caused cough.
-Sacubitril-valsartan: Caused hypotension.
-MRA: None as he has had issues with hyperkalemia.
-Diuretic: He does require furosemide to maintain euvolemia.
-SAS STATISTICAL PROGRAMMER-D: Implanted ([employer]).
-Trend daily weight, I/O.
#HTN
-Chronic, stable.
#HLD, chronic, stable, continue atorvastatin 40 mg daily, goal LDL < 55.
#Type 2 diabetes mellitus, HgbA1c 8.7%, per primary
Digital Media Director: Dr. Case
pharmacy specialist: Dr. Sky
Subjective/Interval History:
Atorvastatin held due to transaminitis.
DATA:
TTE, 10/08/2023:
CONCLUSIONS
Top normal LV size with severely reduced systolic function.
LVEF is 25% by Chambers's method of test.
Global diffuse hypokinesis.
Normal right ventricular size and function.
S/p Mitraclip with peak/mean gradients across the mitral valve are 11/5 mmHg.
Mild to moderate mitral regurgitation.
Estimated pulmonary artery pressure of 41 mmHg, assuming a right atrial
pressure of 3 mmHg.
Compared to prior from September 09, 2023, on [id number] comparison LVEF is now
severely reduced now with ejection fraction of 25% from 40%.
As per [place] Act 112, known as Patient Test Result Information Act, a letter will
be sent to the patient, which notifies to the patient that a significant
abnormality may exist. A letter will be sent approximately 10 days after the
echo report is finalized.
Foot XR, 10/25/2023:
IMPRESSION:
1. Moderate soft tissue emphysema medial and plantar to the 1st MTP joint and 1st metatarsal shaft with surrounding soft tissue edema consistent with SEVERE ACUTE SOFT TISSUE INFECTION with necrosis and possibly soft tissue abscess.
2. No radiographic evidence for acute osteomyelitis.
3. Severe peripheral arterial calcific atherosclerotic disease.
AUS, 10/26/2023:
IMPRESSION: Limited but unremarkable ultrasound of the abdomen.
Physical Exam
Vital Signs/Labs
Vital Signs
Temp Pulse Resp BP Pulse Ox
37.2 C 109 18 103/57 100
10/27/23 07:42 10/27/23 07:42 10/27/23 07:42 10/27/23 07:42 10/27/23 07:42
10/25/23 10/26/23 10/27/23
11:59 11:59 11:59
Actual Weight 83.234 kg 82.667 kg
10/26/23 10:42
Physical Exam
Constitutional: No acute distress and Comfortable
EENT: Anicteric and Moist mucous membranes
Cardiovascular: Rhythm & rate is regular, Pedal edema is absent, JVD pressure is normal, S1S2 is normal and Murmur/rub/gallop absent
Respiratory: Respiratory effort normal, Lungs clear to auscul., Wheeze Absent, Crackles Absent and Rhonchi Absent
GI: Soft, Distention absent, Flat, Non tender and Normal bowel sounds
Neuro/Psych: AO x 3
Data Reviewed
-
Date of Service: October 27, 2023
Medical Decision Making: Reviewed Test Results, Independent Historian Assessment and Test Interpretation
EKG: Tracing Personally Visualized and interpreted and Report Reviewed by me
Echo: Tracing Personally Visualized and interpreted and Report Reviewed by me
X-Ray/CT/US/MRI/NUC/PET: Image Personally Visualized and interpreted and Report Reviewed by me
Medical Tests (PFT, Pathology etc): Image Personally Visualized and interpreted and Report Reviewed by me
Labs: Labs Reviewed by me
Old Records: Reviewed
[2023-10-27 09:07] LABS: Glucose - Point of Care 128 mg/dl (70-99)
[2023-10-27] MEDS: NOVOLOG FLEXPEN-LOW RESISTANCE SC ×3 (09:33→16:17)
[2023-10-27] MEDS: BRILINTA 90 MG PO ×2 (09:37→19:46)
[2023-10-27] MEDS: VITAMIN D3 (cholecalciferol) 125 MCG PO (09:37)
[2023-10-27] MEDS: PROTONIX 40 MG PO (09:37)
[2023-10-27] MEDS: IMDUR (EXTENDED RELEASE) 60 MG PO (09:37)
[2023-10-27] MEDS: COLACE 100 MG PO ×2 (09:37→19:46)
[2023-10-27] MEDS: HEPARIN 5000 UNITS SC ×2 (09:38→19:44)
[2023-10-27] MEDS: NOVOLOG MIX 70/30 FLEXPEN 34 UNITS SC (09:39)
[2023-10-27 10:19] LABS: ALT (SGPT) 69 U/L (0-50); AST (SGOT) 114 U/L (17-59); Albumin 3.1 g/dl (3.5-5.0); Alkaline Phosphatase 516 U/L (38-126); Blood Urea Nitrogen 50 mg/dl (9-20); Calcium 8.8 mg/dl (8.4-10.2); Carbon Dioxide 19 mmol/L (22-30); Chloride 101 mmol/L (98-107); Direct Bilirubin 1.8 mg/dl (0.0-0.4); Estimated Creatinine Clearance 26 ml/min; Glucose 126 mg/dl (70-99); Potassium 3.8 mmol/L (3.5-5.1); Sodium 132 mmol/L (135-145); Total Bilirubin 2.4 mg/dl (0.2-1.3); eGFR 28.71
--- NOTE | 2023-10-27 10:52 | CM ---
Met with patient at bedside to discuss discharge planning; explained PT recommendation for Home Health; patient agreeable with plan and services from [facility]
Referral sent to [facility] for PT/OT and VN via [facility]
Plan: discharge to home when stable with [facility] home health services
[2023-10-27 11:57] VITALS: BP 112/59
[2023-10-27 12:16] LABS: Glucose - Point of Care 108 mg/dl (70-99)
--- NOTE | 2023-10-27 12:19 | PHA.VAN.FU ---
Vancomycin Assessment / Plan
- Assessment
Renal Function: SCR Increasing
In the past 24 hrs, patient has been: Afebrile
Concomitant Antimicrobials: cefepime, metronidazole
- Dosing Plan
Adjust Regimen to: dosing by level given increase in SCR
Dosing Comments: received 1000mg today at 06:15
- Monitoring Plan
Random Level: 10/27 0600
- Follow Up
Pharmacy will continue to follow.
Vancomycin Follow UP
- -
Patient Age: 78
Patient Sex: Male
Vancomycin Day #: 2
Indication: Skin And Soft Tissue
Requesting Provider: Dr. Pressley / [facility]
Pertinent Antimicrobial Allergies:
daptomycin - pneumonitis / LISA / elevated transaminases
Height / Weight:
Height 5 ft 8 in
Actual Weight 82.667 kg
Pertinent Past Medical History: DM, CKD, PAD
- Vital Signs / Lab Results
Temp Pulse Resp BP Pulse Ox
98.8 F 112 18 112/59 99
10/27/23 11:57 10/27/23 11:57 10/27/23 11:57 10/27/23 11:57 10/27/23 11:57
Lab Results - Hematology
10/25/23 10/26/23
12:25 10:42
WBC 16.3 H 15.6 H
Lab Results - Chemistry
10/25/23 10/26/23 10/27/23
12:25 10:42 08:13
BUN 36 H 46 H 50 H
Creatinine 1.6 H 1.9 H 2.3 H
Estimated Creat Clear 32 26
Albumin 3.7 3.4 L 3.1 L
10/25/23
13:47
Lactic Acid 1.7
Microbiology Results
10/25/23 13:47 Blood Culture - Preliminary
Blood/Venous No Growth in 24 hours- Final report to follow
--- NOTE | 2023-10-27 12:39 | W.PN.HOSP.TC ---
Today's Communication/Plan
-
Continue antibiotics
MRI
Check urinalysis,
Bladder scan
Arteriogram
Nephrology evaluation
Assessment / Plan
Assessment / Plan
78-year-old male was sent from podiatry office for worsening swelling of the right foot. Started 1 month ago a ulcer on the toe . 1 Week ago had pain in the foot so sent to Podiatry. redness started 3 days ago. X-rays in the office possible osteo.
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
Cardiovascular system S1-S2 appreciated, systolic murmur at apex
Chest clear to auscultation
Abdomen soft and nontender
Right foot dorsal aspect redness much better. He has a small blister just above the first manage tarsal phalangeal joint. Underneath the first metatarsal phalangeal joint plantar aspect dry ulcer
Fluctuance noted
[id number]-tabex normal obtainable secondary to noncompressibility of the vessels. TBI mildly reduced 0.27 multiphasic waveforms, femoral total popliteal artery with a velocity elevation popliteal artery suggestive of possible more than 50%
stenosis. Monophasic infrapopliteal waveforms indicating infrapopliteal disease. Left lower extremity GODWIN 1.2 within normal limits. TBI also within normal limits.
# Diabetic foot ulcer with cellulitis on the right foot
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
Continue Vanco cefepime and Flagyl
Wound cultures not sent. Now will need OR CX
GODWIN noted with infrapopliteal disease on the right side.
Vascular evaluated- plan for right lower extremity arteriogram and possible endovascular intervention wednesday
X rays of foot reviewed by me-moderate soft tissue emphysema medially and plantar first metatarsal phalangeal joint no osteomyelitis, atherosclerosis
NWB right forefoot
Needs surgery. Podiatry aware and following
MRI ordered- Cards to verified ICD compatibility
Holding Xarelto in anticipation of surgery
I have also requested cardiology evaluation given his complex cardiac history
# Hyperkalemia-status post Lokelma. Better
# Elevated LFTs-hold statin.
Ultrasound unremarkable.
# LISA on Chronic kidney disease stage 3
Check U/A , eosinophils and also Urine sodium
? ATN, Cardiorenal
Patient requiring arteriogram will also interfere with renal function
Bladder scan
Renal eval
# Anemia-iron deficiency noted. Replace IV when OK with ID.
# Mild hyponatremia-follow
# Coronary artery disease-multivessel CAD
Continue Brilinta, hold atorvastatin
# Chronic heart failure with reduced ejection fraction-EF 25%
Continue Farxiga, Lasix 80 mg twice daily, Imdur 60 mg daily, metoprolol 25 mg daily
# History of MitraClip placement for severe MR 09/08/2023
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
# History of infective endocarditis April 2023
# Hyperlipidemia-hold atorvastatin
# Diabetes with neuropathy
OP-Continue insulin 70/30 -28 units in the morning and 20 units in the evening. Prandin 1 mg p.o. twice daily
IP-increased morning 70/30 to 34 units and evening 70/30 to 25 units.
watch sugars closely
Hemoglobin A1c was 8.7 on 09/09/2023
# Anxiety-Ativan 1 mg p.o. twice daily as needed
# Peripheral vascular disease on Xarelto 2.5 mg p.o. twice daily (Hold for possible surgery)
History of left second and fifth toe amputation
# Cognitive dysfunction
# DVT prophylaxis- MAHESH
# CODE STATUS-Full
D/W RN
D/W ID
Called daughter- she requested to call back.
D/W Renal and Cards
Time spent over 50 min
Anticipated Discharge: > 48 hours
Subjective/Interval History
-
Date of Service: October 27, 2023
Objective Data
-
Labs:
Laboratory Results
10/27/23
08:13
Sodium 132 L
Potassium 3.8
Chloride 101
Carbon Dioxide 19 L
BUN 50 H
Creatinine 2.3 H
Glucose 126 H
Calcium 8.8
Total Bilirubin 2.4 H
AST 114 H
ALT 69 H
Alkaline Phosphatase 516 H
Vital Signs:
Vital Signs
Temp Pulse Resp BP Pulse Ox
98.8 F 112 18 112/59 99
10/27/23 11:57 10/27/23 11:57 10/27/23 11:57 10/27/23 11:57 10/27/23 11:57
I&O
10/26/23 10/27/23 10/28/23
06:59 06:59 06:59
Intake Total 225 / 225 880 / 880
Output Total 0 / 0 1600 / 1600
Balance 225 / 225 -720 / -720
--- NOTE | 2023-10-27 13:18 | W.PN.ID1 ---
Date of Service
Date of Service: October 27, 2023
Today's Communication
- Continue Vancomycin. Follow levels.
- Replace cefepime/metronidazole with meropenem.
Assessment / Plan
# LISA worse
- DC cefepime, in case of interstitial nephritis
# Right first MTPJ/MT shaft cellulitis, abscess, and suspected osteomyelitis
# Leukocytosis
- IF ICD is MRI compatible, recommend MRI foot
- For OR drainage of abscess, please send biopsies and cultures.
- Continue Vancomycin. Follow levels.
- Replace cefepime/metronidazole with meropenem.
- trend wbc
# RLE PAD
- For arteriogram tomorrow
# Elevated LFT's - present on admission
- Abd US unremarkable
# Poorly controlled DM
# Additional Past Medical History:
Diabetes mellitus
CAD - severe not amenable to PCI/CABG
Large MV echodensity (03/17/2023) s/p 6 weeks of empiric Vanco/ceftriaxone.
Ischemic cardiomyopathy s/p BIV-ICD placement 08/03/23
Severe mitral regurgitation s/p SJ and MitraClip 09/08/23
Hypertension
PAD
bilateral carotid stenosis
Anxiety
COPD
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
osteo status post left fifth toe amputation
Chief Complaint
-: Other (Foot abscess)
Subjective / Review of Systems
Less foot pain.
Vital Signs / Physical Exam
Vital Signs
Vital Signs
Temp Pulse Resp BP Pulse Ox
98.8 F 112 18 112/59 99
10/27/23 11:57 10/27/23 11:57 10/27/23 11:57 10/27/23 11:57 10/27/23 11:57
Physical Exam
Constitutional: No Acute Distress and Comfortable
Extremities: Edema (RLE decreased)
Wound: Other
Objective Data
Lab Data
Lab Results
10/26/23 10:42
10/27/23 08:13
Estimated Creat Clear 26 ml/min 10/27/23 08:13
Lactic Acid 1.7 mmol/L (0.7-2.0) 10/25/23 13:47
Total Bilirubin 2.4 mg/dl (0.2-1.3) H 10/27/23 08:13
AST 114 U/L (17-59) H 10/27/23 08:13
ALT 69 U/L (0-50) H 10/27/23 08:13
Alkaline Phosphatase 516 U/L (38-126) H 10/27/23 08:13
Most recent labs reviewed.
Micro Results:
10/25/23 13:47 Blood Culture - Preliminary
Blood/Venous No Growth in 24 hours- Final report to follow
10/25/23 R Foot XRAY: Moderate soft tissue emphysema medial and plantar to the 1st MTP joint and 1st metatarsal shaft with surrounding soft tissue edema consistent with SEVERE ACUTE SOFT TISSUE INFECTION with necrosis and possibly soft tissue abscess.
Care Review
Plan reviewed with: Physician (Dr. Pressley)
[2023-10-27] MEDS: MERREM 500 MG IV ×2 (13:59→21:45)
[2023-10-27] MEDS: SODIUM BICARBONATE 650 MG PO ×2 (13:59→19:46)
--- NOTE | 2023-10-27 14:46 | W.CON.NEPH ---
Addendum entered and electronically signed by Rose Baker MD 10/27/23 20:27:
correction in HPI pt not on Entresto
Original Note:
Consultation
-
Date/Time Consultation Requested: 10/27/23 1235
Date/Time Consultation Performed: 10/27/23 1630
Requesting Provider: Sulaiman Bell
Performing Provider: Rose Chanel
Reason for Consultation: Lisa with CKD
Medical History
-
Chief Complaint: Foot wound
History of Present Illness:
This is a 77-year-old gentleman with h/o IDDM, systolic CHF EF 30% on lasix, Entresto as well as Jardiance, s/p ICD, PAD on low dose Xarelto, recent s/p mitral clip for severe MR in 08/2023, CKD stage3 1.5-2 most recently who presented with
worsening swelling of the right foot. He has an ulcer 1 month which did not heal . 1 Week ago had pain and redness started 3 days ago, he was sent to ER by his podiatry. Foot Xray shows severe acute soft tissue infection and no definite OM. He saw
vascular too and concern of distal PAD disease planning angiogram on Saturday 10/28. He also need MRI to r/o osteo per podiatry. His cr on admit was at 1.6 and slowly increasing upto 2.3 today hence nephrology consulted. He offers no fever but felt
chilly. No CP or sob. No dysuria or decrease in urine volume. mild edema of right leg. no n/v or abd pain or diarrhea. No dizziness.
Past Medical History
Multivessel coronary artery disease, heart failure with reduced ejection fraction 25%, Severe mitral regurgitation, COPD, Diabetes, Peripheral artery disease, Anxiety, fatty liver, NSVT, hyperlipidemia, chronic kidney disease, Herniated disc,
Cognitive dysfunction, History of infective endocarditis and April 2023
Past Surgical History: Other (MitraClip procedure 09/09/2023, laser eye surgery, shoulder surgery, amputation of the second and fifth toe, surgery of the jaw)
Social History
Tobacco: Non-Smoker
Alcohol: None
Family History
No CKD
Allergies / Home Medications
Allergy/AdvReac Type Severity Reaction Status Date / Time
daptomycin Allergy Pneumonitis/LISA/elev Verified 10/25/23 12:19
transaminases
�Medication �Instructions �Recorded �Confirmed �Type
cholecalciferol (vitamin D3) 125 125 mcg PO DAILY Supplement 12/18/22 10/25/23 History
mcg (5,000 unit) tablet (Vitamin
D3)
insulin aspar prot-insulin aspart 20 unit (0.2 mL) SC DAILY@1700 #15 03/31/23 10/25/23 Rx
100 unit/mL (70-30) subcutaneous mL
pen (Novolog Mix 70-30FlexPen
U-100)
atorvastatin 40 mg tablet 40 mg PO QPM High Cholesterol 04/06/23 10/25/23 History
pantoprazole 40 mg tablet,delayed 40 mg PO DAILY #30 tabs 04/14/23 10/25/23 Rx
release
isosorbide mononitrate 60 mg 60 mg PO DAILY #30 tabs 05/20/23 10/25/23 Rx
tablet,extended release 24 hr
dapagliflozin propanediol 10 mg 10 mg PO DAILY Diabetes/Heart 07/24/23 10/25/23 History
tablet (Farxiga) Failure
insulin aspar prot-insulin aspart 28 unit SC DAILY@0800 Diabetes 07/24/23 10/25/23 History
100 unit/mL (70-30) subcutaneous
pen (Novolog Mix 70-30FlexPen
U-100)
rivaroxaban 2.5 mg tablet (Xarelto) 2.5 mg PO BID Blood Clot 07/24/23 10/25/23 History
Prevention/Tx
ticagrelor 90 mg tablet (Brilinta) 90 mg PO BID Blood Clot 07/24/23 10/25/23 History
Prevention/Tx
furosemide 80 mg tablet 80 mg PO BID@0800,1600 30 days #60 08/05/23 10/25/23 Rx
tabs
docusate sodium 100 mg capsule 100 mg PO BID Constipation 10/25/23 10/25/23 History
(Colace)
lorazepam 1 mg tablet 1 mg PO BIDPRN PRN ANXIETY 10/25/23 10/25/23 History
metoprolol succinate 25 mg 25 mg PO DAILY Blood Pressure 10/25/23 10/25/23 History
tablet,extended release 24 hr
potassium chloride 20 mEq 20 meq PO DAILY Supplement 10/25/23 10/25/23 History
tablet,extended release
repaglinide 1 mg tablet 1 mg PO BID Diabetes 10/25/23 10/25/23 History
Review of Systems
-
All complete 12 point ROS have been inquired and found negative other than stated in HPI
Physical Exam
Vital Signs
Vital Signs
Temp Pulse Resp BP Pulse Ox
98.8 F 112 18 112/59 99
10/27/23 11:57 10/27/23 11:57 10/27/23 11:57 10/27/23 11:57 10/27/23 11:57
Lab Results
WBC 15.6 10^3/uL (4.8-10.8) H 10/26/23 10:42
RBC 3.61 10^6/uL (4.70-6.10) L 10/26/23 10:42
Hgb 9.3 g/dL (13.0-18.0) L 10/26/23 10:42
Hct 28.7 % (39.0-52.0) L 10/26/23 10:42
Plt Count 161 10^3/uL (130-400) 10/26/23 10:42
Sodium 132 mmol/L (135-145) L 10/27/23 08:13
Potassium 3.8 mmol/L (3.5-5.1) 10/27/23 08:13
Chloride 101 mmol/L (98-107) 10/27/23 08:13
Carbon Dioxide 19 mmol/L (22-30) L 10/27/23 08:13
BUN 50 mg/dl (9-20) H 10/27/23 08:13
Creatinine 2.3 mg/dL (0.7-1.3) H 10/27/23 08:13
eGFR 28.71 10/27/23 08:13
Glucose 126 mg/dl (70-99) H 10/27/23 08:13
Calcium 8.8 mg/dl (8.4-10.2) 10/27/23 08:13
Albumin 3.1 g/dl (3.5-5.0) L 10/27/23 08:13
10/26/23:
US abd:
FINDINGS: Images through the gallbladder demonstrate no evidence of cholelithiasis or wall thickening. No sonographic Gutierres's sign was elicited with examination. The common duct is normal, measuring 4 mm.
The liver is normal in size, measuring 14.8 cm on the right, with a smooth capsular contour and homogeneous echogenicity. There is no focal hepatic lesion or intrahepatic biliary dilation although view of the left lobe is somewhat limited. The
pancreas cannot be well-visualized. The spleen is normal in size and shows no focal abnormality. No signs of hydronephrosis, mass or calculi are seen in either kidney. The right kidney measured 12.3 cm in greatest length; the left kidney measured
12.1 cm in greatest length. No free fluid is seen in the abdomen. No evidence of abdominal aortic aneurysm. The inferior vena cava is unremarkable.
IMPRESSION: Limited but unremarkable ultrasound of the abdomen
GODWIN:
IMPRESSION:
1. Right lower extremity: Not obtainable secondary to noncompressibility of the vessels. TBI (performed at second toe) mildly reduced at 0.57. Multiphasic waveforms from common femoral through popliteal artery with velocity elevation in the
popliteal artery of 170 cm/s and velocity ratio of 2.21, suggestive of possible greater than 50% stenosis. Continuous Doppler waveforms at the dorsalis pedis and posterior tibial arteries are monophasic suggestive of possible infrapopliteal artery
disease as well.
2. Left lower extremity: GODWIN 1.2 to within normal limits. TBI 1.12 also within normal limits. Multiphasic waveforms in the common femoral through popliteal artery with no velocity elevation to suggest any significant stenosis. Continuous Doppler
waveforms at the dorsalis pedis and posterior tibial arteries also remain multiphasic.
Foot xray:
IMPRESSION:
1. Moderate soft tissue emphysema medial and plantar to the 1st MTP joint and 1st metatarsal shaft with surrounding soft tissue edema consistent with SEVERE ACUTE SOFT TISSUE INFECTION with necrosis and possibly soft tissue abscess.
2. No radiographic evidence for acute osteomyelitis.
3. Severe peripheral arterial calcific atherosclerotic disease.
Physical Exam
General: Awake, Alert, Oriented, AOx3, No Distress and Nontoxic
HEENT: EOMI, Anicteric, Facial Symmetry and No JVD
Respiratory: Clear, Normal Excursion and Nonlabored Respirations
Cardiac: S1/S2, Regular Rate/Rhythm and Murmur
Breast: Deferred by me
Abdomen: Soft, Nontender and Nondistended
Musculoskeletal: Edema (rt leg 1+)
Skin: No Rash and No Cyanosis
Neuro: Nonfocal/Grossly Intact
Psych: Mood/afflect pleasant, Insight/judgement good and Appropriate
Data Reviewed
-
Radiology: Report Reviewed by me and Discussed with Patient
Labs: Labs Reviewed by me, Discussed with Patient and Discussed with Family
Assessment/Plan
-
Assessment:
Diabetic foot ulcer with cellulitis on the right foot
Hyperkalemia
Elevated LFTs
LISA on Chronic kidney disease stage 3
Anemia-iron deficiency
Mild hyponatremia
Coronary artery disease-multivessel CAD
Chronic heart failure with reduced ejection fraction-EF 25%
History of MitraClip placement for severe MR 09/08/2023
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
History of infective endocarditis April 2023
Hyperlipidemia
Diabetes with neuropathy
Anxiety
Peripheral vascular disease on Xarelto 2.5 mg p.o. twice daily
History of left second and fifth toe amputation
Cognitive dysfunction
Plan:
A/w with worsening right foot wound
Lisa with CKD 3b, UA with mild microhematuria on AC, follow bladder scan
US with out hydro , U na is low suggest prerenal and check U PCR
bp were ok with out major hypotension
only on abx for 2days so less likely AIN, await U eosinophils
cont to hold lasix, SGLTI
avoid nephrotoxins and hypotension
will gently challenge with IVF
hyperkalemia better, holding kcl
vol status seem stable at this point
abx dose renally per ID
for MRI with out carter
low A gap met acidosis-mixed acid base, started on po bicarb per primary
follow labs
would wait for cr stabilization prior angiogram
d/w pt and daughter on phone
[2023-10-27 15:09] LABS: Urine Albumin Trace (Neg - Trace); Urine Bilirubin 1+ (Negative); Urine Character Clear (Clear); Urine Color Yellow; Urine Glucose 3+ (Negative); Urine Ketone Negative (Negative); Urine Leukocyte 1+ (Negative); Urine Nitrite Negative (Negative); Urine Occult Blood 2+ (Negative); Urine Specific Gravity 1.015 (<1.030); Urine Urobilinogen 2+ (Neg - 1+)
[2023-10-27 15:21] VITALS: BP 112/67
[2023-10-27 15:29] LABS: Urine Sodium < 5 mmol/L (30-90); Urine Squamous Cell 0-2 /LPF (Few)
[2023-10-27 15:31] LABS: Urine Bacteria Many (Negative)
[2023-10-27 15:49] LABS: Body Fluid for Eosinophils No Eosinophils seen
[2023-10-27 16:12] LABS: Glucose - Point of Care 60 mg/dl (70-99)
[2023-10-27 16:25] LABS: Urine Protein 61 mg/dl
--- NOTE | 2023-10-27 16:25 | PTCARENOTE ---
pt's blood sugar this afternoon was 60. Dr. Mcintosh made aware. MD to hold insulin this afternoon. plan of care ongoing.
[2023-10-27 16:38] LABS: Glucose - Point of Care 61 mg/dl (70-99)
[2023-10-27] MEDS: NSS 1000 IV (16:55)
[2023-10-27] MEDS: LIPITOR 40 MG PO (17:01)
[2023-10-27 17:04] LABS: Glucose - Point of Care 71 mg/dl (70-99)
[2023-10-27 17:46] LABS: Protein/creatinine Ratio 0.4
[2023-10-27 19:30] VITALS: BP 116/69
--- NOTE | 2023-10-27 19:42 | PTCARENOTE ---
At 1600, pt's Blood sugar was 60, given 4 oz OJ rechecked 15 min after pt's sugar was 61 repeated again 71 second time. pt asymptomatic throughout. will follow the protocol.
[2023-10-27] MEDS: HUMULIN N KWIKPEN 12 UNITS SC (19:44)
[2023-10-27 19:45] LABS: Glucose - Point of Care 160 mg/dl (70-99)
[2023-10-27 21:50] LABS: Glucose - Point of Care 166 mg/dl (70-99)
[2023-10-27] MEDS: ATIVAN 1 MG PO (21:50)
[2023-10-27 23:00] VITALS: BP 107/59
[2023-10-28] VITALS (12 sets, daily range): BP systolic 18–125; BP diastolic 45–68; BMI 27.3
[2023-10-28 03:28] LABS: Glucose - Point of Care 112 mg/dl (70-99)
[2023-10-28] MEDS: MERREM 500 MG IV ×2 (05:32→18:10)
[2023-10-28] MEDS: STERILE WATER FOR INJECTION 10 ML IV ×2 (05:33→18:10)
[2023-10-28 07:42] LABS: Glucose - Point of Care 116 mg/dl (70-99)
--- NOTE | 2023-10-28 07:47 | W.PN.CD ---
Today's Communication / Plan
-
Ok to proceed with MRI. CASINO BANKER-D device is MRI compatible.
ABX per ID.
Nephrology following for LISA. Agree with holding SGLT2i and diuretics.
Vascular surgery planning arteriogram to assess vascular supply to right foot - this may be delayed due to LISA.
Surgical risk remains elevated but optimized and unchanged.
Impression / Plan
-
Impression/Plan: 78M with IDDM, HTN, HLD, CAD leading to [facility] with CASINO BANKER�D and severe, degenerative MR with recurrent HFrEF admissions s/p MitraClip (09/08/2023), now admitted with right foot infection pending amputation. Cardiology was asked to
comment on risk assessment.
#Right Toe Osteomyelitis
-Acute.
-Vascular planning for arteriography on 10/29/2023 to assess vascular supply prior to amputation. This may be on hold for renal issues.
-ABX per ID.
-CASINO BANKER-D is MRI compatible. Ok to proceed with right foot MRI (without gadolinium due to LISA).
#Cardiac risk assessment for right toe amputation
-NSQIP perioperative risk = 3.4%.
-RCRI class IV (ischemic heart disease, CHF history, IDDM, prior creatinine > 2.0).
-The patient has known, severe coronary artery disease that is NOT amenable to intervention.
-No anginal complaints.
-His surgical risk is relatively high, but there is no other testing/medication/intervention that will lower the risk any further than it already is, and surgery is necessary for continued survival.
-He tolerated SJ (under general anesthesia) recently. Given the time under anesthesia required, this is a good prognostic indicator.
#Severe mitral valve regurgitation
-Chronic, stable.
-S/P SJ with one XTW MitraClip (09/08/2023).
-30-day TTE showed peak/mean gradients of 11/5 mmHg.
#CAD
-Chronic, stable.
-He has no anginal complaints.
-No interventions possible (percutaneous or surgical).
-Secondary prevention with high dose, high potency statin. Atorvastatin held due to transaminits.
-Continue metoprolol succinate and isosorbide mononitrate.
-Ticagrelor + rivaroxaban 2.5 mg BID as above.
-He can discontinue both ticagrelor/rivaroxaban prior to surgery and he has not had any recent PCI. It will take 2 days to wash out rivaroxaban and 5 days to wash out ticagrelor.
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
-Chronic, stable.
-He does not appear to be in acute/decompensated heart failure.
-GDMT as hemodynamics will tolerate.
-SGLT2i: dapagliflozin 10 mg daily - on hold with LISA.
-Beta-marcus: Metoprolol succinate 25 mg daily.
-ACEi/ARB: Lisinopril caused cough.
-Sacubitril-valsartan: Caused hypotension.
-MRA: None as he has had issues with hyperkalemia.
-Diuretic: Currently euvolemic - diuretic on hold due to LISA.
-CASINO BANKER-D: Implanted ([employer]). MRI compatible.
-Trend daily weight, I/O.
#HTN
-Chronic, stable.
#HLD, chronic, stable, continue atorvastatin 40 mg daily, goal LDL < 55.
#Type 2 diabetes mellitus, HgbA1c 8.7%, per primary
Bark Tanner: Dr. Case
bag checker: Dr. Sky
Subjective/Interval History:
Reviewed with EP. CASINO BANKER-D device is MRI compatible.
Otherwise feels well.
Atorvastatin restarted.
Cr up to 2.3 yesterday. Nephrology consulted.
UA shows moderate blood/bilirubin/1+ LE/3-6 RBC's. Shanthi < 5 (prerenal).
DATA:
TTE, 10/08/2023:
CONCLUSIONS
Top normal LV size with severely reduced systolic function.
LVEF is 25% by Chambers's method of test.
Global diffuse hypokinesis.
Normal right ventricular size and function.
S/p Mitraclip with peak/mean gradients across the mitral valve are 11/5 mmHg.
Mild to moderate mitral regurgitation.
Estimated pulmonary artery pressure of 41 mmHg, assuming a right atrial
pressure of 3 mmHg.
Compared to prior from September 09, 2023, on [id number] comparison LVEF is now
severely reduced now with ejection fraction of 25% from 40%.
As per [place] Act 112, known as Patient Test Result Information Act, a letter will
be sent to the patient, which notifies to the patient that a significant
abnormality may exist. A letter will be sent approximately 10 days after the
echo report is finalized.
Foot XR, 10/25/2023:
IMPRESSION:
1. Moderate soft tissue emphysema medial and plantar to the 1st MTP joint and 1st metatarsal shaft with surrounding soft tissue edema consistent with SEVERE ACUTE SOFT TISSUE INFECTION with necrosis and possibly soft tissue abscess.
2. No radiographic evidence for acute osteomyelitis.
3. Severe peripheral arterial calcific atherosclerotic disease.
AUS, 10/26/2023:
IMPRESSION: Limited but unremarkable ultrasound of the abdomen.
Physical Exam
Vital Signs/Labs
Vital Signs
Temp Pulse Resp BP Pulse Ox
37.1 C 99 18 106/68 95
10/28/23 03:00 10/28/23 03:00 10/28/23 03:00 10/28/23 03:00 10/28/23 03:00
10/26/23 10/27/23 10/28/23
11:59 11:59 11:59
Actual Weight 83.234 kg 82.667 kg
Physical Exam
Constitutional: No acute distress and Comfortable
EENT: Anicteric and Moist mucous membranes
Cardiovascular: Rhythm & rate is regular, Pedal edema is absent, JVD pressure is normal, S1S2 is normal and Murmur/rub/gallop absent
Respiratory: Respiratory effort normal, Lungs clear to auscul., Wheeze Absent, Crackles Absent and Rhonchi Absent
GI: Soft, Distention absent, Flat, Non tender and Normal bowel sounds
Neuro/Psych: AO x 3
Data Reviewed
-
Date of Service: October 28, 2023
Medical Decision Making: Reviewed Test Results, Independent Historian Assessment, Test Interpretation and Review of Case with other Provider
EKG: Tracing Personally Visualized and interpreted and Report Reviewed by me
Echo: Tracing Personally Visualized and interpreted and Report Reviewed by me
X-Ray/CT/US/MRI/NUC/PET: Image Personally Visualized and interpreted and Report Reviewed by me
Medical Tests (PFT, Pathology etc): Image Personally Visualized and interpreted and Report Reviewed by me
Labs: Labs Reviewed by me
Old Records: Reviewed
[2023-10-28] MEDS: VITAMIN D3 (cholecalciferol) 125 MCG PO (08:38)
[2023-10-28] MEDS: SODIUM BICARBONATE 650 MG PO ×2 (08:38→21:30)
[2023-10-28] MEDS: PROTONIX 40 MG PO (08:38)
[2023-10-28] MEDS: BRILINTA 90 MG PO ×2 (08:38→21:30)
[2023-10-28] MEDS: COLACE 100 MG PO ×2 (08:38→21:30)
[2023-10-28] MEDS: HEPARIN 5000 UNITS SC ×2 (08:39→21:30)
[2023-10-28] MEDS: HUMULIN N KWIKPEN 12 UNITS SC ×2 (08:40→21:30)
[2023-10-28] MEDS: NOVOLOG FLEXPEN-LOW RESISTANCE SC ×2 (08:43→21:27)
[2023-10-28 08:44] LABS: Glucose - Point of Care 130 mg/dl (70-99)
[2023-10-28 08:46] LABS: Vancomycin Random 19.6 ug/ml
[2023-10-28 08:51] LABS: Hematocrit 25.7 % (39.0-52.0); Hemoglobin 8.5 g/dL (13.0-18.0); Mean Corp Hgb Conc. 33.1 g/dL (33.0-37.0); Mean Corpuscular Hgb 25.6 pg (27.0-31.0); Mean Corpuscular Volume 77.4 fL (80.0-94.0); Mean Platelet Volume 12.1 fL (7.4-10.4); Platelet Count 160 10^3/uL (130-400); Red Blood Cell Count 3.32 10^6/uL (4.70-6.10); White Blood Cell Count 15.1 10^3/uL (4.8-10.8)
[2023-10-28] MEDS: IMDUR (EXTENDED RELEASE) 60 MG PO (08:54)
[2023-10-28 09:10] LABS: ALT (SGPT) 139 U/L (0-50); AST (SGOT) 257 U/L (17-59); Albumin 2.9 g/dl (3.5-5.0); Alkaline Phosphatase 483 U/L (38-126); Blood Urea Nitrogen 53 mg/dl (9-20); Calcium 8.4 mg/dl (8.4-10.2); Carbon Dioxide 20 mmol/L (22-30); Chloride 102 mmol/L (98-107); Direct Bilirubin 1.9 mg/dl (0.0-0.4); Estimated Creatinine Clearance 23 ml/min; Glucose 116 mg/dl (70-99); Potassium 4.2 mmol/L (3.5-5.1); Sodium 133 mmol/L (135-145); Total Bilirubin 2.6 mg/dl (0.2-1.3); Total Protein 5.7 g/dl (6.3-8.2); eGFR 24.78
--- NOTE | 2023-10-28 09:21 | W.PN.ID1 ---
Date of Service
Date of Service: October 28, 2023
Today's Communication
Continue abx.
Assessment / Plan
# LISA worse
- DC'd cefepime on 10/24, in case of interstitial nephritis
# Right first MTPJ/MT shaft cellulitis, abscess, and suspected osteomyelitis
# Leukocytosis - stable
- IF ICD is MRI compatible, recommend MRI foot
- For eventual OR drainage of abscess, please send biopsies and cultures.
- Continue Vancomycin/meropenem.
- Continue metronidazole with meropenem.
- Renally adjusted meropenem dose.
- trend wbc
# RLE PAD
- For arteriogram per Vascular.
# Elevated LFT's - present on admission
- Abd US unremarkable
# Poorly controlled DM
# Additional Past Medical History:
Diabetes mellitus
CAD - severe not amenable to PCI/CABG
Large MV echodensity (03/17/2023) s/p 6 weeks of empiric Vanco/ceftriaxone.
Ischemic cardiomyopathy s/p BIV-ICD placement 08/03/23
Severe mitral regurgitation s/p SJ and MitraClip 09/08/23
Hypertension
PAD
bilateral carotid stenosis
Anxiety
COPD
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
osteo status post left fifth toe amputation
Chief Complaint
-: Other (Foot abscess)
Subjective / Review of Systems
No new complaints.
Vital Signs / Physical Exam
Vital Signs
Vital Signs
Temp Pulse Resp BP Pulse Ox
98.9 F 99 18 116/68 98
10/28/23 07:45 10/28/23 07:45 10/28/23 07:45 10/28/23 07:45 10/28/23 07:45
Physical Exam
Cardiovascular: Regular Rate and S1/S2
Gastrointestinal: Soft, Non Tender and Non Distended
Extremities: Edema (RLE 1+)
Wound: Other (Right foot dressing dry)
Objective Data
Lab Data
Lab Results
10/28/23 07:49
10/28/23 07:49
Estimated Creat Clear 23 ml/min 10/28/23 07:49
Lactic Acid 1.7 mmol/L (0.7-2.0) 10/25/23 13:47
Total Bilirubin 2.6 mg/dl (0.2-1.3) H 10/28/23 07:49
AST 257 U/L (17-59) H 10/28/23 07:49
ALT 139 U/L (0-50) H 10/28/23 07:49
Alkaline Phosphatase 483 U/L (38-126) H 10/28/23 07:49
Most recent labs reviewed.
Micro Results:
10/25/23 13:47 Blood Culture - Preliminary
Blood/Venous No Growth in 48 hours- Final report to follow
10/25/23 R Foot XRAY: Moderate soft tissue emphysema medial and plantar to the 1st MTP joint and 1st metatarsal shaft with surrounding soft tissue edema consistent with SEVERE ACUTE SOFT TISSUE INFECTION with necrosis and possibly soft tissue abscess.
Care Review
Plan reviewed with: Physician (Dr. Pressley)
--- NOTE | 2023-10-28 10:08 | PHA.VAN.FU ---
Vancomycin Assessment / Plan
- Assessment
Renal Function: SCR Increasing
In the past 24 hrs, patient has been: Afebrile
Concomitant Antimicrobials: meropenem
- Assessment - Therapeutic Drug Monitoring
Random Level: 19.6 - drawn ~25.5H after previous dose of 1000mg
- Dosing Plan
Dosing by Level: Hold off on dosing today
- Monitoring Plan
Random Level: 10/28 06
- Follow Up
Pharmacy will continue to follow.
Vancomycin Follow UP
- -
Patient Age: 78
Patient Sex: Male
Vancomycin Day #: 3
Indication: Skin And Soft Tissue
Requesting Provider: Dr. Pressley / [facility]
Pertinent Antimicrobial Allergies:
daptomycin - pneumonitis / LISA / elevated transaminases
Height / Weight:
Height 5 ft 8 in
Actual Weight 82.667 kg
Pertinent Past Medical History: DM, CKD, PAD
- Vital Signs / Lab Results
Temp Pulse Resp BP Pulse Ox
98.9 F 99 18 116/68 98
10/28/23 07:45 10/28/23 07:45 10/28/23 07:45 10/28/23 07:45 10/28/23 07:45
Lab Results - Hematology
10/25/23 10/26/23 10/28/23
12:25 10:42 07:49
WBC 16.3 H 15.6 H 15.1 H
Lab Results - Chemistry
10/25/23 10/26/23 10/27/23
12:25 10:42 08:13
BUN 36 H 46 H 50 H
Creatinine 1.6 H 1.9 H 2.3 H
Estimated Creat Clear 32 26
Albumin 3.7 3.4 L 3.1 L
10/28/23
07:49
BUN 53 H
Creatinine 2.6 H
Estimated Creat Clear 23
Albumin 2.9 L
10/25/23
13:47
Lactic Acid 1.7
Lab Results - Urine
10/27/23
14:46
Urine Nitrite Negative
Ur Leukocyte Esterase 1+ A
Urine WBC 3-5
Ur Squamous Epith Cells 0-2
Urine Bacteria Many A
Microbiology Results
10/25/23 13:47 Blood Culture - Preliminary
Blood/Venous No Growth in 48 hours- Final report to follow
Therapeutic Drug Monitoring
Random Vancomycin 19.6 ug/ml 10/28/23 07:49
[2023-10-28] MEDS: ROXICODONE 5 MG PO (10:27)
--- NOTE | 2023-10-28 11:09 | CM ---
Patient seen bedside, discussed VN unable to travel to patients address. CM discussed other VN agencies, [facility], referral placed in [facility]. Patient remains on IV antibiotics. CM will continue to follow for all
discharge planning needs.
Plan; home with [facility], watch for home IV antibiotic needs.
[2023-10-28 12:55] LABS: Glucose - Point of Care 225 mg/dl (70-99)
[2023-10-28] MEDS: NOVOLOG FLEXPEN-LOW RESISTANCE 2 UNITS SC ×2 (13:05→23:17)
--- NOTE | 2023-10-28 13:58 | W.PN.HOSP.TC ---
Today's Communication/Plan
-
His foot has an order and looks slightly worse
MRI noted
Creatinine getting worse.
Unclear if this is cardiorenal. Check chest x-ray, proBNP
His LFTs are also elevated makes you wonder if he has hepatic congestion. Ultrasound without any acute changes
Difficult situation
Assessment / Plan
Assessment / Plan
78-year-old male was sent from podiatry office for worsening swelling of the right foot. Started 1 month ago a ulcer on the toe . 1 Week ago had pain in the foot so sent to Podiatry. redness started 3 days ago. X-rays in the office possible osteo.
is the Field Cane Scaler.
Cardiovascular system S1-S2 appreciated, systolic murmur at apex
Chest rales
Abdomen soft and nontender
Right foot - odor present. with edema and also redness and fluctuance
CLJ-yubgf-[id number] normal obtainable secondary to noncompressibility of the vessels. TBI mildly reduced 0.27 multiphasic waveforms, femoral total popliteal artery with a velocity elevation popliteal artery suggestive of possible more than 50%
stenosis. Monophasic infrapopliteal waveforms indicating infrapopliteal disease. Left lower extremity GODWIN 1.2 within normal limits. TBI also within normal limits.
MRI-bone marrow edema in the medial hallux
Sesamoiditis versus osteomyelitis. Soft tissue gas and loculated fluid within the soft tissues suggestive of an abscess
# Diabetic foot ulcer with cellulitis on the right foot
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
Continue Vanco cefepime and Flagyl
Wound cultures not sent. Now will need OR CX
GODWIN noted with infrapopliteal disease on the right side.
Vascular evaluated- plan for right lower extremity arteriogram and possible endovascular intervention when creatinine better
X rays of foot reviewed by me-moderate soft tissue emphysema medially and plantar first metatarsal phalangeal joint no osteomyelitis, atherosclerosis
NWB right forefoot
Needs surgery. Texted podiatry to see when he is going to the OR.
Holding Xarelto in anticipation of surgery
I have also requested cardiology evaluation given his complex cardiac history
# Hyperkalemia-status post Lokelma. Better
# Elevated LFTs-hold statin.
Ultrasound unremarkable.
# LISA on Chronic kidney disease stage 3
Check U/A , eosinophils and also Urine sodium
? ATN, Cardiorenal
Patient requiring arteriogram will also interfere with renal function
Bladder scan no retention
Renal following
# Anemia-iron deficiency noted. Replace IV when OK with ID.
# Mild hyponatremia-follow
# Coronary artery disease-multivessel CAD
Continue Brilinta, hold atorvastatin
# Chronic heart failure with reduced ejection fraction-EF 25%
Hold Farxiga and Lasix 80 mg twice daily, continue Imdur 60 mg daily, metoprolol 25 mg daily
# History of MitraClip placement for severe MR 09/08/2023
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
# History of infective endocarditis April 2023
# Hyperlipidemia-hold atorvastatin
# Diabetes with neuropathy
OP-Continue insulin 70/30 -28 units in the morning and 20 units in the evening. Prandin 1 mg p.o. twice daily
IP-changed to NPH BID. Add low dose AC Novolog
watch sugars closely
Hemoglobin A1c was 8.7 on 09/09/2023
# Anxiety-Ativan 1 mg p.o. twice daily as needed
# Peripheral vascular disease on Xarelto 2.5 mg p.o. twice daily (Hold for possible surgery)
History of left second and fifth toe amputation
# Cognitive dysfunction
# DVT prophylaxis- MAHESH
# CODE STATUS-Full
D/W RN
D/W ID
D/W Daughter at bed side
Texted Podiatry
D/W Renal and Cards
Time spent over 50 min
Anticipated Discharge: > 48 hours
Subjective/Interval History
-
Date of Service: October 28, 2023
Objective Data
-
Labs:
Laboratory Results
10/28/23
07:49
WBC 15.1 H
Hgb 8.5 L
Hct 25.7 L
Plt Count 160
Sodium 133 L
Potassium 4.2
Chloride 102
Carbon Dioxide 20 L
BUN 53 H
Creatinine 2.6 H
Glucose 116 H
Calcium 8.4
Total Bilirubin 2.6 H
AST 257 H
ALT 139 H
Alkaline Phosphatase 483 H
Vital Signs:
Vital Signs
Temp Pulse Resp BP Pulse Ox
98 F 99 18 125/65 99
10/28/23 11:16 10/28/23 11:16 10/28/23 11:16 10/28/23 11:16 10/28/23 11:16
I&O
10/27/23 10/28/23 10/29/23
06:59 06:59 06:59
Intake Total 880 / 880 2180 / 2180
Output Total 1600 / 1600 700 / 700
Balance -720 / -720 1480 / 1480
--- NOTE | 2023-10-28 14:07 | W.PN.UPDATE ---
Update Note
Progress Note Update
per D/W Podiatry, they will do I and D tonight .
keep NPO from now on
[2023-10-28 15:02] LABS: NT-proBNP > 27000 pg/ml
--- NOTE | 2023-10-28 15:54 | W.PN.NEPH.PH ---
Addendum entered and electronically signed by Oriana Horne MD 10/28/23 16:05:
Since patient is planned for OR today, would rather trial lasix tomorrow AM.
Original Note:
Today's Communication / Plan
-
- lasix ne time dose
Assessment/Plan
-
Assessment:
Diabetic foot ulcer with cellulitis on the right foot
Hyperkalemia
Elevated LFTs
GARTH on Chronic kidney disease stage 3
Anemia-iron deficiency
Mild hyponatremia
Coronary artery disease-multivessel CAD
Chronic heart failure with reduced ejection fraction-EF 25%
History of MitraClip placement for severe MR 09/08/2023
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
History of infective endocarditis April 2023
Hyperlipidemia
Diabetes with neuropathy
Anxiety
Peripheral vascular disease on Xarelto 2.5 mg p.o. twice daily
History of left second and fifth toe amputation
Cognitive dysfunction
Plan:
A/w with worsening right foot wound
Garth with CKD 3b, UA with mild microhematuria on AC, follow bladder scan
US with out hydro, U na is low suggest prerenal and check U PCR
bp were ok with out major hypotension
only on abx for 2days so less likely AIN, urine eosinophils negative
cont to hold SGLTI
avoid nephrotoxins and hypotension
will gently challenge with IVF
hyperkalemia better, holding kcl
volume status seems stable, might be worth it to trial some lasix and see if Cr improves
abx dose renally per ID
for I&D tonight
low A gap met acidosis-mixed acid base, started on po bicarb per primary
follow labs
would wait for cr stabilization prior angiogram
-
-
Date of Service: October 28, 2023
CC / HPI / ROS
-
Chief Complaint:
GARTH
History of Present Illness:
Cr baseline 1.6-1.9, increased to 2.6 now
BPs now stable
planned for I&D with podiatry tonight
Review of Systems:
planning for OR today
Labs
-
Labs:
WBC 15.1 10^3/uL (4.8-10.8) H 10/28/23 07:49
RBC 3.32 10^6/uL (4.70-6.10) L 10/28/23 07:49
Hgb 8.5 g/dL (13.0-18.0) L 10/28/23 07:49
Hct 25.7 % (39.0-52.0) L 10/28/23 07:49
Plt Count 160 10^3/uL (130-400) 10/28/23 07:49
Sodium 133 mmol/L (135-145) L 10/28/23 07:49
Potassium 4.2 mmol/L (3.5-5.1) 10/28/23 07:49
Chloride 102 mmol/L (98-107) 10/28/23 07:49
Carbon Dioxide 20 mmol/L (22-30) L 10/28/23 07:49
BUN 53 mg/dl (9-20) H 10/28/23 07:49
Creatinine 2.6 mg/dL (0.7-1.3) H 10/28/23 07:49
eGFR 24.78 10/28/23 07:49
Glucose 116 mg/dl (70-99) H 10/28/23 07:49
Calcium 8.4 mg/dl (8.4-10.2) 10/28/23 07:49
Zve-I-Lisgxovvaum Pept > 69080 pg/ml 10/28/23 07:49
Albumin 2.9 g/dl (3.5-5.0) L 10/28/23 07:49
Physical Exam
-
Vital Signs:
Vital Signs
Temp Pulse Resp BP Pulse Ox
98.8 F 94 18 113/66 96
10/28/23 15:22 10/28/23 15:22 10/28/23 15:22 10/28/23 15:22 10/28/23 15:22
Cardiovascular:: Regular rate and rhythm
Respiratory:: Bilateral: Coarse
Lung Excursion:: Normal
Abdomen:: Nontender and Soft
Bowel Sounds:: Normal
Extremity Edema:: +1: Left: and None: Right: (wrapped)
Soto Catheter: No
[2023-10-28] MEDS: LIPITOR 40 MG PO (18:10)
[2023-10-28 18:14] LABS: Glucose - Point of Care 240 mg/dl (70-99)
[2023-10-28 19:20] LABS: Hepatitis A Antibody, Total Negative (Negative)
[2023-10-28 20:03] LABS: Glucose - Point of Care 196 mg/dl (70-99)
--- NOTE | 2023-10-28 20:07 | W.PN.UPDATE ---
Update Note
Progress Note Update
(From earlier today)
Blistering of the skin along the medial aspect of the right forefoot worsening, extending into midfoot.
MRI reporting gas in the tissues-Surgical emergency. Patient scheduled to OR tonight for Incision and drainage of abscess. Patient already NPO.
Hospitalist made aware.
--- NOTE | 2023-10-28 20:15 | W.PN.UPDATE ---
Update Note
Progress Note Update
The patient was called earlier to explain emergent need for surgery.
Incision and drainage of his right foot abscess to address gas gangrene was discussed with the patient. He understands the benefits, risks, and possible complications of the proposed procedure, as well as the potential need for additional surgery.
Informed surgical consent obtained at bedside.
Procedure: Incision and drainage of abscess: Excision/removal of necrotic skin and soft tissue, right foot.
Less than 5cc of purulence and less than 5cc of blood loss encountered. Prognosis for healing guarded.
NWB right foot.
Return to floor. Restore diet orders.
--- NOTE | 2023-10-28 21:05 | PTCARENOTE ---
Received report and patient from Kasie LANDRY. S/P R foot I/D. PT AAO*3, drowsy at times but easily arousable to voice. Pt denies any pain. Vital signs stable with Bp 98/54 HR 94 at 2108 and 94/55 HR 87 at 2204. R foot wrapped with Kerlix/ Memo with a
small amount of bloody drainage noted to R heel. Weak palpable foot DP. R foot elevated on pillow. No post op dressing orders noted, but will reinforce with ABD Kerlix/ Memo for drainage. All orders reviewed. Bed in low position with call pineda in
reach.
[2023-10-28 23:06] LABS: Glucose - Point of Care 215 mg/dl (70-99)
[2023-10-29] VITALS (7 sets, daily range): BP systolic 101–115; BP diastolic 63–72; BMI 27.5
[2023-10-29] MEDS: STERILE WATER FOR INJECTION 10 ML IV ×2 (05:04→18:26)
[2023-10-29] MEDS: MERREM 500 MG IV ×2 (05:04→18:26)
[2023-10-29] MEDS: ROXICODONE 5 MG PO (05:11)
[2023-10-29 05:51] LABS: Glucose - Point of Care 181 mg/dl (70-99)
[2023-10-29] MEDS: NOVOLOG FLEXPEN-LOW RESISTANCE 1 UNITS SC (05:52)
[2023-10-29 08:47] LABS: Hematocrit 27.9 % (39.0-52.0); Hemoglobin 9.4 g/dL (13.0-18.0); Mean Corp Hgb Conc. 33.7 g/dL (33.0-37.0); Mean Corpuscular Hgb 26.3 pg (27.0-31.0); Mean Corpuscular Volume 78.2 fL (80.0-94.0); Mean Platelet Volume 12.4 fL (7.4-10.4); Platelet Count 199 10^3/uL (130-400); Red Blood Cell Count 3.57 10^6/uL (4.70-6.10); Red Cell Dist. Width 17.2 % (11.5-14.5); White Blood Cell Count 17.2 10^3/uL (4.8-10.8)
[2023-10-29] MEDS: BRILINTA 90 MG PO ×2 (09:12→20:42)
[2023-10-29] MEDS: IMDUR (EXTENDED RELEASE) 60 MG PO (09:12)
[2023-10-29] MEDS: COLACE 100 MG PO ×2 (09:12→20:42)
[2023-10-29] MEDS: PROTONIX 40 MG PO (09:12)
[2023-10-29] MEDS: VITAMIN D3 (cholecalciferol) 125 MCG PO (09:12)
[2023-10-29] MEDS: SODIUM BICARBONATE 650 MG PO ×2 (09:12→20:42)
[2023-10-29 09:25] LABS: Vancomycin Random 14.5 ug/ml
[2023-10-29] MEDS: HEPARIN 5000 UNITS SC (09:32)
[2023-10-29] MEDS: HUMULIN N KWIKPEN 12 UNITS SC (09:33)
[2023-10-29 09:53] LABS: ALT (SGPT) 551 U/L (0-50); AST (SGOT) 1395 U/L (17-59); Albumin 3.2 g/dl (3.5-5.0); Alkaline Phosphatase 498 U/L (38-126); Blood Urea Nitrogen 67 mg/dl (9-20); Calcium 8.8 mg/dl (8.4-10.2); Carbon Dioxide 19 mmol/L (22-30); Chloride 100 mmol/L (98-107); Estimated Creatinine Clearance 23 ml/min; Glucose 173 mg/dl (70-99); Potassium 4.4 mmol/L (3.5-5.1); Sodium 132 mmol/L (135-145); Total Bilirubin 3.2 mg/dl (0.2-1.3); Total Protein 6.1 g/dl (6.3-8.2); eGFR 24.78
--- NOTE | 2023-10-29 10:25 | W.PN.ID1 ---
Date of Service
Date of Service: October 29, 2023
Today's Communication
Continue Vanco/meropenem.
Assessment / Plan
# Right first hallux/MT cellulitis, abscess, and suspected osteomyelitis
# Leukocytosis - trending up
- MRI foot wo contrast: medial hallux sesamoid bone marrow edema; + soft tissue gas and loculated fluid in medial soft tissue
- 8/ s/p OR drainage of abscess 5 cc pus. Gram stain: many GPC. cx pending
- Continue Vancomycin/meropenem.
- trend wbc
# RLE PAD
- For eventual arteriogram per Vascular.
# Elevated LFT's present on admission
- trending up
- Abd US unremarkable
- ? hepatic congestion from CHF
# # LISA stable
- DC'd cefepime on 10/24, in case of interstitial nephritis.
- Urine eos negative
# Poorly controlled DM
# Additional Past Medical History:
Diabetes mellitus
CAD - severe not amenable to PCI/CABG
Large MV echodensity (03/17/2023) s/p 6 weeks of empiric Vanco/ceftriaxone.
Ischemic cardiomyopathy s/p BIV-ICD placement 08/03/23
Severe mitral regurgitation s/p SJ and MitraClip 09/08/23
Hypertension
PAD
bilateral carotid stenosis
Anxiety
COPD
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
osteo status post left fifth toe amputation
Chief Complaint
-: Other (Foot abscess)
Subjective / Review of Systems
No complaints
Vital Signs / Physical Exam
Vital Signs
Vital Signs
Temp Pulse Resp BP Pulse Ox
97.7 F 96 18 107/72 99
10/29/23 07:10 10/29/23 07:10 10/29/23 07:10 10/29/23 07:10 10/29/23 07:10
Physical Exam
Constitutional: No Acute Distress and Comfortable
Gastrointestinal: Soft, Non Tender and Non Distended
Extremities: Edema (RLE 1+)
Wound: None (Right foot post-op dressing)
Objective Data
Lab Data
Lab Results
10/29/23 08:21
10/29/23 08:21
Estimated Creat Clear 23 ml/min 10/29/23 08:21
Lactic Acid 1.7 mmol/L (0.7-2.0) 10/25/23 13:47
Total Bilirubin 3.2 mg/dl (0.2-1.3) H 10/29/23 08:21
AST 1395 U/L (17-59) H* 10/29/23 08:21
ALT 551 U/L (0-50) H* 10/29/23 08:21
Alkaline Phosphatase 498 U/L (38-126) H 10/29/23 08:21
Most recent labs reviewed.
Micro Results:
10/28/23 19:41 Wound Culture - Pending
Foot - Right Gram Stain - Preliminary
10/28/23 19:41 Anaerobic Culture - Pending
Foot - Right
10/25/23 13:47 Blood Culture - Preliminary
Blood/Venous No Growth in 72 hours- Final report to follow
10/28/23 RLE MRI WO contrast: Bone marrow edema in the bipartite medial hallux sesamoid. Differential considerations include sesamoiditis versus osteomyelitis given the proximity to the medial forefoot soft tissue infection. Soft tissue gas and
loculated fluid in the medial soft tissues most suggestive of an abscess, although evaluation is limited in the absence of intravenous contrast. No MRI evidence for osteomyelitis elsewhere in the forefoot or midfoot.
10/25/23 R Foot XRAY: Moderate soft tissue emphysema medial and plantar to the 1st MTP joint and 1st metatarsal shaft with surrounding soft tissue edema consistent with SEVERE ACUTE SOFT TISSUE INFECTION with necrosis and possibly soft tissue abscess.
--- NOTE | 2023-10-29 10:38 | PHA.VAN.FU ---
Vancomycin Assessment / Plan
- Assessment
Renal Function: Stable
WBC's are: Trending Up
In the past 24 hrs, patient has been: Afebrile
Concomitant Antimicrobials: meropenem
- Assessment - Therapeutic Drug Monitoring
Random Level: 14.5 - drawn ~24.5H fter previous level of 19.6
Calculated ke: 0.0123
Calculated half life (H): 56.4
- Dosing Plan
Dosing by Level: Re-dose today (Vanc 750mg)
Patient expected to maintain level > 10 for next 24H but SCR stabilizing
Will re-dose today with low dose as clearance may start to increase over next 24H
- Monitoring Plan
Random Level: 10/29 0600
Monitoring Comments: possible angiogram in next few days - follow renal function trend
- Follow Up
Pharmacy will continue to follow.
Vancomycin Follow UP
- -
Patient Age: 78
Patient Sex: Male
Vancomycin Day #: 4
Indication: Skin And Soft Tissue
Requesting Provider: Dr. Pressley / [facility]
Pertinent Antimicrobial Allergies:
daptomycin - pneumonitis / LISA / elevated transaminases
Height / Weight:
Height 5 ft 8 in
Actual Weight 82.129 kg
Pertinent Past Medical History: DM, CKD, PAD
- Vital Signs / Lab Results
Temp Pulse Resp BP Pulse Ox
97.7 F 96 18 107/72 99
10/29/23 07:10 10/29/23 07:10 10/29/23 07:10 10/29/23 07:10 10/29/23 07:10
Lab Results - Hematology
10/26/23 10/28/23 10/29/23
10:42 07:49 08:21
WBC 15.6 H 15.1 H 17.2 H
Lab Results - Chemistry
07/30/24 07/31/24 08/01/24
10:42 08:13 07:49
BUN 46 H 50 H 53 H
Creatinine 1.9 H 2.3 H 2.6 H
Estimated Creat Clear 32 26 23
Albumin 3.4 L 3.1 L 2.9 L
10/29/23
08:21
BUN 67 H
Creatinine 2.6 H
Estimated Creat Clear 23
Albumin 3.2 L
Microbiology Results
10/28/23 19:41 Gram Stain - Preliminary
Foot - Right
10/25/23 13:47 Blood Culture - Preliminary
Blood/Venous No Growth in 72 hours- Final report to follow
Therapeutic Drug Monitoring
Random Vancomycin 14.5 ug/ml 10/29/23 08:21
--- NOTE | 2023-10-29 11:23 | W.PN.NEPH.PH ---
Today's Communication / Plan
-
re start lasix 80mg IV BID
check bladder scans
Assessment/Plan
-
Assessment:
Diabetic foot ulcer with cellulitis on the right foot
Hyperkalemia
Elevated LFTs
GARTH on Chronic kidney disease stage 3
Anemia-iron deficiency
Mild hyponatremia
Coronary artery disease-multivessel CAD
Chronic heart failure with reduced ejection fraction-EF 25%
History of MitraClip placement for severe MR 09/08/2023
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
History of infective endocarditis April 2023
Hyperlipidemia
Diabetes with neuropathy
Anxiety
Peripheral vascular disease on Xarelto 2.5 mg p.o. twice daily
History of left second and fifth toe amputation
Cognitive dysfunction
Plan:
A/w with worsening right foot wound
Creatinine unchanged at 2.6 and remains nonoliguric
Garth with CKD 3b, UA with mild microhematuria on AC, follow bladder scan
US with out hydro, U na is low suggest prerenal and check U PCR
Hemodynamically stable
only on abx for 2days so less likely AIN, urine eosinophils negative
Continue to hold SGLTI
avoid nephrotoxins and hypotension
No more IV fluids and will reintroduce Lasix due to strong concern for evolving cardiorenal syndrome (80mg IV BID)
Chest x-ray notes pulmonary edema
hyperkalemia better, holding kcl
volume status seems stable, might be worth it to trial some lasix and see if Cr improves
abx dose renally per ID
for I&D tonight
low A gap met acidosis-mixed acid base, started on po bicarb per primary
follow labs
would wait for cr stabilization prior angiogram
-
-
Date of Service: October 29, 2023
CC / HPI / ROS
-
Chief Complaint:
GARTH
History of Present Illness:
Cr baseline 1.6-1.9, increased to 2.6 now
BPs now stable
planned for I&D with podiatry tonight
LFTs up
Review of Systems:
no sob
no cp
urine output intermittent
Labs
-
Labs:
WBC 17.2 10^3/uL (4.8-10.8) H 10/29/23 08:21
RBC 3.57 10^6/uL (4.70-6.10) L 10/29/23 08:21
Hgb 9.4 g/dL (13.0-18.0) L 10/29/23 08:21
Hct 27.9 % (39.0-52.0) L 10/29/23 08:21
Plt Count 199 10^3/uL (130-400) D 10/29/23 08:21
Sodium 132 mmol/L (135-145) L 10/29/23 08:21
Potassium 4.4 mmol/L (3.5-5.1) 10/29/23 08:21
Chloride 100 mmol/L (98-107) 10/29/23 08:21
Carbon Dioxide 19 mmol/L (22-30) L 10/29/23 08:21
BUN 67 mg/dl (9-20) H 10/29/23 08:21
Creatinine 2.6 mg/dL (0.7-1.3) H 10/29/23 08:21
eGFR 24.78 10/29/23 08:21
Glucose 173 mg/dl (70-99) H 10/29/23 08:21
Calcium 8.8 mg/dl (8.4-10.2) 10/29/23 08:21
Krr-M-Gjsqzaiexlc Pept > 47433 pg/ml 10/28/23 07:49
Albumin 3.2 g/dl (3.5-5.0) L 10/29/23 08:21
Physical Exam
-
Vital Signs:
Vital Signs
Temp Pulse Resp BP Pulse Ox
97.7 F 96 18 107/72 99
10/29/23 07:10 10/29/23 07:10 10/29/23 07:10 10/29/23 07:10 10/29/23 07:10
Cardiovascular:: Regular rate and rhythm
Respiratory:: Bilateral: Rales
Lung Excursion:: Normal
Abdomen:: Nontender and Soft
Bowel Sounds:: Normal
Extremity Edema:: +1: Bilateral:
Soto Catheter: No
--- NOTE | 2023-10-29 11:28 | CM ---
Patient seen bedside, patient has been accepted by [facility] for [facility]. Patient remains on antibiotics. CM will continue to follow for all discharge planning needs.
Plan; home with [facility] when stable.
[2023-10-29 11:54] LABS: Glucose - Point of Care 225 mg/dl (70-99)
[2023-10-29] MEDS: LASIX 80 MG IV ×2 (12:00→16:12)
[2023-10-29] MEDS: NOVOLOG FLEXPEN-LOW RESISTANCE 2 UNITS SC (12:00)
[2023-10-29] MEDS: VANCOCIN 150 IV (12:01)
[2023-10-29] MEDS: FLUSH (NSS) 1 FLUSH IV ×3 (12:02→18:26)
--- NOTE | 2023-10-29 12:13 | W.PN.UPDATE ---
Update Note
Progress Note Update
Patient seen at bedside with Dr. Marcel Soto III, kidney function continues to be tenuous, nephrology following. Podiatry took patient back emergently yesterday for debridement of right foot as MRI indicated soft tissue gas and loculated fluid
suggesting abscess. Podiatry indicated there is a concern for limb salvage given extent of wound following incision and drainage, currently considering angiogram versus recommendation of right lower extremity BKA. Podiatry will be changing
dressing today and assessing viability of remaining tissue, will then provide recommendation for next surgical steps. Discussed at bedside with patient in length concern for limb salvage and possible recommendation of below the knee amputation, he
expressed understanding of conversation.
--- NOTE | 2023-10-29 14:24 | CON.GI ---
Consultation
-
Date/Time Consultation Requested: 10/29/23
Date/Time Consultation Performed: 10/29/23
Requesting Provider: Dr. Pressley
Performing Provider: Dr. Velasquez
Reason for Consultation: abnormal LFT panel
Medical History
Chief Complaint / HPI
Chief Complaint: toe pain
History of Present Illness:
Wade is a 78-year-old male with severe mitral regurgitation status post JACINTA ER in August 2023, CKD not on HD, CAD, heart failure, ischemic cardiomyopathy, hypertension, uncontrolled diabetes, severe peripheral arterial disease and prior toe
amputations who came to the emergency room on 10/26/2023 with pain redness and right toe pain found to have possible osteomyelitis. GI was called due to his blood work including abnormal LFTs.
Patient is on a statin outpatient. In March his liver enzymes were normal with an ALT of 29, AST of 18 and a total bilirubin of 0.6, in August ALT 37, AST 37 and total bilirubin 0.6 with an alkaline phosphatase of 214. On admission alkaline
phosphatase 71, ALT 52, AST 70, total bilirubin 3.0 he did go to the OR last night and prior to the OR alkaline phosphatase 483, ALT 139, AST 257, total bilirubin 2.6 this morning after the OR alkaline phosphatase 498, ALT 551, AST 1395, total
bilirubin 3.2
Podiatry took the patient back emergently yesterday on 10/28/2023 for debridement of the right foot. Vascular and podiatry are just in discussions of right lower extremity BKA versus salvage of the foot. His kidney function is tenuous which is
making the workup difficult
patient denies any history of liver problems. No heavy alcohol in the past. No family history of significant liver disease..
Past Medical History
Past Medical History: Other (severe mitral regurgitation status post JACINTA ER in August 2023, CKD not on HD, CAD, heart failure, ischemic cardiomyopathy, hypertension, uncontrolled diabetes, severe peripheral arterial disease and prior toe amputations)
Past Surgical History: Other (MitraClip procedure 09/09/2023, laser eye surgery, shoulder surgery, amputation of the second and fifth toe, surgery of the jaw))
Social History
Tobacco: Non-Smoker
Alcohol: None
Drug: None
Personal: Single
Living: Alone
Family History
Family History: CAD
Allergies / Home Medications
Allergy/AdvReac Type Severity Reaction Status Date / Time
daptomycin Allergy Pneumonitis/LISA/elev Verified 10/25/23 12:19
transaminases
�Medication �Instructions �Recorded
cholecalciferol (vitamin D3) 125 125 mcg PO DAILY Supplement 12/18/22
mcg (5,000 unit) tablet (Vitamin
D3)
insulin aspar prot-insulin aspart 20 unit (0.2 mL) SC DAILY@1700 #15 03/31/23
100 unit/mL (70-30) subcutaneous mL
pen (Novolog Mix 70-30FlexPen
U-100)
atorvastatin 40 mg tablet 40 mg PO QPM High Cholesterol 04/06/23
pantoprazole 40 mg tablet,delayed 40 mg PO DAILY #30 tabs 04/14/23
release
isosorbide mononitrate 60 mg 60 mg PO DAILY #30 tabs 05/20/23
tablet,extended release 24 hr
dapagliflozin propanediol 10 mg 10 mg PO DAILY Diabetes/Heart 07/24/23
tablet (Farxiga) Failure
insulin aspar prot-insulin aspart 28 unit SC DAILY@0800 Diabetes 07/24/23
100 unit/mL (70-30) subcutaneous
pen (Novolog Mix 70-30FlexPen
U-100)
rivaroxaban 2.5 mg tablet (Xarelto) 2.5 mg PO BID Blood Clot 07/24/23
Prevention/Tx
ticagrelor 90 mg tablet (Brilinta) 90 mg PO BID Blood Clot 07/24/23
Prevention/Tx
furosemide 80 mg tablet 80 mg PO BID@0800,1600 30 days #60 08/05/23
tabs
docusate sodium 100 mg capsule 100 mg PO BID Constipation 10/25/23
(Colace)
lorazepam 1 mg tablet 1 mg PO BIDPRN PRN ANXIETY 10/25/23
metoprolol succinate 25 mg 25 mg PO DAILY Blood Pressure 10/25/23
tablet,extended release 24 hr
potassium chloride 20 mEq 20 meq PO DAILY Supplement 10/25/23
tablet,extended release
repaglinide 1 mg tablet 1 mg PO BID Diabetes 10/25/23
Review of Systems
-
History Source: Patient
All other systems: A 12 pt ROS was Negative except as stated above in HPI
Vital Signs
Temp Pulse Resp BP Pulse Ox
97.3 F 93 18 115/69 99
10/29/23 11:27 10/29/23 12:00 10/29/23 11:27 10/29/23 12:00 10/29/23 11:45
Physical Exam
Exam
General: Other ( chronically ill-appearing but hemodynamically stable and comfortable)
HEENT: Anicteric (mildly icteric )
Respiratory: Clear
Cardiac: Murmur
GI: Soft and Non Tender
Neuro: AO x 3
Psych: Calm
Results
WBC 17.2 10^3/uL (4.8-10.8) H 10/29/23 08:21
Hgb 9.4 g/dL (13.0-18.0) L 10/29/23 08:21
Hct 27.9 % (39.0-52.0) L 10/29/23 08:21
MCV 78.2 fL (80.0-94.0) L 10/29/23 08:21
Plt Count 199 10^3/uL (130-400) D 10/29/23 08:21
Absolute Neuts (auto) 14.0 10^3/uL (1.4-6.5) H 10/25/23 12:25
Sodium 132 mmol/L (135-145) L 10/29/23 08:21
Potassium 4.4 mmol/L (3.5-5.1) 10/29/23 08:21
Chloride 100 mmol/L (98-107) 10/29/23 08:21
Carbon Dioxide 19 mmol/L (22-30) L 10/29/23 08:21
BUN 67 mg/dl (9-20) H 10/29/23 08:21
Creatinine 2.6 mg/dL (0.7-1.3) H 10/29/23 08:21
Calcium 8.8 mg/dl (8.4-10.2) 10/29/23 08:21
Total Bilirubin 3.2 mg/dl (0.2-1.3) H 10/29/23 08:21
AST 1395 U/L (17-59) H* 10/29/23 08:21
ALT 551 U/L (0-50) H* 10/29/23 08:21
Alkaline Phosphatase 498 U/L (38-126) H 10/29/23 08:21
Hepatitis A IgM Ab Cancelled 10/27/23 13:14
Hepatitis A Ab Total Negative (Negative) 10/27/23 13:14
Diagnostic Image Results:
reviewed U/S and ECHO
Assessment / Plan
-
Wade is a 78-year-old male with severe mitral regurgitation status post JACINTA ER in August 2023, CKD not on HD, CAD, heart failure, ischemic cardiomyopathy, hypertension, uncontrolled diabetes, severe peripheral arterial disease and prior toe
amputations who came to the emergency room on 10/26/2023 with pain redness and right toe pain found to have possible osteomyelitis, went to the OR 10/28/23 in the evening and GI was called due to his blood work including abnormal LFTs which were
normal in the past.
03/2023: ALT 29, AST 18 and a total bilirubin of 0.6, alk phos 99
08/2023: ALT 37, AST 37 and total bilirubin 0.6 with an alkaline phosphatase of 214.
10/25/23 ALT 52, AST 70, total bilirubin 3.0, alk phos 701
10/28/23 ( prior to the OR) ALT 139, AST 257, total bilirubin 2.6 alkaline phosphatase 483,
10/29/23: (after the OR) ALT 551, AST 1395, total bilirubin 3.2 alkaline phosphatase 498
PATIENT WAS HYPOTENSIVE 64/45 LAST NIGHT AT 20:00
# Mixed hepatocellular/cholestatic/hyperbilirubinemia injury:
-- Likely multifactorial including sepsis initially upon arrival considering his blood work prior to this showed normal LFT pattern +hypotension/statin. Prior to hypotension his liver enzymes were elevated which were more likely sepsis related and
then postop likely a combination of sepsis plus hypotension. He did receive 2 doses of phenylephrine after the hypotension to help compensate so I doubt he was overly hypotensive for a long period. His statin was stopped today and avoid all other
hepatotoxic medications as well.
-- i reviewed his meds - atorvastatin would be the only culprit
-- His echocardiogram on 10/08/2023 showed an EF of 25%, he does have a normal size right atrium and only mild tricuspid regurgitation. Also the IVC is of normal size. This speaks against cardiac etiology or hepatic congestion
---Reviewed his abdominal ultrasound from 10/26/2023 within normal size liver with smooth capsular contour and homogeneous echogenicity with no ductal dilatation. The IVC was unremarkable.
-- OVERALL Management includes avoid all hypotension, hold the statin and do not introduce any hepatotoxic medications and treat the sepsis.
-- Checking coagulation PT PTT and INR may not be helpful considering he is on Ticagrelor + rivaroxaban 2.5 mg BID as above.
-- If it looks like he is going into liver failure which would be hard to discern if he is on his medications could check factors 5, 7 and 8. Factor VIII will be high in sepsis, low in DIC and normal in liver dysfunction since it is made in the
endothelial cells. All these factors are made in the liver except factor VIII which helps differentiate the 3 etiologies
-- trend LFTs
-- check hepatitis panel for completeness - ordered for AM
Data Reviewed
-
Radiology: Report Reviewed by me
Ultrasound: Report Reviewed by me
Old Records: Reviewed
-
-
Thank you for consultation and allowing me to participate in the patient's care. Please call the [facility] physician during the after hours with any questions or concerns.
--- NOTE | 2023-10-29 15:03 | W.PN.HOSP.TC ---
Today's Communication/Plan
-
lasix
Insulin adjusted.
Watch sugars lfts and creat
Assessment / Plan
Assessment / Plan
78-year-old male was sent from podiatry office for worsening swelling of the right foot. Started 1 month ago a ulcer on the toe . 1 Week ago had pain in the foot so sent to Podiatry. redness started 3 days ago. X-rays in the office possible osteo.
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
Cardiovascular system S1-S2 appreciated, systolic murmur at apex
Chest rales
Abdomen soft and nontender
Right foot - post surgery bandaged
ZVF-vdphd-lkolg normal obtainable secondary to noncompressibility of the vessels. TBI mildly reduced 0.27 multiphasic waveforms, femoral total popliteal artery with a velocity elevation popliteal artery suggestive of possible more than 50%
stenosis. Monophasic infrapopliteal waveforms indicating infrapopliteal disease. Left lower extremity GODWIN 1.2 within normal limits. TBI also within normal limits.
MRI-bone marrow edema in the medial hallux
Sesamoiditis versus osteomyelitis. Soft tissue gas and loculated fluid within the soft tissues suggestive of an abscess
# Diabetic foot ulcer with cellulitis on the right foot
Ulcer for one month ,redness for 3 days RIM BUSTER
Continue Vanco and meropenem
Wound cultures not sent. Now will need OR CX
GODWIN noted with infrapopliteal disease on the right side.
Vascular evaluated- plan for right lower extremity arteriogram and possible endovascular intervention when creatinine better
X rays of foot reviewed by me-moderate soft tissue emphysema medially and plantar first metatarsal phalangeal joint no osteomyelitis, atherosclerosis
NWB right forefoot
S/P Incision and drainage of abscess 'Excision/removal of necrotic skin and soft tissue, right foot.Less than 5cc of purulence and less than 5cc of blood loss encountered. Prognosis for healing guarded.'
restart Xarelto
# Hyperkalemia-status post Lokelma. Better
# Elevated LFTs-hold statin.
Possible shock liver from hypotension yesterday
Also likely fluid overloaded and hepatic congestion
I will request GI to evaluate also
Ultrasound unremarkable.
# LISA on Chronic kidney disease stage 3
Check U/A , eosinophils and also Urine sodium
? ATN, Cardiorenal
Bladder scan no retention
Renal following
Agree with Lasix
# Anemia-iron deficiency noted. Replace IV when OK with ID.
# Mild hyponatremia-follow
# Coronary artery disease-multivessel CAD
Continue Brilinta, hold atorvastatin
# Chronic heart failure with reduced ejection fraction-EF 25%
Hold Farxiga , change Imdur to 30 mg daily with borderline blood pressure
Restart metoprolol when blood pressure is better
# History of MitraClip placement for severe MR 09/08/2023
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
# History of infective endocarditis April 2023
# Hyperlipidemia-hold atorvastatin
# Diabetes with neuropathy
OP-Continue insulin 70/30 -28 units in the morning and 20 units in the evening. Prandin 1 mg p.o. twice daily
IP-changed to NPH 15 BID. Add low dose AC Novolog 6 units
watch sugars closely
Hemoglobin A1c was 8.7 on 09/09/2023
# Anxiety-Ativan 1 mg p.o. twice daily as needed
# Peripheral vascular disease on Xarelto 2.5 mg p.o. twice daily (Hold for possible surgery)
History of left second and fifth toe amputation
# Cognitive Dysfunction
# DVT prophylaxis-Xarelto
# CODE STATUS-Full
D/W RN
D/W GI
D/W Renal
Updated daughter re lfts, wound healing may be impaired, elevated Renal function , he is sick .
Prognosis guarded.
Time spent over 50 min
Anticipated Discharge: > 48 hours
Subjective/Interval History
-
Date of Service: October 29, 2023
Objective Data
-
Labs:
Laboratory Results
10/29/23
08:21
WBC 17.2 H
Hgb 9.4 L
Hct 27.9 L
Plt Count 199 D
Sodium 132 L
Potassium 4.4
Chloride 100
Carbon Dioxide 19 L
BUN 67 H
Creatinine 2.6 H
Glucose 173 H
Calcium 8.8
Total Bilirubin 3.2 H
AST 1395 H*
ALT 551 H*
Alkaline Phosphatase 498 H
Vital Signs:
Vital Signs
Temp Pulse Resp BP Pulse Ox
97.3 F 93 18 115/69 99
10/29/23 11:27 10/29/23 12:00 10/29/23 11:27 10/29/23 12:00 10/29/23 11:45
I&O
10/28/23 10/29/23 10/30/23
06:59 06:59 06:59
Intake Total 2180 / 2180 960 / 960
Output Total 700 / 700 500 / 500
Balance 1480 / 1480 460 / 460
--- NOTE | 2023-10-29 15:51 | PTCARENOTE ---
Pt AAO x3; sl forgetful/slow to respond at times. NEWTON well, sits on edge of bed; refuses OOB to chair activity so far this shift. VSS. Telemetry:V-paced rhythm. On room air- pulse ox 96%, no SOB noted. Abd large, soft, dickson PO well. Voids clear
hugo urine in urinal without difficulty. Rt foot dsg/ERICKA wrap intact; unable to assess Rt foot pulses d/t dsg; toes pink/warm/moveable; sensation (+). Pt keeping RLE elevated on pillow. resting quietly at present; denies need for pain med. Will
continue to monitor.
[2023-10-29] MEDS: ProAmatine 5 MG PO (16:11)
[2023-10-29 16:56] LABS: Glucose - Point of Care 291 mg/dl (70-99)
[2023-10-29] MEDS: NOVOLOG FLEXPEN-LOW RESISTANCE 3 UNITS SC (18:24)
[2023-10-29] MEDS: NOVOLOG FLEXPEN 6 UNITS SC (18:25)
[2023-10-29] MEDS: LIPITOR 40 MG PO (18:26)
--- NOTE | 2023-10-29 18:36 | W.PN.POD ---
Today's Communication
Today's Communication
Prognosis guarded but no acute signs of infection noted, right foot.
Assessment / Plan
-
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
Diabetes Mellitus
Ischemic Cardiomyopathy
CAD
Prior second and fifth toe amputations, left foot.
No malodor or purulence encountered.
Cellulitis resolving.
Packing pulled and saline wet to dry dressing applied.
Prognosis guarded but signs of viability present.
Vascular made aware of patient's condition. May pursue optimization of perfusion to the RLE.
Patient to remain NWB at this point.
Will follow
Subjective
Chief Complaint
S/P one day incision and drainage of gas gangrene of the medial right foot.
Subjective
Patient reports feeling '100% better than yesterday?' reporting very little discomfort in the right foot, and no longer feeling 'weak and sick' like he had been.
The patient denies fever, chills or sweats. No chest pain, SOB, Nausea/Vomiting.
Objective
Temp Pulse Resp BP Pulse Ox
97.6 F 90 18 105/63 96
10/29/23 15:46 10/29/23 16:12 10/29/23 15:46 10/29/23 16:12 10/29/23 15:51
10/29/23 08:21
10/29/23 08:21
Vital Signs and Lab results were reviewed.
The dressing is is somewhat statined medally with serosanguinious fluid.
Packing removed revealing the deep wound extending from the great toe to the proximal midfoot, 15cm with exposed deep fascial layer. The great toe is viable distally with the wound medially somewhat powers in appearance.
There are some granular areas noted and some less viable tissues distally, but essentially dry. There is no malodor or active discharge from the wound detected.
Cellulitis essentially resolving.
[2023-10-29] MEDS: XARELTO 2.5 MG PO (20:42)
[2023-10-29 21:53] LABS: Glucose - Point of Care 280 mg/dl (70-99)
[2023-10-29] MEDS: HUMULIN N KWIKPEN 15 UNITS SC (22:18)
[2023-10-30 03:27] LABS: Glucose - Point of Care 303 mg/dl (70-99)
[2023-10-30 03:45] VITALS: BP 109/58
[2023-10-30] MEDS: MERREM 500 MG IV ×2 (05:33→17:36)
[2023-10-30] MEDS: STERILE WATER FOR INJECTION 10 ML IV ×2 (05:33→17:35)
[2023-10-30 06:00] VITALS: BMI 27.5
[2023-10-30 08:07] LABS: Glucose - Point of Care 274 mg/dl (70-99)
[2023-10-30 08:16] VITALS: BP 111/66
[2023-10-30] MEDS: PROTONIX 40 MG PO (08:17)
[2023-10-30] MEDS: SODIUM BICARBONATE 650 MG PO ×2 (08:17→20:24)
[2023-10-30] MEDS: IMDUR (EXTENDED RELEASE) 30 MG PO (08:17)
[2023-10-30] MEDS: VITAMIN D3 (cholecalciferol) 125 MCG PO (08:17)
[2023-10-30] MEDS: BRILINTA 90 MG PO ×2 (08:17→20:24)
[2023-10-30] MEDS: ProAmatine 5 MG PO ×3 (08:17→17:35)
[2023-10-30] MEDS: COLACE 100 MG PO ×2 (08:18→20:24)
[2023-10-30] MEDS: HUMULIN N KWIKPEN 15 UNITS SC (08:18)
[2023-10-30] MEDS: XARELTO 2.5 MG PO (08:18)
[2023-10-30] MEDS: NOVOLOG FLEXPEN-LOW RESISTANCE 3 UNITS SC (08:19)
[2023-10-30] MEDS: NOVOLOG FLEXPEN 6 UNITS SC ×2 (08:19→13:44)
[2023-10-30 08:58] LABS: ALT (SGPT) 401 U/L (0-50); AST (SGOT) 607 U/L (17-59); Albumin 2.8 g/dl (3.5-5.0); Alkaline Phosphatase 478 U/L (38-126); Blood Urea Nitrogen 80 mg/dl (9-20); Calcium 8.4 mg/dl (8.4-10.2); Carbon Dioxide 17 mmol/L (22-30); Chloride 99 mmol/L (98-107); Estimated Creatinine Clearance 25 ml/min; Glucose 266 mg/dl (70-99); Potassium 4.2 mmol/L (3.5-5.1); Sodium 131 mmol/L (135-145); Total Bilirubin 2.8 mg/dl (0.2-1.3); Total Protein 5.7 g/dl (6.3-8.2); eGFR 27.28
[2023-10-30] MEDS: NOVOLOG FLEXPEN 3 UNITS SC (09:05)
[2023-10-30] MEDS: LASIX 80 MG IV ×2 (09:05→17:35)
[2023-10-30] MEDS: HUMULIN N KWIKPEN 12 UNITS SC (09:05)
[2023-10-30 09:36] LABS: Hematocrit 26.6 % (39.0-52.0); Hemoglobin 8.9 g/dL (13.0-18.0); Mean Corp Hgb Conc. 33.5 g/dL (33.0-37.0); Mean Corpuscular Hgb 25.4 pg (27.0-31.0); Mean Corpuscular Volume 75.8 fL (80.0-94.0); Mean Platelet Volume 12.1 fL (7.4-10.4); Platelet Count 203 10^3/uL (130-400); Red Blood Cell Count 3.51 10^6/uL (4.70-6.10); Red Cell Dist. Width 17.2 % (11.5-14.5); White Blood Cell Count 13.9 10^3/uL (4.8-10.8)
--- NOTE | 2023-10-30 09:39 | PHA.VAN.FU ---
Vancomycin Assessment / Plan
- Assessment
Renal Function: SCR Decreasing (2.6>2.4)
In the past 24 hrs, patient has been: Afebrile
Concomitant Antimicrobials: Meropenem
CBC results still pending
- Assessment - Therapeutic Drug Monitoring
Random Level: 17 drawn ~20 hrs after vancomycin 750mg IV dose given
- Dosing Plan
Dosing by Level: Hold off on dosing today (level supratherapeutic)
- Monitoring Plan
Random Level: Ordered for 10/31/23 at 06:00
- Follow Up
Pharmacy will continue to follow.
Vancomycin Follow UP
- -
Patient Age: 78
Patient Sex: Male
Vancomycin Day #: 4
Indication: Skin And Soft Tissue
Requesting Provider: Dr. Pressley / [facility]
Pertinent Antimicrobial Allergies:
daptomycin - pneumonitis / LISA / elevated transaminases
Height / Weight:
Height 5 ft 8 in
Actual Weight 81.902 kg
IBW in k.4
Adjusted BW in k.8
Pertinent Past Medical History: DM, CKD, PAD
- Vital Signs / Lab Results
Temp Pulse Resp BP Pulse Ox
97.7 F 94 16 111/66 97
10/30/23 08:16 10/30/23 08:16 10/30/23 08:16 10/30/23 08:16 10/30/23 08:16
Lab Results - Hematology
10/28/23 10/29/23 10/30/23
07:49 08:21 07:49
WBC 15.1 H 17.2 H 13.9 H
Lab Results - Chemistry
10/27/23 10/28/23 10/29/23
08:13 07:49 08:21
BUN 50 H 53 H 67 H
Creatinine 2.3 H 2.6 H 2.6 H
Estimated Creat Clear 23 23
Albumin 3.1 L 2.9 L 3.2 L
10/30/23
07:49
BUN 80 H
Creatinine 2.4 H
Estimated Creat Clear 25
Albumin 2.8 L
Microbiology Results
10/28/23 19:41 Anaerobic Culture - Preliminary
Foot - Right Culture pending. Anaerobic cultures are examined after 3
days incubation. Additional information to follow.
10/28/23 19:41 Wound Culture - Preliminary
Foot - Right Morganella morganii
Enterococcus species
Gram Stain - Preliminary
10/25/23 13:47 Blood Culture - Preliminary
Blood/Venous No Growth in 4 days- Final report to follow
Therapeutic Drug Monitoring
Random Vancomycin 17.0 ug/ml 10/30/23 07:49
[2023-10-30 11:30] VITALS: BP 107/56
[2023-10-30] MEDS: ZOFRAN 4 MG IV ×2 (12:50→20:32)
[2023-10-30 12:51] LABS: Glucose - Point of Care 206 mg/dl (70-99)
[2023-10-30] MEDS: NOVOLOG FLEXPEN-LOW RESISTANCE SC ×2 (13:32→17:32)
[2023-10-30] MEDS: NOVOLOG FLEXPEN SC ×2 (13:32→17:31)
--- NOTE | 2023-10-30 14:13 | PTCARENOTE ---
Patient complaining of chest pain. EKG done. Dr Pressley made aware with orders for troponin x2. Will continue to monitor closely.
--- NOTE | 2023-10-30 14:21 | W.PN.NEPH.PH ---
Today's Communication / Plan
-
Follow on IV Lasix
Follow-up BMP
Assessment/Plan
-
Assessment:
Diabetic foot ulcer with cellulitis on the right foot
Hyperkalemia
Elevated LFTs
GARTH on Chronic kidney disease stage 3
Anemia-iron deficiency
Mild hyponatremia
Coronary artery disease-multivessel CAD
Chronic heart failure with reduced ejection fraction-EF 25%
History of MitraClip placement for severe MR 09/08/2023
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
History of infective endocarditis April 2023
Hyperlipidemia
Diabetes with neuropathy
Anxiety
Peripheral vascular disease on Xarelto 2.5 mg p.o. twice daily
History of left second and fifth toe amputation
Cognitive dysfunction
Plan:
A/w with worsening right foot wound
Creatinine down at 2.4 and remains nonoliguric
Garth with CKD 3b, UA with mild microhematuria on AC, follow bladder scan
US with out hydro, U na is low suggest prerenal and check U PCR
Hemodynamically stable
only on abx for 2days so less likely AIN, urine eosinophils negative
Continue to hold SGLTI
avoid nephrotoxins and hypotension
No more IV fluids , maitain Lasix due to strong concern for evolving cardiorenal syndrome (80mg IV BID)
Chest x-ray notes pulmonary edema
abx dose renally per ID
low A gap met acidosis-mixed acid base, started on po bicarb per primary
follow labs
would wait for cr stabilization prior angiogram
-
-
Date of Service: October 30, 2023
CC / HPI / ROS
-
Chief Complaint:
GARTH
History of Present Illness:
Cr baseline 1.6-1.9, increased to 2.4 now
BPs now stable
LFTs up
Review of Systems:
no sob
no cp
urine output intermittent
Weight slightly down
Labs
-
Labs:
WBC 13.9 10^3/uL (4.8-10.8) H 10/30/23 07:49
RBC 3.51 10^6/uL (4.70-6.10) L 10/30/23 07:49
Hgb 8.9 g/dL (13.0-18.0) L 10/30/23 07:49
Hct 26.6 % (39.0-52.0) L 10/30/23 07:49
Plt Count 203 10^3/uL (130-400) 10/30/23 07:49
Sodium 131 mmol/L (135-145) L 10/30/23 07:49
Potassium 4.2 mmol/L (3.5-5.1) 10/30/23 07:49
Chloride 99 mmol/L (98-107) 10/30/23 07:49
Carbon Dioxide 17 mmol/L (22-30) L 10/30/23 07:49
BUN 80 mg/dl (9-20) H 10/30/23 07:49
Creatinine 2.4 mg/dL (0.7-1.3) H 10/30/23 07:49
eGFR 27.28 10/30/23 07:49
Glucose 266 mg/dl (70-99) H 10/30/23 07:49
Calcium 8.4 mg/dl (8.4-10.2) 10/30/23 07:49
Aab-O-Sbtxtnfmguy Pept > 76995 pg/ml 10/28/23 07:49
Albumin 2.8 g/dl (3.5-5.0) L 10/30/23 07:49
Physical Exam
-
Vital Signs:
Vital Signs
Temp Pulse Resp BP Pulse Ox
98.1 F 80 20 107/56 97
10/30/23 11:30 10/30/23 11:30 10/30/23 11:30 10/30/23 11:30 10/30/23 11:30
Cardiovascular:: Regular rate and rhythm
Respiratory:: Bilateral: Rales
Lung Excursion:: Normal
Abdomen:: Nontender and Soft
Bowel Sounds:: Normal
Extremity Edema:: +1: Bilateral:
[place] Catheter: No
--- NOTE | 2023-10-30 14:24 | W.PN.HOSP.TC ---
Addendum entered and electronically signed by Sulaiman Pressley MD 10/30/23 15:31:
Trop noted. Trend
Continue Brillinta
EKG no change
Cardiology notified.
Original Note:
Today's Communication/Plan
-
Lasix
Antibiotics
Assessment / Plan
Assessment / Plan
78-year-old male was sent from podiatry office for worsening swelling of the right foot. Started 1 month ago a ulcer on the toe . 1 Week ago had pain in the foot so sent to Podiatry. redness started 3 days ago. X-rays in the office possible osteo.
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
Cardiovascular system S1-S2 appreciated, systolic murmur at apex
Chest rales at bases.
Abdomen soft and nontender
Right foot - post surgery bandaged
RVS-zljnw-tammd normal obtainable secondary to noncompressibility of the vessels. TBI mildly reduced 0.27 multiphasic waveforms, femoral total popliteal artery with a velocity elevation popliteal artery suggestive of possible more than 50%
stenosis. Monophasic infrapopliteal waveforms indicating infrapopliteal disease. Left lower extremity GODWIN 1.2 within normal limits. TBI also within normal limits.
MRI-bone marrow edema in the medial hallux
Sesamoiditis versus osteomyelitis. Soft tissue gas and loculated fluid within the soft tissues suggestive of an abscess
# Diabetic foot ulcer with cellulitis on the right foot
Ulcer for one month ,redness for [address] SUPERVISOR
Continue Vanco and meropenem
Wound cultures not sent. Now will need OR CX
GODWIN noted with infrapopliteal disease on the right side.
Vascular evaluated- plan for right lower extremity arteriogram and possible endovascular intervention when creatinine better
NWB right forefoot
10/28/23-S/P Incision and drainage of abscess 'Excision/removal of necrotic skin and soft tissue, right foot.Less than 5cc of purulence and less than 5cc of blood loss encountered. Prognosis for healing guarded.'
See that going for vascular intervention Jas , will hold Xarelto
# Hyperkalemia-status post Lokelma. Better
#Nausea-EKG noted. Will check troponin
# Elevated LFTs-hold statin.
Possible shock liver from hypotension yesterday
Also likely fluid overloaded and hepatic congestion
GI eval appreciated
LFT better with Lasix
Ultrasound unremarkable.
# LISA on Chronic kidney disease stage 3
Check U/A , eosinophils and also Urine sodium
Likely Cardiorenal
Bladder scan no retention
Renal following
Agree with Lasix
# Anemia-iron deficiency noted. Replace IV when OK with ID.
# Mild hyponatremia-follow
# Coronary artery disease-multivessel CAD
Continue Brilinta, hold atorvastatin
# Chronic heart failure with reduced ejection fraction-EF 25%
Hold Farxiga , change Imdur to 30 mg daily with borderline blood pressure
Restart metoprolol when blood pressure is better
# History of MitraClip placement for severe MR 09/08/2023
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
# History of infective endocarditis April 2023
# Hyperlipidemia-hold atorvastatin
# Diabetes with neuropathy
OP-Continue insulin 70/30 -28 units in the morning and 20 units in the evening. Prandin 1 mg p.o. twice daily
IP-changed to NPH 28 am and 20 pm BID. Add low dose AC Novolog 10 units AC
Unfortunately because of the patient's random p.o. intake very difficult to manage sugars
watch sugars closely
Hemoglobin A1c was 8.7 on 09/09/2023
# Anxiety-Ativan 1 mg p.o. twice daily as needed
# Peripheral vascular disease on Xarelto 2.5 mg p.o. twice daily (Hold for possible surgery)
History of left second and fifth toe amputation
# Cognitive Dysfunction
# DVT prophylaxis-MAHESH
# CODE STATUS-Full
D/W RN
D/W Renal
Daughter updated.
Prognosis guarded.
Time spent over 50 min
Anticipated Discharge: > 48 hours
Subjective/Interval History
-
Date of Service: October 30, 2023
Objective Data
-
Labs:
Laboratory Results
10/30/23
07:49
WBC 13.9 H
Hgb 8.9 L
Hct 26.6 L
Plt Count 203
Sodium 131 L
Potassium 4.2
Chloride 99
Carbon Dioxide 17 L
BUN 80 H
Creatinine 2.4 H
Glucose 266 H
Calcium 8.4
Total Bilirubin 2.8 H
AST 607 H*
ALT 401 H
Alkaline Phosphatase 478 H
Vital Signs:
Vital Signs
Temp Pulse Resp BP Pulse Ox
98.1 F 80 20 107/56 97
10/30/23 11:30 10/30/23 11:30 10/30/23 11:30 10/30/23 11:30 10/30/23 11:30
I&O
10/29/23 10/30/23 10/31/23
06:59 06:59 06:59
Intake Total 960 / 960 1050 / 1050 480 / 480
Output Total 500 / 500 675 / 675 925 / 925
Balance 460 / 460 375 / 375 -445 / -445
--- NOTE | 2023-10-30 14:36 | W.PN.ID1 ---
Date of Service
Date of Service: October 30, 2023
Today's Communication
Continue abx for today
Assessment / Plan
# Right first hallux/MT cellulitis, abscess, and suspected osteomyelitis
# Leukocytosis
- MRI foot wo contrast: medial hallux sesamoid bone marrow edema; + soft tissue gas and loculated fluid in medial soft tissue
- 8/ s/p OR drainage of abscess 5 cc pus. Gram stain: Enterococcus; Morganella
- Continue Vancomycin/meropenem.
- trend wbc
# RLE PAD
- For eventual arteriogram per Vascular.
# Elevated LFT's present on admission
- trending up
- Abd US unremarkable
- ? hepatic congestion from CHF
# # LISA stable
- DC'd cefepime on 10/24, in case of interstitial nephritis.
- Urine eos negative
# Poorly controlled DM
# Additional Past Medical History:
Diabetes mellitus
CAD - severe not amenable to PCI/CABG
Large MV echodensity (03/17/2023) s/p 6 weeks of empiric Vanco/ceftriaxone.
Ischemic cardiomyopathy s/p BIV-ICD placement 08/03/23
Severe mitral regurgitation s/p SJ and MitraClip 09/08/23
Hypertension
PAD
bilateral carotid stenosis
Anxiety
COPD
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
osteo status post left fifth toe amputation
Chief Complaint
-: Other (Foot abscess)
Subjective / Review of Systems
Review of Systems: No Fever and No Chills
Vital Signs / Physical Exam
Vital Signs
Vital Signs
Temp Pulse Resp BP Pulse Ox
98.1 F 80 20 107/56 97
10/30/23 11:30 10/30/23 11:30 10/30/23 11:30 10/30/23 11:30 10/30/23 11:30
Physical Exam
Constitutional: No Acute Distress, Comfortable and Non-toxic
Eyes: Sclera Anicteric
Cardiovascular: S1/S2; Negative S3/S4
Pulmonary: Non Labored
Gastrointestinal: Soft, Non Tender and Non Distended
Extremities: Edema (RLE 1+)
Wound: Other (Right foot dressed.)
Neurological: Awake and Alert
Psychological: Calm
Objective Data
Lab Data
Lab Results
10/30/23 07:49
10/30/23 07:49
Estimated Creat Clear 25 ml/min 10/30/23 07:49
Lactic Acid 1.7 mmol/L (0.7-2.0) 10/25/23 13:47
Total Bilirubin 2.8 mg/dl (0.2-1.3) H 10/30/23 07:49
AST 607 U/L (17-59) H* 10/30/23 07:49
ALT 401 U/L (0-50) H 10/30/23 07:49
Alkaline Phosphatase 478 U/L (38-126) H 10/30/23 07:49
Most recent labs reviewed.
Micro Results:
10/25/23 13:47 Blood Culture - Final
Blood/Venous No Growth - Final Report
10/28/23 19:41 Anaerobic Culture - Preliminary
Foot - Right Culture pending. Anaerobic cultures are examined after 3
days incubation. Additional information to follow.
10/28/23 19:41 Wound Culture - Preliminary
Foot - Right Morganella morganii
Enterococcus species
Gram Stain - Preliminary
10/28/23 RLE MRI WO contrast: Bone marrow edema in the bipartite medial hallux sesamoid. Differential considerations include sesamoiditis versus osteomyelitis given the proximity to the medial forefoot soft tissue infection. Soft tissue gas and
loculated fluid in the medial soft tissues most suggestive of an abscess, although evaluation is limited in the absence of intravenous contrast. No MRI evidence for osteomyelitis elsewhere in the forefoot or midfoot.
10/25/23 R Foot XRAY: Moderate soft tissue emphysema medial and plantar to the 1st MTP joint and 1st metatarsal shaft with surrounding soft tissue edema consistent with SEVERE ACUTE SOFT TISSUE INFECTION with necrosis and possibly soft tissue abscess.
--- NOTE | 2023-10-30 14:56 | W.PN.GI.CBS2 ---
Today's Communication / Plan
-
trend lfts
Assessment / Plan
-
aWde is a 78-year-old male with severe mitral regurgitation status post [facility] ER in August 2023, CKD not on HD, CAD, heart failure, ischemic cardiomyopathy, hypertension, uncontrolled diabetes, severe peripheral arterial disease and prior toe
amputations who came to the emergency room on 10/26/2023 with pain redness and right toe pain found to have possible osteomyelitis, went to the OR 10/28/23 in the evening and GI was called due to his blood work including abnormal LFTs which were
normal in the past.
03/2023: ALT 29, AST 18 and a total bilirubin of 0.6, alk phos 99
08/2023: ALT 37, AST 37 and total bilirubin 0.6 with an alkaline phosphatase of 214.
10/25/23 ALT 52, AST 70, total bilirubin 3.0, alk phos 701
10/28/23 ( prior to the OR) ALT 139, AST 257, total bilirubin 2.6 alkaline phosphatase 483,
10/29/23: (after the OR) ALT 551, AST 1395, total bilirubin 3.2 alkaline phosphatase 498
PATIENT WAS HYPOTENSIVE 64/45 10/27 AT 20:00
# Mixed hepatocellular/cholestatic/hyperbilirubinemia injury:
-- Likely multifactorial including sepsis initially upon arrival considering his blood work prior to this showed normal LFT pattern +hypotension/statin. Prior to hypotension his liver enzymes were elevated which were more likely sepsis related and
then postop likely a combination of sepsis plus hypotension. He did receive 2 doses of phenylephrine after the hypotension to help compensate so I doubt he was overly hypotensive for a long period. His statin was stopped today and avoid all other
hepatotoxic medications as well.
-- Dr. Velasquez reviewed his meds - atorvastatin would be the only culprit
-- His echocardiogram on 10/08/2023 showed an EF of 25%, he does have a normal size right atrium and only mild tricuspid regurgitation. Also the IVC is of normal size. This speaks against cardiac etiology or hepatic congestion
---Reviewed his abdominal ultrasound from 10/26/2023 within normal size liver with smooth capsular contour and homogeneous echogenicity with no ductal dilatation. The IVC was unremarkable.
--LFTs are improving today
-- OVERALL Management includes avoid all hypotension, hold the statin and do not introduce any hepatotoxic medications and treat the sepsis.
-- Checking coagulation PT PTT and INR may not be helpful considering he is on Ticagrelor + rivaroxaban 2.5 mg BID as above - will check for a baseline.
-- If it looks like he is going into liver failure which would be hard to discern if he is on his medications could check factors 5, 7 and 8. Factor VIII will be high in sepsis, low in DIC and normal in liver dysfunction since it is made in the
endothelial cells. All these factors are made in the liver except factor VIII which helps differentiate the 3 etiologies
-- trend LFTs
-- check hepatitis panel for completeness - pending
-- NAUSEA
-- zofran prn
Subjective
Subjective
Date of Service: October 30, 2023
c/o nausea
otherwise no complaints
Objective
Data Reviewed
Laboratory Data:
Laboratory Results
10/30/23 07:49
10/30/23 07:49
Laboratory Results
Total Bilirubin 2.8 mg/dl (0.2-1.3) H 10/30/23 07:49
AST 607 U/L (17-59) H* 10/30/23 07:49
ALT 401 U/L (0-50) H 10/30/23 07:49
Alkaline Phosphatase 478 U/L (38-126) H 10/30/23 07:49
Vital Signs and I&O:
Vital Signs
Temp Pulse Resp BP Pulse Ox
98.1 F 80 20 107/56 97
10/30/23 11:30 10/30/23 11:30 10/30/23 11:30 10/30/23 11:30 10/30/23 11:30
I&O
10/29/23 10/30/23 10/31/23
06:59 06:59 06:59
Intake Total 960 / 960 1050 / 1050 480 / 480
Output Total 500 / 500 675 / 675 925 / 925
Balance 460 / 460 375 / 375 -445 / -445
Physical Exam
Physical Exam
GI: Non Distended and Non Tender
[2023-10-30] MEDS: MAALOX 30 ML PO (15:10)
[2023-10-30 15:28] LABS: Troponin I 0.201 ng/ml
--- NOTE | 2023-10-30 15:29 | PTCARENOTE ---
Positive troponin 0.201. Dr Pressley made aware.
[2023-10-30 15:30] VITALS: BP 109/64
--- NOTE | 2023-10-30 16:20 | W.PN.CD ---
Today's Communication / Plan
-
-Called today to reevaluate patient for chest tightness.
-Patient states that he is having chest tightness/shortness of breath; he denies anginal chest pain (regardless, his CAD is not amenable to any intervention).
-Diuretic management has been driven by Nephrology given his CKD; continue Lasix 80 mg IV BID.
-Continue management/antibiotics as per podiatry/ID.
Impression / Plan
-
Impression/Plan: 78M with IDDM, HTN, HLD, CAD leading to [facility] with [facility] and severe, degenerative MR with recurrent HFrEF admissions s/p MitraClip (09/08/2023), now admitted with right foot infection pending amputation. Cardiology was asked to
comment on risk assessment.
Called today to reevaluate patient for chest tightness.
Chest tightness:
-Patient states that he is having chest tightness/shortness of breath; he denies anginal chest pain (regardless, his CAD is not amenable to any intervention).
-Diuretic management has been driven by Nephrology given his CKD; continue Lasix 80 mg IV BID.
#Right Toe Osteomyelitis
-Status-post debridement on 10/28/2023.
-Continue management/antibiotics as per podiatry/ID.
#Severe mitral valve regurgitation
-Stable status-post SJ with one XTW MitraClip (09/08/2023).
-30-day TTE showed peak/mean gradients of 11/5 mmHg.
#CAD
-Denies anginal chest pain.
-No interventions possible (percutaneous or surgical).
-Atorvastatin 40 mg daily ordered.
-Continue metoprolol succinate discontinued due to low blood pressure.
-On isosorbide mononitrate.
-On ticagrelor; Xarelto discontinued for procedure.
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
-Crackles on examination.
-Diuretic management as above.
-GDMT as hemodynamics will tolerate.
-SGLT2i: dapagliflozin 10 mg daily - on hold with LISA.
-Beta-marcus: Metoprolol succinate stopped due to low blood pressure.
-ACEi/ARB: Lisinopril caused cough.
-Sacubitril-valsartan: Caused hypotension.
-MRA: None as he has had issues with hyperkalemia.
-Diuretic: On Lasix, as directed by Nephrology.
-[facility] [facility]-D: Implanted ([employer]tr[employer]). MRI compatible.
-Continue to trend daily weight, I/O.
#HTN
-Chronic, stable.
#HLD, chronic, stable, continue atorvastatin 40 mg daily, goal LDL < 55.
#Type 2 diabetes mellitus, HgbA1c 8.7%, per primary
Roll Forming Machine Set Up Mechanic: Dr. Case
Junior Financial Analyst: Dr. Sky
Subjective/Interval History:
Called today to reevaluate patient for chest tightness.
DATA:
TTE, 10/08/2023:
CONCLUSIONS
Top normal LV size with severely reduced systolic function.
LVEF is 25% by Chambers's method of test.
Global diffuse hypokinesis.
Normal right ventricular size and function.
S/p Mitraclip with peak/mean gradients across the mitral valve are 11/5 mmHg.
Mild to moderate mitral regurgitation.
Estimated pulmonary artery pressure of 41 mmHg, assuming a right atrial
pressure of 3 mmHg.
Compared to prior from September 09, 2023, on [id number] comparison LVEF is now
severely reduced now with ejection fraction of 25% from 40%.
As per [place] Act 112, known as Patient Test Result Information Act, a letter will
be sent to the patient, which notifies to the patient that a significant
abnormality may exist. A letter will be sent approximately 10 days after the
echo report is finalized.
Foot XR, 10/25/2023:
IMPRESSION:
1. Moderate soft tissue emphysema medial and plantar to the 1st MTP joint and 1st metatarsal shaft with surrounding soft tissue edema consistent with SEVERE ACUTE SOFT TISSUE INFECTION with necrosis and possibly soft tissue abscess.
2. No radiographic evidence for acute osteomyelitis.
3. Severe peripheral arterial calcific atherosclerotic disease.
AUS, 10/26/2023:
IMPRESSION: Limited but unremarkable ultrasound of the abdomen.
Physical Exam
Vital Signs/Labs
Vital Signs
Temp Pulse Resp BP Pulse Ox
98.1 F 80 20 107/56 97
10/30/23 11:30 10/30/23 11:30 10/30/23 11:30 10/30/23 11:30 10/30/23 11:30
10/29/23 10/30/23 10/31/23
06:59 06:59 06:59
Actual Weight 82.129 kg 81.902 kg
10/30/23 07:49
10/30/23 07:49
10/28/23
07:49
Zus-T-Larlwkbaceu Pept > 63113
LAB Results
10/30/23
14:42
Troponin I 0.201 H*
Physical Exam
Constitutional: No acute distress and Comfortable
EENT: Anicteric
Cardiovascular: Rhythm & rate is regular, Pedal edema present (Trace to 1+), Systolic murmur present (2/6) and S1S2 is normal
Respiratory: Respiratory effort normal, Wheeze Absent and Crackles Present
GI: Soft
Neuro/Psych: AO x 3
Other: Skin (Warm, dry)
Data Reviewed
-
Date of Service: October 30, 2023
EKG: Tracing Personally Visualized and interpreted (Telemetry: Sinus rhythm, intermittent V pacing, PVCs)
Labs: Labs Reviewed by me
[2023-10-30 16:35] LABS: Glucose - Point of Care 188 mg/dl (70-99)
[2023-10-30] MEDS: NOVOLOG FLEXPEN 5 UNITS SC (17:35)
[2023-10-30] MEDS: LIPITOR 40 MG PO (17:35)
[2023-10-30] MEDS: HEPARIN 5000 UNITS SC ×2 (17:35→23:06)
--- NOTE | 2023-10-30 19:20 | W.PN.POD ---
Today's Communication
Today's Communication
Prognosis guarded, viability of medial forefoot questionable.
No acute signs of infection.
Assessment / Plan
-
S/P two days Incision and drainage and excisional debridement of gas gangrene of the medial right foot.
Diabetes Mellitus, poorly controlled
Ischemic Cardiomyopathy
CAD
Prior second and fifth toe amputations, left foot.
Prognosis guarded, viability of medial forefoot questionable. Trace granulation proximally.
No malodor or purulence encountered.
Cellulitis resolved.
Saline wet to dry dressing applied.
Vascular to pursue optimization of perfusion to the RLE.
Patient to remain NWB at this point.
Will follow
Subjective
Chief Complaint
S/P 2 days Incision and drainage of gas gangrene/abcess, medial right foot.
Subjective
Patient having some nausea today, however reporting very little discomfort in the right foot.
The patient denies fever, chills or sweats.
Objective
Temp Pulse Resp BP Pulse Ox
98.1 F 86 20 109/64 98
10/30/23 15:30 10/30/23 15:30 10/30/23 15:30 10/30/23 15:30 10/30/23 15:30
10/30/23 07:49
10/30/23 07:49
Vital Signs and Lab results were reviewed.
WBC 13.9 trending down.
Wound culture: Morganella morganii, Enterococcus species-Prelim.
The dressing is lightly stained medially with serous fluid.
Deep wound extending from the great toe to the proximal midfoot, 15cm with exposed deep fascial layer. The great toe is viable distally however the first MTPJ area is hardening and drying out, somewhat blackened in appearance.
There are some granular areas within the proximal aspect of the wound, and the wound appears to be roly. There is no malodor or active discharge from the wound detected.
Cellulitis essentially resolved.
[2023-10-30 19:49] VITALS: BP 115/69
[2023-10-30 20:02] LABS: Glucose - Point of Care 131 mg/dl (70-99)
[2023-10-30 20:05] LABS: Troponin I 0.221 ng/ml
--- NOTE | 2023-10-30 20:59 | W.PN.UPDATE ---
Update Note
Progress Note Update
RN notified patient c/o chest pain. Patient seen and evaluated, reports having similar chest pain he had early during day time. States chest tightness in mid chest without radiating. denies any chest pain or shortness of breath but states feels
better with oxygen. Also stated was feeling nauseous and vomited once no blood noted per RN. denies any fever chills, abdomen pain at present. unable to take anything PO at present due to nausea. Heart S1S2 + murmur, lungs mild rales at the bases.
abdomen soft non tender +BS, 98.9, 82,115/58, O2sat 99% on 3l nc, . BS:131, advised RN to wean off oxygen. EKG with no significant changes, Mid chest pain likely due to indigestion, reflux, pain relieved after IV Protonix. Cardiology notes reviewed.
[2023-10-30] MEDS: PROTONIX IV 40 MG IV (21:14)
[2023-10-30] MEDS: NSS (PRESERVATIVE FREE) 10 ML IV (21:14)
--- NOTE | 2023-10-30 21:37 | PTCARENOTE ---
Pt complains about chest pain in the beginning of the shift. Pt describes the pain as a pressure and tightness of the chest. Pt also complains of SOB. EKG with no significant changes. VSS (T=98.9, HR=82, MP=457/58, SpO2=99% on 3L O2 NC). WW=774. Pt
states he ate no luch, no dinner. Breakfast tray still on pt's table. After eating couple spoons of Jello, pt start vomiting, approximately 100-150cc, no blood or bile seen in the vomit. INDUSTRIAL ROOFER HELPER (Jorge Quinonez) made aware, came in to see the pt and
ordered Protonix IV X1 order. Pt states that his chest pain felt a little better after vomiting. IV Protonix given and pt states that he feels 'better' now, no other episode of n/v. Will continue to monitor the pt.
[2023-10-30 23:55] VITALS: BP 114/66
[2023-10-31 03:55] VITALS: BP 109/65
[2023-10-31] MEDS: ROXICODONE 5 MG PO ×2 (03:58→22:38)
[2023-10-31 04:02] LABS: Glucose - Point of Care 151 mg/dl (70-99)
[2023-10-31] MEDS: MERREM 500 MG IV ×2 (05:10→17:12)
[2023-10-31] MEDS: STERILE WATER FOR INJECTION 10 ML IV ×2 (05:11→17:12)
[2023-10-31 06:00] VITALS: BMI 28.0
[2023-10-31 07:55] VITALS: BP 124/60
[2023-10-31 08:09] LABS: Glucose - Point of Care 170 mg/dl (70-99)
[2023-10-31 08:33] LABS: Hematocrit 26.9 % (39.0-52.0); Hemoglobin 9.1 g/dL (13.0-18.0); Mean Corp Hgb Conc. 33.8 g/dL (33.0-37.0); Mean Corpuscular Hgb 25.9 pg (27.0-31.0); Mean Corpuscular Volume 76.4 fL (80.0-94.0); Mean Platelet Volume 11.9 fL (7.4-10.4); Platelet Count 222 10^3/uL (130-400); Red Blood Cell Count 3.52 10^6/uL (4.70-6.10); Red Cell Dist. Width 17.5 % (11.5-14.5); White Blood Cell Count 19.1 10^3/uL (4.8-10.8)
[2023-10-31] MEDS: ProAmatine PO (08:44)
[2023-10-31 08:49] LABS: INR 1.75; PT 20.3 Sec (11.4-14.6)
[2023-10-31 09:14] LABS: ALT (SGPT) 350 U/L (0-50); AST (SGOT) 463 U/L (17-59); Albumin 2.7 g/dl (3.5-5.0); Alkaline Phosphatase 453 U/L (38-126); Blood Urea Nitrogen 86 mg/dl (9-20); Calcium 8.2 mg/dl (8.4-10.2); Carbon Dioxide 21 mmol/L (22-30); Chloride 98 mmol/L (98-107); Direct Bilirubin 2.1 mg/dl (0.0-0.4); Estimated Creatinine Clearance 23 ml/min; Glucose 139 mg/dl (70-99); Sodium 132 mmol/L (135-145); Total Bilirubin 2.9 mg/dl (0.2-1.3); Total Protein 5.6 g/dl (6.3-8.2); eGFR 23.68
[2023-10-31] MEDS: NOVOLOG FLEXPEN SC ×4 (09:18→17:25)
[2023-10-31] MEDS: NOVOLOG FLEXPEN-LOW RESISTANCE SC ×4 (09:18→17:26)
[2023-10-31 09:20] LABS: Vancomycin Random 14.7 ug/ml
[2023-10-31] MEDS: VITAMIN D3 (cholecalciferol) 125 MCG PO (09:37)
[2023-10-31] MEDS: COLACE 100 MG PO ×2 (09:37→21:07)
[2023-10-31] MEDS: LASIX 80 MG IV ×3 (09:37→21:17)
[2023-10-31] MEDS: IMDUR (EXTENDED RELEASE) 30 MG PO (09:37)
[2023-10-31] MEDS: SODIUM BICARBONATE 650 MG PO ×2 (09:37→21:07)
[2023-10-31] MEDS: PROTONIX 40 MG PO (09:37)
[2023-10-31] MEDS: BRILINTA 90 MG PO ×2 (09:37→21:08)
[2023-10-31] MEDS: HEPARIN 5000 UNITS SC ×3 (09:38→23:04)
[2023-10-31] MEDS: NOVOLOG FLEXPEN 5 UNITS SC (09:39)
[2023-10-31] MEDS: HUMULIN N KWIKPEN 12 UNITS SC (09:39)
[2023-10-31 11:30] VITALS: BP 110/64
--- NOTE | 2023-10-31 11:47 | W.PN.CD ---
Today's Communication / Plan
-
-Improved/resolved today; denies anginal chest pain.
-Being worked up for indigestion/GI upset.
-Continue diuretics as recommended by Nephrology given his CKD; continue Lasix 80 mg IV BID.
-Cardiology will remain available on an as-needed basis.
Impression / Plan
-
Impression/Plan: 78M with IDDM, HTN, HLD, CAD leading to [facility] with [facility] and severe, degenerative MR with recurrent HFrEF admissions s/p MitraClip (09/08/2023), now admitted with right foot infection pending amputation. Cardiology was asked to
comment on risk assessment.
Chest tightness/shortness of breath:
-Improved/resolved today; denies anginal chest pain.
-Being worked up for indigestion/GI upset.
-Continue diuretics as recommended by Nephrology given his CKD; continue Lasix 80 mg IV BID.
#Right Toe Osteomyelitis
-Status-post debridement on 10/28/2023.
-Continue management/antibiotics as per podiatry/ID.
#Severe mitral valve regurgitation
-Stable status-post SJ with one XTW MitraClip (09/08/2023).
-30-day TTE showed peak/mean gradients of 11/5 mmHg.
#CAD
-Denies anginal chest pain.
-No interventions possible (percutaneous or surgical).
-Atorvastatin 40 mg daily ordered.
-Metoprolol succinate discontinued due to low blood pressure.
-On isosorbide mononitrate.
-On ticagrelor; Xarelto discontinued for procedure.
-Minimal troponin elevation is most likely secondary to chronic nonischemic myocardial injury secondary to CKD/CHF.
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
-Diuretic management as per nephrology.
-GDMT as hemodynamics will tolerate.
-SGLT2i: dapagliflozin 10 mg daily - on hold with LISA.
-Beta-marcus: Metoprolol succinate stopped due to low blood pressure.
-ACEi/ARB: Lisinopril caused cough.
-Sacubitril-valsartan: Caused hypotension.
-MRA: None as he has had issues with hyperkalemia.
-Diuretic: On Lasix, as directed by Nephrology.
-[facility]-D: Implanted ([employer]tr[employer]). MRI compatible.
-Continue to trend daily weight, I/O.
#HTN
-Stable/controlled.
#HLD, chronic, stable, continue atorvastatin 40 mg daily, goal LDL < 55.
#Type 2 diabetes mellitus, HgbA1c 8.7%, per primary
Floral Designer Salesperson: Dr. Case
Gate Supervisor: Dr. Sky
Subjective/Interval History:
No major events overnight.
DATA:
TTE, 10/08/2023:
CONCLUSIONS
Top normal LV size with severely reduced systolic function.
LVEF is 25% by Chambers's method of test.
Global diffuse hypokinesis.
Normal right ventricular size and function.
S/p Mitraclip with peak/mean gradients across the mitral valve are 11/5 mmHg.
Mild to moderate mitral regurgitation.
Estimated pulmonary artery pressure of 41 mmHg, assuming a right atrial
pressure of 3 mmHg.
Compared to prior from September 09, 2023, on [id number] comparison LVEF is now
severely reduced now with ejection fraction of 25% from 40%.
As per [place] Act 112, known as Patient Test Result Information Act, a letter will
be sent to the patient, which notifies to the patient that a significant
abnormality may exist. A letter will be sent approximately 10 days after the
echo report is finalized.
Foot XR, 10/25/2023:
IMPRESSION:
1. Moderate soft tissue emphysema medial and plantar to the 1st MTP joint and 1st metatarsal shaft with surrounding soft tissue edema consistent with SEVERE ACUTE SOFT TISSUE INFECTION with necrosis and possibly soft tissue abscess.
2. No radiographic evidence for acute osteomyelitis.
3. Severe peripheral arterial calcific atherosclerotic disease.
AUS, 10/26/2023:
IMPRESSION: Limited but unremarkable ultrasound of the abdomen.
Physical Exam
Vital Signs/Labs
Vital Signs
Temp Pulse Resp BP Pulse Ox
97.4 F 89 22 124/60 97
10/31/23 07:55 10/31/23 07:55 10/31/23 07:55 10/31/23 08:44 10/31/23 08:40
10/30/23 10/31/23 11/01/23
06:59 06:59 06:59
Actual Weight 81.902 kg 83.574 kg
10/31/23 06:47
10/31/23 06:47
PT 20.3 Sec (11.4-14.6) H 10/31/23 06:47
INR 1.75 10/31/23 06:47
10/28/23
07:49
Ndo-Z-Pfynfzvbrdf Pept > 30103
LAB Results
10/30/23 10/30/23
14:42 19:33
Troponin I 0.201 H* 0.221 H*
Physical Exam
Constitutional: No acute distress and Comfortable
EENT: Anicteric
Cardiovascular: Rhythm & rate is regular, Pedal edema present (Trace-1+), Systolic murmur present (2/6) and S1S2 is normal
Respiratory: Respiratory effort normal and Lungs clear to auscul.
GI: Soft
Neuro/Psych: AO x 3
Data Reviewed
-
Date of Service: October 31, 2023
EKG: Tracing Personally Visualized and interpreted (Telemetry: V paced)
Labs: Labs Reviewed by me
--- NOTE | 2023-10-31 12:17 | W.PN.NEPH.PH ---
Today's Communication / Plan
-
increase lasix 80mg IV TID
Assessment/Plan
-
Assessment:
Diabetic foot ulcer with cellulitis on the right foot
Hyperkalemia
Elevated LFTs
GARTH on Chronic kidney disease stage 3
Anemia-iron deficiency
Mild hyponatremia
Coronary artery disease-multivessel CAD
Chronic heart failure with reduced ejection fraction-EF 25%
History of MitraClip placement for severe MR 09/08/2023
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
History of infective endocarditis April 2023
Hyperlipidemia
Diabetes with neuropathy
Anxiety
Peripheral vascular disease on Xarelto 2.5 mg p.o. twice daily
History of left second and fifth toe amputation
Cognitive dysfunction
Plan:
A/w with worsening right foot wound
Creatinine up to 2.7 and remains nonoliguric with lasix support
Garth with CKD 3b, UA with mild microhematuria on AC, follow bladder scan
US with out hydro, U na is low suggest prerenal and check U PCR
Hemodynamically stable
only on abx for 2days so less likely AIN, urine eosinophils negative
Continue to hold SGLTI
avoid nephrotoxins and hypotension
No more IV fluids , maitain Lasix due to strong concern for evolving cardiorenal syndrome (80mg IV BID)
Chest x-ray notes pulmonary edema
PVR not elevated
will escalate Lasix to 3 times daily
I suspect he has underlying evolving cardiorenal syndrome and may require inotropic support if aggressive care is to be pursued
abx dose renally per ID
low A gap met acidosis-mixed acid base, starteon po bicarb per primary
follow labs
would wait for cr stabilization prior angiogram
Patient at high clinical risk with worsening renal failure
Discussed case with primary provider
-
-
Date of Service: October 31, 2023
CC / HPI / ROS
-
Chief Complaint:
GARTH
History of Present Illness:
Cr baseline 1.6-1.9, increased to 2.4 now
BPs now stable
LFTs up
Review of Systems:
no sob
no cp
urine output intermittent
Weight up
Labs
-
Labs:
WBC 19.1 10^3/uL (4.8-10.8) H 10/31/23 06:47
RBC 3.52 10^6/uL (4.70-6.10) L 10/31/23 06:47
Hgb 9.1 g/dL (13.0-18.0) L 10/31/23 06:47
Hct 26.9 % (39.0-52.0) L 10/31/23 06:47
Plt Count 222 10^3/uL (130-400) 10/31/23 06:47
Sodium 132 mmol/L (135-145) L 10/31/23 06:47
Potassium 4.0 mmol/L (3.5-5.1) 10/31/23 06:47
Chloride 98 mmol/L (98-107) 10/31/23 06:47
Carbon Dioxide 21 mmol/L (22-30) L 10/31/23 06:47
BUN 86 mg/dl (9-20) H 10/31/23 06:47
Creatinine 2.7 mg/dL (0.7-1.3) H 10/31/23 06:47
eGFR 23.68 10/31/23 06:47
Glucose 139 mg/dl (70-99) H 10/31/23 06:47
Calcium 8.2 mg/dl (8.4-10.2) L 10/31/23 06:47
Dlr-R-Bxqmyfscszl Pept > 11940 pg/ml 10/28/23 07:49
Albumin 2.7 g/dl (3.5-5.0) L 10/31/23 06:47
Physical Exam
-
Vital Signs:
Vital Signs
Temp Pulse Resp BP Pulse Ox
98.0 F 89 20 110/64 99
10/31/23 11:30 10/31/23 11:30 10/31/23 11:30 10/31/23 11:30 10/31/23 11:30
Cardiovascular:: Regular rate and rhythm
Respiratory:: Bilateral: Coarse
Lung Excursion:: Normal
Abdomen:: Nontender and Soft
Bowel Sounds:: Normal
Extremity Edema:: +1: Bilateral:
Stoo Catheter: No
--- NOTE | 2023-10-31 12:29 | W.PN.ID1 ---
Date of Service
Date of Service: October 31, 2023
Today's Communication
Continue meropenem. D/C further vanco.
Assessment / Plan
# Right first hallux/MT cellulitis, abscess, and suspected osteomyelitis
# Leukocytosis
- MRI foot wo contrast: medial hallux sesamoid bone marrow edema; + soft tissue gas and loculated fluid in medial soft tissue
- 8/ s/p OR drainage of abscess 5 cc pus. Gram stain: Enterococcus; Morganella
- Continue meropenem. D/C further vanco.
- trend wbc
# RLE PAD
- For eventual arteriogram per Vascular.
# Elevated LFT's present on admission
- trending up
- Abd US unremarkable
- ? hepatic congestion from CHF
# # LISA - Cr. up today.
- DC'd cefepime on 10/24, in case of interstitial nephritis.
- Urine eos negative
# Poorly controlled DM
# Additional Past Medical History:
Diabetes mellitus
CAD - severe not amenable to PCI/CABG
Large MV echodensity (03/17/2023) s/p 6 weeks of empiric Vanco/ceftriaxone.
Ischemic cardiomyopathy s/p BIV-ICD placement 08/03/23
Severe mitral regurgitation s/p SJ and MitraClip 09/08/23
Hypertension
PAD
bilateral carotid stenosis
Anxiety
COPD
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
osteo status post left fifth toe amputation
Chief Complaint
-: Other (Right Foot abscess)
Vital Signs / Physical Exam
Vital Signs
Vital Signs
Temp Pulse Resp BP Pulse Ox
98.0 F 89 20 110/64 99
10/31/23 11:30 10/31/23 11:30 10/31/23 11:30 10/31/23 11:30 10/31/23 11:30
Physical Exam
Constitutional: No Acute Distress, Comfortable and Non-toxic
Eyes: Sclera Anicteric
Cardiovascular: S1/S2; Negative S3/S4
Pulmonary: Non Labored
Gastrointestinal: Soft, Non Tender and Non Distended
Extremities: Edema (RLE 1+)
Wound: Other (Right foot dressed. No erythema extending up leg.)
Neurological: Awake and Alert
Psychological: Calm
Objective Data
Lab Data
Lab Results
10/31/23 06:47
10/31/23 06:47
PT 20.3 Sec (11.4-14.6) H 10/31/23 06:47
INR 1.75 10/31/23 06:47
Estimated Creat Clear 23 ml/min 10/31/23 06:47
Lactic Acid 1.7 mmol/L (0.7-2.0) 10/25/23 13:47
Total Bilirubin 2.9 mg/dl (0.2-1.3) H 10/31/23 06:47
AST 463 U/L (17-59) H 10/31/23 06:47
ALT 350 U/L (0-50) H 10/31/23 06:47
Alkaline Phosphatase 453 U/L (38-126) H 10/31/23 06:47
Most recent labs reviewed.
Micro Results:
10/28/23 19:41 Wound Culture - Preliminary
Foot - Right Morganella morganii
Enterococcus faecalis
Gram Stain - Preliminary
10/25/23 13:47 Blood Culture - Final
Blood/Venous No Growth - Final Report
10/28/23 19:41 Anaerobic Culture - Preliminary
Foot - Right Culture pending. Anaerobic cultures are examined after 3
days incubation. Additional information to follow.
SPEC #: [id number] BRUNA: 10/28/23
SOURCE: FOOT
SPDESC: Right
Organism 1 Morganella morganii
Organism 2 Enterococcus faecalis
M.MORGANII ENTFCL
M.I.C. RX M.I.C. RX
--------- --- --------- ---
Amoxicillin/Potas. Clavulanate >16/8 R
Ampicillin >16 R <=2 S
Ampicillin/Sulbactam >16/8 R
Aztreonam <=4 S
Cefazolin >16 R
Cefepime <=2 S
Ceftriaxone <=1 S
Ertapenem <=0.5 S
Ciprofloxacin <=0.25 S
Gentamicin <=2 S
Gentamicin Synergy Screen <=500 S
Meropenem <=1 S
Piperacillin/Tazobactam <=8 S
Tetracycline <=4 S
Tobramycin <=2 S
Trimethoprim/Sulfamethoxazole <=2/38 S
10/28/23 RLE MRI WO contrast: Bone marrow edema in the bipartite medial hallux sesamoid. Differential considerations include sesamoiditis versus osteomyelitis given the proximity to the medial forefoot soft tissue infection. Soft tissue gas and
loculated fluid in the medial soft tissues most suggestive of an abscess, although evaluation is limited in the absence of intravenous contrast. No MRI evidence for osteomyelitis elsewhere in the forefoot or midfoot.
10/25/23 R Foot XRAY: Moderate soft tissue emphysema medial and plantar to the 1st MTP joint and 1st metatarsal shaft with surrounding soft tissue edema consistent with SEVERE ACUTE SOFT TISSUE INFECTION with necrosis and possibly soft tissue abscess.
[2023-10-31 12:37] LABS: Glucose - Point of Care 266 mg/dl (70-99)
[2023-10-31] MEDS: ProAmatine 5 MG PO ×2 (12:54→17:12)
[2023-10-31] MEDS: NOVOLOG FLEXPEN 15 UNITS SC (12:54)
--- NOTE | 2023-10-31 13:25 | W.PN.HOSP.TC ---
Today's Communication/Plan
-
Lasix dose increased
Follow blood sugars closely and notify if it is over 200
Insulin adjusted
Continue IV antibiotics and wound care
Wait for renal function to get better for vascular procedure
Assessment / Plan
Assessment / Plan
78-year-old male was sent from podiatry office for worsening swelling of the right foot. Started 1 month ago a ulcer on the toe . 1 Week ago had pain in the foot so sent to Podiatry. redness started 3 days ago. X-rays in the office possible osteo.
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
Cardiovascular system S1-S2 appreciated, systolic murmur at apex
Chest rales at bases.
Abdomen soft and nontender
Right foot - post surgery bandaged
LCL-urnwr-dixku normal obtainable secondary to noncompressibility of the vessels. TBI mildly reduced 0.27 multiphasic waveforms, femoral total popliteal artery with a velocity elevation popliteal artery suggestive of possible more than 50%
stenosis. Monophasic infrapopliteal waveforms indicating infrapopliteal disease. Left lower extremity GODWIN 1.2 within normal limits. TBI also within normal limits.
MRI-bone marrow edema in the medial hallux
Sesamoiditis versus osteomyelitis. Soft tissue gas and loculated fluid within the soft tissues suggestive of an abscess
# Diabetic foot ulcer with cellulitis on the right foot
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
Continue meropenem
OR cultures with Morganella and Enterococcus faecalis
GODWIN noted with infrapopliteal disease on the right side.
Vascular evaluated- plan for right lower extremity arteriogram and possible endovascular intervention when creatinine better
NWB right forefoot
10/28/23-S/P Incision and drainage of abscess 'Excision/removal of necrotic skin and soft tissue, right foot.Less than 5cc of purulence and less than 5cc of blood loss encountered. Prognosis for healing guarded.'
See that going for vascular intervention Wednesday if creatinine is better, will hold Xarelto
# Elevated troponin-nonischemic myocardial injury likely secondary to CHF
#Nausea-Resolving
# Elevated LFTs-hold statin.
Possible shock liver from hypotension
Also likely fluid overloaded and hepatic congestion
GI eval appreciated
LFT better with Lasix
Ultrasound unremarkable.
# LISA on Chronic kidney disease stage 3
Likely Cardiorenal
Bladder scan no retention
Renal following
Agree with Lasix, changed to TID
Agree that may need inotrope
# Anemia-Iron deficiency noted. IV iron
# Constipation- Bowel regimen ordered.
# Mild hyponatremia-follow
# Hyperkalemia-status post Lokelma. Better
# Diabetes with neuropathy
OP-Continue insulin 70/30 -28 units in the morning and 20 units in the evening. Prandin 1 mg p.o. twice daily
IP-changed to NPH as patient's p.o. intake is erratic. 24 Am and 16 Pm BID. AC NovoLog 10 units .
I have been dosing insulin according to patient's p.o. intake also as he was nauseous and not able to have consistent meals. Which makes it difficult to manage sugars.
watch sugars closely
Hemoglobin A1c was 8.7 on 09/09/2023
# Coronary artery disease-multivessel CAD
Continue Brilinta, hold atorvastatin
# Acute on chronic heart failure with reduced ejection fraction-EF 25%
Hold Farxiga , changed Imdur to 30 mg daily with borderline blood pressure
Restart metoprolol when blood pressure is better
Continue Lasix 80 mg 3 times daily
May need inotropic meds
# History of MitraClip placement for severe MR 09/08/2023
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
# History of infective endocarditis April 2023
# Hyperlipidemia-hold atorvastatin- elevated LFTS
# Anxiety-Ativan 1 mg p.o. twice daily as needed
# Peripheral vascular disease on Xarelto 2.5 mg p.o. twice daily (Hold for possible surgery)
History of left second and fifth toe amputation
# Cognitive Dysfunction
# DVT prophylaxis-MAHESH
# CODE STATUS-Full
D/W RN at bedside
Discussed with infectious disease
D/W Renal
Daughter updated Regarding his medical condition including acute kidney injury, inability to perform arteriogram because of this, CHF, poor circulation impairing wound healing.
Prognosis guarded.
Time spent over 50 min
Anticipated Discharge: > 48 hours
Subjective/Interval History
-
Date of Service: October 31, 2023
Objective Data
-
Labs:
Laboratory Results
10/31/23
06:47
WBC 19.1 H
Hgb 9.1 L
Hct 26.9 L
Plt Count 222
PT 20.3 H
INR 1.75
Sodium 132 L
Potassium 4.0
Chloride 98
Carbon Dioxide 21 L
BUN 86 H
Creatinine 2.7 H
Glucose 139 H
Calcium 8.2 L
Total Bilirubin 2.9 H
AST 463 H
ALT 350 H
Alkaline Phosphatase 453 H
Vital Signs:
Vital Signs
Temp Pulse Resp BP Pulse Ox
98.0 F 89 20 110/64 99
10/31/23 11:30 10/31/23 11:30 10/31/23 11:30 10/31/23 11:30 10/31/23 11:30
I&O
10/30/23 10/31/23 11/01/23
06:59 06:59 06:59
Intake Total 1050 / 1050 960 / 960
Output Total 675 / 675 1850 / 1850
Balance 375 / 375 -890 / -890
[2023-10-31] MEDS: SENOKOT 17.2 MG PO ×2 (14:05→21:08)
[2023-10-31] MEDS: MIRALAX 17 GRAMS PO (14:05)
[2023-10-31] MEDS: FERRLECIT 110 MG IV (14:06)
--- NOTE | 2023-10-31 14:58 | W.PN.GI.CBS2 ---
Today's Communication / Plan
-
trend lfts, gi signing off
Assessment / Plan
-
Wade is a 78-year-old male with severe mitral regurgitation status post [facility] ER in August 2023, CKD not on HD, CAD, heart failure, ischemic cardiomyopathy, hypertension, uncontrolled diabetes, severe peripheral arterial disease and prior toe
amputations who came to the emergency room on 10/26/2023 with pain redness and right toe pain found to have possible osteomyelitis, went to the OR 10/28/23 in the evening and GI was called due to his blood work including abnormal LFTs which were
normal in the past.
03/2023: ALT 29, AST 18 and a total bilirubin of 0.6, alk phos 99
08/2023: ALT 37, AST 37 and total bilirubin 0.6 with an alkaline phosphatase of 214.
10/25/23 ALT 52, AST 70, total bilirubin 3.0, alk phos 701
10/28/23 ( prior to the OR) ALT 139, AST 257, total bilirubin 2.6 alkaline phosphatase 483,
10/29/23: (after the OR) ALT 551, AST 1395, total bilirubin 3.2 alkaline phosphatase 498
PATIENT WAS HYPOTENSIVE 64/45 10/27 AT 20:00
# Mixed hepatocellular/cholestatic/hyperbilirubinemia injury:
-- Likely multifactorial including sepsis initially upon arrival considering his blood work prior to this showed normal LFT pattern +hypotension/statin. Prior to hypotension his liver enzymes were elevated which were more likely sepsis related and
then postop likely a combination of sepsis plus hypotension. He did receive 2 doses of phenylephrine after the hypotension to help compensate so I doubt he was overly hypotensive for a long period. His statin was stopped today and avoid all other
hepatotoxic medications as well.
-- Dr. Velasquez reviewed his meds - atorvastatin would be the only culprit
-- His echocardiogram on 10/08/2023 showed an EF of 25%, he does have a normal size right atrium and only mild tricuspid regurgitation. Also the IVC is of normal size. This speaks against cardiac etiology or hepatic congestion
---Reviewed his abdominal ultrasound from 10/26/2023 within normal size liver with smooth capsular contour and homogeneous echogenicity with no ductal dilatation. The IVC was unremarkable.
--LFTs are improving today (mild increase/same bili but this can take longer to improve)
-- OVERALL Management includes avoid all hypotension, hold the statin and do not introduce any hepatotoxic medications and treat the sepsis.
-- Checking coagulation PT PTT and INR may not be helpful considering he is on Ticagrelor + rivaroxaban 2.5 mg BID as above - will check for a baseline.
-- If it looks like he is going into liver failure which would be hard to discern if he is on his medications could check factors 5, 7 and 8. Factor VIII will be high in sepsis, low in DIC and normal in liver dysfunction since it is made in the
endothelial cells. All these factors are made in the liver except factor VIII which helps differentiate the 3 etiologies - LFTs trending down
-- trend LFTs
-- check hepatitis panel for completeness - pending
-- NAUSEA
-- zofran prn
Card provided to pt can follow up as needed outpatient if LFTs do not improve
Pls call back GI if LFTs start to rise
GI will sign off pls call with ?s
Subjective
Subjective
Date of Service: October 31, 2023
no gi events
Objective
Data Reviewed
Laboratory Data:
Laboratory Results
10/31/23 06:47
10/31/23 06:47
Laboratory Results
PT 20.3 Sec (11.4-14.6) H 10/31/23 06:47
INR 1.75 10/31/23 06:47
Total Bilirubin 2.9 mg/dl (0.2-1.3) H 10/31/23 06:47
AST 463 U/L (17-59) H 10/31/23 06:47
ALT 350 U/L (0-50) H 10/31/23 06:47
Alkaline Phosphatase 453 U/L (38-126) H 10/31/23 06:47
Vital Signs and I&O:
Vital Signs
Temp Pulse Resp BP Pulse Ox
98.0 F 89 20 110/64 99
10/31/23 11:30 10/31/23 11:30 10/31/23 11:30 10/31/23 11:30 10/31/23 11:30
I&O
10/30/23 10/31/23 11/01/23
06:59 06:59 06:59
Intake Total 1050 / 1050 960 / 960
Output Total 675 / 675 1850 / 1850
Balance 375 / 375 -890 / -890
Physical Exam
Physical Exam
GI: Non Distended and Non Tender
[2023-10-31 15:00] VITALS: BP 105/65
[2023-10-31 17:02] LABS: Glucose - Point of Care 209 mg/dl (70-99)
[2023-10-31] MEDS: LIPITOR 40 MG PO (17:12)
[2023-10-31] MEDS: NOVOLOG FLEXPEN 17 UNITS SC (17:26)
[2023-10-31 19:40] VITALS: BP 102/59
[2023-10-31 21:15] LABS: Glucose - Point of Care 101 mg/dl (70-99)
[2023-10-31 22:41] LABS: Glucose - Point of Care 97 mg/dl (70-99)
[2023-10-31 23:33] LABS: Glucose - Point of Care 124 mg/dl (70-99)
[2023-10-31 23:55] VITALS: BP 104/57
[2023-11-01] VITALS (8 sets, daily range): BP systolic 109–141; BP diastolic 61–67; BMI 28.0
[2023-11-01 03:10] LABS: Glucose - Point of Care 121 mg/dl (70-99)
[2023-11-01] MEDS: MERREM 500 MG IV (05:15)
[2023-11-01] MEDS: STERILE WATER FOR INJECTION 10 ML IV (05:16)
[2023-11-01 08:58] LABS: Glucose - Point of Care 158 mg/dl (70-99)
[2023-11-01] MEDS: PROTONIX 40 MG PO (09:06)
[2023-11-01] MEDS: COLACE 100 MG PO ×2 (09:06→20:00)
[2023-11-01] MEDS: SENOKOT 17.2 MG PO ×2 (09:06→20:00)
[2023-11-01] MEDS: BRILINTA 90 MG PO ×2 (09:07→20:00)
[2023-11-01] MEDS: VITAMIN D3 (cholecalciferol) 125 MCG PO (09:07)
[2023-11-01] MEDS: IMDUR (EXTENDED RELEASE) 30 MG PO (09:07)
[2023-11-01] MEDS: HEPARIN 5000 UNITS SC ×2 (09:07→17:52)
[2023-11-01] MEDS: SODIUM BICARBONATE 650 MG PO ×2 (09:07→20:00)
[2023-11-01] MEDS: ProAmatine 5 MG PO ×2 (09:07→17:52)
[2023-11-01] MEDS: MIRALAX 17 GRAMS PO (09:08)
[2023-11-01] MEDS: NOVOLOG FLEXPEN-LOW RESISTANCE 1 UNITS SC (09:08)
[2023-11-01] MEDS: NOVOLOG FLEXPEN 10 UNITS SC ×2 (09:09→13:06)
[2023-11-01] MEDS: HUMULIN N KWIKPEN 24 UNITS SC (09:09)
[2023-11-01 09:14] LABS: Hematocrit 28.6 % (39.0-52.0); Hemoglobin 9.6 g/dL (13.0-18.0); Mean Corp Hgb Conc. 33.6 g/dL (33.0-37.0); Mean Corpuscular Hgb 25.9 pg (27.0-31.0); Mean Corpuscular Volume 77.3 fL (80.0-94.0); Mean Platelet Volume 11.6 fL (7.4-10.4); Platelet Count 255 10^3/uL (130-400); Red Cell Dist. Width 17.6 % (11.5-14.5); White Blood Cell Count 21.5 10^3/uL (4.8-10.8)
--- NOTE | 2023-11-01 09:17 | W.PN.POD ---
Today's Communication
Today's Communication
Prognosis guarded, viability of medial forefoot diminishing.
No acute signs of infection.
Assessment / Plan
-
S/P 4 days Incision and drainage and excisional debridement of gas gangrene of the medial right foot.
Diabetes Mellitus, poorly controlled
Ischemic Cardiomyopathy
CAD
Prior second and fifth toe amputations, left foot.
Prognosis guarded, viability of medial forefoot diminishing. Trace granulation proximally.
No malodor or purulence encountered. No acute signs of infection. Cellulitis resolved.
Saline wet to dry dressing applied.
Vascular- plan angiogram to pursue optimizing perfusion to RLE (pending improved renal function)
Patient to remain NWB at this point.
Will follow
Subjective
Chief Complaint
S/P 4 days Incision and drainage of gas gangrene/abcess, medial right foot.
Subjective
Patient reports only transient pain in the foot, overall significantly improved from 4 days ago.
Denies fever, chills or sweats.
Objective
Temp Pulse Resp BP Pulse Ox
98.4 F 92 20 115/64 96
11/01/23 07:30 11/01/23 07:30 11/01/23 07:30 11/01/23 07:30 11/01/23 07:30
11/01/23 09:00
Vital Signs and Lab results were reviewed.
Afebrile
Leukocytosis (Now 21.5)
Wound culture: Morganella morganii, Enterococcus faecalis
The dressing is stained medially with serous fluid.
Deep wound extending from the great toe to the proximal midfoot, 15cm with exposed deep fascial layer. The great toe is viable distally however the first MTPJ area is hardening, drying out, and now blackened in appearance.
There are some granular areas within the proximal aspect of the wound, and the wound appears to be roly. There is no malodor or active discharge from the wound detected. Cellulitis essentially resolved.
[2023-11-01] MEDS: ROXICODONE 5 MG PO ×2 (09:20→18:17)
--- NOTE | 2023-11-01 10:37 | CM ---
Patient seen bedside, patient currently on O2. Patient remains on IV antibiotics. Patient has been accepted by [facility] services. CM will continue to follow for all discharge planning needs.
Plan; home with [facility].
--- NOTE | 2023-11-01 10:49 | W.PN.HOSP.TC ---
Today's Communication/Plan
-
DC pre-meal standing dose of short acting insulin
Change Midodrine holding parameters
Restart low dose BB
c/w IV ABx
Hold Lasix until first responder sees the patient today
Assessment / Plan
Assessment / Plan
78-year-old male was sent from podiatry office for worsening swelling of the right foot. Started 1 month ago a ulcer on the toe . 1 Week ago had pain in the foot so sent to Podiatry. redness started 3 days ago. X-rays in the office possible osteo.
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
Cardiovascular system S1-S2 appreciated, systolic murmur at apex
Chest rales at bases.
Abdomen soft and nontender
Right foot - post surgery bandaged
OOW-rvsfc-ddzvg normal obtainable secondary to noncompressibility of the vessels. TBI mildly reduced 0.27 multiphasic waveforms, femoral total popliteal artery with a velocity elevation popliteal artery suggestive of possible more than 50%
stenosis. Monophasic infrapopliteal waveforms indicating infrapopliteal disease. Left lower extremity GODWIN 1.2 within normal limits. TBI also within normal limits.
MRI-bone marrow edema in the medial hallux
Sesamoiditis versus osteomyelitis. Soft tissue gas and loculated fluid within the soft tissues suggestive of an abscess
# Diabetic foot ulcer with cellulitis on the right foot
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
Continue meropenem
OR cultures with Morganella and Enterococcus faecalis
GODWIN noted with infrapopliteal disease on the right side.
Vascular evaluated- plan for right lower extremity arteriogram and possible endovascular intervention when creatinine better
NWB right forefoot
10/28/23-S/P Incision and drainage of abscess 'Excision/removal of necrotic skin and soft tissue, right foot.Less than 5cc of purulence and less than 5cc of blood loss encountered. Prognosis for healing guarded.'
Likely vascular intervention Wednesday if creatinine is better, will hold Xarelto
# Elevated troponin-nonischemic myocardial injury likely secondary to CHF
#Nausea-Resolving
# Elevated LFTs-hold statin.
Possible shock liver from hypotension
Also likely fluid overloaded and hepatic congestion
GI eval appreciated
LFT better with Lasix
Ultrasound unremarkable.
# LISA on Chronic kidney disease stage 3
Likely Cardiorenal
Bladder scan no retention
Renal following
Lasix changed to TID, will hold since creatinine went up to 3.6 until first responder sees him today
pt is on Midodrine, change holding parameters to holding more than 130.
# Anemia-Iron deficiency noted. IV iron
# Constipation- Bowel regimen ordered.
# Mild hyponatremia-follow
# Hyperkalemia-status post Lokelma. Better
# Diabetes with neuropathy
OP-Continue insulin 70/30 -
DC standing pre-meal due to instability of renal function, oral intake
c/w ISS
Hemoglobin A1c was 8.7 on 09/09/2023
# Coronary artery disease-multivessel CAD
Continue Brilinta, BB, Imdur, hold atorvastatin
# Acute on chronic heart failure with reduced ejection fraction-EF 25%
Hold Farxiga , changed Imdur to 30 mg daily with borderline blood pressure
Restart low dose metoprolol to avoid tachycardia
On Midodrine , Imdur
# History of MitraClip placement for severe MR 09/08/2023
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
# History of infective endocarditis April 2023
# Hyperlipidemia-hold atorvastatin- elevated LFTS
# Anxiety-Ativan 1 mg p.o. twice daily as needed
# Peripheral vascular disease, was on Xarelto 2.5 mg p.o. twice daily (Hold for possible surgery)
History of left second and fifth toe amputation
# Cognitive Dysfunction
# DVT prophylaxis-MAHESH
# CODE STATUS-Full
Total time spent to see the patient, examine the patient on the floor, review data and lab results, discuss treatment plan with patient, nursing staff around 55 minutes.
Anticipated Discharge: > 48 hours
Subjective/Interval History
-
Date of Service: November 01, 2023
Patient is asking for oxycodone
No chest pain
No sob
Objective Data
-
Labs:
Laboratory Results
11/01/23
09:00
WBC 21.5 H
Hgb 9.6 L
Hct 28.6 L
Plt Count 255
Sodium Pending
Potassium Pending
Chloride Pending
Carbon Dioxide Pending
BUN Pending
Creatinine Pending
Glucose Pending
Calcium Pending
Total Bilirubin Pending
AST Pending
ALT Pending
Alkaline Phosphatase Pending
Vital Signs:
Vital Signs
Temp Pulse Resp BP Pulse Ox
98.4 F 92 20 115/64 96
11/01/23 07:30 11/01/23 07:30 11/01/23 07:30 11/01/23 07:30 11/01/23 07:30
I&O
10/31/23 11/01/23 11/02/23
06:59 06:59 06:59
Intake Total 960 / 960 1070 / 1070
Output Total 1850 / 1850 400 / 400 325 / 325
Balance -890 / -890 670 / 670 -325 / -325
--- NOTE | 2023-11-01 11:33 | W.PN.ID1 ---
Date of Service
Date of Service: November 01, 2023
Today's Communication
Replace meropenem with Zosyn.
Assessment / Plan
# Right first hallux/MT gas gangrene, abscess, and suspected osteomyelitis
# RLE PAD
# Leukocytosis - trending up
# LISA continues to worsen
- MRI foot wo contrast: medial hallux sesamoid bone marrow edema; + soft tissue gas and loculated fluid in medial soft tissue
- 8/ s/p OR drainage of abscess 5 cc pus. Gram stain: Enterococcus; Morganella
- Replace meropenem with Zosyn, renally adjusted
- Arteriogram on hold due to LISA
-Prognosis guarded
# Elevated LFT's present on admission
- trending down
# Acute on chronic CHF
# Poorly controlled DM
# Additional Past Medical History:
Diabetes mellitus
CAD - severe not amenable to PCI/CABG
Large MV echodensity (03/17/2023) s/p 6 weeks of empiric Vanco/ceftriaxone.
Ischemic cardiomyopathy s/p BIV-ICD placement 08/03/23
Severe mitral regurgitation s/p SJ and MitraClip 09/08/23
Hypertension
PAD
bilateral carotid stenosis
Anxiety
COPD
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
osteo status post left fifth toe amputation
Chief Complaint
-: Other (Right Foot abscess)
Vital Signs / Physical Exam
Vital Signs
Vital Signs
Temp Pulse Resp BP Pulse Ox
98.4 F 92 20 115/64 96
11/01/23 07:30 11/01/23 07:30 11/01/23 07:30 11/01/23 07:30 11/01/23 07:30
Physical Exam
Constitutional: Acutely Ill
Pulmonary: Rales
Gastrointestinal: Soft, Non Tender and Non Distended
Objective Data
Lab Data
Lab Results
11/01/23 09:00
PT 20.3 Sec (11.4-14.6) H 10/31/23 06:47
INR 1.75 10/31/23 06:47
Estimated Creat Clear 23 ml/min 10/31/23 06:47
Lactic Acid 1.7 mmol/L (0.7-2.0) 10/25/23 13:47
Total Bilirubin 2.9 mg/dl (0.2-1.3) H 10/31/23 06:47
AST 463 U/L (17-59) H 10/31/23 06:47
ALT 350 U/L (0-50) H 10/31/23 06:47
Alkaline Phosphatase 453 U/L (38-126) H 10/31/23 06:47
Most recent labs reviewed.
Micro Results:
10/28/23 19:41 Anaerobic Culture - Preliminary
Foot - Right Culture pending. Anaerobic cultures are examined after 3
days incubation. Additional information to follow.
10/28/23 19:41 Wound Culture - Preliminary
Foot - Right Morganella morganii
Enterococcus faecalis
Gram Stain - Preliminary
10/25/23 13:47 Blood Culture - Final
Blood/Venous No Growth - Final Report
SPEC #: [id number] BRUNA: 10/28/23
SOURCE: FOOT
SPDESC: Right
Organism 1 Morganella morganii
Organism 2 Enterococcus faecalis
M.MORGANII ENTFCL
M.I.C. RX M.I.C. RX
--------- --- --------- ---
Amoxicillin/Potas. Clavulanate >16/8 R
Ampicillin >16 R <=2 S
Ampicillin/Sulbactam >16/8 R
Aztreonam <=4 S
Cefazolin >16 R
Cefepime <=2 S
Ceftriaxone <=1 S
Ertapenem <=0.5 S
Ciprofloxacin <=0.25 S
Gentamicin <=2 S
Gentamicin Synergy Screen <=500 S
Meropenem <=1 S
Piperacillin/Tazobactam <=8 S
Tetracycline <=4 S
Tobramycin <=2 S
Trimethoprim/Sulfamethoxazole <=2/38 S
10/28/23 RLE MRI WO contrast: Bone marrow edema in the bipartite medial hallux sesamoid. Differential considerations include sesamoiditis versus osteomyelitis given the proximity to the medial forefoot soft tissue infection. Soft tissue gas and
loculated fluid in the medial soft tissues most suggestive of an abscess, although evaluation is limited in the absence of intravenous contrast. No MRI evidence for osteomyelitis elsewhere in the forefoot or midfoot.
10/25/23 R Foot XRAY: Moderate soft tissue emphysema medial and plantar to the 1st MTP joint and 1st metatarsal shaft with surrounding soft tissue edema consistent with SEVERE ACUTE SOFT TISSUE INFECTION with necrosis and possibly soft tissue abscess.
[2023-11-01 11:39] LABS: ALT (SGPT) 385 U/L (0-50); AST (SGOT) 605 U/L (17-59); Albumin 2.9 g/dl (3.5-5.0); Alkaline Phosphatase 502 U/L (38-126); Blood Urea Nitrogen 98 mg/dl (9-20); Calcium 8.6 mg/dl (8.4-10.2); Carbon Dioxide 19 mmol/L (22-30); Chloride 97 mmol/L (98-107); Estimated Creatinine Clearance 17 ml/min; Glucose 136 mg/dl (70-99); Potassium 4.4 mmol/L (3.5-5.1); Sodium 130 mmol/L (135-145); Total Bilirubin 2.7 mg/dl (0.2-1.3); Total Protein 6.1 g/dl (6.3-8.2); eGFR 16.77
[2023-11-01] MEDS: LASIX 80 MG IV (12:06)
[2023-11-01 12:10] LABS: Glucose - Point of Care 108 mg/dl (70-99)
[2023-11-01] MEDS: NOVOLOG FLEXPEN-LOW RESISTANCE SC ×2 (12:14→17:44)
[2023-11-01] MEDS: ProAmatine PO (12:18)
[2023-11-01] MEDS: ZOSYN 50 IV ×2 (12:19→20:00)
[2023-11-01] MEDS: FERRLECIT 110 MG IV (14:11)
--- NOTE | 2023-11-01 14:53 | W.PN.NEPH.PH ---
Today's Communication / Plan
-
- continue lasix 80IV TID
Assessment/Plan
-
Assessment:
Diabetic foot ulcer with cellulitis on the right foot
Hyperkalemia
Elevated LFTs
LISA on Chronic kidney disease stage 3
Anemia-iron deficiency
Mild hyponatremia
Coronary artery disease-multivessel CAD
Chronic heart failure with reduced ejection fraction-EF 25%
History of MitraClip placement for severe MR 09/08/2023
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
History of infective endocarditis April 2023
Hyperlipidemia
Diabetes with neuropathy
Anxiety
Peripheral vascular disease on Xarelto 2.5 mg p.o. twice daily
History of left second and fifth toe amputation
Cognitive dysfunction
Plan:
A/w with worsening right foot wound
Creatinine up to 3.6 and urine output dropping off slightly
LISA with CKD 3b, UA with mild microhematuria on AC, follow bladder scan
US with out hydro, U na is low suggest prerenal, UPCR low
Hemodynamically stable
only on abx for 2days so less likely AIN, urine eosinophils negative
Continue to hold SGLTI
avoid nephrotoxins and hypotension
held IVF, continuing lasix TID but LFTs continue to rise (congestive hepatopathy) and CXR with pulm edema
would appreciate cardiology input re: RHC and inotropic support
I suspect he has underlying evolving cardiorenal syndrome and may require inotropic support if aggressive care is to be pursued
abx dose renally per ID
low A gap met acidosis-mixed acid base, starte on po bicarb per primary
follow labs
would wait for cr stabilization prior angiogram
Patient at high clinical risk with worsening renal failure
Discussed case with daughter, patient and primary team
-
-
Date of Service: November 01, 2023
CC / HPI / ROS
-
Chief Complaint:
LISA
History of Present Illness:
Cr baseline 1.6-1.9, increased to 3.6 now
BPs now stable
LFTs up
Review of Systems:
no sob
no cp
urine output intermittent
Weight up
Labs
-
Labs:
WBC 21.5 10^3/uL (4.8-10.8) H 11/01/23 09:00
RBC 3.70 10^6/uL (4.70-6.10) L 11/01/23 09:00
Hgb 9.6 g/dL (13.0-18.0) L 11/01/23 09:00
Hct 28.6 % (39.0-52.0) L 11/01/23 09:00
Plt Count 255 10^3/uL (130-400) 11/01/23 09:00
Sodium 130 mmol/L (135-145) L 11/01/23 09:00
Potassium 4.4 mmol/L (3.5-5.1) 11/01/23 09:00
Chloride 97 mmol/L (98-107) L 11/01/23 09:00
Carbon Dioxide 19 mmol/L (22-30) L 11/01/23 09:00
BUN 98 mg/dl (9-20) H 11/01/23 09:00
Creatinine 3.6 mg/dL (0.7-1.3) H 11/01/23 09:00
eGFR 16.77 11/01/23 09:00
Glucose 136 mg/dl (70-99) H 11/01/23 09:00
Calcium 8.6 mg/dl (8.4-10.2) 11/01/23 09:00
Gms-L-Mpiqiplefyt Pept > 05986 pg/ml 10/28/23 07:49
Albumin 2.9 g/dl (3.5-5.0) L 11/01/23 09:00
Physical Exam
-
Vital Signs:
Vital Signs
Temp Pulse Resp BP Pulse Ox
97.7 F 92 16 141/65 99
11/01/23 11:20 11/01/23 12:06 11/01/23 11:20 11/01/23 12:18 11/01/23 11:20
Cardiovascular:: Regular rate and rhythm
Respiratory:: Bilateral: Coarse
Lung Excursion:: Normal
Abdomen:: Nontender and Soft
Bowel Sounds:: Normal
Extremity Edema:: +1: Bilateral:
[place] Catheter: No
--- NOTE | 2023-11-01 15:27 | W.PN.CD ---
Today's Communication / Plan
-
Right heart catheterization today
Hold diuretics for now
His daughter was at the bedside and the outcome of possible inotropic support was discussed
Impression / Plan
-
Impression/Plan: 78M with IDDM, HTN, HLD, CAD leading to [facility] with PASSENGER INTERLINE CLERK�D and severe, degenerative MR with recurrent HFrEF admissions s/p MitraClip (09/08/2023), now admitted with right foot infection pending amputation. Cardiology was asked to
comment on risk assessment.
Woods Superintendent: Dr. Case
Lead Java Programmer: Dr. Sky
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
-Furosemide 80mg IV TID with rising creatinine, worsened hyponatremia, and rising LFTs (congestive hepatopathy)
-I/Os positive
-Avoid nephrotic agents
-RHC today
#Right Toe Osteomyelitis
-Persistent leukocytosis
-Status-post debridement on 10/28/2023.
-Continue management/antibiotics as per podiatry/ID.
#Cardiac risk assessment for right toe amputation - Assessment performed 10/28/2023
-NSQIP perioperative risk = 3.4%.
-RCRI class IV (ischemic heart disease, CHF history, IDDM, prior creatinine > 2.0).
-The patient has known, severe coronary artery disease that is NOT amenable to intervention.
-No anginal complaints.
-His surgical risk is relatively high, but there is no other testing/medication/intervention that will lower the risk any further than it already is, and surgery is necessary for continued survival.
-He tolerated SJ (under general anesthesia) recently. Given the time under anesthesia required, this is a good prognostic indicator.
#Severe mitral valve regurgitation
-Stable status-post SJ with one XTW MitraClip (09/08/2023).
-30-day TTE showed peak/mean gradients of 11/5 mmHg.
#CAD
-Denies anginal chest pain.
-No interventions possible (percutaneous or surgical).
-Atorvastatin 40 mg daily ordered.
-Metoprolol succinate discontinued due to low blood pressure.
-On isosorbide mononitrate.
-On ticagrelor; Xarelto discontinued for procedure.
-Minimal troponin elevation is most likely secondary to chronic nonischemic myocardial injury secondary to CKD/CHF.
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
-Diuretic management as per nephrology.
-GDMT as hemodynamics will tolerate.
-SGLT2i: dapagliflozin 10 mg daily - on hold with LISA.
-Beta-marcus: Metoprolol succinate stopped due to low blood pressure.
-ACEi/ARB: Lisinopril caused cough.
-Sacubitril-valsartan: Caused hypotension.
-MRA: None as he has had issues with hyperkalemia.
-Diuretic: Lasix, as directed by Nephrology.
-PASSENGER INTERLINE CLERK-D: Implanted ([employer]). MRI compatible.
-Continue to trend daily weight, I/O.
#HTN
-Stable/controlled.
#HLD, chronic, stable, continue atorvastatin 40 mg daily, goal LDL < 55.
#Type 2 diabetes mellitus, HgbA1c 8.7%, per primary
Subjective/Interval History:
Worsening renal function with diuresis. Weight unchanged. Shortness of breath unchanged with diuresis.
DATA:
TTE, 10/08/2023:
CONCLUSIONS
Top normal LV size with severely reduced systolic function.
LVEF is 25% by Chambers's method of test.
Global diffuse hypokinesis.
Normal right ventricular size and function.
S/p Mitraclip with peak/mean gradients across the mitral valve are 11/5 mmHg.
Mild to moderate mitral regurgitation.
Estimated pulmonary artery pressure of 41 mmHg, assuming a right atrial
pressure of 3 mmHg.
Compared to prior from September 09, 2023, on preo-to-snis comparison LVEF is now
severely reduced now with ejection fraction of 25% from 40%.
Foot XR, 10/25/2023:
IMPRESSION:
1. Moderate soft tissue emphysema medial and plantar to the 1st MTP joint and 1st metatarsal shaft with surrounding soft tissue edema consistent with SEVERE ACUTE SOFT TISSUE INFECTION with necrosis and possibly soft tissue abscess.
2. No radiographic evidence for acute osteomyelitis.
3. Severe peripheral arterial calcific atherosclerotic disease.
AUS, 10/26/2023:
IMPRESSION: Limited but unremarkable ultrasound of the abdomen.
CXR, 10/28/2023:
IMPRESSION:
As described, radiographic findings most suggestive of pulmonary edema, left greater than right. Differential consideration of bilateral interstitial pneumonitis, left greater than right.
Physical Exam
Vital Signs/Labs
Vital Signs
Temp Pulse Resp BP Pulse Ox
97.7 F 92 16 141/65 99
11/01/23 11:20 11/01/23 12:06 11/01/23 11:20 11/01/23 12:18 11/01/23 11:20
10/31/23 11/01/23 11/02/23
06:59 06:59 06:59
Actual Weight 83.574 kg 83.631 kg
11/01/23 09:00
11/01/23 09:00
PT 20.3 Sec (11.4-14.6) H 10/31/23 06:47
INR 1.75 10/31/23 06:47
10/28/23
07:49
Zxo-W-Zsixbqmangw Pept > 40639
LAB Results
10/30/23 10/30/23
14:42 19:33
Troponin I 0.201 H* 0.221 H*
Physical Exam
Constitutional: No acute distress and Comfortable
EENT: Anicteric and Moist mucous membranes
Cardiovascular: Rhythm & rate is regular and S1S2 is normal
Respiratory: Labored respirations and Crackles Present
GI: Soft, Distention absent, Flat, Non tender and Normal bowel sounds
Neuro/Psych: AO x 3
Other: Skin (warm and dry; right foot bandaged)
Data Reviewed
-
Date of Service: November 01, 2023
--- NOTE | 2023-11-01 17:38 | PTCARENOTE ---
Received patient from Ibm Web[employer] Portal Developer s/p right heart cath. Right brachial vein dressing noted, CDI. VSS. Will continue to monitor.
[2023-11-01 17:44] LABS: Glucose - Point of Care 83 mg/dl (70-99)
[2023-11-01] MEDS: LIPITOR 40 MG PO (17:52)
--- NOTE | 2023-11-01 18:11 | ITS.CL.CATH ---
Photograph Mounter - Catheterization
Cardiac Catheterization
Procedure Report:
RIGHT HEART CATHETERIZATION
Date of Procedure: 11/01/2023
Referring: Leida Carcamo M.D.
INDICATION: Worsening renal failure, determination of volume status.
ACCESS:
5 Italian antecubital fossa.
CATHETERS:
5 Italian balloon wedge.
PROCEDURE:
An IV was placed by the nursing staff in the right antecubital fossa. The patient was prepped and draped in standard sterile fashion, including copious cleansing of the IV and IV site. The area around the IV was anesthetized with 1% lidocaine. A 5
Italian sheath was inserted into the basilic vein. A 5 Italian balloon wedge catheter was advanced through the sheath into the superior vena cava. An SVC oxygen saturation was drawn. The balloon wedge catheter was advanced into the pulmonary artery
and a pulmonary artery oxygen saturation was drawn. Arterial oxygen saturation was assumed from pulse oximetry. Cardiac output was calculated using the Darío equation. The PA, wedge, RV and RA pressures were measured on pullback. The balloon wedge
catheter was removed. The 5 Italian sheath was removed and manual pressure was held for hemostasis.
Weight (kg): 83.5
PA (s/d/x mmHg): 59/33/42
PCWP (a/v/x mmHg): 37/43/30
RV (s/x mmHg): 59/24
RA (a/v/x mmHg): 26/25/24
SVC SvO2 (%): 54.0
IVC SvO2 (%): Not obtained.
RA SvO2 (%): Not obtained.
RV SvO2 (%): Not obtained.
PA SvO2 (%): 59.1
SaO2 (%): 97.0 (assumed)
Hbg (g/dL): 9.3
Darío
CO (liters/minute): 5.15
CI (liters/minute/m2): 2.61
Thermodilution
CO (liters/minute): Not performed.
CI (liters/minute/m2): Not performed.
TPG (mmHg): 12
PVR (Walton Units): 2.33
AVO2 Difference (Volume %): 4.79
Radiation (mGy): 13.62
DAP (cm2.Gy): 1.8149
Fluoroscopy time (minutes): 1.3
CONCLUSION:
1. Severely elevated filling pressures (PCWP = 30 mmHg at 83.5 kg).
2. 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
3. Normal cardiac index.
RECOMMENDATIONS:
1. Expectant management after right heart catheterization via right antecubital approach.
2. Continue diuresis given severely elevated filling pressures.
Copy to: Leida Carcamo M.D., Johnson Barker D.O., Everett Case M.D.
Joel Sky D.O., [facility], FACP
[2023-11-01 20:16] LABS: Hepatitis B Surface Antigen Negative (Negative)
[2023-11-01 20:34] LABS: Hepatitis C Antibody Negative (Negative)
[2023-11-01 21:01] LABS: Glucose - Point of Care 95 mg/dl (70-99)
[2023-11-01 21:33] LABS: Glucose - Point of Care 90 mg/dl (70-99)
--- NOTE | 2023-11-01 21:36 | PTCARENOTE ---
Patient states 'I feel fuzzy, my sugar is low'. Accu check 90. Patient states 'that is too low for me'. House INTERNET E COMMERCE SPECIALIST notified with orders to hold scheduled dose of NPH. Snack and juice provided. Will continue to monitor.
[2023-11-01 23:54] LABS: Glucose - Point of Care 104 mg/dl (70-99)
[2023-11-02] VITALS (7 sets, daily range): BP systolic 105–121; BP diastolic 62–68; PULSE 86; O2SAT 98; BMI 28.3
[2023-11-02] MEDS: HEPARIN SC
[2023-11-02] MEDS: ZOFRAN 4 MG IV ×3 (00:27→18:39)
[2023-11-02 05:14] LABS: Glucose - Point of Care 159 mg/dl (70-99)
[2023-11-02] MEDS: ZOSYN 50 IV (05:16)
[2023-11-02] MEDS: CALAMINE LOTION 180 ML TOPICAL ×2 (05:38→09:16)
[2023-11-02 07:40] LABS: Glucose - Point of Care 148 mg/dl (70-99)
[2023-11-02] MEDS: NOVOLOG FLEXPEN-LOW RESISTANCE SC (09:05)
--- NOTE | 2023-11-02 09:05 | W.PN.ID1 ---
Addendum entered and electronically signed by Agnes Morrison MD 11/02/23 12:52:
I examined right foot with support staff Marquita. Right medial foot from distal hallux to distal arch open with tendon exposed. Distally, wound is necrotic, black, unhealthy tissue. Proximally, +granulation tissue. + sloughing skin.
Left foot: + vasculitic rash on sole and dorsum of foot.
Original Note:
Date of Service
Date of Service: November 02, 2023
Today's Communication
See below.
Assessment / Plan
# Rash - ?due to Zosyn
# Right first hallux/MT gas gangrene, abscess, and suspected osteomyelitis
# RLE PAD - not amenable to arteriogram due to LISA
# Leukocytosis - persists
# Acute on chronic CHF - RHC severe elevated filling pressure, moderate pulmonary hypertension
# Worsening - LISA
- MRI foot wo contrast: medial hallux sesamoid bone marrow edema; + soft tissue gas and loculated fluid in medial soft tissue
- 10/27 s/p OR drainage of abscess 5 cc pus. Gram stain: Enterococcus; Morganella
- Discussed with patient that elevated white count is due to foot gangrene.
IV antibiotics are not reaching his foot due to PAD.
If infection is not addressed with BKA, his condition can deteriorate further to severe sepsis.
Patient refuses amputation at this time. He wants more time to think about it.
-Zosyn (s/p 3 doses) discontinued due to rash. Of note, pt tolerated Zosyn in the past.
-Restart meropenem 500mg IV q12.
-Prognosis guarded
# Elevated LFT's present on admission
- Probably hepatic congestion
# Poorly controlled DM
# Additional Past Medical History:
Diabetes mellitus
CAD - severe not amenable to PCI/CABG
Large MV echodensity (03/17/2023) s/p 6 weeks of empiric Vanco/ceftriaxone.
Ischemic cardiomyopathy s/p BIV-ICD placement 08/03/23
Severe mitral regurgitation s/p SJ and MitraClip 09/08/23
Hypertension
PAD
bilateral carotid stenosis
Anxiety
COPD
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
osteo status post left fifth toe amputation
Chief Complaint
-: Other (Right Foot abscess)
Subjective / Review of Systems
Rash is not itchy - onset 10/30. + SOB
Vital Signs / Physical Exam
Vital Signs
Vital Signs
Temp Pulse Resp BP Pulse Ox
97.5 F 88 16 113/68 100
11/02/23 07:00 11/02/23 07:00 11/02/23 07:00 11/02/23 07:00 11/02/23 09:04
Physical Exam
Constitutional: No Acute Distress
Cardiovascular: Regular Rate and S1/S2
Pulmonary: Rales (bases)
Gastrointestinal: Soft, Non Tender, Non Distended and Normal Bowel Sounds
Extremities: Edema (RLE)
Skin: Rash (Macular rash on bilateral hands extending up forearm. )
Neurological: AO x 3
Psychological: Other (Down affect)
Objective Data
Lab Data
Lab Results
11/02/23 08:34
PT 20.3 Sec (11.4-14.6) H 10/31/23 06:47
INR 1.75 10/31/23 06:47
Estimated Creat Clear Cancelled 11/02/23 08:34
Lactic Acid 1.7 mmol/L (0.7-2.0) 10/25/23 13:47
Total Bilirubin 2.7 mg/dl (0.2-1.3) H 11/01/23 09:00
AST 605 U/L (17-59) H* 11/01/23 09:00
ALT 385 U/L (0-50) H 11/01/23 09:00
Alkaline Phosphatase 502 U/L (38-126) H 11/01/23 09:00
Most recent labs reviewed.
Micro Results:
10/28/23 19:41 Anaerobic Culture - Preliminary
Foot - Right Culture pending. Anaerobic cultures are examined after 3
days incubation. Additional information to follow.
10/28/23 19:41 Wound Culture - Preliminary
Foot - Right Morganella morganii
Enterococcus faecalis
Gram Stain - Preliminary
10/25/23 13:47 Blood Culture - Final
Blood/Venous No Growth - Final Report
SPEC #: [id number] BRUNA: 10/28/23
SOURCE: FOOT
SPDESC: Right
Organism 1 Morganella morganii
Organism 2 Enterococcus faecalis
M.MORGANII ENTFCL
M.I.C. RX M.I.C. RX
--------- --- --------- ---
Amoxicillin/Potas. Clavulanate >16/8 R
Ampicillin >16 R <=2 S
Ampicillin/Sulbactam >16/8 R
Aztreonam <=4 S
Cefazolin >16 R
Cefepime <=2 S
Ceftriaxone <=1 S
Ertapenem <=0.5 S
Ciprofloxacin <=0.25 S
Gentamicin <=2 S
Gentamicin Synergy Screen <=500 S
Meropenem <=1 S
Piperacillin/Tazobactam <=8 S
Tetracycline <=4 S
Tobramycin <=2 S
Trimethoprim/Sulfamethoxazole <=2/38 S
10/28/23 RLE MRI WO contrast: Bone marrow edema in the bipartite medial hallux sesamoid. Differential considerations include sesamoiditis versus osteomyelitis given the proximity to the medial forefoot soft tissue infection. Soft tissue gas and
loculated fluid in the medial soft tissues most suggestive of an abscess, although evaluation is limited in the absence of intravenous contrast. No MRI evidence for osteomyelitis elsewhere in the forefoot or midfoot.
10/25/23 R Foot XRAY: Moderate soft tissue emphysema medial and plantar to the 1st MTP joint and 1st metatarsal shaft with surrounding soft tissue edema consistent with SEVERE ACUTE SOFT TISSUE INFECTION with necrosis and possibly soft tissue abscess.
Care Review
Plan reviewed with: Physician (Dr. Mendez)
[2023-11-02 09:06] LABS: % Basophils 0.1 % (0-2); % Eosinophils 0.3 % (0-6); % Immature Granulocytes 0.9 % (0-0.5); % Lymphocytes 5.6 % (20.5-51.1); % Monocytes 7.2 % (1.7-9.3); % Neutrophils 85.9 % (42.2-75.2); Absolute Eosinophils 0.1 10^3/uL (0-0.7); Absolute Immature Granulocytes 0.2 10^3/uL (0-0.05); Absolute Monocytes 1.3 10^3/uL (0.1-0.6); Absolute Neutrophils 15.8 10^3/uL (1.4-6.5); Hematocrit 27.3 % (39.0-52.0); Hemoglobin 9.3 g/dL (13.0-18.0); Mean Corp Hgb Conc. 34.1 g/dL (33.0-37.0); Mean Corpuscular Hgb 26.1 pg (27.0-31.0); Mean Corpuscular Volume 76.7 fL (80.0-94.0); Mean Platelet Volume 11.6 fL (7.4-10.4); Nucleated Red Blood Cells % 0.3 % (-); Platelet Count 249 10^3/uL (130-400); Red Blood Cell Count 3.56 10^6/uL (4.70-6.10); White Blood Cell Count 18.4 10^3/uL (4.8-10.8)
[2023-11-02] MEDS: PROTONIX 40 MG PO (09:14)
[2023-11-02] MEDS: ProAmatine 5 MG PO ×3 (09:14→17:33)
[2023-11-02] MEDS: MIRALAX 17 GRAMS PO (09:14)
[2023-11-02] MEDS: SENOKOT 17.2 MG PO (09:15)
[2023-11-02] MEDS: SODIUM BICARBONATE 650 MG PO ×2 (09:15→20:11)
[2023-11-02] MEDS: COLACE 100 MG PO (09:15)
[2023-11-02] MEDS: TOPROL XL 12.5 MG PO (09:15)
[2023-11-02] MEDS: BRILINTA 90 MG PO ×2 (09:15→20:12)
[2023-11-02] MEDS: VITAMIN D3 (cholecalciferol) 125 MCG PO (09:15)
[2023-11-02] MEDS: IMDUR (EXTENDED RELEASE) 30 MG PO (09:15)
[2023-11-02] MEDS: HEPARIN 5000 UNITS SC ×3 (09:16→23:32)
--- NOTE | 2023-11-02 09:28 | W.PN.HOSP.TC ---
Addendum entered and electronically signed by Dayron Mendez MD 11/02/23 14:13:
Addendum
Blood work showed hyponatremia, hyperkalemia, metabolic acidosis, elevation of creatinine and blood urea nitrogen
Updated nephrology, appreciate help
Will continue to monitor
Repeat BMP later today
# Discussed with patient regarding amputation. He was made aware of potential complications including septic shock, DIC, vascular complication, . He reported he wanted more time to think and consider. He verbalized understanding to our
updates and potential complications he might be facing.
Patient reported that he would be agreeable to hemodialysis if needed.
End
Original Note:
Today's Communication/Plan
-
.
Assessment / Plan
Assessment / Plan
78-year-old male was sent from podiatry office for worsening swelling of the right foot. Started 1 month ago a ulcer on the toe . 1 Week ago had pain in the foot so sent to Podiatry. redness started 3 days ago. X-rays in the office possible osteo.
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
Cardiovascular system S1-S2 appreciated, systolic murmur at apex
Chest rales at bases.
Abdomen soft and nontender
Right foot - post surgery bandaged
LHJ-gcajy-awlof normal obtainable secondary to noncompressibility of the vessels. TBI mildly reduced 0.27 multiphasic waveforms, femoral total popliteal artery with a velocity elevation popliteal artery suggestive of possible more than 50%
stenosis. Monophasic infrapopliteal waveforms indicating infrapopliteal disease. Left lower extremity GODWIN 1.2 within normal limits. TBI also within normal limits.
MRI-bone marrow edema in the medial hallux
Sesamoiditis versus osteomyelitis. Soft tissue gas and loculated fluid within the soft tissues suggestive of an abscess
# Skin rash
concerning for Zosyn induced skin rash, mainly hand/wrist area ( right> left side)
Will hold Zosyn
Send for CBC with diff
Urine for eosinophil and protein
Check PT/INR
# Diabetic foot ulcer with cellulitis on the right foot
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
Ulcer for one month ,redness for 3 days SOLID PLASTERER
Seems treating/ healing the infection is not a possibility due to underlying PVD
Recommend strongly to proceed with amputation. Pt is requesting time to consider it.
OR cultures with Morganella and Enterococcus faecalis
GODWIN noted with infrapopliteal disease on the right side.
Vascular evaluated- plan for right lower extremity arteriogram and possible endovascular intervention when creatinine better
NWB right forefoot
10/28/23-S/P Incision and drainage of abscess 'Excision/removal of necrotic skin and soft tissue, right foot.Less than 5cc of purulence and less than 5cc of blood loss encountered. Prognosis for healing guarded.'
Likely vascular intervention Wednesday if creatinine is better, will hold Xarelto
# Elevated troponin-nonischemic myocardial injury likely secondary to CHF
s/p RHC on 10/31 that showed elevated pressure. Advancing diuretic therapy is challenging with ongoing LISA, rising creatinine
Await labs of today
#Nausea-Resolving
# Elevated LFTs-hold statin.
c/w ischemic liver, can not rule out medication side effects.
Also likely fluid overloaded and hepatic congestion
GI eval appreciated
Ultrasound unremarkable.
# LISA on Chronic kidney disease stage 3b
Likely Cardiorenal, can not rule out acute interstitial nephritis also
Bladder scan no retention
Lasix changed to TID, held since creatinine went up.
S/P RHC that showed elevated pressure but limitation to use diuretic
pt is on Midodrine, changed holding parameters to holding more than 130.
# Anemia-Iron deficiency noted. IV iron
# Constipation- Bowel regimen ordered.
# Mild hyponatremia-follow
# Hyperkalemia-status post Lokelma. Better
# Diabetes with neuropathy
OP-Continue insulin 70/30
Stopped standing pre-meal due to instability of renal function, oral intake
c/w ISS
Hemoglobin A1c was 8.7 on 09/09/2023
# Coronary artery disease-multivessel CAD
Continue Brilinta, BB, Imdur, hold atorvastatin
# Acute on chronic heart failure with reduced ejection fraction-EF 25%
Held Farxiga , changed Imdur to 30 mg daily with borderline blood pressure
Restarted low dose metoprolol to avoid tachycardia
On Midodrine , Imdur
# History of MitraClip placement for severe MR 09/08/2023
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
# History of infective endocarditis April 2023
# Hyperlipidemia-hold atorvastatin- elevated LFTS
# Anxiety-Ativan 1 mg p.o. twice daily as needed
# Peripheral vascular disease, was on Xarelto 2.5 mg p.o. twice daily (Hold for possible surgery)
History of left second and fifth toe amputation
# Cognitive Dysfunction
# DVT prophylaxis-MAHESH
# CODE STATUS-Full
Total time spent to see the patient, examine the patient on the floor, review data and lab results, discuss treatment plan with patient, daughter, nursing staff around 55 minutes.
Anticipated Discharge: > 48 hours
Subjective/Interval History
-
Date of Service: November 02, 2023
Reports vomiting over night
Objective Data
-
Labs:
Laboratory Results
11/02/23 11/02/23 11/02/23
06:21 08:34 08:34
WBC Cancelled
Hgb Cancelled
Hct Cancelled
Plt Count Cancelled
PT
INR
Sodium Cancelled Pending
Potassium Cancelled
Chloride
Carbon Dioxide
BUN
Creatinine
Glucose
Calcium
Total Bilirubin
AST
ALT
Alkaline Phosphatase
11/02/23 11/02/23 11/02/23
08:34 08:34 08:34
WBC
Hgb
Hct
Plt Count
PT
INR
Sodium
Potassium Pending
Chloride Cancelled Pending
Carbon Dioxide Cancelled Pending
BUN Cancelled
Creatinine
Glucose
Calcium
Total Bilirubin
AST
ALT
Alkaline Phosphatase
11/02/23 11/02/23 11/02/23
08:34 08:34 08:34
WBC
Hgb
Hct
Plt Count
PT
INR
Sodium
Potassium
Chloride
Carbon Dioxide
BUN Pending
Creatinine Cancelled Pending
Glucose Cancelled Pending
Calcium Cancelled
Total Bilirubin
AST
ALT
Alkaline Phosphatase
11/02/23 11/02/23 11/02/23
08:34 08:46 09:20
WBC 18.4 H
Hgb 9.3 L
Hct 27.3 L
Plt Count 249
PT Pending
INR Pending
Sodium
Potassium
Chloride
Carbon Dioxide
BUN
Creatinine
Glucose
Calcium Pending
Total Bilirubin Pending
AST Pending
ALT Pending
Alkaline Phosphatase Pending
Vital Signs:
Vital Signs
Temp Pulse Resp BP Pulse Ox
97.5 F 88 16 113/68 100
11/02/23 07:00 11/02/23 09:15 11/02/23 07:00 11/02/23 09:15 11/02/23 09:04
I&O
11/01/23 11/02/23 11/03/23
06:59 06:59 06:59
Intake Total 1070 / 1070 160 / 160
Output Total 400 / 400 325 / 325
Balance 670 / 670 -165 / -165
[2023-11-02] MEDS: FLUSH (NSS) 1 FLUSH IV ×4 (09:33→18:39)
[2023-11-02] MEDS: HUMULIN N KWIKPEN 24 UNITS SC (09:37)
--- NOTE | 2023-11-02 10:51 | W.PN.UPDATE ---
Update Note
Progress Note Update
I had a long conversation with Mr. Pantoja and his daughter Ann via telephone. He was scheduled for lower extremity arteriogram today as part of limb preservation efforts but yesterday evening required right heart cath and has increased
creatinine today. I explained my concern over additional dye administration which could lead to worsening kidney dysfunction and need for hemodialysis. I removed the dressing and evaluated his foot. Ischemic appearing tissue is present but there
is no odor or drainage. His right calf and ankle are edematous with pitting edema.
I explained that one option would be to move ahead with guillotine amputation of his foot in an effort to obtain source control if residual infection is felt to be driving or contributing to his current physiology. The technical aspects of this
procedure were discussed with him and his daughter in detail. The benefits and rationale for this approach were discussed with them in detail. At this point he is unwilling to proceed with lower extremity amputation and would like to wait another
few days before making a decision. I explained that if he has ongoing infection in his foot that is being inadequately treated this could lead to worsening systemic deterioration or possibly .
He is not willing to move forward with amputation. We will watch closely over the next several days. If his creatinine improves and nephrology feels it is safe to move forward with arteriogram we can do this later this week to see if there is any
possibility for revascularization and limb salvage so long as he is clinically stable. Otherwise can perform amputation if/when he and his daughter make a decision.
Please call with any clinical questions or concerns.
Marcel Soto III, MD
[facility] Vascular Surgery
[phone] (bfxo)
[2023-11-02 11:21] LABS: % Basophils 0.2 % (0-2); % Eosinophils 0.1 % (0-6); % Immature Granulocytes 1.1 % (0-0.5); % Lymphocytes 5.4 % (20.5-51.1); % Neutrophils 86.2 % (42.2-75.2); Absolute Immature Granulocytes 0.2 10^3/uL (0-0.05); Absolute Lymphocytes 1.1 10^3/uL (1.2-3.4); Absolute Monocytes 1.4 10^3/uL (0.1-0.6); Hemoglobin 9.9 g/dL (13.0-18.0); INR 1.32; Mean Corp Hgb Conc. 34.1 g/dL (33.0-37.0); Mean Corpuscular Hgb 25.3 pg (27.0-31.0); Mean Corpuscular Volume 74.2 fL (80.0-94.0); Mean Platelet Volume 11.7 fL (7.4-10.4); Nucleated Red Blood Cells % 0.3 % (-); PT 16.2 Sec (11.4-14.6); Platelet Count 247 10^3/uL (130-400); Red Blood Cell Count 3.91 10^6/uL (4.70-6.10); White Blood Cell Count 19.7 10^3/uL (4.8-10.8)
[2023-11-02 11:26] LABS: Body Fluid for Eosinophils No Eosinophils seen
[2023-11-02 11:44] LABS: ALT (SGPT) 321 U/L (0-50); AST (SGOT) 474 U/L (17-59); Albumin 3.2 g/dl (3.5-5.0); Alkaline Phosphatase 481 U/L (38-126); Blood Urea Nitrogen 106 mg/dl (9-20); Calcium 8.4 mg/dl (8.4-10.2); Carbon Dioxide 17 mmol/L (22-30); Chloride 96 mmol/L (98-107); Estimated Creatinine Clearance 15 ml/min; Glucose 138 mg/dl (70-99); Potassium 5.2 mmol/L (3.5-5.1); Sodium 129 mmol/L (135-145); Total Bilirubin 2.8 mg/dl (0.2-1.3); Total Protein 6.6 g/dl (6.3-8.2); eGFR 14.78
--- NOTE | 2023-11-02 12:12 | PN.CDI ---
Addendum entered and electronically signed by Dayron Mendez MD 11/02/23 12:41:
ATN -still being monitored/treated
Original Note:
CDI
- -
CDI:
Physician Documentation Request
Admit Date: 10/25/23 17:20
Dear Doctor,
Please review the following and provide your response in the progress notes.
Clinical Indicators:
Pt admitted with diabetic foot ulcer/infected foot wound /cellulitis RLE
Progress notes 10/26- 10/28, ' LISA on Chronic kidney disease stage 3...? ATN, Cardiorenal...'
Nephrology progress note 10/29-10/31, ' urine output intermittent..'
Update note Dr. Soto 11/01, ' He was scheduled for lower extremity arteriogram today as part of limb preservation efforts but yesterday evening required right heart cath and has increased creatinine today. I explained my concern over additional
dye administration which could lead to worsening kidney dysfunction and need for hemodialysis. '
GI consult, ' Prior to hypotension his liver enzymes were elevated which were more likely sepsis related and then postop likely a combination of sepsis plus hypotension. He did receive 2 doses of phenylephrine after the hypotension to help
compensate ..'
10/25/23 10/27/23 10/29/23
12:25 08:13 08:21
Creatinine 1.6 H 2.3 H 2.6 H
10/31/23 11/01/23 11/02/23
06:47 09:00 10:46
Creatinine 2.7 H 3.6 H 4.0 H
Please provide the a status update for the Suspected ATN documented in progress notes 10/26-10/28:
ATN -still being monitored/treated
ATN resolved
ATN ruled out
Other (please specify)
Use of terms such as suspected, likely, concern for, or probable (associated with a specific diagnosis that is being evaluated, monitored, or treated as if it exists) are acceptable and can be coded in the inpatient setting, when documented at the
time of discharge.
Thank you,
Teresa Chow RN
CDI Specialist
[place] [employer]
Please use your independent medical judgment in providing your response.
*Source: Kidney Disease: Improving Global Outcomes (KDIGO) 2012
[2023-11-02] MEDS: MERREM 500 MG IV ×2 (12:19→23:33)
[2023-11-02] MEDS: STERILE WATER FOR INJECTION 10 ML IV ×2 (12:22→23:33)
[2023-11-02 12:33] LABS: Glucose - Point of Care 158 mg/dl (70-99)
[2023-11-02] MEDS: NOVOLOG FLEXPEN-LOW RESISTANCE 1 UNITS SC ×2 (12:35→18:40)
--- NOTE | 2023-11-02 13:12 | WOUNDNOTE ---
L PLANTAR FOOT AND TOES
--- NOTE | 2023-11-02 13:13 | WOUNDNOTE ---
R MEDIAL AND PLANTAR FOOT
--- NOTE | 2023-11-02 13:14 | WOUNDNOTE ---
R PLANTAR MEDIAL FOOT
--- NOTE | 2023-11-02 13:14 | WOUNDNOTE ---
FOREARMS WITH FLASH
--- NOTE | 2023-11-02 13:15 | WOUNDNOTE ---
WON RN NOTE: Followed up today with Dr. Morrison at bedside. Patient has new rash on L foot, hands and arms, does not itch and isn't painful reports patient. Reviewed vascular note, patient refusing amputation of R foot for now. R foot s/p debridement
by Dr. Vincent, necrotic tissue on edges, discoloration of skin and tendon exposed. Faint pedal pulse palpable. Skin surrounding surgical site peeling easily. Heels are intact. L plantar callus remains dry. L 3rd toe plantar with scant drainage, pink
base. Dressings changed, used Vashe moistened gauze to dry dressing with light lino wrap to secure on R foot. Dr. Morrison approved of dressing and will confirm with Dr. Vincent. Will follow along peripherally and assist as needed.
[2023-11-02] MEDS: FERRLECIT 110 MG IV (14:02)
--- NOTE | 2023-11-02 15:01 | W.PN.NEPH.PH ---
Today's Communication / Plan
-
- continue diuretics, obtain complement levels
- patient and family considering dialysis
Assessment/Plan
-
Assessment:
Diabetic foot ulcer with cellulitis on the right foot
Hyperkalemia
Elevated LFTs
LISA on Chronic kidney disease stage 3
Anemia-iron deficiency
Mild hyponatremia
Coronary artery disease-multivessel CAD
Chronic heart failure with reduced ejection fraction-EF 25%
History of MitraClip placement for severe MR 09/08/2023
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
History of infective endocarditis April 2023
Hyperlipidemia
Diabetes with neuropathy
Anxiety
Peripheral vascular disease on Xarelto 2.5 mg p.o. twice daily
History of left second and fifth toe amputation
Cognitive dysfunction
Plan:
A/w with worsening right foot wound
Creatinine up to 4.0 and urine output dropped off
LISA with CKD 3b, UA with mild microhematuria on AC, follow bladder scan
US with out hydro, U na is low suggest prerenal, UPCR low
Hemodynamically stable
only on abx for 2days so less likely AIN, urine eosinophils negative
RHC done yesterday with elevated filling pressures, continue lasix. appreciate cardiology input re: inotropic support.
I suspect he has underlying evolving cardiorenal syndrome and may require inotropic support if aggressive care is to be pursued
Another concern is that this could be an infectious GN (noted rash on hand). obtain complement levels
Continue to hold SGLTI
avoid nephrotoxins and hypotension
abx dose renally per ID
Noted mild hyponatremia and hypokalemia, on lasix
BKA refused by patient at this time
discussed at length with patient and daughter re: dialysis. they are not sure if this is how they want to proceed.
-
-
Date of Service: November 02, 2023
CC / HPI / ROS
-
Chief Complaint:
LISA
History of Present Illness:
Cr baseline 1.6-1.9, increased to 4 now
BPs now stable
LFTs up
Review of Systems:
no sob
no cp
urine output intermittent
Weight up
Labs
-
Labs:
WBC 19.7 10^3/uL (4.8-10.8) H 11/02/23 10:46
RBC 3.91 10^6/uL (4.70-6.10) L 11/02/23 10:46
Hgb 9.9 g/dL (13.0-18.0) L 11/02/23 10:46
Hct 29.0 % (39.0-52.0) L 11/02/23 10:46
Plt Count 247 10^3/uL (130-400) 11/02/23 10:46
eGFR 14.78 11/02/23 10:46
Eqq-Z-Lslravjrctc Pept > 46473 pg/ml 10/28/23 07:49
Albumin 3.2 g/dl (3.5-5.0) L 11/02/23 10:46
Physical Exam
-
Vital Signs:
Vital Signs
Temp Pulse Resp BP Pulse Ox
97.5 F 86 12 121/65 100
11/02/23 11:00 11/02/23 12:19 11/02/23 11:00 11/02/23 12:19 11/02/23 11:00
Cardiovascular:: Regular rate and rhythm
Respiratory:: Bilateral: Coarse
Lung Excursion:: Normal
Abdomen:: Nontender and Soft
Bowel Sounds:: Normal
Extremity Edema:: +1: Left: and None: Right: (wrapped)
Soto Catheter: No
--- NOTE | 2023-11-02 16:04 | PTCARENOTE ---
Pt AAO x3, forgetful at times; [employer]. Pt irritable/angry at times; yelling at staff; 'You are going to do whatever you want to do anyway!'. [place]; able to sit on edge of bed; stands with assist x2/NWB RLE; tires easily; legs weak. VSS. Telemetry-
V-paced rhythm. On nc 2 lpm- pulse ox 9%; no SOB noted; pt does not want to attempt weaning O2 at this time. Abd large, soft, appetite poor; pt occ c/o nausea- good effect from prn Zofran IV. Voids small amts dark hugo urine in urinal. Rt foot
dsg/ERICKA wrap intact; RLE elevated on pillows. Resting quietly at present. Will continue to monitor.
[2023-11-02 16:19] LABS: Glucose - Point of Care 157 mg/dl (70-99)
[2023-11-02] MEDS: LIPITOR 40 MG PO (17:33)
[2023-11-02 17:46] LABS: Blood Urea Nitrogen 105 mg/dl (9-20); Calcium 8.4 mg/dl (8.4-10.2); Carbon Dioxide 21 mmol/L (22-30); Chloride 94 mmol/L (98-107); Estimated Creatinine Clearance 14 ml/min; Glucose 138 mg/dl (70-99); Potassium 4.9 mmol/L (3.5-5.1); Sodium 129 mmol/L (135-145); eGFR 13.55
[2023-11-02 18:08] LABS: Urine Protein 28 mg/dl (0-12)
--- NOTE | 2023-11-02 18:10 | PTCARENOTE ---
Dr.s Mendez/Driss/Ozzie notified of pt's 5 PM lab results- BUN 105 Cr 4.3 Na+ 129 K+ 4.9 Cl 94 CO2 21.
[2023-11-02] MEDS: COLACE PO ×2 (20:12)
[2023-11-02] MEDS: SENOKOT PO ×2 (20:12)
[2023-11-02] MEDS: ROXICODONE 5 MG PO (20:12)
[2023-11-02 21:24] LABS: Glucose - Point of Care 140 mg/dl (70-99)
[2023-11-02] MEDS: LASIX 80 MG IV (21:39)
[2023-11-03 05:34] VITALS: BP 130/63
[2023-11-03 07:29] LABS: Glucose - Point of Care 107 mg/dl (70-99)
[2023-11-03 07:48] VITALS: BP 114/68
[2023-11-03 08:14] LABS: Hematocrit 29.1 % (39.0-52.0); Hemoglobin 9.8 g/dL (13.0-18.0); Mean Corp Hgb Conc. 33.7 g/dL (33.0-37.0); Mean Corpuscular Hgb 25.9 pg (27.0-31.0); Mean Platelet Volume 11.4 fL (7.4-10.4); Platelet Count 246 10^3/uL (130-400); Red Blood Cell Count 3.78 10^6/uL (4.70-6.10); White Blood Cell Count 18.3 10^3/uL (4.8-10.8)
[2023-11-03] MEDS: ZOFRAN 4 MG IV ×3 (08:16→20:38)
[2023-11-03] MEDS: NOVOLOG FLEXPEN-LOW RESISTANCE SC ×3 (08:27→16:38)
[2023-11-03] MEDS: MIRALAX PO (08:33)
[2023-11-03] MEDS: HUMULIN N KWIKPEN SC (08:33)
[2023-11-03] MEDS: COLACE PO ×2 (08:33→20:38)
[2023-11-03 09:16] LABS: ALT (SGPT) 299 U/L (0-50); AST (SGOT) 530 U/L (17-59); Alkaline Phosphatase 442 U/L (38-126); Blood Urea Nitrogen 110 mg/dl (9-20); Calcium 8.3 mg/dl (8.4-10.2); Carbon Dioxide 17 mmol/L (22-30); Chloride 95 mmol/L (98-107); Estimated Creatinine Clearance 13 ml/min; Glucose 96 mg/dl (70-99); Potassium 4.9 mmol/L (3.5-5.1); Sodium 130 mmol/L (135-145); Total Bilirubin 2.4 mg/dl (0.2-1.3); Total Protein 6.2 g/dl (6.3-8.2); eGFR 11.87
[2023-11-03] MEDS: ROXICODONE 5 MG PO (09:20)
[2023-11-03] MEDS: TOPROL XL 12.5 MG PO (09:21)
[2023-11-03] MEDS: SENOKOT PO ×2 (09:22→20:38)
[2023-11-03] MEDS: BRILINTA 90 MG PO ×2 (09:22→20:38)
[2023-11-03] MEDS: ProAmatine 5 MG PO ×2 (09:22→17:27)
[2023-11-03] MEDS: SODIUM BICARBONATE 650 MG PO ×2 (09:22→20:37)
[2023-11-03] MEDS: IMDUR (EXTENDED RELEASE) 30 MG PO (09:22)
[2023-11-03] MEDS: LASIX 80 MG IV ×3 (09:22→22:55)
[2023-11-03] MEDS: VITAMIN D3 (cholecalciferol) 125 MCG PO (09:22)
[2023-11-03] MEDS: HEPARIN 5000 UNITS SC ×3 (09:22→23:01)
[2023-11-03] MEDS: PROTONIX 40 MG PO (09:22)
--- NOTE | 2023-11-03 09:27 | W.PN.HOSP.TC ---
Today's Communication/Plan
-
F/w nephrology recommendations
Treat nausea
Ongoing necrotic foot wound infection.
Assessment / Plan
Assessment / Plan
Physical Exam
General: Awake, Alert, Oriented to surroundings. Chronically ill looking. No Distress and Nontoxic
HEENT: no deformities. Normal MM.
Respiratory: Limited, no wheezes.
Cardiac: S1/S2, Regular Rate/Rhythm and Murmur
Abdomen: Soft, Nontender and Nondistended
Musculoskeletal: Edema (rt leg 1+). Purpuric rash in upper extremities.
Skin: Warm. Purpuric rash noted.
Neuro: Nonfocal/Grossly Intact
Psych: Calm. No agitation.
78-year-old male was sent from podiatry office for worsening swelling of the right foot. Started 1 month ago a ulcer on the toe . 1 Week ago had pain in the foot so sent to Podiatry. redness started 3 days ago. X-rays in the office possible osteo.
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
ZRM-evgyn-snfyk normal obtainable secondary to noncompressibility of the vessels. TBI mildly reduced 0.27 multiphasic waveforms, femoral total popliteal artery with a velocity elevation popliteal artery suggestive of possible more than 50%
stenosis. Monophasic infrapopliteal waveforms indicating infrapopliteal disease. Left lower extremity GODWIN 1.2 within normal limits. TBI also within normal limits.
MRI-bone marrow edema in the medial hallux
Sesamoiditis versus osteomyelitis. Soft tissue gas and loculated fluid within the soft tissues suggestive of an abscess
# Purpuric skin rash, mainly in upper extremities, hands
Likely from ongoing infection in the foot. Patient was advised to get amputation but he continues to decline despite our recommendations.
We changed Abx.
+ Leukocytosis, normal platelet count.
Urine for eosinophil is negative. Positive protein in urine.
Elevated PT but lower than earlier / normal INR
# Diabetic foot ulcer with cellulitis on the right foot
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
Ulcer for one month ,redness for 3 days [employer] AD[employer]
Wound continues to be necrotic and not healthy looking due to underlying PVD
Recommend strongly to proceed with amputation. Pt is requesting time to consider it.
OR cultures with Morganella and Enterococcus faecalis
GODWIN noted with infrapopliteal disease on the right side.
Vascular evaluated- unable to do arteriogram and possible endovascular intervention due to renal failure.
NWB right forefoot
10/28/23-S/P Incision and drainage of abscess 'Excision/removal of necrotic skin and soft tissue, right foot.Less than 5cc of purulence and less than 5cc of blood loss encountered. Prognosis for healing guarded.' Podiatry recommended amputation and to
follow with vascular surgery.
# Elevated troponin-nonischemic myocardial injury likely secondary to CHF
s/p RHC on 10/31 that showed elevated pressure. Advancing diuretic therapy is challenging with ongoing LISA, rising creatinine
Await labs of today
#Nausea-Recurrent issue. PRN Zofran.
# Elevated LFTs-hold statin.
c/w ischemic liver, unlikely medication side effects.
GI eval appreciated
Ultrasound unremarkable.
# LISA on Chronic kidney disease stage 3b. Oligoric renal failure, Progressive renal dysfunction. Creatinine 4.8
Likely Cardiorenal, can not rule out acute interstitial nephritis also
Bladder scan no retention
Lasix changed to TID, held since creatinine went up.
S/P RHC that showed elevated pressure but limitation to use diuretic
pt is on Midodrine, changed holding parameters to holding more than 130.
# Anemia-Iron deficiency noted. IV iron. Finished course.
# Constipation- Bowel regimen ordered.
# Mild hyponatremia-
# Hyperkalemia-status post Lokelma.
# Diabetes with neuropathy
OP-Continue insulin 70/30
Stopped standing pre-meal due to instability of renal function, oral intake
c/w ISS
Hemoglobin A1c was 8.7 on 09/09/2023
# Coronary artery disease-multivessel CAD
Continue Brilinta, BB, Imdur, holding atorvastatin due to elevated liver enzymes.
# Acute on chronic heart failure with reduced ejection fraction-EF 25%
Held Farxiga , changed Imdur to 30 mg daily with borderline blood pressure
Restarted low dose metoprolol to avoid tachycardia
On Midodrine , Imdur
# History of MitraClip placement for severe MR 09/08/2023
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
# History of infective endocarditis April 2023
# Hyperlipidemia-hold atorvastatin- elevated LFTS
# Anxiety-Ativan 1 mg p.o. twice daily as needed
# Peripheral vascular disease, was on Xarelto 2.5 mg p.o. twice daily (Hold for possible surgery)
History of left second and fifth toe amputation
# Cognitive Dysfunction
# DVT prophylaxis-MAHESH
# CODE STATUS-Full
Total time spent to see the patient, examine the patient on the floor, review data and lab results, discuss treatment plan with patient, daughter, nursing staff around 57 minutes.
Anticipated Discharge: > 48 hours
Subjective/Interval History
-
Date of Service: November 03, 2023
Feels nausea this morning
Objective Data
-
Labs:
Laboratory Results
11/03/23
07:52
WBC 18.3 H
Hgb 9.8 L
Hct 29.1 L
Plt Count 246
Sodium 130 L
Potassium 4.9
Chloride 95 L
Carbon Dioxide 17 L
BUN 110 H*
Creatinine 4.8 H*
Glucose 96
Calcium 8.3 L
Total Bilirubin 2.4 H
AST 530 H*
ALT 299 H
Alkaline Phosphatase 442 H
Vital Signs:
Vital Signs
Temp Pulse Resp BP Pulse Ox
98 F 78 18 114/68 99
11/03/23 07:48 11/03/23 07:48 11/03/23 07:48 11/03/23 07:48 11/03/23 07:48
I&O
11/02/23 11/03/23 11/04/23
06:59 06:59 06:59
Intake Total 160 / 160 590 / 590
Output Total 325 / 325 460 / 460
Balance -165 / -165 130 / 130
[2023-11-03 09:38] VITALS: BMI 28.4
[2023-11-03 11:47] VITALS: BP 137/73
[2023-11-03 11:57] LABS: Glucose - Point of Care 107 mg/dl (70-99)
[2023-11-03] MEDS: ProAmatine PO (12:40)
[2023-11-03] MEDS: STERILE WATER FOR INJECTION 10 ML IV ×2 (12:50→23:01)
[2023-11-03] MEDS: MERREM 500 MG IV ×2 (12:50→23:01)
--- NOTE | 2023-11-03 12:51 | W.PN.POD ---
Today's Communication
Today's Communication
No interval improvement. No acute signs of infection, right foot.
Will defer to vascular surgery at this point.
Assessment / Plan
-
S/P 6 days Incision and drainage and excisional debridement of gas gangrene of the medial right foot.
Diabetes Mellitus, poorly controlled, with peripheral neuropathy
Acute on chronic heart failure with reduced ejection fraction-EF 25%
CAD
LISA/CKD stage 3b
PVD
Prior second and fifth toe amputations, left foot.
Dry necrosis of the forefoot and midfoot. Trace granulation proximally. No interval improvement.
No malodor or purulence encountered. No acute signs of infection. Cellulitis resolved.
Vashe wet to dry dressing applied.
Vascular note appreciated. The patient understands his treatment options.
Nothing more for podiatric surgery to do at this point. Will defer to vascular surgery.
Continue local wound care.
Patient to remain NWB, right foot.
Reconsult if necessary.
Subjective
Chief Complaint
S/P 6 days Incision and drainage of gas gangrene/abcess, medial right foot.
Subjective
Patient reports only transient pain in the foot, denies fever, chills or sweats.
Objective
Temp Pulse Resp BP Pulse Ox
98 F 75 18 137/73 98
11/03/23 11:47 11/03/23 11:47 11/03/23 11:47 11/03/23 12:40 11/03/23 11:47
11/03/23 07:52
11/03/23 07:52
Vital Signs and Lab results were reviewed.
Afebrile
Leukocytosis
CR 4.9
Wound culture: Morganella morganii, Enterococcus faecalis
The dressing is stained medially with serous fluid.
Deep wound extending from the great toe to the proximal midfoot, 15cm with exposed deep fascial layer. The first MTPJ area is hardening, drying out, and now blackened in appearance, no viability of the wound through the midfoot.
There is trace granular tissue along the proximal aspect of the wound, without any interval improvement. There is no malodor or active discharge from the wound detected. Cellulitis essentially resolved.
--- NOTE | 2023-11-03 13:21 | PN.CDI ---
Addendum entered and electronically signed by Dayron Mendez MD 11/03/23 13:48:
Sepsis- POA - Still being monitored treated
Original Note:
CDI
- -
CDI:
Physician Documentation Request
Admit Date: 10/25/23 17:20
Dear Doctor Andrea,
Please review the following and provide your response in the progress notes.
Clinical Indicators:
Pt admitted with diabetic foot ulcer/infected foot wound /cellulitis RLE /LISA on CKD 3 now with ATN
Documented per GI progress note 10/30 , ...' Mixed hepatocellular/cholestatic/hyperbilirubinemia injury: Likely multifactorial including sepsis initially upon arrival considering his blood work prior to this showed normal LFT pattern
+hypotension/statin. Prior to hypotension his liver enzymes were elevated which were more likely sepsis related and then postop likely a combination of sepsis plus hypotension. ...'
On admission WBC 16.3, HR 102 was on IV Zosyn now on Meropenem IV
Please update the Status of Sepsis documented by GI:
Sepsis- POA - Still being monitored treated
Systemic manifestations of infection, with 2 or more SIRS criteria which include:
- Fever >100.4 degrees F or hypothermia < 96.8 degrees F
- Leukocytosis - WBC > 12,000 or leukopenia - WBC < 4,000 or > 10% bands
- Tachycardia > 90 beats per minute
- Tachypnea - RR > 20 breaths per minute or PaCO2 , 32mmHg
Source: Merck Manual 2013
Sepsis NOT POA- Still being monitored treated
Sepsis -ruled out
Other
Use of terms such as suspected, likely, concern for, or probable (associated with a specific diagnosis that is being evaluated, monitored, or treated as if it exists) are acceptable and can be coded in the inpatient setting, when documented at the
time of discharge.
Thank you,
Teresa Chow RN
CDI Specialist
[facility]
Please use your independent medical judgment in providing your response.
--- NOTE | 2023-11-03 13:42 | W.PN.NEPH.PH ---
Today's Communication / Plan
-
Maintain IV diuretics follow labs
Awaiting decision from family
Assessment/Plan
-
Assessment:
Diabetic foot ulcer with cellulitis on the right foot
Hyperkalemia
Elevated LFTs
LISA on Chronic kidney disease stage 3
Anemia-iron deficiency
Mild hyponatremia
Coronary artery disease-multivessel CAD
Chronic heart failure with reduced ejection fraction-EF 25%
History of MitraClip placement for severe MR 09/08/2023
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
History of infective endocarditis April 2023
Hyperlipidemia
Diabetes with neuropathy
Anxiety
Peripheral vascular disease on Xarelto 2.5 mg p.o. twice daily
History of left second and fifth toe amputation
Cognitive dysfunction
Plan:
A/w with worsening right foot wound
Creatinine up to 4.8 and urine output dropped off to 460cc, weights
LISA with CKD 3b, UA with mild microhematuria on AC, follow bladder scan
US with out hydro, U na is low suggest prerenal, UPCR low
Hemodynamically stable
only on abx for 2days so less likely AIN, urine eosinophils negative
RHC done yesterday with elevated filling pressures, continue lasix. appreciate cardiology input re: inotropic support.
I suspect he has underlying evolving cardiorenal syndrome and may require inotropic support if aggressive care is to be pursued
Another concern is that this could be an infectious GN (noted rash on hand). obtain complement levels
Continue to hold SGLT2
avoid nephrotoxins and hypotension
abx dose renally per ID
Noted mild hyponatremia and hypokalemia, on lasix
BKA refused by patient at this time
I once again stressed the need for dialysis if aggressive care is to be pursued. I told him that it is evolving into a life-threatening situation. I was also quite candid that he may not be a suitable long-term dialysis patient given his profound
comorbidities. I also told him that if we are not allowed to move forward for treatment of his lower extremity then there is no point in pursuing dialysis. He once again stated that he wanted to discuss this with his daughter
Patient is at high clinical risk given worsening renal failure, requiring IV diuretics and dialysis discussion
-
-
Date of Service: November 03, 2023
CC / HPI / ROS
-
Chief Complaint:
LISA
History of Present Illness:
Cr baseline 1.6-1.9, increased to 4.8 and BUN of 110
BPs now stable
LFTs up
Review of Systems:
no sob
no cp
urine output intermittent
Weight up
Labs
-
Labs:
WBC 18.3 10^3/uL (4.8-10.8) H 11/03/23 07:52
RBC 3.78 10^6/uL (4.70-6.10) L 11/03/23 07:52
Hgb 9.8 g/dL (13.0-18.0) L 11/03/23 07:52
Hct 29.1 % (39.0-52.0) L 11/03/23 07:52
Plt Count 246 10^3/uL (130-400) 11/03/23 07:52
Sodium 130 mmol/L (135-145) L 11/03/23 07:52
Potassium 4.9 mmol/L (3.5-5.1) 11/03/23 07:52
Chloride 95 mmol/L (98-107) L 11/03/23 07:52
Carbon Dioxide 17 mmol/L (22-30) L 11/03/23 07:52
BUN 110 mg/dl (9-20) H* 11/03/23 07:52
Creatinine 4.8 mg/dL (0.7-1.3) H* 11/03/23 07:52
eGFR 11.87 11/03/23 07:52
Glucose 96 mg/dl (70-99) 11/03/23 07:52
Calcium 8.3 mg/dl (8.4-10.2) L 11/03/23 07:52
Zkn-U-Glstwxkcqdz Pept > 37423 pg/ml 10/28/23 07:49
Albumin 3.0 g/dl (3.5-5.0) L 11/03/23 07:52
Physical Exam
-
Vital Signs:
Vital Signs
Temp Pulse Resp BP Pulse Ox
98 F 75 18 137/73 98
11/03/23 11:47 11/03/23 11:47 11/03/23 11:47 11/03/23 12:40 11/03/23 11:47
Cardiovascular:: Regular rate and rhythm
Respiratory:: Bilateral: Coarse
Lung Excursion:: Normal
Abdomen:: Nontender and Soft
Bowel Sounds:: Normal
Extremity Edema:: +1: Left: and None: Right: (wrapped)
Soto Catheter: No
--- NOTE | 2023-11-03 14:10 | W.PN.ID1 ---
Date of Service
Date of Service: November 03, 2023
Today's Communication
Continue Meropenem.
Assessment / Plan
# Rash - vasculitic appearing; stable
# Right first hallux/MT gas gangrene, abscess
# RLE PAD - not amenable to angiogram at this time due to LISA
# Leukocytosis - persists
- MRI foot wo contrast: medial hallux sesamoid bone marrow edema; + soft tissue gas and loculated fluid in medial soft tissue
- / s/p OR drainage of abscess 5 cc pus. Gram stain: Enterococcus; Morganella
- elevated white count is due to PAD/ foot gangrene.
Foot wound is not improving and IV antibiotics are not reaching his foot due to PAD.
Patient refuses BKA at this time. He wants more time to think about it.
- Continue Meropenem 500mg IV q12 (d10 abx)
-Prognosis guarded
# Acute on chronic CHF - RHC severe elevated filling pressure, moderate pulmonary hypertension
# LISA due to cardio renal syndrome
- Continues to decline.
- approaching HD
# Elevated LFT's present on admission
- Probably hepatic congestion
# Poorly controlled DM
# Additional Past Medical History:
Diabetes mellitus
CAD - severe not amenable to PCI/CABG
Large MV echodensity (03/17/2023) s/p 6 weeks of empiric Vanco/ceftriaxone.
Ischemic cardiomyopathy s/p BIV-ICD placement 08/03/23
Severe mitral regurgitation s/p SJ and MitraClip 09/08/23
Hypertension
PAD
bilateral carotid stenosis
Anxiety
COPD
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
osteo status post left fifth toe amputation
Chief Complaint
-: Other (Right Foot abscess)
Subjective / Review of Systems
+ nausea earlier
Vital Signs / Physical Exam
Vital Signs
Vital Signs
Temp Pulse Resp BP Pulse Ox
98 F 75 18 137/73 98
11/03/23 11:47 11/03/23 11:47 11/03/23 11:47 11/03/23 12:40 11/03/23 11:47
Physical Exam
Constitutional: Acutely Ill
Cardiovascular: Regular Rate, S1/S2 and Other (LCW ICD no erythema)
Gastrointestinal: Soft, Non Tender and Non Distended
Extremities: Edema (BLE)
Skin: Rash (Stable macular vasculitic rash B/L hands to forearm, and left foot)
Objective Data
Lab Data
Lab Results
11/03/23 07:52
11/03/23 07:52
PT 16.2 Sec (11.4-14.6) H 11/02/23 10:46
INR 1.32 11/02/23 10:46
Estimated Creat Clear 13 ml/min 11/03/23 07:52
Lactic Acid 1.7 mmol/L (0.7-2.0) 10/25/23 13:47
Total Bilirubin 2.4 mg/dl (0.2-1.3) H 11/03/23 07:52
AST 530 U/L (17-59) H* 11/03/23 07:52
ALT 299 U/L (0-50) H 11/03/23 07:52
Alkaline Phosphatase 442 U/L (38-126) H 11/03/23 07:52
Most recent labs reviewed.
Micro Results:
10/28/23 19:41 Wound Culture - Final
Foot - Right Morganella morganii
Enterococcus faecalis
Gram Stain - Final
10/28/23 19:41 Anaerobic Culture - Final
Foot - Right Fusobacterium necrophorum
Finegoldia magna
10/25/23 13:47 Blood Culture - Final
Blood/Venous No Growth - Final Report
SPEC #: [id number] BRUNA: 10/28/23
SOURCE: FOOT
SPDESC: Right
Organism 1 Morganella morganii
Organism 2 Enterococcus faecalis
M.MORGANII ENTFCL
M.I.C. RX M.I.C. RX
--------- --- --------- ---
Amoxicillin/Potas. Clavulanate >16/8 R
Ampicillin >16 R <=2 S
Ampicillin/Sulbactam >16/8 R
Aztreonam <=4 S
Cefazolin >16 R
Cefepime <=2 S
Ceftriaxone <=1 S
Ertapenem <=0.5 S
Ciprofloxacin <=0.25 S
Gentamicin <=2 S
Gentamicin Synergy Screen <=500 S
Meropenem <=1 S
Piperacillin/Tazobactam <=8 S
Tetracycline <=4 S
Tobramycin <=2 S
Trimethoprim/Sulfamethoxazole <=2/38 S
10/28/23 RLE MRI WO contrast: Bone marrow edema in the bipartite medial hallux sesamoid. Differential considerations include sesamoiditis versus osteomyelitis given the proximity to the medial forefoot soft tissue infection. Soft tissue gas and
loculated fluid in the medial soft tissues most suggestive of an abscess, although evaluation is limited in the absence of intravenous contrast. No MRI evidence for osteomyelitis elsewhere in the forefoot or midfoot.
10/25/23 R Foot XRAY: Moderate soft tissue emphysema medial and plantar to the 1st MTP joint and 1st metatarsal shaft with surrounding soft tissue edema consistent with SEVERE ACUTE SOFT TISSUE INFECTION with necrosis and possibly soft tissue abscess.
--- NOTE | 2023-11-03 14:46 | CM ---
Patient seen bedside, remains on IV antibiotics. Patient to discuss treatment plans with daughter, awaiting decision. CM will continue to follow for all discharge planning needs.
Plan; awaiting next steps for treatment, discharge plans will depend upon decision. Referral previously made to [facility] for VN.
[2023-11-03 15:12] VITALS: BP 128/64
--- NOTE | 2023-11-03 15:43 | W.PN.CD ---
Addendum entered and electronically signed by Slick Carcamo MD 11/03/23 17:06:
I saw and examined the patient.
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
Comment: He is considering his options and wont commit to recommended amputation /- HD until d/w daughter. ON exam his lungs are cta, he has rrr, he has vasculitic appearing rash on his hands. 78M with IDDM, HTN, HLD, CAD leading to I[facility]O with SENIOR PATROL AGENT�D
and severe, degenerative MR with recurrent HFrEF admissions s/p MitraClip (09/08/2023) admitted with right foot infection that likely needs amputation. . He has progressive kidney failure. RHC showed volume overload with normal cardiac
index.Vasculitis w/u underway with nephrology. He is gaining weight with aggressive diuretic regimen. He is contemplating his goals for his care.
Original Note:
Today's Communication / Plan
-
-no changes to cardiac medicines at this time
-continued discussions with patient about options and goals
Impression / Plan
-
Impression/Plan: 78M with IDDM, HTN, HLD, CAD leading to ICMO with SENIOR PATROL AGENT�D and severe, degenerative MR with recurrent HFrEF admissions s/p MitraClip (09/08/2023) admitted with right foot infection.
Professor Of Environmental Studies: Dr. Case
Compressor Battery Pellets: Dr. Sky
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
-On furosemide 80mg IV TID with worsening creatinine- nephro following and discussing dialysis with patient
-RHC as below
RLE ulcer/infection:
-Status-post debridement on 10/28/2023.
-Continue management/antibiotics as per podiatry/ID.
-updated notes reviewed and at this time patient is declining amputation that is recommended. Vascular and podiatry have been following.
Severe mitral valve regurgitation
-Stable status-post SJ with one XTW MitraClip (09/08/2023).
-30-day TTE showed peak/mean gradients of 11/5 mmHg.
CAD
-Denies anginal chest pain.
-No interventions possible (percutaneous or surgical).
-Atorvastatin 40 mg daily ordered.
-Metoprolol succinate discontinued due to low blood pressure.
-On isosorbide mononitrate.
-On ticagrelor; low dose Xarelto discontinued for potential procedure.
-Minimal troponin elevation is most likely secondary to chronic nonischemic myocardial injury secondary to CKD/CHF.
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
-Diuretic management as per nephrology.
-GDMT as hemodynamics will tolerate.
-SGLT2i: dapagliflozin 10 mg daily - on hold with LISA.
-Beta-marcus: Metoprolol succinate stopped due to low blood pressure.
-ACEi/ARB: Lisinopril caused cough (and now patient with LISA)
-Sacubitril-valsartan: Caused hypotension (and now patient with LISA)
-MRA: None as he has had issues with hyperkalemia (and now patient with LISA)
-Diuretic: Lasix, as directed by Nephrology.
-SENIOR PATROL AGENT-D: Implanted ([employer]). MRI compatible.
-Continue to trend daily weight, I/O.
-RHC this admit: Severely elevated filling pressures (PCWP = 30 mmHg at 83.5 kg). 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 Normal cardiac index.
HTN
-Stable/controlled.
HLD, chronic, stable, continue atorvastatin 40 mg daily, goal LDL < 55.
Type 2 diabetes mellitus, HgbA1c 8.7%, per primary
Subjective/Interval History:
Patient tells me SOB a bit better
Denies CP
We discussed the seriousness of his diagnoses and I recommended proceeding with the amputation, and thinking about his overall goals here if not.
DATA:
TTE, 10/08/2023:
CONCLUSIONS
Top normal LV size with severely reduced systolic function.
LVEF is 25% by Chambers's method of test.
Global diffuse hypokinesis.
Normal right ventricular size and function.
S/p Mitraclip with peak/mean gradients across the mitral valve are 11/5 mmHg.
Mild to moderate mitral regurgitation.
Estimated pulmonary artery pressure of 41 mmHg, assuming a right atrial
pressure of 3 mmHg.
Compared to prior from September 09, 2023, on [id number]-[id number]-[id number] comparison LVEF is now
severely reduced now with ejection fraction of 25% from 40%.
Foot XR, 10/25/2023:
IMPRESSION:
1. Moderate soft tissue emphysema medial and plantar to the 1st MTP joint and 1st metatarsal shaft with surrounding soft tissue edema consistent with SEVERE ACUTE SOFT TISSUE INFECTION with necrosis and possibly soft tissue abscess.
2. No radiographic evidence for acute osteomyelitis.
3. Severe peripheral arterial calcific atherosclerotic disease.
AUS, 10/26/2023:
IMPRESSION: Limited but unremarkable ultrasound of the abdomen.
CXR, 10/28/2023:
IMPRESSION:
As described, radiographic findings most suggestive of pulmonary edema, left greater than right. Differential consideration of bilateral interstitial pneumonitis, left greater than right.
Physical Exam
Vital Signs/Labs
Vital Signs
Temp Pulse Resp BP Pulse Ox
98 F 76 18 128/64 98
11/03/23 15:12 11/03/23 15:12 11/03/23 15:12 11/03/23 15:12 11/03/23 15:12
11/02/23 11/03/23 11/04/23
06:59 06:59 06:59
Actual Weight 84.397 kg 84.64 kg
11/03/23 07:52
11/03/23 07:52
PT 16.2 Sec (11.4-14.6) H 11/02/23 10:46
INR 1.32 11/02/23 10:46
10/28/23
07:49
Iqd-J-Lmcdkmolmmk Pept > 14225
Physical Exam
Constitutional: No acute distress
EENT: Anicteric
Cardiovascular: Rhythm & rate is regular
Respiratory: Lungs clear to auscul. and Other (on O2 by NC)
Neuro/Psych: Alert and Oriented
Other: Other (rash noted)
Data Reviewed
-
Date of Service: November 03, 2023
EKG: Other (tele SR)
[2023-11-03 16:39] LABS: Glucose - Point of Care 106 mg/dl (70-99)
--- NOTE | 2023-11-03 17:59 | W.PN.UPDATE ---
Update Note
Progress Note Update
Addendum
I talked to daughter Ann over the phone, she was at work and could not come in today. She reported that patient agreed to amputation. She reported that patient was feeling scared and anxious about this decision but he had the mental capacity to
make decisions. I reached out to vascular surgery process control programmer, Dr Cordova. She will reach out to primary vascular team. For now, will make pt NPO for tomorrow, hold PM long acting insulin. Updated nursing staff.
End
--- NOTE | 2023-11-03 21:09 | PTCARENOTE ---
Patient refused 1999 Vital Signs. Patient educated on importance of VS. Patient still refused.
[2023-11-03 21:55] LABS: Glucose - Point of Care 100 mg/dl (70-99)
[2023-11-03] MEDS: ATIVAN 1 MG PO (23:48)
[2023-11-03 23:55] VITALS: BP 106/63
[2023-11-04] VITALS (7 sets, daily range): BP systolic 95–129; BP diastolic 33–98; BMI 28.4
[2023-11-04 00:04] LABS: Complement C3 80 mg/dl (88-165)
[2023-11-04] MEDS: ZOFRAN 4 MG IV (03:12)
--- NOTE | 2023-11-04 04:10 | PTCARENOTE ---
Patient had rectal temperature of 95.6 F. CLAY MILLER aware. Ordered Pedro Hugger. Goal temperature is 97 F. Patient educated on purpose of pedro hugger. Call pineda within reach.
[2023-11-04 05:55] LABS: Glucose - Point of Care 105 mg/dl (70-99)
[2023-11-04] MEDS: ATIVAN 1 MG PO (07:16)
[2023-11-04] MEDS: NOVOLOG FLEXPEN-LOW RESISTANCE SC (07:45)
--- NOTE | 2023-11-04 08:54 | W.PN.HOSP.TC ---
Today's Communication/Plan
-
Ok for diet today, plan to OR tomorrow
Hold 70/30 insulin due to poor oral intake
Await labs, holding Lasix pending labs ( oligoric urine output)
Assessment / Plan
Assessment / Plan
Physical Exam
General: Awake, Alert, Oriented to surroundings. Chronically ill looking. No Distress and Nontoxic
HEENT: no deformities. Normal MM.
Respiratory: Limited, no wheezes.
Cardiac: S1/S2, Regular Rate/Rhythm and Murmur
Abdomen: Soft, Nontender and Nondistended
Musculoskeletal: Edema (rt leg 1+). Purpuric rash in upper extremities.
Skin: Warm. Purpuric rash noted.
Neuro: Nonfocal/Grossly Intact
Psych: Calm. No agitation.
78-year-old male was sent from podiatry office for worsening swelling of the right foot. Started 1 month ago a ulcer on the toe . 1 Week ago had pain in the foot so sent to Podiatry. redness started 3 days ago. X-rays in the office possible osteo.
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
RYW-oodej-opzdu normal obtainable secondary to noncompressibility of the vessels. TBI mildly reduced 0.27 multiphasic waveforms, femoral total popliteal artery with a velocity elevation popliteal artery suggestive of possible more than 50%
stenosis. Monophasic infrapopliteal waveforms indicating infrapopliteal disease. Left lower extremity GODWIN 1.2 within normal limits. TBI also within normal limits. MRI-bone marrow edema in the medial hallux
Sesamoiditis versus osteomyelitis. Soft tissue gas and loculated fluid within the soft tissues suggestive of an abscess.
# LISA on Chronic kidney disease stage 3b. Oligoric renal failure, Progressive renal dysfunction. Creatinine 4.8
Likely Cardiorenal in setting of sepsis/ ongoing infection, can not rule out acute interstitial nephritis also
Bladder scan no retention
Lasix changed to TID.
S/P RHC that showed elevated pressure but limitation to use diuretic
pt is on Midodrine, changed holding parameters to holding more than 130.
patient and daughter agreed to proceed with HD if needed.
Appreciate nephrology help
# Purpuric skin rash, mainly in upper extremities, hands
Likely from ongoing infection in the foot. Patient was advised to get amputation, he seems to finally agree to do it.
We changed Abx.
+ Leukocytosis, normal platelet count.
Urine for eosinophil is negative. Positive protein in urine.
Elevated PT but lower than earlier / normal INR
# Diabetic foot ulcer with cellulitis on the right foot
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
Wound continues to be necrotic and not healthy looking due to underlying PVD
Recommend strongly to proceed with amputation. Pt declined that and requested time to consider it.
OR cultures with Morganella and Enterococcus faecalis
GODWIN noted with infrapopliteal disease on the right side.
Vascular evaluated- unable to do arteriogram and possible endovascular intervention due to renal failure.
NWB right forefoot
10/28/23-S/P Incision and drainage of abscess 'Excision/removal of necrotic skin and soft tissue, right foot.Less than 5cc of purulence and less than 5cc of blood loss encountered. Prognosis for healing guarded.' Podiatry recommended amputation and to
follow with vascular surgery.
# Elevated troponin-nonischemic myocardial injury likely secondary to CHF
s/p RHC on 10/31 that showed elevated pressure. Advancing diuretic therapy is challenging with ongoing LISA, rising creatinine
#Nausea-Recurrent issue. PRN Zofran.
# Elevated LFTs-hold statin.
c/w ischemic liver, unlikely medication side effects.
GI eval appreciated
Ultrasound unremarkable.
# Anemia-Iron deficiency noted. IV iron. Finished course.
# Constipation- Bowel regimen ordered.
# Mild hyponatremia-
# Hyperkalemia-status post Lokelma.
# Diabetes with neuropathy
OP-Continue insulin 70/30 , now with poor oral intake and ancipitate NPO status, holding 70/30 insulin
Stopped standing pre-meal also.
c/w ISS
Hemoglobin A1c was 8.7 on 09/09/2023
# Coronary artery disease-multivessel CAD
No chest pain, no worsening hypoxia.
Continue Brilinta, BB, Imdur, holding atorvastatin due to elevated liver enzymes.
# Acute on chronic heart failure with reduced ejection fraction-EF 25%
Held Farxiga , changed Imdur to 30 mg daily with borderline blood pressure
Restarted low dose metoprolol to avoid tachycardia
On Midodrine , Imdur
# History of MitraClip placement for severe MR 09/08/2023
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
# History of infective endocarditis April 2023
# Hyperlipidemia-hold atorvastatin- elevated LFTS
# Anxiety-Ativan 1 mg p.o. twice daily as needed
# Peripheral vascular disease, was on Xarelto 2.5 mg p.o. twice daily (Hold for possible surgery)
History of left second and fifth toe amputation
# Cognitive Dysfunction
# DVT prophylaxis-MAHESH
# CODE STATUS-Full
Total time spent to see the patient, examine the patient on the floor, review data and lab results, discuss treatment plan with patient, daughter, nursing staff around 57 minutes.
Anticipated Discharge: > 48 hours
Subjective/Interval History
-
Date of Service: November 04, 2023
No chest pain
No sob
Objective Data
-
Labs:
Laboratory Results
11/04/23
06:00
Sodium Pending
Potassium Pending
Chloride Pending
Carbon Dioxide Pending
BUN Pending
Creatinine Pending
Glucose Pending
Calcium Pending
Vital Signs:
Vital Signs
Temp Pulse Resp BP Pulse Ox
96.6 F L 70 24 129/98 100
11/04/23 08:33 11/04/23 07:46 11/04/23 07:46 11/04/23 07:55 11/04/23 07:46
I&O
11/03/23 11/04/23 11/05/23
06:59 06:59 06:59
Intake Total 590 / 590 1440 / 1440
Output Total 460 / 460 250 / 250
Balance 130 / 130 1190 / 1190
[2023-11-04 09:28] LABS: Glucose - Point of Care 89 mg/dl (70-99)
--- NOTE | 2023-11-04 09:30 | PTCARENOTE ---
In route to Rapid response, code 9 called. Code 9 in progress on arrival to pt. rm- see code 9 sheet; Dr. Mendez running code; Cardiology, Dr. Jefferson present as well. Pt. intubated by anesthesia w #8.0 ETT, 23 @ lip on R side. ROSC achieved.
Pt. transported w ASSISTANT WOMEN'S BASKETBALL COACH x2 and RT to ICU rm [id number]. Family notified by MD team and awaiting arrival.
--- NOTE | 2023-11-04 09:45 | W.PN.ANESINT ---
Anesthesia Intubation Note
- Intubation Note
Intubation Note:
Diagnosis:code 9
Blade: mac4
Tube Size:8.0ett
Depth: 22cm
Side Taped:right
Drugs Used:sux 80mgs
Grade View:I
EtCO2 Present:yes
Atraumatic:yes
Attempts: x1
Insertion Start and Stop Time:9:20-09:30
SaO2 Pre:?
SaO2 Post:
Glidescope Used:no
Other Airway Adjustments: none
Pre-Oxygenated:yes
Portable Chest X-Ray:
RSI:
Suctioned:
Bilateral Breath Sounds Confirmed: x5
Vent Settings:
Settings per ___Attending Physician
--- NOTE | 2023-11-04 09:52 | CON.INTV ---
Consultation
Consultation Request
Date/Time Consultation Requested: 11/04/2023944
Date/Time Consultation Performed: 11/04/2023946
Requesting Provider: Dr. Mendez
Performing Provider: Dr. Mo
Reason for Consultation: Cardiac arrest
Medical History
-
Chief Complaint: Right foot swelling/infection
History of Present Illness:
78-year-old male non-smoker with past medical history of CAD, HFrEF, mitral regurgitation, COPD, DM type II, PAD, CKD and history of infective endocarditis who presented with worsening swelling of right foot with concern for infection. 1 month
prior he had an ulcer on the toe and then this progressed with redness starting 3 days prior to arrival. He was admitted to the hospitalist service with infectious disease, vascular, podiatry, nephrology and cardiology consulted. He was diagnosed
with acute gas gangrene of the right foot and underwent I&D with excisional debridement of necrotic tissue on 10/28/2023. Unfortunately patient's kidney suffered LISA which continued to progress. IV Lasix started with CXR showing pulmonary edema. PO
bicarb supplementation was started as well. Right heart catheterization performed on 10/31 showed severely elevated filling pressures with PCWP of 30 mmHg with moderate pulmonary hypertension with PVR WNL at 2.33 Walton units. Tentative plan was to
bring patient to the OR for RLE amputation. Unfortunately this morning he suffered a PEA cardiac arrest, given 3 rounds of epinephrine, dextrose, calcium, bicarb, was intubated, obtained ROSC and transferred here to ICU. Critical care services
consulted for additional management/recommendations. When I saw the patient, BP was 116/69, HR 82, and SpO2 95% on 100% FiO2 via ETT on 24/450/100/5.
PMHx: Multivessel coronary artery disease, heart failure with reduced ejection fraction 25%, Severe mitral regurgitation, COPD, Diabetes, Peripheral artery disease, Anxiety, fatty liver, NSVT, hyperlipidemia, chronic kidney disease, Herniated disc,
Cognitive dysfunction, History of infective endocarditis and April 2023
PSHx:MitraClip procedure 09/09/2023, laser eye surgery, shoulder surgery, amputation of the second and fifth toe, surgery of the jaw
Past Medical History
Past Medical History: Other (above as per HPI)
Past Surgical History: Other (above as per HPI)
Social History
Tobacco: Non-smoker
Alcohol: None
Drug: None
Living: Alone
Family History
Family History: CAD (Father + mother) and Diabetes (Mother)
Allergies / Home Medications
Allergies
Allergy/AdvReac Type Severity Reaction Status Date / Time
daptomycin Allergy Pneumonitis/LISA/elev Verified 10/25/23 12:19
transaminases
Home Medications
�Medication �Instructions �Recorded �Confirmed �Last Taken �Type
cholecalciferol (vitamin D3) 125 125 mcg PO DAILY Supplement 12/18/22 10/25/23 10/24/23 History
mcg (5,000 unit) tablet (Vitamin
D3)
insulin aspar prot-insulin aspart 20 unit (0.2 mL) SC DAILY@1700 #15 03/31/23 10/25/23 10/24/23 Rx
100 unit/mL (70-30) subcutaneous mL
pen (Novolog Mix 70-30FlexPen
U-100)
atorvastatin 40 mg tablet 40 mg PO QPM High Cholesterol 04/06/23 10/25/23 10/24/23 History
pantoprazole 40 mg tablet,delayed 40 mg PO DAILY #30 tabs 04/14/23 10/25/23 10/24/23 Rx
release
isosorbide mononitrate 60 mg 60 mg PO DAILY #30 tabs 05/20/23 10/25/23 10/24/23 Rx
tablet,extended release 24 hr
dapagliflozin propanediol 10 mg 10 mg PO DAILY Diabetes/Heart 07/24/23 10/25/23 10/18/23 History
tablet (Farxiga) Failure
insulin aspar prot-insulin aspart 28 unit SC DAILY@0800 Diabetes 07/24/23 10/25/23 10/24/23 History
100 unit/mL (70-30) subcutaneous
pen (Novolog Mix 70-30FlexPen
U-100)
rivaroxaban 2.5 mg tablet (Xarelto) 2.5 mg PO BID Blood Clot 07/24/23 10/25/23 10/24/23 History
Prevention/Tx
ticagrelor 90 mg tablet (Brilinta) 90 mg PO BID Blood Clot 07/24/23 10/25/23 10/24/23 History
Prevention/Tx
furosemide 80 mg tablet 80 mg PO BID@0800,1600 30 days #60 08/05/23 10/25/23 10/18/23 Rx
tabs
docusate sodium 100 mg capsule 100 mg PO BID Constipation 10/25/23 10/25/23 10/24/23 History
(Colace)
lorazepam 1 mg tablet 1 mg PO BIDPRN PRN ANXIETY 10/25/23 10/25/23 Unknown History
metoprolol succinate 25 mg 25 mg PO DAILY Blood Pressure 10/25/23 10/25/23 10/24/23 History
tablet,extended release 24 hr
potassium chloride 20 mEq 20 meq PO DAILY Supplement 10/25/23 10/25/23 10/24/23 History
tablet,extended release
repaglinide 1 mg tablet 1 mg PO BID Diabetes 10/25/23 10/25/23 10/24/23 History
Review of Systems
-
Unable to Obtain full review of systems at this time due to: Acuity and Patient Intubation
Vitals / Labs / Diagnostic Testing
Vital Signs
Temp Pulse Resp BP Pulse Ox
96.6 F L 70 24 129/98 100
11/04/23 08:33 11/04/23 07:46 11/04/23 07:46 11/04/23 07:55 11/04/23 07:46
Lab Data
11/03/23 07:52
Microbiology
10/28/23 19:41 Foot - Right Wound Culture - Final
Morganella morganii
Enterococcus faecalis
10/28/23 19:41 Foot - Right Gram Stain - Final
10/28/23 19:41 Foot - Right Anaerobic Culture - Final
Fusobacterium necrophorum
Finegoldia magna
Diagnostic Testing:
Physical Exam
-
HEENT: Normocephalic, Anicteric and Other (ETT in place)
Cardiovascular: S1/S2 and Peripheral Edema (+2 RLE pitting edema; LLE with no edema)
Respiratory: Wheeze (Negative), Rales (Bilateral), Rhonchi (Negative), Non-Labored Respirations and Other (Mechanical breath sounds heard bilaterally)
GI: Soft, Non Distended, Non Tender and Normal Bowel Sounds
Neurology: Tremors (Negative) and Other (Not following commands)
Skin: Warm and Dry
General: Respiratory Distress (Negative), Chills (Negative) and Sweats (Negative)
Assessment
-
Assessment: 78-year-old male non-smoker with past medical history of CAD, HFrEF, mitral regurgitation, COPD, DM type II, PAD, CKD and history of infective endocarditis who presented with worsening swelling of right foot with concern for infection.
1 month prior he had an ulcer on the toe and then this progressed with redness starting 3 days prior to arrival. He was admitted to the hospitalist service with infectious disease, vascular, podiatry, nephrology and cardiology consulted. He was
diagnosed with acute gas gangrene of the right foot and underwent I&D with excisional debridement of necrotic tissue on 10/28/2023. Unfortunately patient's kidney suffered LISA which continued to progress. IV Lasix started with CXR showing pulmonary
edema. PO bicarb supplementation was started as well. Right heart catheterization performed on 10/31 showed severely elevated filling pressures with PCWP of 30 mmHg with moderate pulmonary hypertension with PVR WNL at 2.33 Walton units. Tentative
plan was to bring patient to the OR for RLE amputation. Unfortunately this morning he suffered a PEA cardiac arrest, given 3 rounds of epinephrine, dextrose, calcium, bicarb, was intubated, obtained ROSC and transferred here to ICU. Critical care
services consulted for additional management/recommendations. When I saw the patient, BP was 116/69, HR 82, and SpO2 95% on 100% FiO2 via ETT on 24/450/100/5.
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
disease, Herniated disc, Cognitive dysfunction, History of infective endocarditis and April 2023
Impression:
#In-hospital cardiac arrest due to metabolic acidosis in setting of LISA and sepsis from RLE necrotizing diabetic foot wound
#Acute respiratory failure with hypoxia on mechanical ventilation
#Acute decompensated heart failure/acute HFrEF (LVEF 25% via TTE from 10/08/2023)
#LISA on CKD (baseline Cr 1.3-1.4) with suspected uremia
#Metabolic acidosis with increased anion gap, due to worsening LISA
#Right foot diabetic foot wound with gas gangrene s/p I&D (10/28/2023)
#Anemia
#ICM with chronic systolic heart failure s/p single-lead AICD
#PVD s/p 2nd and 5th toe amputation of r-foot
#MV-CAD
#Severe MR s/p MitraClip (August 2023)
#DM type II with neuropathy
#Cognitive dysfunction
Plan:
- Patient suffered PEA cardiac arrest this morning with ROSC obtained after epi x3, bicarb, calcium and dextrose
- Patient has evidence of petechiae on hands and legs, suspicious for coagulopathy most likely related to uremia with platelet dysfunction
- It is reasonable to hold off on hypothermic protocol, and resume targeted temperature management to avoid fever with prn tylenol for any core temperature >37�C
- Patient portends poor prognosis with high likelihood of recurrent cardiac arrest
- Continue with mechanical ventilation and check blood gas immediately
- Optimize ventilation and he will likely need bicarb drip, although currently on PO bicarb for last 7 days
- Maintain SpO2 >94%
- prn nebulized bronchodilators
- Maintain MAP>65 (currently on midodrine)
- post-ROSC EKG without signs of STEMI
- Nephrology, cardiology, podiatry, ID and vascular surgery on board with recommendations appreciated
- Light sedation with goal RASS -1 to -2; prn fentanyl
- Transition PO meds to IV if needed
- Insert dobhoff tube
- Insert enciso for accurate I/O in this critically ill patient
- Continue aggressive diuresis as tolerated - currently on lasix 80mg IV TID
- ID on board - defer ABx to them - currently on meropenem
- Continue anti-platelet therapy - currently on brilinta
- Replete electrolytes with K>4, Mg>2
- Maintain euglycemia with goal BG 140-180
- DVT ppx: HSQ
- Poor prognosis - daughter is en route to hospital and goals of care to take place in the setting of necrotic right foot wound and worsening LISA with low likelihood of survival if patient suffers a recurrent cardiac arrest.
Critical care statement: A total of 47 minutes of critical care time was provided for this patient today. This includes management of unstable vital signs, evaluation of the patient at bedside, reviewing the patient's pertinent medical records
including radiographs, microbiology, laboratory evaluations, and discussion with primary team, consultants, pharmacy, nutrition, physical therapy, case management, charge nurse, critical care nursing, and respiratory therapy.
--- NOTE | 2023-11-04 10:00 | PTCARENOTE ---
Upon arrival to ICU, pt. unresponsive; nonreactive pupils b/l; does not respond to threat stimuli; involuntary spontaneous movements @ x's. AV paced on monitor w HR in 70's. BP 124/71. SpO2 97% on vent settings AC24/450/.100/+5. ETT #8.0, 23 @
lip on R side. Auscultated coarse/scattered rhonchi throughout b/l lung arteaga. Soto inserted per orders, draining cloudy hugo urine. Inc BM. R nare Dobbhoff inserted; secured w tape @ 60cm; placement confirmed w x-ray. Complete hygiene care
provided. # 20 JASVIR patent, dressing c/d/i. Bicarb gtt infusing via #20 L AC. Blood work drawn and sent to lab. Awaiting family to bedside. Safe environment maintained.
--- NOTE | 2023-11-04 10:06 | W.PN.UPDATE ---
Update Note
Progress Note Update
Called code for cardiopulmonary arrest
Arrived to seen
Patient was unresponsive, no pulses detected. and CPR started
Proceeded with CPR with 3 doses of epinephrine , sodium bicarbonate, calcium chloride, dextrose IV injections given.
restored circulation with HR around 106, Blood pressure , systolic at 130-140
Patient is intubated and secured airway provided
d/w passenger rate clerk at bed side.
Transferred to ICU
Plan was discussed with ICU doctor
Await labs, full panel is sent
Updated daughter.
Will follow
--- NOTE | 2023-11-04 10:12 | PTCARENOTE ---
At [address] Mendez of concerns with patient. Patient was restless. Pulse ox at that time was 100%. Also notified her of concern of hypothermia. Patient was on Bear Hugger. Temperature was going up and last rectal temp was 96.3. Goal temp of
97.0. Questioned lasix administration as patient's creatinine yesterday was 4.8. Patient with decreased urine output. As per Dr. Mendez, nephrology is managing. Told Dr. Mendez that I was holding lasix until his creatinine was resulted and then I
would contact nephrology for direction. Dr. Mendez was in agreement with this plan. Accu check this morning was 105. Dr. Mendez informed me that he would not be going to the OR today and that the plan was for surgery tomorrow. When I returned to
patient's room to administer his morning medication, I found that patient was using accessory muscles to breathe and was sallow. Patient was responsive but was having respiratory difficulty. I asked a staff member to call a rapid response. Patient
quickly deteriorated with two nurses at bedside in his breathing status - with slow breaths and becoming unresponsive. Code called at that time.
--- NOTE | 2023-11-04 10:27 | CM ---
Code called on patient this morning, transfer to ICU.
Plan; transfer to ICU, will depend on medical needs.
--- NOTE | 2023-11-04 10:30 | PTCARENOTE ---
Patient intubated and transferred to the ICU. Report given to FISHING TOOL OPERATOR.
[2023-11-04] MEDS: VITAMIN D3 (cholecalciferol) PO (10:32)
[2023-11-04] MEDS: ProAmatine PO (10:32)
[2023-11-04] MEDS: HEPARIN SC (10:33)
[2023-11-04] MEDS: MIRALAX PO (10:33)
[2023-11-04] MEDS: BRILINTA PO (10:33)
[2023-11-04] MEDS: COLACE PO (10:33)
[2023-11-04] MEDS: SODIUM BICARBONATE PO (10:34)
[2023-11-04] MEDS: IMDUR (EXTENDED RELEASE) PO (10:34)
[2023-11-04] MEDS: SENOKOT PO (10:34)
[2023-11-04] MEDS: LASIX IV (10:34)
[2023-11-04 10:41] LABS: Hematocrit 32.5 % (39.0-52.0); Hemoglobin 10.5 g/dL (13.0-18.0); Mean Corp Hgb Conc. 32.3 g/dL (33.0-37.0); Mean Corpuscular Hgb 26.3 pg (27.0-31.0); Mean Corpuscular Volume 81.5 fL (80.0-94.0); Mean Platelet Volume 12.9 fL (7.4-10.4); Platelet Count 279 10^3/uL (130-400); Red Blood Cell Count 3.99 10^6/uL (4.70-6.10); Red Cell Dist. Width 19.9 % (11.5-14.5); White Blood Cell Count 27.2 10^3/uL (4.8-10.8)
[2023-11-04 10:43] LABS: B.E. -22.6 mmol/L; O2 Saturation % 85.3 % (94-98); PCO2 41 mmHg (35-48); PO2 69 mmHg (83-108)
[2023-11-04 10:47] LABS: HCO3 8.8 mmol/L (21-28); pH 6.94 (7.35-7.45)
[2023-11-04 10:52] LABS: INR 2.11; PT 23.9 Sec (11.4-14.6)
[2023-11-04 10:53] LABS: APTT 47.6 Sec (23.4-35.0)
[2023-11-04] MEDS: SUBLIMAZE 50 MCG IV (10:59)
--- NOTE | 2023-11-04 11:00 | PTCARENOTE ---
Cardiac rhythm noted to be bradycardiac in AV pacing in 50's. Faint femoral pulse present w doppler; lost pulse @ 1043. CPR initiated and code 9 activated- see code 9 sheet. Daughter to bedside, decision made to stop CPR and transition to comfort
care. Code 9 stopped. Pain prn admin- see MAY. ETT and dobhoff removed. Hygiene care provided. Time of called by Dr. Mendez @ 1100. Family @ bedside. Emotional support provided.
[2023-11-04 11:07] LABS: Lactic Acid 13.2 mmol/L (0.7-2.0)
--- NOTE | 2023-11-04 11:11 | W.PN.CD ---
Today's Communication / Plan
-
See bold
Impression / Plan
-
Impression/Plan: 78M with IDDM, HTN, HLD, CAD leading to [facility] with PERFORMANCE IMPROVEMENT DIRECTOR�D and severe, degenerative MR with recurrent HFrEF admissions s/p MitraClip (09/08/2023) admitted with right foot infection.
Content Analyst: Dr. Case
Project Executive: Dr. Sky
PEA arrest
- patient was noted to have PEA arrest earlier in the day with CPR and multiple rounds of Epinephrine and ROSC achieved, he was then placed in ICU where he arrested again, labs notable for PH of 6.94, lactic acid of 13.2, he received CPR again and
ultimately daughter made decision to transition to comfort care.
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
-On furosemide 80mg IV TID with worsening creatinine- nephro following and discussing dialysis with patient
-RHC as below
RLE ulcer/infection:
-Status-post debridement on 10/28/2023.
-Continue management/antibiotics as per podiatry/ID.
-updated notes reviewed and at this time patient is declining amputation that is recommended. Vascular and podiatry have been following.
Severe mitral valve regurgitation
-Stable status-post SJ with one XTW MitraClip (09/08/2023).
-30-day TTE showed peak/mean gradients of 11/5 mmHg.
CAD
-Denies anginal chest pain.
-No interventions possible (percutaneous or surgical).
-Atorvastatin 40 mg daily ordered.
-Metoprolol succinate discontinued due to low blood pressure.
-On isosorbide mononitrate.
-On ticagrelor; low dose Xarelto discontinued for potential procedure.
-Minimal troponin elevation is most likely secondary to chronic nonischemic myocardial injury secondary to CKD/CHF.
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
-Diuretic management as per nephrology.
-GDMT as hemodynamics will tolerate.
-SGLT2i: dapagliflozin 10 mg daily - on hold with LISA.
-Beta-marcus: Metoprolol succinate stopped due to low blood pressure.
-ACEi/ARB: Lisinopril caused cough (and now patient with LISA)
-Sacubitril-valsartan: Caused hypotension (and now patient with LISA)
-MRA: None as he has had issues with hyperkalemia (and now patient with LISA)
-Diuretic: Lasix, as directed by Nephrology.
-PERFORMANCE IMPROVEMENT DIRECTOR-D: Implanted ([employer]). MRI compatible.
-Continue to trend daily weight, I/O.
-RHC this admit: Severely elevated filling pressures (PCWP = 30 mmHg at 83.5 kg). 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 Normal cardiac index.
HTN
-Stable/controlled.
HLD, chronic, stable, continue atorvastatin 40 mg daily, goal LDL < 55.
Type 2 diabetes mellitus, HgbA1c 8.7%, per primary
Subjective/Interval History:
Patient tells me SOB a bit better
Denies CP
We discussed the seriousness of his diagnoses and I recommended proceeding with the amputation, and thinking about his overall goals here if not.
DATA:
TTE, 10/08/2023:
CONCLUSIONS
Top normal LV size with severely reduced systolic function.
LVEF is 25% by Chambers's method of test.
Global diffuse hypokinesis.
Normal right ventricular size and function.
S/p Mitraclip with peak/mean gradients across the mitral valve are 11/5 mmHg.
Mild to moderate mitral regurgitation.
Estimated pulmonary artery pressure of 41 mmHg, assuming a right atrial
pressure of 3 mmHg.
Compared to prior from September 09, 2023, on [id number] comparison LVEF is now
severely reduced now with ejection fraction of 25% from 40%.
Foot XR, 10/25/2023:
IMPRESSION:
1. Moderate soft tissue emphysema medial and plantar to the 1st MTP joint and 1st metatarsal shaft with surrounding soft tissue edema consistent with SEVERE ACUTE SOFT TISSUE INFECTION with necrosis and possibly soft tissue abscess.
2. No radiographic evidence for acute osteomyelitis.
3. Severe peripheral arterial calcific atherosclerotic disease.
AUS, 10/26/2023:
IMPRESSION: Limited but unremarkable ultrasound of the abdomen.
CXR, 10/28/2023:
IMPRESSION:
As described, radiographic findings most suggestive of pulmonary edema, left greater than right. Differential consideration of bilateral interstitial pneumonitis, left greater than right.
Physical Exam
Vital Signs/Labs
Vital Signs
Temp Pulse Resp BP Pulse Ox
96.6 F L 70 24 129/98 96
11/04/23 08:33 11/04/23 07:46 11/04/23 07:46 11/04/23 07:55 11/04/23 10:05
11/03/23 11/04/23 11/05/23
06:59 06:59 06:59
Actual Weight 186 lb 1 oz 187 lb
11/04/23 10:26
PT 23.9 Sec (11.4-14.6) H 11/04/23 10:26
INR 2.11 11/04/23 10:26
APTT 47.6 Sec (23.4-35.0) H 11/04/23 10:26
Magnesium Cancelled 11/04/23 10:26
10/28/23
07:49
Csz-[id number] Pept > 61325
Physical Exam
Constitutional: Other (intubated )
EENT: Other (no pupillary response )
Respiratory: Other (intubated did not appear to breathe spontaneously )
Neuro/Psych: Other (intubated )
Other: Other (rash)
Data Reviewed
-
Date of Service: November 04, 2023
Medical Decision Making: Reviewed Test Results
Labs: Labs Reviewed by me and Other (discussed with physicians and nursing/code team )
Critical Care Time (in minutes): at least 31 total mins
--- NOTE | 2023-11-04 11:11 | W.PN.UPDATE ---
Update Note
Progress Note Update
Shortly thereafter he arrived to ICU, he began to harman down into the 50s and lost pulse. Code 9 called, CPR initiated. He was given multiple rounds of CPR with epi 1mg x4, bicarb 1 amp x1, and amio 150mgm IV x2. He was shocked x2 as well due to
concern for VT. Daughter arrived to bedside, very upset. She was told that her father has suffered another cardiac arrest with very low likelihood of recovery. Decision made to stop CPR and transition to comfort care. Code stopped, approximate
time of 11:00AM on 11/04/2023. Dr. Mendez present at bedside.
[2023-11-04] MEDS: PROTONIX PO (11:12)
[2023-11-04] MEDS: TOPROL XL PO (11:13)
--- NOTE | 2023-11-04 11:38 | W.PN.DEATH ---
Pronouncement of
-
Called to see patient to pronounce.
No spontaneous heart tones or respirations noted.
Patient not responsive to verbal stimuli.
Patient is pronounced .
Time of : 11:00
Date of : 11/04/23
Family Notified: Yes
--- NOTE | 2023-11-04 11:40 | W.DCSUMMARY ---
Discharge Summary
Discharge Data
Date of Admission: 10/25/23
Date of Discharge: 11/04/23
-
Pending Results: No
Hospital Course
78 years old male who presented with right foot infection that failed outpatient treatment. Patient had imaging study that showed moderate soft tissue emphysema medial and plantar to the 1st MTP joint and 1st metatarsal shaft with surrounding soft
tissue edema consistent with severe acute soft tissue infection with necrosis and soft tissue abscess. Patient was diagnosed with acute gangrenous infection of the right foot. He went to the OR for debridement by podiatry. Patient was followed by
infectious disease doctor. He received intravenous antibiotic. Blood culture did not show any growth. Patient had underlying chronic kidney disease. He presented with acute kidney injury on chronic kidney disease. His creatinine continued to
worsen despite treatment. He was followed by microwave supervisor. Medications were adjusted according to renal function. Last echocardiogram in September 2023 showed left ventricular ejection fraction of 25%. Patient was followed by communications department head. Patient
was status post MitraClip for severe Mitral disease with known ischemic cardiomyopathy. He received diuretic treatment, isosorbide mononitrate, statin therapy and Ticagrelor. Patient did not have angina. Patient was evaluated by vascular surgery
for abnormal vascular studies. Vascular surgery was planning to do arteriogram to improve chances of healing of the foot wound. Patient could not undergo contrast study because of continued and progressive renal failure. After debridement of the
wound, wound did not look healthy and was not healing. Podiatry doctor recommended vascular surgery to pursue amputation. Patient had long multiple discussions with multiple consultants including vascular surgery, infectious disease doctor,
cardiology, nephrology and medicine service about benefits and risks of doing amputation. Patient and his daughter verbalized understanding to the potential complications of continued and worsening infection including cardiovascular events,
sepsis, multiple organ failure and . Patient could not make decision about amputation and requested time to consider his options knowing that delay of care might result into negative and tremendous complications. Kidney function continued to
worsen with oliguric renal failure. Patient had right heart catheterization that showed elevated pressure. He did not respond to diuretic treatment. His blood pressure remained stable without hypotension. He continued to receive antibiotics. He
was noticed to have purpuric and vasculitic rash which thought to be secondary to ongoing infection of the foot. Platelets count remained stable. Antibiotic regimen was changed to make sure it was not related to medication side effects. Patient
suffered cardiopulmonary arrest, he had PEA arrest, he received multiple rounds of epinephrine and ROSC was achieved. He was placed in the ICU on ventilatory support. Upon arrival to the intensive care unit, he began to have bradycardia and lost
pulse. CPR was initiated and after multiple rounds of CPR and epinephrine with bicarbonate, amiodarone, he had shockable rhythm and he was shocked. Rhythm did not stabilize and he did not have stable blood pressure, ultimately daughter made
decision to transition to comfort care and stop CPR. Patient on 11/04/23.
Discharge Plan
-
Patient Disposition:
Date/Time
Date/Time: 11/04/23 11:00
Discharge Date and Time
Print Language: PORTUGUESE
--- NOTE | 2023-11-04 13:29 | PTCARENOTE ---
Post mortem care provided. #20 JASVIR and #20 L AC peripheral IV's removed. Soto catheter removed. Gift of lift notified. Pt. [facility] No further needs from this RN.
== END 2023-11-04 11:00 | disposition expired | DRG 853 ==
LOC: ICU 17:20
PROVIDERS: Emergency Medicine; Internal Medicine Cardiovascular Disease; Internal Medicine Gastroenterology; Physician Assistant; Student in an Organized Health Care Education/Training Program; ADMITTING PHYSICIAN Hospitalist; ATTENDING PHYSICIAN Internal Medicine; CONSULT PHYSICIAN Internal Medicine; CONSULT PHYSICIAN Internal Medicine Critical Care Medicine; CONSULT PHYSICIAN Podiatrist Foot & Ankle Surgery; CONSULT PHYSICIAN Surgery Vascular Surgery; EMERGENCY PHYSICIAN Emergency Medicine; FAMILY PHYSICIAN Family Medicine; OTHER PHYSICIAN Internal Medicine; OTHER PHYSICIAN Internal Medicine Infectious Disease
PROC: 0JBQ0ZZ Excision of Right Foot Subcutaneous Tissue and Fascia, Open Approach (ICD-10-PCS; 2023-10-28)
PROC: 0Y9M0ZZ Drainage of Right Foot, Open Approach (ICD-10-PCS; 2023-10-28)
PROC: B2141ZZ Fluoroscopy of Right Heart using Low Osmolar Contrast (ICD-10-PCS; 2023-11-01)
PROC: 4A023N6 Measurement of Cardiac Sampling and Pressure, Right Heart, Percutaneous Approach (ICD-10-PCS; 2023-11-01)
PROC: 3E033XZ Introduction of Vasopressor into Peripheral Vein, Percutaneous Approach (ICD-10-PCS; 2023-11-04)
PROC: 5A1935Z Respiratory Ventilation, Less than 24 Consecutive Hours (ICD-10-PCS; 2023-11-04)
PROC: 0BH17EZ Insertion of Endotracheal Airway into Trachea, Via Natural or Artificial Opening (ICD-10-PCS; 2023-11-04)
PROC: 5A12012 Performance of Cardiac Output, Single, Manual (ICD-10-PCS; 2023-11-04)
DX: A41.9 Sepsis, unspecified organism (principal); A48.0 Gas gangrene; I50.23 Acute on chronic systolic (congestive) heart failure; K72.00 Acute and subacute hepatic failure without coma; J96.01 Acute respiratory failure with hypoxia; N17.0 Acute kidney failure with tubular necrosis; L03.115 Cellulitis of right lower limb; I47.20 Ventricular tachycardia, unspecified; E11.52 Type 2 diabetes mellitus with diabetic peripheral angiopathy with gangrene; E87.1 Hypo-osmolality and hyponatremia; I13.0 Hypertensive heart and chronic kidney disease with heart failure and stage 1 through stage 4 chronic kidney disease, or unspecified chronic kidney disease; T79.7XXA Traumatic subcutaneous emphysema, initial encounter; E87.20 Acidosis, unspecified; M86.171 Other acute osteomyelitis, right ankle and foot; I5A Non-ischemic myocardial injury (non-traumatic); L02.611 Cutaneous abscess of right foot; E11.69 Type 2 diabetes mellitus with other specified complication; Z51.5 Encounter for palliative care; I46.8 Cardiac arrest due to other underlying condition; E11.622 Type 2 diabetes mellitus with other skin ulcer; I25.10 Atherosclerotic heart disease of native coronary artery without angina pectoris; I25.5 Ischemic cardiomyopathy; E78.00 Pure hypercholesterolemia, unspecified; E11.621 Type 2 diabetes mellitus with foot ulcer; J44.9 Chronic obstructive pulmonary disease, unspecified; E11.22 Type 2 diabetes mellitus with diabetic chronic kidney disease; E87.5 Hyperkalemia; D50.9 Iron deficiency anemia, unspecified; E11.40 Type 2 diabetes mellitus with diabetic neuropathy, unspecified; I65.23 Occlusion and stenosis of bilateral carotid arteries; L97.519 Non-pressure chronic ulcer of other part of right foot with unspecified severity; E11.65 Type 2 diabetes mellitus with hyperglycemia; I34.0 Nonrheumatic mitral (valve) insufficiency; N18.32 Chronic kidney disease, stage 3b; K76.0 Fatty (change of) liver, not elsewhere classified; R74.01 Elevation of levels of liver transaminase levels; I95.9 Hypotension, unspecified; D72.829 Elevated white blood cell count, unspecified; K59.00 Constipation, unspecified; R11.0 Nausea; F41.9 Anxiety disorder, unspecified; X58.XXXA Exposure to other specified factors, initial encounter; Y93.9 Activity, unspecified; Y92.9 Unspecified place or not applicable; I25.2 Old myocardial infarction; Z95.810 Presence of automatic (implantable) cardiac defibrillator; Z89.422 Acquired absence of other left toe(s); Z88.1 Allergy status to other antibiotic agents; Z95.2 Presence of prosthetic heart valve; Z79.4 Long term (current) use of insulin; Z83.3 Family history of diabetes mellitus; Z79.01 Long term (current) use of anticoagulants
CPT/HCPCS: 36600; 71045; 71046; 73630; 73718; 74019; 76700; 80048; 80053; 80202; 81003; 81015; 81099; 82248; 82570; 82607; 82728; 82805; 82962; 83540; 83550; 83605; 83880; 84156; 84300; 84484; 85025; 85027; 85610; 85730; 86160; 86705; 86708; 86709; 86803; 87040; 87070; 87075; 87076; 87077; 87185; 87186; 87205; 87340; 93005; 93451; 93922; 93925; 94002; 96365; 96366; 96375; 97162; 97166; 97530; 99285; C1894; J2916